=== PATIENT | female | born 1970 | race African-American/Black ===

== ENCOUNTER 2016-07-31 11:02 | Emergency (ER) | payer OTHER ==
[2016-07-31] MEDS ORDERED: Aspirin Low Dose CHEW TAB* 81 MG PO ONE (11:39)
[2016-07-31] MEDS ORDERED: NS 0.9% 1000 ML* 1,000 ML IV ONE (11:40)
[2016-07-31] MEDS ORDERED: LORazepam INJ* 2 MG/ML 1 ML VIAL IV PUSH ONE (11:40)
--- NOTE | 2016-07-31 12:16 | RAD ---
Indication: Chest pain. Single frontal view of the chest performed at 1150 hours was reviewed. Comparison is made with previous exam dated April 09, 2016. No mediastinal shift is noted. Heart is of normal size and configuration. Lung gottlieb appear clear. IMPRESSION: NO ACTIVE CARDIOPULMONARY DISEASE IS NOTED.
[2016-07-31 12:22] LABS: Hematocrit 39 % (35-47); Hemoglobin 13.2 g/dl (12.0-16.0); Mean Corpuscular HGB Conc 34 g/dl (31-36); Mean Corpuscular Hemoglobin 30 pg (27-31); Mean Corpuscular Volume 89 fL (80-97); Mean Platelet Volume 7 um3 (7.4-10.4); Red Blood Count 4.36 10^6/ul (4.0-5.4); Red Cell Distribution Width 14 % (10.5-15); White Blood Count 7.9 10^3/ul (3.5-10.8)
[2016-07-31 12:36] LABS: Albumin 3.9 g/dL (3.2-5.2); BUN/Creatinine Ratio 17.9 (8-20); Calcium 9.3 mg/dL (8.6-10.3); EGFR African American 121.3 (>60); EGFR Non-African American 94.3 (>60); Globulin 3.5 g/dL (2-4); Total Bilirubin 0.5 mg/dL (0.2-1.0); Total Protein 7.4 g/dL (6.4-8.9)
[2016-07-31 12:37] LABS: Troponin I 0.01 ng/mL (<0.04)
[2016-07-31 13:35] VITALS: BP 118/79
--- NOTE | 2016-08-04 12:06 | ED ---
Kadi Mayo Claudia, scribed for Carmita Thompson MD on 07/31/16 at 1148 . Respiratory - HPI Summary HPI Summary: 45 year old female presents tot he ED with SOB and trouble catching her breath. Pt notes sudden onset when she found out that she was meeting her son in an ambulance at [facility] [place]. PMHx of panic attacks, anxiety is noted. Pt did not take her lorazepam today. Pt denies any abd pain but admits to some CP and notes it is hard to catch her breath. - History of Current Complaint Chief Complaint: EDDizziness Stated Complaint: HIGH BLOOD PRESSURE/DIZZY Hx Obtained From: Patient Onset/Duration: Sudden Onset, Still Present Timing: Constant Pain Intensity: 7 Associated Signs and Symptoms: SOB, Chest Pain - Allergy/Home Medications Allergies/Adverse Reactions: Allergies Allergy/AdvReac Type Severity Reaction Status Date / Time Ibuprofen [From Motrin] AdvReac Intermediate Abdominal Verified 07/31/16 11:06 Pain PMH/Surg Hx/FS Hx/Imm Hx Previously Healthy: Yes Cardiovascular History: Reports: Hx Hypertension Denies: Hx Congestive Heart Failure, Hx Pacemaker/ICD Respiratory History: Reports: Hx Asthma Denies: Hx Chronic Obstructive Pulmonary Disease (COPD) History: Denies: Hx Dialysis, Hx Renal Disease Musculoskeletal History: Reports: Other Musculoskeletal History - fibromyalgia Sensory History: Denies: Hx Hearing Aid Neurological History: Reports: Other Neuro Impairments/Disorders - vertigo Psychiatric History: Reports: Hx Anxiety, Hx Panic Disorder - ANXIETY - Cancer History Hx Chemotherapy: No Hx Radiation Therapy: No - Surgical History Surgery Procedure, Year, and Place: PARTIAL HYSTERECTOMY 09/1999, TUBAL 1996, GALLBLADDER 1994 - Immunization History Date of Tetanus Vaccine: Unk Date of Influenza Vaccine: None Fall 2013 Infectious Disease History: No Infectious Disease History: Reports: Hx of Known/Suspected MRSA Denies: Traveled Outside the [place] in Last 30 Days - Family History Known Family History: Positive: None - reviewed & noncontributory Negative: Cardiac Disease, Hypertension, Diabetes, Other - negative FHx of breast CA - Social History Lives: With Family Alcohol Use: Occasionally Hx Substance Use: No Substance Use Type: Reports: None Hx Tobacco Use: No Smoking Status (MU): Never Smoked Tobacco Review of Systems Constitutional: Negative Eyes: Negative ENT: Negative Positive: Chest Pain Positive: Shortness Of Breath Negative: Abdominal Pain Genitourinary: Negative Musculoskeletal: Negative Skin: Negative Neurological: Negative Positive: Anxious All Other Systems Reviewed And Are Negative: Yes Physical Exam Triage Information Reviewed: Yes Vital Signs On Initial Exam: Initial Vitals Temp Pulse Resp BP Pulse Ox 98.2 F 113 22 153/72 98 07/31/16 11:03 07/31/16 11:03 07/31/16 11:03 07/31/16 11:03 07/31/16 11:03 Vital Signs Reviewed: Yes Appearance: Positive: Well-Appearing, No Pain Distress Skin: Positive: Warm, Skin Color Reflects Adequate Perfusion, Dry Head/Face: Positive: Normal Head/Face Inspection Eyes: Positive: EOMI, TIANNA ENT: Positive: Pharynx normal, TMs normal Neck: Positive: Supple, Nontender Respiratory/Lung Sounds: Positive: Clear to Auscultation, Breath Sounds Present , Other - tachypnea Cardiovascular: Positive: Tachycardia. Negative: Murmur, Rub Abdomen Description: Positive: Nontender, Soft. Negative: Distended, Guarding Musculoskeletal: Positive: Strength/ROM Intact. Negative: Edema Left, Edema Right Neurological: Positive: Sensory/Motor Intact, Alert, Oriented to Person Place, Time, CN Intact II-III Psychiatric: Positive: Affect/Mood Appropriate Diagnostics - Vital Signs Vital Signs Temp Pulse Resp BP Pulse Ox 07/31/16 11:03 98.2 F 113 22 153/72 98 - Laboratory Lab Results: Lab Results 07/31/16 07/31/16 07/31/16 Range/Units 12:10 12:10 12:10 WBC 7.9 (3.5-10.8) 10^3/ul RBC 4.36 (4.0-5.4) 10^6/ul Hgb 13.2 (12.0-16.0) g/dl Hct 39 (35-47) % MCV 89 (80-97) fL MCH 30 (27-31) pg MCHC 34 (31-36) g/dl RDW 14 (10.5-15) % Plt Count 320 (150-450) 10^3/ul MPV 7 L (7.4-10.4) um3 Neut % (Auto) 66.9 (38-83) % Lymph % (Auto) 22.2 L (25-47) % [place] % (Auto) 9.0 (1-9) % Eos % (Auto) 1.1 (0-6) % Baso % (Auto) 0.8 (0-2) % Absolute Neuts (auto) 5.3 (1.5-7.7) 10^3/ul Absolute Lymphs (auto) 1.7 (1.0-4.8) 10^3/ul Absolute Monos (auto) 0.7 (0-0.8) 10^3/ul Absolute Eos (auto) 0.1 (0-0.6) 10^3/ul Absolute Basos (auto) 0.1 (0-0.2) 10^3/ul Absolute Nucleated RBC 0 10^3/ul Nucleated RBC % 0 Sodium 135 (133-145) mmol/L Potassium 4.0 (3.5-5.0) mmol/L Chloride 103 (101-111) mmol/L Carbon Dioxide 26 (22-32) mmol/L Anion Gap 6 (2-11) mmol/L BUN 12 (6-24) mg/dL Creatinine 0.67 (0.51-0.95) mg/dL Est GFR ( Amer) 121.3 (>60) Est GFR (Non-Af Amer) 94.3 (>60) BUN/Creatinine Ratio 17.9 (8-20) Glucose 96 (70-100) mg/dL Lactic Acid 1.2 (0.5-2.0) mmol/L Calcium 9.3 (8.6-10.3) mg/dL Total Bilirubin 0.50 (0.2-1.0) mg/dL AST 23 (13-39) U/L ALT 20 (7-52) U/L Alkaline Phosphatase 56 (34-104) U/L Troponin I 0.01 (<0.04) ng/mL Total Protein 7.4 (6.4-8.9) g/dL Albumin 3.9 (3.2-5.2) g/dL Globulin 3.5 (2-4) g/dL Albumin/Globulin Ratio 1.1 (1-3) Result Diagrams: 07/31/16 12:10 07/31/16 12:10 Lab Statement: Any lab studies that have been ordered have been reviewed, and results considered in the medical decision making process. - Radiology CHEST XRAY Xray Interpretation: No Acute Changes - NO ACTIVE CARDIOPULOMARY DISEASE IS NOTED Radiology Interpretation Completed By: Radiologist - EKG 11:09 Cardiac Rate: Tachycardia EKG Rhythm: Sinus Tachycardia - 104 beats/min Re-Evaluation - Re-Evaluation 1 Re-Evaluation Time: 01:30 Change: Improved Comment: Pt is improved and is ready to be d/c home. Disposition - Diagnoses Provider Diagnoses: Panic attack Discharge - Discharge Plan Condition: Stable Disposition: HOME Patient Education Materials: Anxiety (ED) Referrals: Nenita Walter MD [Primary Care Provider] - 3 Days The documentation as recorded by the Kadi gage Claudia accurately reflects the service I personally performed and the decisions made by me, Carmita Thompson MD.
== END 2016-07-31 13:33 | disposition home or self-care (01) ==
LOC: ED 11:02
DX: F41.0 Panic disorder [episodic paroxysmal anxiety] (principal); R06.02 Shortness of breath; R07.9 Chest pain, unspecified
CPT/HCPCS: 36415; 71010; 80053; 83605; 84484; 85025; 93005; 96374; 99282; A9270-GY; J2060

== ENCOUNTER 2016-08-22 02:04 | Emergency (ER) | payer OTHER ==
--- NOTE | 2016-08-22 03:00 | ED ---
gary Mayo Timothy, scribed for Juan Norman MD on 08/22/16 at 0233 . HPI Chest Pain - HPI Summary HPI Summary: Kiara Barker is a 45 yo female presenting to [facility] with 10/10 GUNN, photosensitivity, dizziness, CP, and vomiting since 1600 08/21/16. Her MHx includes vertigo, DM II, fibromylagia, anxiety, asthma. - History of Current Complaint Chief Complaint: EDChestPainROMI Time Seen by Provider: 08/22/16 02:29 Hx Obtained From: Patient Onset/Duration: Started Hours Ago, Still Present Time of Onset: 16:00 Timing: Constant Initial Severity: Moderate Current Severity: Moderate Pain Intensity: 10 Pain Scale Used: 0-10 Numeric Chest Pain Location: Diffuse Associated Signs and Symptoms: Positive: Chest Pain, Dizziness, Vomiting - Allergy/Home Medications Allergies/Adverse Reactions: Allergies Allergy/AdvReac Type Severity Reaction Status Date / Time Ibuprofen [From Motrin] AdvReac Intermediate Abdominal Verified 07/31/16 11:06 Pain PMH/Surg Hx/FS Hx/Imm Hx Endocrine/Hematology History: Reports: Hx Diabetes Cardiovascular History: Reports: Hx Hypertension Denies: Hx Congestive Heart Failure, Hx Pacemaker/ICD Respiratory History: Reports: Hx Asthma Denies: Hx Chronic Obstructive Pulmonary Disease (COPD) History: Denies: Hx Dialysis, Hx Renal Disease Musculoskeletal History: Reports: Other Musculoskeletal History - fibromyalgia Sensory History: Denies: Hx Hearing Aid Neurological History: Reports: Other Neuro Impairments/Disorders - vertigo Psychiatric History: Reports: Hx Anxiety, Hx Panic Disorder - ANXIETY - Cancer History Hx Chemotherapy: No Hx Radiation Therapy: No - Surgical History Surgery Procedure, Year, and Place: PARTIAL HYSTERECTOMY 09/1999, TUBAL 1996, GALLBLADDER 1994 - Immunization History Date of Tetanus Vaccine: Unk Date of Influenza Vaccine: None Fall 2013 Infectious Disease History: Yes Infectious Disease History: Reports: Hx of Known/Suspected MRSA Denies: Traveled Outside the [place] in Last 30 Days - Family History Known Family History: Positive: None - reviewed & noncontributory Negative: Cardiac Disease, Hypertension, Diabetes, Other - negative FHx of breast CA - Social History Alcohol Use: Occasionally Hx Substance Use: No Substance Use Type: Reports: None Hx Tobacco Use: No Smoking Status (MU): Never Smoked Tobacco Review of Systems Constitutional: Negative Positive: Photophobia ENT: Negative Positive: Chest Pain Respiratory: Negative Positive: Vomiting Genitourinary: Negative Musculoskeletal: Negative Skin: Negative Neurological: Other - dizziness Positive: Headache Psychological: Normal All Other Systems Reviewed And Are Negative: Yes Physical Exam Triage Information Reviewed: Yes Vital Signs On Initial Exam: Initial Vitals Temp Pulse Resp BP Pulse Ox 99.3 F 123 20 135/83 100 08/22/16 02:06 08/22/16 02:06 08/22/16 02:06 08/22/16 02:06 08/22/16 02:06 Vital Signs Reviewed: Yes Appearance: Positive: No Pain Distress, Thin Skin: Positive: Warm Eyes: Positive: EOMI, TIANNA ENT: Positive: Hearing grossly normal Neck: Positive: Supple Respiratory/Lung Sounds: Positive: Clear to Auscultation, Breath Sounds Present Cardiovascular: Positive: RRR. Negative: Murmur Abdomen Description: Positive: Nontender, Soft Bowel Sounds: Positive: Present Musculoskeletal: Positive: Strength/ROM Intact Neurological: Positive: Sensory/Motor Intact, Alert, Oriented to Person Place, Time, Normal Gait Psychiatric: Positive: Affect/Mood Appropriate Diagnostics - Vital Signs Vital Signs Temp Pulse Resp BP Pulse Ox 08/22/16 02:06 99.3 F 123 20 135/83 100 - Laboratory Result Diagrams: 08/22/16 03:55 08/22/16 03:55 Lab Statement: Any lab studies that have been ordered have been reviewed, and results considered in the medical decision making process. - Radiology CXR Xray Interpretation: No Acute Changes - No acute disease Radiology Interpretation Completed By: ED Physician - EKG 0219 Cardiac Rate: Tachycardia EKG Rhythm: Sinus Rhythm EKG Interpretation: Sinus tachycardia @ 110 BPM. Re-Evaluation - Re-Evaluation First Eval Re-Evaluation Time: 05:00 Change: Improved Chest Pain Course/Dx - Course Assessment/Plan: Kiara Barker is a 45 yo female presenting to [facility] with GUNN, photosensitivity, CP, dizziness, and vomiting. After normal EKG and CXR, as well as review of other lab work, she will be discharged home with viral syndrome and appropriate instructions. - Diagnoses Provider Diagnoses: Viral syndrome Discharge - Discharge Plan Condition: Stable Disposition: HOME Patient Education Materials: Viral Syndrome (ED) Referrals: Nenita Walter MD [Primary Care Provider] - 2 Days Additional Instructions: Please follow up with your primary care physician regarding your visit to the emergency department today. Return to the emergency department with any new or recurring symptoms. The documentation as recorded by the gary gage Timothy accurately reflects the service I personally performed and the decisions made by me, Juan Norman MD.
[2016-08-22] MEDS ORDERED: Ondansetron ODT TAB* 4 MG ONE ×2 (03:17→05:41)
[2016-08-22] MEDS ORDERED: Ondansetron ODT TAB* 4 MG PO ONE ×2 (03:20→05:46)
[2016-08-22] MEDS ORDERED: Ondansetron INJ* 2 MG/ML VIAL IV ONE (03:22)
[2016-08-22] MEDS ORDERED: NS 0.9% 1000 ML* 1,000 ML IV ONE (03:22)
[2016-08-22] MEDS ORDERED: Acetaminophen TAB* 325 MG PO ONE (04:08)
[2016-08-22 04:33] LABS: BUN/Creatinine Ratio 13.8 (8-20); Calcium 9.4 mg/dL (8.6-10.3); EGFR African American 125.7 (>60); EGFR Non-African American 97.7 (>60); Globulin 3.6 g/dL (2-4); Magnesium 1.9 mg/dL (1.9-2.7); Total Bilirubin 0.5 mg/dL (0.2-1.0); Total Protein 7.6 g/dL (6.4-8.9)
[2016-08-22 04:38] LABS: Potassium 3.6 mmol/L (3.5-5.0)
[2016-08-22 04:48] LABS: Hematocrit 42 % (35-47); Mean Corpuscular HGB Conc 34 g/dl (31-36); Mean Corpuscular Hemoglobin 30 pg (27-31); Mean Corpuscular Volume 89 fL (80-97); Mean Platelet Volume 7 um3 (7.4-10.4); Red Blood Count 4.66 10^6/ul (4.0-5.4); Red Cell Distribution Width 14 % (10.5-15); White Blood Count 6.7 10^3/ul (3.5-10.8)
[2016-08-22 05:48] VITALS: BP 108/62
--- NOTE | 2016-08-22 08:01 | RAD ---
INDICATION: Cough COMPARISON: Most recent comparison chest x-rays dated July 31, 2016 TECHNIQUE: PA and lateral views of the chest were obtained. FINDINGS: The heart and mediastinum are normal in size and contour. The lungs are grossly clear. There is no evidence of large pleural effusion. Visualized bones are normal for the patient's age. There is no radiographic evidence of free air beneath the diaphragm IMPRESSION: No radiographic evidence of acute cardiopulmonary disease.
== END 2016-08-22 05:48 | disposition home or self-care (01) ==
LOC: ED 02:04
DX: B34.9 Viral infection, unspecified (principal); R07.9 Chest pain, unspecified; R11.10 Vomiting, unspecified; R42 Dizziness and giddiness
CPT/HCPCS: 36415; 71020; 80053; 83735; 84484; 85025; 93005; 96374; 99283; A9270-GY

== ENCOUNTER 2016-08-22 16:34 | Emergency (ER) | payer OTHER ==
[2016-08-22] MEDS ORDERED: NS 0.9% 1000 ML* 1,000 ML IV ONE (17:49)
[2016-08-22] MEDS ORDERED: Ondansetron INJ* 2 MG/ML VIAL IV ONE (17:50)
[2016-08-22] MEDS ORDERED: Morphine INJ* 4 MG/ML 1 ML CARPUJECT IV ONE (17:50)
--- NOTE | 2016-08-22 18:28 | RAD ---
Indication: Headache. CT of the brain was performed without IV contrast. Comparison is made with previous exam dated March 21, 2016. Ventricular structures are midline. No midline shift is noted. The extra-axial spaces are unremarkable. There is no evidence of intracranial mass or hemorrhage. No other high or low density lesions are identified. Mastoid air cells and paranasal sinuses are otherwise unremarkable. IMPRESSION: No intracranial mass or hemorrhage is noted.
[2016-08-22 18:58] LABS: ALT 25 U/L (7-52); Albumin 4.2 g/dL (3.2-5.2); Alkaline Phosphatase 69 U/L (34-104); BUN/Creatinine Ratio 11.1 (8-20); Blood Urea Nitrogen 8 mg/dL (6-24); CO2 Carbon Dioxide 18 mmol/L (22-32); Calcium 9.6 mg/dL (8.6-10.3); Chloride 104 mmol/L (101-111); EGFR African American 111.7 (>60); EGFR Non-African American 86.8 (>60); Globulin 4.1 g/dL (2-4); Glucose 99 mg/dL (70-100); Sodium 133 mmol/L (133-145); Total Protein 8.3 g/dL (6.4-8.9)
[2016-08-22 19:00] LABS: Hematocrit 44 % (35-47); Hemoglobin 14.8 g/dl (12.0-16.0); Mean Corpuscular HGB Conc 33 g/dl (31-36); Mean Corpuscular Hemoglobin 30 pg (27-31); Mean Corpuscular Volume 89 fL (80-97); Mean Platelet Volume 7 um3 (7.4-10.4); Red Blood Count 4.99 10^6/ul (4.0-5.4); Red Cell Distribution Width 14 % (10.5-15); White Blood Count 5.1 10^3/ul (3.5-10.8)
--- NOTE | 2016-08-22 19:39 | ED ---
Headache - HPI Summary HPI Summary: The patient is a 45 female presenting to ED for complaint of right frontal headache which began gradually 2 days ago and has been progressively worse. Current headache described as 10/10 squeezing pain non-radiating. Admits to associated photophobia, phonophobia, dizziness described as the room spinning, nausea, and vomiting. Denies history of migraines. Has been unable to take oral meds. History of HTN, DM, Vertigo, Fibromyalgia, Depression. On Januvia, Valium , Lyrica and Lisinopril. Denies significant FH. Allergy ibuprofen - nausea, dyspepsia. SH: Denies smoking or IVDU. Occasional alcohol use. - History Of Current Complaint Chief Complaint: EDHeadache Stated Complaint: HEADACHE/DIZZY/FEVER Time Seen by Provider: 08/22/16 19:09 - Allergies/Home Medications Allergies/Adverse Reactions: Allergies Allergy/AdvReac Type Severity Reaction Status Date / Time Ibuprofen [From Motrin] AdvReac Intermediate Abdominal Verified 07/31/16 11:06 Pain PMH/Surg Hx/FS Hx/Imm Hx Endocrine/Hematology History: Reports: Hx Diabetes Cardiovascular History: Reports: Hx Hypertension Denies: Hx Congestive Heart Failure, Hx Pacemaker/ICD Respiratory History: Reports: Hx Asthma Denies: Hx Chronic Obstructive Pulmonary Disease (COPD) History: Denies: Hx Dialysis, Hx Renal Disease Musculoskeletal History: Reports: Other Musculoskeletal History - fibromyalgia Sensory History: Denies: Hx Hearing Aid Neurological History: Reports: Other Neuro Impairments/Disorders - vertigo Psychiatric History: Reports: Hx Anxiety, Hx Panic Disorder - ANXIETY - Cancer History Hx Chemotherapy: No Hx Radiation Therapy: No - Surgical History Surgery Procedure, Year, and Place: PARTIAL HYSTERECTOMY 09/1999, TUBAL 1996, GALLBLADDER 1994 - Immunization History Date of Tetanus Vaccine: Unk Date of Influenza Vaccine: None Fall 2013 Infectious Disease History: Yes Infectious Disease History: Reports: Hx of Known/Suspected MRSA Denies: Traveled Outside the [place] in Last 30 Days - Family History Known Family History: Positive: None - reviewed & noncontributory Negative: Cardiac Disease, Hypertension, Diabetes, Other - negative FHx of breast CA - Social History Alcohol Use: Occasionally Hx Substance Use: No Substance Use Type: Reports: None Substance Use Comment - Amount & Last Used: Unknown Hx Tobacco Use: No Smoking Status (MU): Never Smoked Tobacco Review of Systems Constitutional: Negative Positive: Photophobia. Negative: Blurred Vision, Diplopia ENT: Negative Negative: Sore Throat, Nasal Discharge Cardiovascular: Negative Negative: Chest Pain Positive: Cough. Negative: Shortness Of Breath Positive: Vomiting, Nausea. Negative: Abdominal Pain, Diarrhea Genitourinary: Negative Negative: dysuria, frequency, hematuria Musculoskeletal: Negative Negative: Arthralgia, Decreased ROM Skin: Negative Negative: Rash, Bruising Positive: Headache. Negative: Weakness, Paresthesia, Numbness, Slurred Speech Positive: Anxious All Other Systems Reviewed And Are Negative: Yes Physical Exam - Summary Physical Exam Summary: Strong odor of marijuana in room. Triage Information Reviewed: Yes Vital Signs On Initial Exam: Initial Vitals Temp Pulse Resp BP Pulse Ox 99.0 F 110 20 132/85 100 08/22/16 16:40 08/22/16 16:40 08/22/16 16:40 08/22/16 16:40 08/22/16 16:40 Vital Signs Reviewed: Yes Appearance: Positive: Well-Appearing, Pain Distress - moderate pain; guarding eyes from bright lights Skin: Positive: Warm, Skin Color Reflects Adequate Perfusion, Dry Head/Face: Positive: Normal Head/Face Inspection, Other - no palpable cord. Negative: Temporal Artery Tenderness, TMJ Tenderness, Cephalohematoma Eyes: Positive: Normal, EOMI - no nystagmus, TIANNA - positive photophobia, Conjunctiva Clear. Negative: Conjunctiva Inflammed, Discharge ENT: Positive: Normal ENT inspection, Hearing grossly normal, Pharynx normal, TMs normal. Negative: Pharyngeal erythema, Nasal congestion, Nasal drainage, TM bulging, TM dull, TM red, Tonsillar swelling, Tonsillar exudate Neck: Positive: Supple, Nontender, No Lymphadenopathy Respiratory/Lung Sounds: Positive: Clear to Auscultation, Breath Sounds Present , Other - bronchospasmic cough. Negative: Decreased Breath Sounds, Rales, Rhonchi, Wheezes, Unable to speak in full sentences Cardiovascular: Positive: Normal - radial pulse 2+, RRR, S1, S2. Negative: Murmur, Rub, Tachycardia, Leg Edema Left, Leg Edema Right, S3 Abdomen Description: Positive: Nontender, No Organomegaly, Soft. Negative: CVA Tenderness (R), CVA Tenderness (L), Distended, Guarding, Peritoneal Signs Bowel Sounds: Positive: Present Musculoskeletal: Positive: Normal, Strength/ROM Intact - 5/5 muscle strength bilateral UE/LE Neurological: Positive: Normal, Sensory/Motor Intact, Alert, Oriented to Person Place, Time, CN Intact II-III, Reflexes Intact, Babinski Bilateral - downward, Finger to Nose - normal, Facial Symmetry, Speech Normal. Negative: Receptive Aphasia, Expressive Aphasia, Slurred Speech, Dysarthric Aphasia, Pronator Drift Present Psychiatric: Positive: Normal AVPU Assessment: Alert Diagnostics - Vital Signs Vital Signs Temp Pulse Resp BP Pulse Ox 08/22/16 19:31 16 08/22/16 18:52 99.1 F 117 20 117/75 100 08/22/16 17:42 97.8 F 106 18 134/78 99 08/22/16 16:40 99.0 F 110 20 132/85 100 - Laboratory Lab Results: Lab Results 08/22/16 08/22/16 Range/Units 18:21 18:43 WBC 5.1 (3.5-10.8) 10^3/ul RBC 4.99 (4.0-5.4) 10^6/ul Hgb 14.8 (12.0-16.0) g/dl Hct 44 (35-47) % MCV 89 (80-97) fL MCH 30 (27-31) pg MCHC 33 (31-36) g/dl RDW 14 (10.5-15) % Plt Count 362 (150-450) 10^3/ul MPV 7 L (7.4-10.4) um3 Neut % (Auto) 70.1 (38-83) % Lymph % (Auto) 14.1 L (25-47) % [place] % (Auto) 14.6 H (1-9) % Eos % (Auto) 0.7 (0-6) % Baso % (Auto) 0.5 (0-2) % Absolute Neuts (auto) 3.5 (1.5-7.7) 10^3/ul Absolute Lymphs (auto) 0.7 L (1.0-4.8) 10^3/ul Absolute Monos (auto) 0.7 (0-0.8) 10^3/ul Absolute Eos (auto) 0 (0-0.6) 10^3/ul Absolute Basos (auto) 0 (0-0.2) 10^3/ul Absolute Nucleated RBC 0.01 10^3/ul Nucleated RBC % 0.2 ESR Pending Sodium 133 (133-145) mmol/L Potassium Pending Chloride 104 (101-111) mmol/L Carbon Dioxide 18 L (22-32) mmol/L Anion Gap Pending BUN 8 (6-24) mg/dL Creatinine 0.72 (0.51-0.95) mg/dL Est GFR ( Amer) 111.7 (>60) Est GFR (Non-Af Amer) 86.8 (>60) BUN/Creatinine Ratio 11.1 (8-20) Glucose 99 (70-100) mg/dL Calcium 9.6 (8.6-10.3) mg/dL Total Bilirubin 0.40 (0.2-1.0) mg/dL AST Pending ALT 25 (7-52) U/L Alkaline Phosphatase 69 (34-104) U/L Total Protein 8.3 (6.4-8.9) g/dL Albumin 4.2 (3.2-5.2) g/dL Globulin 4.1 H (2-4) g/dL Albumin/Globulin Ratio 1.0 (1-3) Result Diagrams: 08/22/16 18:43 08/22/16 21:15 Lab Statement: Any lab studies that have been ordered have been reviewed, and results considered in the medical decision making process. Re-Evaluation - Re-Evaluation First Eval Re-Evaluation Time: 20:54 Change: Improved Comment: Current pain decreased to 6/10. Will order additional analgesic. Second Eval Re-Evaluation Time: 21:54 Change: Unchanged Comment: Patient states no improvement in pain. RN reports patient refused Toradol. Patient states to me "I looked up toradol and it interacts with my Lexapro." I have indicated to patient single dose of toradol will not cause significant interaction with SSRI. She is now agreeable with Toradol. Third Eval Re-Evaluation Time: 23:10 Change: Improved Comment: Patient tolerated Toradol well. Significant improvement in symptoms stating current headache 2/10. Stable for discharge. Headache Course/Dx - Course Assessment/Plan: Patient presented for evaluation of headache. Labs reviewed and grossly unremarkable not requiring any emergent intervention. CT brain without acute intracranial process. Demonstrated significant improvement in headache after Toradol, Reglan, Benadryl. Adivsed on rest, oral hydration and adequate nutritional intake. Advised to call Dr. Walter tomorrow to schedule follow-up within 3-5 days. - Diagnoses Provider Diagnoses: Headache Discharge - Discharge Plan Condition: Stable Disposition: HOME Patient Education Materials: General Headache (ED) Referrals: Nenita Walter MD [Primary Care Provider] - 3 Days
--- NOTE | 2016-08-22 20:10 | ED ---
Can Mayo Anna, scribed for Carmita Thompson MD on 08/22/16 at 1751 . Progress - Progress Note Progress Note: Patient is a 45 y/o female coming to [facility] presenting with gradual onset of a constant, worsening GUNN that began two days ago. She expresses dizziness. Patient denies history of migraines. She reports she has not taken her medication for her HTN because she has also experienced emesis as a result of the GUNN. Course/Dx - Diagnoses Provider Diagnoses: Headache The documentation as recorded by the Can gage Anna accurately reflects the service I personally performed and the decisions made by Jay sadler Justine, MD.
[2016-08-22 20:40] LABS: Erythrocyte Sed Rate 24 mm/Hr (0-14)
[2016-08-22] MEDS ORDERED: diPHENhydraMINE IV* 50 MG/ML 1 ml VIAL (BENADRYL) IV ONE (20:53)
[2016-08-22] MEDS ORDERED: Ketorolac INJ* 15 MG/ML 1 ML VIAL IV PUSH ONE ×2 (20:53→21:53)
[2016-08-22] MEDS ORDERED: Metoclopramide IV* 5 MG/ML 2 ML VIAL IV ONE (20:53)
[2016-08-23 00:19] VITALS: BP 125/86
== END 2016-08-23 00:10 | disposition home or self-care (01) ==
LOC: ED 16:34
DX: R51 Headache (principal); I10 Essential (primary) hypertension; Z91.14 Patient's other noncompliance with medication regimen; E11.9 Type 2 diabetes mellitus without complications; M79.7 Fibromyalgia; F32.9 Major depressive disorder, single episode, unspecified; J45.909 Unspecified asthma, uncomplicated; F41.9 Anxiety disorder, unspecified
CPT/HCPCS: 36415; 70450; 80053; 85025; 85652; 96374; 96375; 96376; 99284; J1200; J1885; J2270; J2405; J2765

== ENCOUNTER 2016-11-20 18:07 | Inpatient (IN) | payer MEDICAID, OTHER ==
[2016-11-20 19:11] LABS: Hematocrit 40 % (35-47); Hemoglobin 13.3 g/dl (12.0-16.0); Mean Corpuscular HGB Conc 34 g/dl (31-36); Mean Corpuscular Hemoglobin 30 pg (27-31); Mean Corpuscular Volume 90 fL (80-97); Mean Platelet Volume 7 um3 (7.4-10.4); Red Blood Count 4.46 10^6/ul (4.0-5.4); Red Cell Distribution Width 14 % (10.5-15); White Blood Count 8.7 10^3/ul (3.5-10.8)
[2016-11-20 19:22] LABS: ALT 16 U/L (7-52); AST 20 U/L (13-39); Albumin 4.1 g/dL (3.2-5.2); Alkaline Phosphatase 71 U/L (34-104); Anion Gap 10 mmol/L (2-11); BUN/Creatinine Ratio 17.6 (8-20); Blood Urea Nitrogen 13 mg/dL (6-24); CO2 Carbon Dioxide 26 mmol/L (22-32); Calcium 9.3 mg/dL (8.6-10.3); Chloride 99 mmol/L (101-111); EGFR African American 107.7 (>60); EGFR Non-African American 83.8 (>60); Globulin 3.8 g/dL (2-4); Glucose 126 mg/dL (70-100); Potassium 3.7 mmol/L (3.5-5.0); Sodium 135 mmol/L (133-145); Total Protein 7.9 g/dL (6.4-8.9)
[2016-11-20 19:25] LABS: Acetaminophen < 15 mcg/mL; Alcohol < 10 mg/dL (<10); Salicylate < 2.50 mg/dL (<30)
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
[2016-11-21] MEDS ORDERED: Acetaminophen TAB* 325 MG PO PRN (02:40)
[2016-11-21] MEDS ORDERED: Al Hydrox/Mg Hydrox/Simet LIQ* 30 ML UDC PO PRN (02:40)
[2016-11-21] MEDS ORDERED: Meclizine TAB* 12.5 MG PO PRN (02:44)
[2016-11-21] MEDS: Naproxen TAB* 250 MG PO PRN ×2 (08:47→17:32)
[2016-11-21] MEDS: CMCS SitaGLIPtin (NF) 25 MG TAB PO SCH (08:48)
[2016-11-21] MEDS: Vitamin THERAPEUTIC TAB PO SCH (08:49)
[2016-11-21] MEDS ORDERED: DULoxetine DR CAP* 30 MG CAP.DR PO SCH (09:00)
[2016-11-21] MEDS: Ondansetron ODT TAB* 4 MG PO PRN ×2 (11:00→22:40)
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
[2016-11-21 20:15] LABS: Urine Bilirubin Negative (Negative); Urine Glucose Negative (Negative); Urine Nitrite Negative (Negative)
[2016-11-21 20:31] LABS: Benzodiazepine Urine Screen None Detected (None Detect)
[2016-11-21] MEDS: Venlafaxine EXT RELEASE CAP* 75 MG PO SCH (22:38)
[2016-11-21] MEDS: Cholecalciferol TAB* 1000 UNITS PO SCH (22:39)
[2016-11-21] MEDS: Lisinopril TAB* 5 MG PO SCH (22:39)
[2016-11-22] MEDS: Ondansetron ODT TAB* 4 MG PO PRN (08:10)
[2016-11-22] MEDS: CMCS SitaGLIPtin (NF) 25 MG TAB PO SCH (08:10)
[2016-11-22] MEDS ORDERED: Venlafaxine ER (NF) 150 MG CAP.ER PO SCH (09:00)
[2016-11-22] MEDS: Vitamin THERAPEUTIC TAB PO SCH (09:39)
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
[2016-11-22] MEDS ORDERED: Nicotine Inhaler* 10 MG AMP INH PRN (16:00)
[2016-11-22] MEDS: Cholecalciferol TAB* 1000 UNITS PO SCH (20:25)
[2016-11-22] MEDS: Lisinopril TAB* 5 MG PO SCH (20:25)
[2016-11-22] MEDS: Venlafaxine EXT RELEASE CAP* 75 MG PO SCH (20:25)
[2016-11-23] MEDS: Vitamin THERAPEUTIC TAB PO SCH (09:01)
[2016-11-23] MEDS: CMCS SitaGLIPtin (NF) 25 MG TAB PO SCH (09:01)
--- NOTE | 2016-11-23 10:40 | PN ---
Subjective - Subjective Service Type: 88169 Hosp care 15 min low complexity Subjective: Kiara reports progressive mood improvement. Denies ongoing wishes. She notes reduced emotional pain, better coping. She agrees with further care, but says she really hopes to be released by weekend for family activities. She agrees with doing MMPI. She complained of poor sleep, noting "thinking a lot" at night. We discussed options, she chose to have Benadryl prn available. Objective - Appearance Appearance: Healthy Appearing Hygiene: Normal Grooming: Well Kept - Behavior Psychomotor Activities: Normal - Attitude and Relatedness Attitude and Relatedness: Cooperative Eye Contact: Good - Speech Quality: Unpressured Latencies: Normal Quantity: Appropriate - Mood Patient's Decription of Mood: "Okay" - Affect Observed Affect: Non-labile Affect Consistent with: Dysphoria - mild - Thought Process Patient's Thought Process: Coherent Thought Content: No Passive Wish, No Suicidal Planning, No Homicidal Ideation, No Paranoid Ideation - Sensorium Experiencing Hallucinations: No, Sensorium is Clear - Level of Consciousness Level of Consciousness: Alert - Impulse Control Impulse Control: Intact - Insight and Judgement Insight and Judgement: Fair Assessment - Assessment Merits Inpatient Hospitalization: For Stabilization, To Initiate Treatment, For Ongoing Evaluation, Consolidate Improvements, For Discharge Planning Inpatient DSM-IV Dx: Depressive disorder Clinical Impression: 46 y/o female with history of multiple prior psychiatric hospitalizations, suicide attempts, outpatient treatment. She was admitted due to concern over a suicide attempt by overdose, in the setting of increased mood symptoms and distress. The precipitant was multiple stressors. Kiara is stabilizing here. Behaviorally is safe on checks, free of ongoing active suicidal ideation. Her suicide attempt was of low/intermediate medical seriousness, and moderate psychological seriousness (while it was impulsive there was no apparent effort to self-rescue). Clinically she is improving, and has continued with depressive symptoms, but milder, and with reduced distress. Medication mgt. continues outpatient regimen of Effexor, and provides Benadryl prn insomnia. Plan to evaluate with MMPI testing. Given progress and status, expect d/c in ~2 days. Plan - Plan Treatment Plan: Name: KIARA CALDERON Birthdate: 1970 [id number] Continued Medication Management: Continue Outpt Medication Medications: Current Medications Acetaminophen (Tylenol Tab*) 650 mg PO Q4H PRN PRN Reason: PAIN or TEMP > 101 F Al Hydrox/Mg Hydrox/Simethicone (Maalox Plus*) 30 ml PO Q4H PRN PRN Reason: INDIGESTION Cholecalciferol (Vitamin D Tab*) 2,000 units PO BEDTIME [facility] Last Admin: 11/22/16 20:25 Dose: 2,000 units Lisinopril (Prinivil Tab*) 5 mg PO BEDTIME [facility] Last Admin: 11/22/16 20:25 Dose: 5 mg Meclizine HCl (Antivert Tab*) 25 mg PO TID PRN PRN Reason: DIZZINESS Multivitamins (Theragran Tab*) 1 tab PO DAILY [facility] Last Admin: 11/23/16 09:01 Dose: 1 tab Naproxen (Naprosyn Tab*) 500 mg PO BID PRN PRN Reason: PAIN Last Admin: 11/21/16 17:32 Dose: 500 mg Nicotine (Nicotine Inhaler*) 10 mg INH Q2H PRN PRN Reason: CRAVING Ondansetron HCl (Zofran Odt Tab*) 4 mg PO Q6H PRN PRN Reason: NAUSEA Last Admin: 11/22/16 08:10 Dose: 4 mg Sitagliptin Phosphate (Januvia (Nf)) 25 mg PO DAILY [facility] Last Admin: 11/23/16 09:01 Dose: 25 mg Venlafaxine HCl (Effexor Xr Cap*) 225 mg PO BEDTIME [facility] Last Admin: 11/22/16 20:25 Dose: 225 mg - Discharge Plan Discharge Plan: Outpatient Follow Up
--- NOTE | 2016-11-23 11:36 | PN ---
[facility]: Group Therapy Note - Service Type Service Type: [id number] Group Psychotherapy - Cognitive Behavioral Group Therapy ( CBT):Patient was attentive and participatory in CBT programming this morning, and remained in good behavioral control. Patient expressed positive insights regarding relevant treatment interventions and goals.
[2016-11-23] MEDS: Docusate CAP* 100 MG PO SCH ×2 (12:27→20:15)
[2016-11-23] MEDS: Lisinopril TAB* 5 MG PO SCH (20:14)
[2016-11-23] MEDS: Venlafaxine EXT RELEASE CAP* 75 MG PO SCH (20:14)
[2016-11-23] MEDS: Cholecalciferol TAB* 1000 UNITS PO SCH (20:15)
[2016-11-23] MEDS: Senna TAB PO SCH (20:15)
[2016-11-23] MEDS: diPHENhydraMINE PO* 50 MG PO PRN (21:03)
[2016-11-24] MEDS: Docusate CAP* 100 MG PO SCH ×2 (08:29→20:15)
[2016-11-24] MEDS: CMCS SitaGLIPtin (NF) 25 MG TAB PO SCH (08:29)
[2016-11-24] MEDS: Vitamin THERAPEUTIC TAB PO SCH (08:29)
--- NOTE | 2016-11-24 11:22 | PN ---
Subjective - Subjective Service Type: 74252 Hosp care 15 min low complexity Subjective: Kiara reports further progress, with no setbacks. Still feels down and anxious at times, but denies un-manageable pain or suicidal thoughts. Still wants to plan d/c for tomorrow. Sleep was middling overnight - latency was short, but she had awakening(s). Objective - Appearance Appearance: Well Developed/Nourished Hygiene: Normal Grooming: Well Kept - Behavior Psychomotor Activities: Normal - Attitude and Relatedness Attitude and Relatedness: Cooperative Eye Contact: Good - Speech Quality: Unpressured Latencies: Normal Quantity: Terse - Mood Patient's Decription of Mood: "Fine" - Affect Observed Affect: Non-labile Affect Consistent with: Dysphoria - mild - Thought Process Patient's Thought Process: Coherent, Goal Directed Thought Content: No Passive Wish, No Suicidal Planning, No Homicidal Ideation, No Paranoid Ideation - Sensorium Experiencing Hallucinations: No, Sensorium is Clear - Level of Consciousness Level of Consciousness: Alert - Impulse Control Impulse Control: Intact - Insight and Judgement Insight and Judgement: Fair Assessment - Assessment Merits Inpatient Hospitalization: To Initiate Treatment, For Ongoing Evaluation , Consolidate Improvements, For Discharge Planning Inpatient DSM-IV Dx: Depressive disorder Clinical Impression: 46 y/o female with history of multiple prior psychiatric hospitalizations, suicide attempts, outpatient treatment. She was admitted due to concern over a suicide attempt by overdose, in the setting of increased mood symptoms and distress. The precipitant was multiple stressors. Kiara has stabilized here. Behaviorally she is consistently safe on checks, and free of ongoing active suicidal ideation. Clinically she is improving, with milder depressive symptoms, reduced distress and anxiety, and improved subjective coping. Medication mgt. continues outpatient regimen of Effexor, and provides Benadryl prn insomnia. Psychological testing with MMPI was correlated clinically - see Dr. Nelson's consultation note. Given progress and status, expect d/c tomorrow. Risk concerns center on suicide risk. Kiara's suicide attempt was of low/ intermediate medical seriousness, and moderate psychological seriousness (while it was impulsive there was no apparent effort to self-rescue). Acute risk is reduced on the basis of her milder symptom burden, improved coping. Plan - Plan Treatment Plan: Name: KIARA CALDREON Birthdate: 1970 [id number] Continued Medication Management: Continue Outpt Medication Medications: Current Medications Acetaminophen (Tylenol Tab*) 650 mg PO Q4H PRN PRN Reason: PAIN or TEMP > 101 F Al Hydrox/Mg Hydrox/Simethicone (Maalox Plus*) 30 ml PO Q4H PRN PRN Reason: INDIGESTION Cholecalciferol (Vitamin D Tab*) 2,000 units PO BEDTIME [facility] Last Admin: 11/23/16 20:15 Dose: 2,000 units Diphenhydramine HCl (Benadryl Po*) 50 mg PO BEDTIME PRN PRN Reason: INSOMNIA Last Admin: 11/23/16 21:03 Dose: 50 mg Docusate Sodium (Colace Cap*) 100 mg PO BID [facility] Last Admin: 11/24/16 08:29 Dose: 100 mg Lisinopril (Prinivil Tab*) 5 mg PO BEDTIME [facility] Last Admin: 11/23/16 20:14 Dose: 5 mg Meclizine HCl (Antivert Tab*) 25 mg PO TID PRN PRN Reason: DIZZINESS Multivitamins (Theragran Tab*) 1 tab PO DAILY [facility] Last Admin: 11/24/16 08:29 Dose: 1 tab Naproxen (Naprosyn Tab*) 500 mg PO BID PRN PRN Reason: PAIN Last Admin: 11/21/16 17:32 Dose: 500 mg Nicotine (Nicotine Inhaler*) 10 mg INH Q2H PRN PRN Reason: CRAVING Ondansetron HCl (Zofran Odt Tab*) 4 mg PO Q6H PRN PRN Reason: NAUSEA Last Admin: 11/22/16 08:10 Dose: 4 mg Senna (Senokot Tab*) 2 tab PO BEDTIME [facility] Last Admin: 11/23/16 20:15 Dose: 2 tab Sitagliptin Phosphate (Januvia (Nf)) 25 mg PO DAILY [facility] Last Admin: 11/24/16 08:29 Dose: 25 mg Venlafaxine HCl (Effexor Xr Cap*) 225 mg PO BEDTIME [facility] Last Admin: 11/23/16 20:14 Dose: 225 mg - Discharge Plan Discharge Plan: Outpatient Follow Up Outpatient Program: [facility]
[2016-11-24] MEDS: Lisinopril TAB* 5 MG PO SCH (20:15)
[2016-11-24] MEDS: Senna TAB PO SCH (20:15)
[2016-11-24] MEDS: Cholecalciferol TAB* 1000 UNITS PO SCH (20:15)
[2016-11-24] MEDS: diPHENhydraMINE PO* 50 MG PO PRN (20:16)
[2016-11-24] MEDS: Venlafaxine EXT RELEASE CAP* 75 MG PO SCH (20:16)
--- NOTE | 2016-11-24 20:59 | CONS ---
PSYCHOLOGICAL REPORT: DATE OF CONSULT: 11/24/16 REASON FOR REFERRAL: Kiara was referred for personality testing in order to address concerns regarding lethality as well as diagnostic impression. Concerns are related to characterological vulnerabilities. TEST ADMINISTERED: Kiara completed the [place] Multiphasic Personality Inventory - 2 (MMPI-2). She was given feedback regarding test results in individual conversation. RELEVANT HISTORY: Kiara describes increasingly emotional duress that was initiated by a breakup with a boyfriend of 5 years' time. She cites family conflict as the primary stressor leading to him moving out. Kiara describes having 3 children, 2 adult sons and 1 adult daughter, who all continue to live at home. In particular, she cites deteriorating relationship with her 20-year- old daughter, who is currently employed at [employer] and has been a consistent source of emotional duress secondary to rather demanding lifestyle including recently purchasing [employer] on her month's credit. Kiara describes this by doing a great deal for not only her daughter but also high-needs son who has Prader- Willi, who still lives at home, she cites experiencing a very invalidating environment in terms of emotional support. She repeatedly stated that she always "gives and gives" but never receives much emotional or material supports from her children other than citing how her high-needs son is more emotionally supportive and connected to her in such a fashion. 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 However, she reports increasing physical difficulties secondary to joint difficulties consistent with fibromyalgia as well as being bothered by the chemicals she uses in cleaning because of her asthma. She expresses concerns about her physical viability in terms of continuing such work. BEHAVIORAL OBSERVATIONS: Kiara is a 46-year-old woman of mixed descent, who has been compliant with group unit and structure. Although she describes recurring depression, she presents with fair affect that is appropriately variable to conversation. She is interactive with staff and peers and expresses appreciation for services offered. She is an open case at [facility] where she describes good adjustment. She reports positive reaction to initiation of Effexor particularly, and also cites supportive therapies have been helpful. TEST RESULTS: Kiara has a moderate elevation on the FB scale (T=75) on the validity indicators, leading to a mildly elevated neurotic triad (T scores are between 75 and 68). She also has a mild elevation on the schizophrenia scale (T =70). The latter elevation impresses as been secondary to family dynamics and recent breakup rather than any concerns about psychosis. Persons who elevate the neurotic triad often are endorsing difficulties with physical function with depression being the primary clinical indicator. Persons who have significant physical difficulties are likely to elevate this regardless of emotional problems. 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 She impresses as been motivated to engage in therapies and be compliant with medication, as she is expressing duress and is hopeful of feeling better, describing positive reaction to prior treatment. Clinical discussion with Kiara focused on trying to alter family dynamics is a positive way citing how she has been placed in a very demanding financial situation apparently by her daughter. She is somewhat lost in affect in direction on how to change this, as she does not wish to have an estranged relationship with her daughter and is fearful of setting appropriate boundaries. Discussion addressed possible double binds in that she is apparently in a very difficult situation and is likely to end with financial difficulties. Discussion also addressed what an invalidating response is in a relationship and how apparently her daughter can engage in such a dynamic and a rather caustic way. Discussion also encouraged Kiara to engage in outpatient treatment in more active and regular fashion apparently she has been, encouraging her to make weekly appointments in the time after her discharge if able to. Concerns regarding characterological vulnerabilities were not apparent in the testing context nor in interview. [id number]/[facility] #: [id number] HEMALATHA
[2016-11-25 07:43] VITALS: BP 120/75
[2016-11-25] MEDS: CMCS SitaGLIPtin (NF) 25 MG TAB PO SCH (08:26)
[2016-11-25] MEDS: Docusate CAP* 100 MG PO SCH (08:26)
[2016-11-25] MEDS: Vitamin THERAPEUTIC TAB PO SCH (08:26)
--- NOTE | 2016-11-25 11:40 | DS ---
Subjective - Subjective Service Types: 17312 [facility] Day Mgmt simple under 30 min Discharge Date: 11/25/16 Subjective: Kiara remained eager for release today. She affirms she is safe, and feels good about being alive. She said programming was helpful and that her coping has really improved. She denied emotional pain, and mood and outlook are "good." Not noted ongoing poor subjective sleep, which contributes to anxiety. She declined further inpatient care. We discussed her regiment and reconciled her home medication - she confirmed not taking Cymbalta - she asked about resuming Valium use, and I advised against it, noting it's risks. She said she sees no barriers to routine clinical care, or emergency help here if needed again. Objective - Appearance Appearance: Healthy Appearing Hygiene: Normal Grooming: Well Kept - Behavior Psychomotor Activities: Normal - Attitude and Relatedness Attitude and Relatedness: Appropriate Eye Contact: Good - Speech Quality: Unpressured Latencies: Normal Quantity: Appropriate - Mood Patient's Decription of Mood: "Fine" - Affect Observed Affect: Non-labile Affect Consistent with: Euthymia Treatment Course & Assessment Clinical Course & Impression: 46 y/o female with history of multiple prior psychiatric hospitalizations, suicide attempts, outpatient treatment. She was admitted due to concern over a suicide attempt by overdose, in the setting of increased mood symptoms and distress. The precipitant was multiple stressors. 11/25/16: Clear for release. Kiara stabilized here. Behaviorally she was consistently safe on checks, and free of ongoing active suicidal ideation. Clinically she has made progressive improvements, with substantially milder depressive symptoms, markedly reduced distress and anxiety, and improved subjective coping. Medication mgt. continued her outpatient regimen of Effexor, and provided Benadryl prn insomnia. Psychological testing with MMPI was correlated clinically - see Dr. Nelson's consultation note. Given progress, preference, and status, she is appropriate for outpatient care. Risk concerns center on suicide risk. Kiara's suicide attempt was of low/ intermediate medical seriousness, and moderate psychological seriousness (while it was impulsive there was no apparent effort to self-rescue). Acute risk is reduced an assessed as low on the basis of her milder symptom burden, improved coping, and absence of impairment. She has multiple factors in her profile that elevate her baseline chronic risk for suicide. Clear for Discharge: Adequate Clinical Respons, Acceptable Safety Profile, Low Utility of Inpt Care Inpatient DSM-IV Dx: Depressive disorder Discharge Planning - Discharge Planning Discharge Plan: Outpatient Follow Up Outpatient Program: [facility] Recommendations for Continuing Care: Medication Management, Psychotherapy Medications: Current Medications Cholecalciferol (Vitamin D Tab*) 2,000 units PO BEDTIME [facility] Last Admin: 11/24/16 20:15 Dose: 2,000 units Docusate Sodium (Colace Cap*) 100 mg PO BID [facility] Last Admin: 11/25/16 08:26 Dose: 100 mg Lisinopril (Prinivil Tab*) 5 mg PO BEDTIME [facility] Last Admin: 11/24/16 20:15 Dose: 5 mg Meclizine HCl (Antivert Tab*) 25 mg PO TID PRN PRN Reason: DIZZINESS Naproxen (Naprosyn Tab*) 500 mg PO BID PRN PRN Reason: PAIN Last Admin: 11/21/16 17:32 Dose: 500 mg Senna (Senokot Tab*) 2 tab PO BEDTIME [facility] Last Admin: 11/24/16 20:15 Dose: 2 tab Sitagliptin Phosphate (Januvia (Nf)) 25 mg PO DAILY [facility] Last Admin: 11/25/16 08:26 Dose: 25 mg Venlafaxine HCl (Effexor Xr Cap*) 225 mg PO BEDTIME [facility] Last Admin: 11/24/16 20:16 Dose: 225 mg Discharge Planning: Prescriptions provided for discharge [X] Yes colace, senna , venlafaxine er Follow up care details as per social work arrangements. Patient response to discharge plan: [X] eager for discharge [] agreeable with discharge plan [] ambivalent about discharge [] disagrees with discharge today
== END 2016-11-25 12:15 | disposition home or self-care (01) | DRG 754 ==
LOC: ED 18:07 → BSU 11-21 00:47
PROVIDERS: ADMIT Internal Medicine; ATTEND Internal Medicine
PROC: GZHZZZZ Group Psychotherapy (ICD-10-PCS; principal; 2016-11-23)
DX: F32.9 Major depressive disorder, single episode, unspecified (principal); E11.9 Type 2 diabetes mellitus without complications; I10 Essential (primary) hypertension; T45.0X2A Poisoning by antiallergic and antiemetic drugs, intentional self-harm, initial encounter; T40.2X2A Poisoning by other opioids, intentional self-harm, initial encounter; J45.909 Unspecified asthma, uncomplicated; F41.0 Panic disorder [episodic paroxysmal anxiety]; N63 Unspecified lump in breast; M79.7 Fibromyalgia; E04.1 Nontoxic single thyroid nodule; Z81.8 Family history of other mental and behavioral disorders; Z91.5 Personal history of self-harm; Z72.89 Other problems related to lifestyle; Z56.0 Unemployment, unspecified; Z88.6 Allergy status to analgesic agent; Z90.711 Acquired absence of uterus with remaining cervical stump; Z98.51 Tubal ligation status; Z90.49 Acquired absence of other specified parts of digestive tract; Z79.84 Long term (current) use of oral hypoglycemic drugs
CPT/HCPCS: 36415; 80053; 80307; 80320; 80329; 81003; 83605; 85025; 90853; 93005; 99222; 99231; 99232; A9270-GY; G0480

== ENCOUNTER 2017-04-13 12:45 | Emergency (ER) | payer OTHER ==
[2017-04-13 13:36] VITALS: BP 146/83
--- NOTE | 2017-04-13 13:56 | ED ---
Back Pain - HPI Summary HPI Summary: right side groin and SI joint pain--for a couple of days no known injury--- taking usual pain meds with some relief did get an injection a pain clinic and had tried a Lidoderm patch - History of Current Complaint Chief Complaint: EDBackInjuryPain Stated Complaint: RT SIDE PAIN/DIFF WALKING Time Seen by Provider: 04/13/17 13:45 Hx Obtained From: Patient Onset/Duration: Sudden Onset, Lasting Days, Still Present Timing: Constant Back Pain Location: Is Discrete @ - right SI Joint and Groin Severity Initially: Severe Severity Currently: Severe Pain Intensity: 10 Character: Sharp, Aching, Spasmodic Aggravating Symptom(s): Movement Associated Signs And Symptoms: Positive: Negative Related History: Similar Episode Dx As - does have a history of chronic pain - Allergies/Home Medications Allergies/Adverse Reactions: Allergies Allergy/AdvReac Type Severity Reaction Status Date / Time Ibuprofen [From Motrin] AdvReac Intermediate Abdominal Verified 11/21/16 09:40 Pain PMH/Surg Hx/FS Hx/Imm Hx Previously Healthy: No Endocrine/Hematology History: Reports: Hx Diabetes Denies: Hx Anemia Cardiovascular History: Reports: Hx Hypertension Denies: Hx Congestive Heart Failure, Hx Pacemaker/ICD Respiratory History: Reports: Hx Asthma Denies: Hx Chronic Obstructive Pulmonary Disease (COPD) GI History: Reports: Other GI Disorders - patient states chronic nausea Denies: Hx Jaundice History: Denies: Hx Dialysis, Hx Renal Disease Musculoskeletal History: Reports: Hx Arthritis, Hx Back Problems, Hx Fibromyalgia Comment Only: Other Musculoskeletal History - fibromyalgia Sensory History: Reports: Hx Contacts or Glasses Denies: Hx Hearing Aid Opthamlomology History: Reports: Hx Contacts or Glasses Neurological History: Reports: Hx Migraine, Hx Nerve Disease - fibromyalgia, Other Neuro Impairments/Disorders - vertigo Psychiatric History: Reports: Hx Anxiety, Hx Depression, Hx Panic Disorder - ANXIETY, Hx Suicide Attempt Denies: Hx Eating Disorder - Cancer History Hx Chemotherapy: No Hx Radiation Therapy: No - Surgical History Surgery Procedure, Year, and Place: PARTIAL HYSTERECTOMY 09/1999, TUBAL 1996, GALLBLADDER 1994 - Immunization History Date of Tetanus Vaccine: Unk Date of Influenza Vaccine: None Fall 2013 Infectious Disease History: Yes Infectious Disease History: Reports: Hx of Known/Suspected MRSA Denies: Traveled Outside the [place] in Last 30 Days - Family History Known Family History: Positive: None - reviewed & noncontributory Negative: Cardiac Disease, Hypertension, Diabetes, Other - negative FHx of breast CA - Social History Occupation: Unemployed Lives: With Family Alcohol Use: None Hx Substance Use: No Substance Use Type: Reports: None Substance Use Comment - Amount & Last Used: Unknown Hx Tobacco Use: No Smoking Status (MU): Never Smoked Tobacco Have You Smoked in the Last Year: No Review of Systems Constitutional: Negative Eyes: Negative ENT: Negative Cardiovascular: Negative Respiratory: Negative Gastrointestinal: Negative Genitourinary: Negative Positive: Arthralgia - right si and groin Skin: Negative Neurological: Negative Psychological: Normal All Other Systems Reviewed And Are Negative: Yes Physical Exam Triage Information Reviewed: Yes Vital Signs On Initial Exam: Initial Vitals Temp Pulse Resp BP Pulse Ox 97.9 F 85 16 146/83 100 04/13/17 13:32 04/13/17 13:32 04/13/17 13:32 04/13/17 13:32 04/13/17 13:32 Vital Signs Reviewed: Yes Appearance: Positive: Well-Appearing, No Pain Distress - mild, Well-Nourished Skin: Positive: Warm, Skin Color Reflects Adequate Perfusion Head/Face: Positive: Normal Head/Face Inspection Eyes: Positive: Normal, Conjunctiva Clear ENT: Positive: Normal ENT inspection, Hearing grossly normal. Negative: Tonsillar swelling, Tonsillar exudate, Trismus, Muffled/hoarse voice Neck: Positive: Supple, Nontender, No Lymphadenopathy Respiratory/Lung Sounds: Positive: Clear to Auscultation, Breath Sounds Present Cardiovascular: Positive: Normal, RRR Musculoskeletal: Positive: Normal, Strength/ROM Intact - right hip Neurological: Positive: Normal, Sensory/Motor Intact, Alert, Oriented to Person Place, Time Psychiatric: Positive: Normal AVPU Assessment: Alert - Jenni Coma Scale Best Eye Response: 4 - Spontaneous Best Motor Response: 6 - Obeys Commands Best Verbal Response: 5 - Oriented Diagnostics - Vital Signs Vital Signs Temp Pulse Resp BP Pulse Ox 04/13/17 13:32 97.9 F 85 16 146/83 100 - Laboratory Lab Statement: Any lab studies that have been ordered have been reviewed, and results considered in the medical decision making process. - Radiology No standard instances Xray Interpretation: No Acute Changes Radiology Interpretation Completed By: Radiologist Back Pain Course/Dx - Course Assessment/Plan: continue care with pain clinic zanaflex may be helpful in managing the muscle pain---follow at pain clinic and with primary care coordinator - Diagnoses Provider Diagnoses: Sciatic pain Discharge - Discharge Plan Condition: Good Disposition: HOME Prescriptions: tiZANidine TAB* [Zanaflex TAB*] 2 mg PO TID PRN #20 tab PRN Reason: muscular pain Patient Education Materials: Hypertension (ED), Chronic Back Pain (ED) Referrals: Nenita Walter MD [Primary Care Provider] - 1 Week
--- NOTE | 2017-04-13 14:49 | RAD ---
HISTORY: SI joint pain, right COMPARISONS: August 21, 2009 VIEWS: 1, Single frontal view of the pelvis FINDINGS: BONE DENSITY: Normal. BONES: There is no displaced fracture. JOINTS: There is no arthropathy. ALIGNMENT: There is no dislocation. SOFT TISSUES: Unremarkable. OTHER FINDINGS: None. IMPRESSION: NO ACUTE OSSEOUS INJURY. IF SYMPTOMS PERSIST, RECOMMEND REPEAT IMAGING.
== END 2017-04-13 15:18 | disposition home or self-care (01) ==
LOC: ED 12:45
DX: M54.31 Sciatica, right side (principal); E11.9 Type 2 diabetes mellitus without complications; I10 Essential (primary) hypertension; J45.909 Unspecified asthma, uncomplicated; G43.909 Migraine, unspecified, not intractable, without status migrainosus; M79.7 Fibromyalgia; F41.0 Panic disorder [episodic paroxysmal anxiety]; F32.9 Major depressive disorder, single episode, unspecified; Z86.14 Personal history of Methicillin resistant Staphylococcus aureus infection; Z90.711 Acquired absence of uterus with remaining cervical stump; Z90.49 Acquired absence of other specified parts of digestive tract; Z88.6 Allergy status to analgesic agent
CPT/HCPCS: 72170; 99281

== ENCOUNTER 2017-04-20 15:59 | Observation (INO) | payer OTHER ==
[2017-04-20] MEDS ORDERED: Metoprolol Tartrate TAB* 25 MG PO ONE (16:30)
[2017-04-20] MEDS: Nitroglycerin TAB 0.4 MG* 0.4 MG TAB SL PRN ×3 (16:53→17:19)
--- NOTE | 2017-04-20 16:55 | RAD ---
Indication: Chest pain. 2 views of the chest including dual energy PA views are reviewed. No mediastinal shift is noted. Heart is of normal size and configuration. Lung gottlieb are clear. When compared to previous exam of August 22, 2016 no significant change is noted. IMPRESSION: No active cardiopulmonary disease is noted.
[2017-04-20 17:20] LABS: Hematocrit 38 % (35-47); Hemoglobin 12.9 g/dl (12.0-16.0); Mean Corpuscular HGB Conc 34 g/dl (31-36); Mean Corpuscular Hemoglobin 30 pg (27-31); Mean Corpuscular Volume 89 fL (80-97); Mean Platelet Volume 7 um3 (7.4-10.4); Red Blood Count 4.29 10^6/ul (4.0-5.4); Red Cell Distribution Width 14 % (10.5-15); White Blood Count 10.2 10^3/ul (3.5-10.8)
[2017-04-20 17:35] LABS: Albumin 3.8 g/dL (3.2-5.2); BUN/Creatinine Ratio 24.2 (8-20); Calcium 9.2 mg/dL (8.6-10.3); EGFR African American 132.1 (>60); EGFR Non-African American 102.7 (>60); Globulin 3.5 g/dL (2-4); Magnesium 2.1 mg/dL (1.9-2.7); Potassium 3.5 mmol/L (3.5-5.0); Total Bilirubin 0.3 mg/dL (0.2-1.0); Total Protein 7.3 g/dL (6.4-8.9)
[2017-04-20 18:08] LABS: TSH (Thyroid Stimulating Horm) 3.1 mcIU/mL (0.34-5.60)
[2017-04-20] MEDS ORDERED: Morphine INJ* 2 MG/ML 1 ML CARPUJECT IV ONE (18:58)
[2017-04-20] MEDS ORDERED: NS 0.9% 1000 ML* 1,000 ML IV ONE (18:58)
[2017-04-20] MEDS ORDERED: Morphine INJ* 2 MG/ML 1 ML SYRINGE (TWO MG - NEW SYRINGE VERSION) IV PRN (19:23)
[2017-04-20] MEDS ORDERED: Docusate CAP* 100 MG PO PRN (19:25)
[2017-04-20] MEDS ORDERED: Diazepam TAB(*) 5 MG PO PRN (19:25)
[2017-04-20] MEDS ORDERED: Senna TAB PO PRN (19:25)
[2017-04-20] MEDS ORDERED: Dextrose 50% Syringe 50 ML* 25 GM/50 ML SYRINGE IV PUSH PRN (19:50)
[2017-04-20] MEDS ORDERED: Aspirin TAB* 325 MG PO STA (19:54)
[2017-04-20] MEDS ORDERED: Gabapentin CAP(*) 300 MG PO SCH (20:00)
[2017-04-20] MEDS ORDERED: Venlafaxine EXT RELEASE CAP* 75 MG PO SCH (21:00)
[2017-04-20] MEDS ORDERED: Lisinopril TAB* 5 MG PO SCH (21:00)
[2017-04-20] MEDS: Insulin LISPRO* 1 UNITS UNIT SUBCUT SCH (21:23)
[2017-04-20] MEDS: Atorvastatin* 80 MG TAB PO SCH ×2 (21:31→22:06)
[2017-04-20] MEDS: Heparin VIAL(*) 5000 UNITS/ML VIAL (FIVE THOUSAND) SUBCUT SCH (21:36)
--- NOTE | 2017-04-21 00:53 | HP ---
HISTORY AND PHYSICAL: DATE OF ADMISSION: 04/20/17 PRIMARY CARE PROVIDER: Nenita Walter MD ADMITTING PROVIDER: Santi Francois MD CHIEF COMPLAINT: Chest pressure, nausea, diaphoresis, shortness of breath. HISTORY OF PRESENT ILLNESS: The patient is a 46-year-old female with a past medical history of non-insulin dependent diabetes mellitus, hypertension, anxiety, depression with 2 admissions for suicidal ideation in 1988 and 1994, thyroid nodule and fibromyalgia who was doing some housework at 1430 on the day of admission when she started to have left-sided chest pressure, worse with deep breaths. She had sensations of hot and cold. She felt nauseous secondary to sensation of mucous in her throat. She was diaphoretic and had some shortness of breath. She has followed with Dr. Altman at [facility] and reports that she had a stress test and echocardiogram around 2 years ago, reportedly normal, not available in our system. She follows with him for hypertension. She was brought to [facility] Emergency Room. She received nitroglycerin 0.4 mg sublingual q.5 minutes x3 with resolution of her chest pain per Dr. Schmitt. The patient also received aspirin, do not see documented in the EMR, unclear if that was given with EMS. She was hypertensive on arrival, 177/105. She got metoprolol tartrate 25 mg p.o. and blood pressures are now in the low 110s to 106/61 latest. The patient states symptoms have now returned with 6/10 pressure, but no other symptoms except for some still pleuritic pain with deep breathing. EKG demonstrated T-wave inversions in V1, otherwise normal sinus rhythm. Heart rate 95, normal axis, normal intervals. No ST depressions or elevations. QTC 443. Chest x-ray was obtained, which showed no acute intrathoracic process. The patient will be admitted to for ACS rule out given her diabetes and ongoing symptoms. MEDICATIONS: Include: 1. Effexor 225 mg q.h.s. 2. Gabapentin 600 mg q.p.m., 300 mg q.a.m., and 300 mg at 1400. 3. Lisinopril 5 mg q.p.m. 4. Vitamin D 2000 units p.o. daily. 5. Oxycodone 15 mg tablets p.o. t.i.d. for fibromyalgia pain. 6. Senokot 2 tabs p.o. at bedtime p.r.n. 7. Meclizine 25 mg p.o. t.i.d. p.r.n. (of note, she says she has not needed this medication since starting Effexor.) 8. Docusate 100 mg p.o. b.i.d. p.r.n. 9. Januvia 25 mg p.o. daily. ALLERGIES: IBUPROFEN, causes GI upset and vomiting. FAMILY HISTORY: Mother with asthma. Dad around age 60 of unknown causes in [place]. 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 She is a never smoker, occasional social drinker, though not since starting the Effexor. She does not use any recreational drug use. REVIEW OF SYSTEMS: A complete 14-point review of systems was negative except as per HPI. The patient attests to chest pressure, diaphoresis, sensation of hot and cold, but denies fevers, chills, dysuria, cough, headaches, vision changes. Does attest to nausea, now resolved. Some mucous or phlegm in the mouth and dry lips. PHYSICAL EXAMINATION GENERAL: In no acute distress, lying in [facility]. VITAL SIGNS: Blood pressure 106/91, satting 97% on room air, respiratory rate 16, heart rate 72. HEENT: Normocephalic, atraumatic. Pupils are equal, round, and reactive to light. Extraocular motions intact. NECK: Supple. No cervical lymphadenopathy. PULMONARY: Clear to auscultation bilaterally with no wheezing, rales or rhonchi. CARDIOVASCULAR: Regular rate and rhythm with no murmurs, rubs, or gallops. ABDOMEN: Soft, nontender, nondistended. No guarding. No peritoneal signs. EXTREMITIES: Warm, well perfused. No peripheral edema. NEUROLOGIC: Cranial nerves II through XII grossly intact, moving all extremities. Sensation intact. SKIN: No lesions, no ulcers noted. DIAGNOSTIC STUDIES/LAB DATA: White count 10.2, hemoglobin 12.9, hematocrit 38 , platelets 414. Sodium 136, potassium 3.5, chloride 103, carbon dioxide 26, BUN 15, creatinine 0.62, lactic acid 1.3, magnesium 2.1. LFTs within normal limits. Troponin 0.00. BNP 47. TSH 3.10. IMAGING: Chest x-ray, no active cardiopulmonary disease noted. ASSESSMENT AND PLAN: The patient is a 46-year-old female with past medical history of diabetes, severe anxiety, depression, now seemingly better controlled on Effexor with history of suicidal ideation, fibromyalgia and chronic pain syndrome who presents with acute left-sided chest pressure, nausea , diaphoresis. Initial EKG with only T-wave inversions in V1 and negative initial troponins. She will be admitted to observation unit for acute coronary syndrome rule out. Give her morphine 2 mg IV q.2 hours p.r.n. and nitroglycerin sublingual tabs q.5 minutes. If chest pain does not resolve with these, placement on nitro drip and starting of heparin drip to be considered. We will continue on telemetry monitoring. For her fibromyalgia, continue her gabapentin 600 q.p.m., 300 q.a.m. and 300 q. afternoon. For diabetes, we will hold her Januvia, get sliding scale insulin with lispro and [id number] testing q.a.c. q.h.s. For her major depressive disorder, continue her Effexor 225 mg p.m. For her hypertension, she is now on the low side with latest systolics in the 105 region. We will hold her lisinopril right now knowing that we may have to continue to give her some morphine and other nitro, but low threshold to restart tomorrow her lisinopril 5 mg. She will be n.p.o. initially until her troponins are negative x3. We will get them every 3 hours. She is a full code. Her medical surrogate is her daughter, Aliza Mercado. [id number]/[facility] #: [id number] [facility]ITAL[facility]eept[facility]
[2017-04-21 05:34] LABS: BUN/Creatinine Ratio 16.4 (8-20); Calcium 8.9 mg/dL (8.6-10.3); EGFR African American 134.6 (>60); EGFR Non-African American 104.7 (>60); Potassium 3.8 mmol/L (3.5-5.0)
[2017-04-21] MEDS: Heparin VIAL(*) 5000 UNITS/ML VIAL (FIVE THOUSAND) SUBCUT SCH (06:17)
[2017-04-21] MEDS: Insulin LISPRO* 1 UNITS UNIT SUBCUT SCH (08:14)
[2017-04-21] MEDS ORDERED: Cholecalciferol TAB* 1000 UNITS PO SCH (09:00)
[2017-04-21] MEDS ORDERED: Gabapentin CAP(*) 300 MG PO SCH ×2 (09:00→14:00)
[2017-04-21] MEDS ORDERED: Aspirin Low Dose CHEW TAB* 81 MG PO SCH (09:00)
[2017-04-21 09:38] VITALS: BP 129/75
[2017-04-21] MEDS ORDERED: Lisinopril TAB* 5 MG PO SCH (21:00)
--- NOTE | 2017-04-22 02:59 | DS ---
DISCHARGE SUMMARY: DATE OF ADMISSION: 04/20/17 DATE OF DISCHARGE: 04/21/17 ADMITTING PROVIDER: Santi Francois MD ATTENDING PROVIDER: Santi Francois MD PRIMARY CARE PROVIDER: Nenita Walter MD CHIEF COMPLAINT: Chest pressure, nausea, diaphoresis, shortness of breath. PRINCIPAL DIAGNOSIS: Acute coronary syndrome, rule out. HISTORY OF PRESENT ILLNESS AND HOSPITAL COURSE: The patient is a 46-year-old female with past medical history of noninsulin-dependent diabetes mellitus, last A1c 5.8% on 04/04/17, hypertension, anxiety, depression, with history of 2 psychiatric admissions in and , history of suicidal ideations, thyroid nodule, fibromyalgia, who had some left-sided chest pressure, worse with deep breath that occurred while doing some housework at 1430 on the day of admission. She was diaphoretic, short of breath. She has a history of seeing Dr. Altman of [facility], had reportedly a stress test and echocardiogram around 2 years ago, which the patient says reported normal, though not available in our system. She had relief of her symptoms initially with nitroglycerin 0.4 mg sublingual tab for 3 times in the emergency room. Pressure had been 8/10 at worse. On reevaluation, the patient's pressure had returned, 6/10. The patient was given aspirin 325 mg at that time, admitted for ACS rule out. EKG demonstrated only T- wave inversion in V1, no other changes and in fact, the T-wave inversions were present prior in October 2016, stable. No arrythmias on telemetry, chest pain resolved. The patient was noted to have elevated LDL at 148, HDL was 68, and total cholesterol was 228, these were from 04/04/17. She was also initially hypertensive to the 177/105 range. She had risk stratification putting her at 10-year risk for ASCVD risk score of 4.8%, was started on moderate dose statin of Lipitor 10 mg daily. She was given prescription for sublingual nitroglycerin 0.4 mg sublingual q.5 hours p.r.n. for chest pain. No other changes in her medications were made. She will follow up with Dr. Altman for consideration of outpatient stress test. DISCHARGE MEDICATIONS: Include: 1. Atorvastatin 10 mg q.h.s. (new). 2. Diazepam 5 mg p.o. daily p.r.n. 3. Cholecalciferol 2000 units p.o. daily. 4. Docusate 100 mg p.o. b.i.d. 5. Gabapentin 600 mg q.p.m., 300 mg q.a.m., 300 mg 1400 daily for her fibromyalgia. 6. Lisinopril 5 mg q.h.s. 7. Meclizine 25 mg p.o. t.i.d., though of note has not been using this recently after starting Effexor. 8. Senna tab 2 tabs p.o. at bedtime. 9. Januvia 25 mg p.o. daily. 10. Venlafaxine (Effexor) 225 mg p.o. at bedtime. 11. Oxycodone 50 mg p.o. t.i.d. DISCHARGE DIET: Heart healthy, carbohydrate consistent. ACTIVITY LEVEL: No restriction. FOLLOWUP: Follow up with Dr. Nenita Walter and Dr. Altman next week at [facility]. [id number]/[facility] #: [id number] [facility]
--- NOTE | 2017-04-22 08:25 | ED ---
Timothy Mayo Angela, scribed for Geovanny Schmitt MD on 04/20/17 at 1627 . 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 Pt reports that at onset of her chest pain she was cleaning. Pt notes her chest pain is on the left side radiating to her left shoulder. She describes the pain as pressure and squeezing. Pt reports nausea and chills. She states her cough began today with her chest pain. She denies vomiting, SOB, chills, weakness or numbness. Pt denies MS. Her last stress test was 2 years ago. PMHx: HTN, DM. - History of Current Complaint Chief Complaint: EDChestPainROMI Time Seen by Provider: 04/20/17 16:07 Hx Obtained From: Patient Onset/Duration: Started Hours Ago - 1.5 hours OTHER SPORTS OFFICIAL Timing: Constant, Lasting Hours Current Severity: Severe Pain Intensity: 8 Pain Scale Used: 0-10 Numeric Chest Pain Location: Left Anterior Chest Pain Radiates: Yes Chest Pain Radiates To:: Shoulder - left shoulder Character: Pressure/Squeezing Aggravating Factor(s): Nothing Alleviating Factor(s): Nothing Associated Signs and Symptoms: Positive: Chest Pain, Chills, Nausea, Cough, Other: - left shoulder pain. Negative: Shortness of Breath, Fever, Vomiting - Additional Pertinent History Primary Care Physician: [id number] - Allergy/Home Medications Allergies/Adverse Reactions: Allergies Allergy/AdvReac Type Severity Reaction Status Date / Time Ibuprofen [From Motrin] AdvReac Intermediate Abdominal Verified 11/21/16 09:40 Pain Home Medications: Home Medications Cholecalciferol TAB* [Vitamin D TAB*] 2,000 units PO DAILY 04/20/17 [History Confirmed 04/20/17] Diazepam TAB(*) [Valium TAB(*)] 5 mg PO DAILY PRN 04/20/17 [History Confirmed ] Gabapentin TAB(NF) [Neurontin 600 mg TAB(NF)] 1,200 mg PO TID 04/20/17 [History Confirmed 04/20/17] Meclizine TAB* [Antivert 12.5 TAB*] 25 mg PO TID PRN 04/20/17 [History Confirmed 04/20/17] SitaGLIPtin (NF) [Januvia (NF)] 25 mg PO DAILY 04/20/17 [History Confirmed 04/20] oxyCODONE TAB* [Roxycodone TAB 5 mg*] 15 mg PO TID MDD 15 mg 04/20/17 [History Confirmed 04/20/17] PMH/Surg Hx/FS Hx/Imm Hx Endocrine/Hematology History: Reports: Hx Diabetes Denies: Hx Anemia Cardiovascular History: Reports: Hx Hypertension Denies: Hx Congestive Heart Failure, Hx Pacemaker/ICD Respiratory History: Reports: Hx Asthma Denies: Hx Chronic Obstructive Pulmonary Disease (COPD) GI History: Reports: Other GI Disorders - patient states chronic nausea Denies: Hx Jaundice History: Denies: Hx Dialysis, Hx Renal Disease Musculoskeletal History: Reports: Hx Arthritis, Hx Back Problems, Hx Fibromyalgia Comment Only: Other Musculoskeletal History - fibromyalgia Sensory History: Reports: Hx Contacts or Glasses Denies: Hx Hearing Aid Opthamlomology History: Reports: Hx Contacts or Glasses Neurological History: Reports: Hx Migraine, Hx Nerve Disease - fibromyalgia, Other Neuro Impairments/Disorders - vertigo Psychiatric History: Reports: Hx Anxiety, Hx Depression, Hx Panic Disorder - ANXIETY, Hx Suicide Attempt Denies: Hx Eating Disorder - Cancer History Hx Chemotherapy: No Hx Radiation Therapy: No - Surgical History Surgery Procedure, Year, and Place: PARTIAL HYSTERECTOMY 09/1999, TUBAL 1996, GALLBLADDER 1994 - Immunization History Date of Tetanus Vaccine: Unk Date of Influenza Vaccine: None Fall 2013 Infectious Disease History: No Infectious Disease History: Reports: Hx of Known/Suspected MRSA Denies: Traveled Outside the [place] in Last 30 Days - Family History Known Family History: Positive: Other - negative FHx of breast CA Negative: Cardiac Disease, Hypertension, Diabetes - Social History Alcohol Use: None Hx Substance Use: No Substance Use Type: Reports: None Substance Use Comment - Amount & Last Used: Unknown Hx Tobacco Use: No Smoking Status (MU): Never Smoked Tobacco Have You Smoked in the Last Year: No Review of Systems Positive: Chills. Negative: Fever Positive: Chest Pain Positive: Cough. Negative: Shortness Of Breath Positive: Nausea. Negative: Vomiting Positive: Other - left shoulder pain Skin: Negative Neurological: Negative All Other Systems Reviewed And Are Negative: Yes Physical Exam - Summary Physical Exam Summary: VITAL SIGNS: Reviewed. GENERAL: Patient is a well-developed and nourished female who is lying comfortable in the stretcher. Patient is not in any acute respiratory distress. HEAD AND FACE: No signs of trauma. No ecchymosis, hematomas or skull depressions. No sinus tenderness. EYES: PERRLA, EOMI x 2, No injected conjunctiva, no nystagmus. EARS: Hearing grossly intact. Ear canals and tympanic membranes are within normal limits. MOUTH: Oropharynx within normal limits. NECK: Supple, trachea is midline, no adenopathy, no JVD, no carotid bruit, no c- spine tenderness, neck with full ROM. CHEST: Symmetric, no tenderness at palpation LUNGS: Clear to auscultation bilaterally. No wheezing or crackles. CVS: Regular rate and rhythm, S1 and S2 present, no murmurs or gallops appreciated. ABDOMEN: Soft, non-tender. No signs of distention. No rebound no guarding, and no masses palpated. Bowel sounds are normal. EXTREMITIES: FROM in all major joints, no edema, no cyanosis or clubbing. NEURO: Alert and oriented x 3. No acute neurological deficits. Speech is normal and follows commands. SKIN: Dry and warm Triage Information Reviewed: Yes Vital Signs On Initial Exam: Initial Vitals Temp Pulse Resp BP Pulse Ox 98.1 F 96 16 177/105 99 04/20/17 16:02 04/20/17 16:02 04/20/17 16:02 04/20/17 16:02 04/20/17 16:02 Vital Signs Reviewed: Yes Diagnostics - Vital Signs Vital Signs Temp Pulse Resp BP Pulse Ox 04/20/17 16:02 98.1 F 96 16 177/105 99 - Laboratory Lab Results: Lab Results 04/20/17 04/20/17 04/20/17 Range/Units 17:04 17:04 17:04 WBC 10.2 (3.5-10.8) 10^3/ul RBC 4.29 (4.0-5.4) 10^6/ul Hgb 12.9 (12.0-16.0) g/dl Hct 38 (35-47) % MCV 89 (80-97) fL MCH 30 (27-31) pg MCHC 34 (31-36) g/dl RDW 14 (10.5-15) % Plt Count 414 (150-450) 10^3/ul MPV 7 L (7.4-10.4) um3 Neut % (Auto) 73.2 (38-83) % Lymph % (Auto) 17.5 L (25-47) % Robertson % (Auto) 8.4 (1-9) % Eos % (Auto) 0.2 (0-6) % Baso % (Auto) 0.7 (0-2) % Absolute Neuts (auto) 7.5 (1.5-7.7) 10^3/ul Absolute Lymphs (auto) 1.8 (1.0-4.8) 10^3/ul Absolute Monos (auto) 0.9 H (0-0.8) 10^3/ul Absolute Eos (auto) 0 (0-0.6) 10^3/ul Absolute Basos (auto) 0.1 (0-0.2) 10^3/ul Absolute Nucleated RBC 0 10^3/ul Nucleated RBC % 0 Sodium 136 (133-145) mmol/L Potassium 3.5 (3.5-5.0) mmol/L Chloride 103 (101-111) mmol/L Carbon Dioxide 26 (22-32) mmol/L Anion Gap 7 (2-11) mmol/L BUN 15 (6-24) mg/dL Creatinine 0.62 (0.51-0.95) mg/dL Est GFR ( Amer) 132.1 (>60) Est GFR (Non-Af Amer) 102.7 (>60) BUN/Creatinine Ratio 24.2 H (8-20) Glucose 91 (70-100) mg/dL Lactic Acid (0.5-2.0) mmol/L Calcium 9.2 (8.6-10.3) mg/dL Magnesium 2.1 (1.9-2.7) mg/dL Total Bilirubin 0.30 (0.2-1.0) mg/dL AST 15 (13-39) U/L ALT 21 (7-52) U/L Alkaline Phosphatase 63 (34-104) U/L Total Creatine Kinase 25 (10-223) U/L CK-MB (CK-2) 0.7 (0.6-6.3) ng/mL Troponin I 0.00 (<0.04) ng/mL B-Natriuretic Peptide 47 ( - 100) pg/mL Total Protein 7.3 (6.4-8.9) g/dL Albumin 3.8 (3.2-5.2) g/dL Globulin 3.5 (2-4) g/dL Albumin/Globulin Ratio 1.1 (1-3) TSH 3.10 (0.34-5.60) mcIU/mL 04/20/17 Range/Units 17:04 WBC (3.5-10.8) 10^3/ul RBC (4.0-5.4) 10^6/ul Hgb (12.0-16.0) g/dl Hct (35-47) % MCV (80-97) fL MCH (27-31) pg MCHC (31-36) g/dl RDW (10.5-15) % Plt Count (150-450) 10^3/ul MPV (7.4-10.4) um3 Neut % (Auto) (38-83) % Lymph % (Auto) (25-47) % Robertson % (Auto) (1-9) % Eos % (Auto) (0-6) % Baso % (Auto) (0-2) % Absolute Neuts (auto) (1.5-7.7) 10^3/ul Absolute Lymphs (auto) (1.0-4.8) 10^3/ul Absolute Monos (auto) (0-0.8) 10^3/ul Absolute Eos (auto) (0-0.6) 10^3/ul Absolute Basos (auto) (0-0.2) 10^3/ul Absolute Nucleated RBC 10^3/ul Nucleated RBC % Sodium (133-145) mmol/L Potassium (3.5-5.0) mmol/L Chloride (101-111) mmol/L Carbon Dioxide (22-32) mmol/L Anion Gap (2-11) mmol/L BUN (6-24) mg/dL Creatinine (0.51-0.95) mg/dL Est GFR ( Amer) (>60) Est GFR (Non-Af Amer) (>60) BUN/Creatinine Ratio (8-20) Glucose (70-100) mg/dL Lactic Acid 1.3 (0.5-2.0) mmol/L Calcium (8.6-10.3) mg/dL Magnesium (1.9-2.7) mg/dL Total Bilirubin (0.2-1.0) mg/dL AST (13-39) U/L ALT (7-52) U/L Alkaline Phosphatase (34-104) U/L Total Creatine Kinase (10-223) U/L CK-MB (CK-2) (0.6-6.3) ng/mL Troponin I (<0.04) ng/mL B-Natriuretic Peptide ( - 100) pg/mL Total Protein (6.4-8.9) g/dL Albumin (3.2-5.2) g/dL Globulin (2-4) g/dL Albumin/Globulin Ratio (1-3) TSH (0.34-5.60) mcIU/mL Result Diagrams: 04/20/17 17:04 04/21/17 04:56 Lab Statement: Any lab studies that have been ordered have been reviewed, and results considered in the medical decision making process. - Radiology Chest XR Xray Interpretation: No Acute Changes - IMPRESSION: No active cardiopulmonary disease is noted. ED physician has reviewed this radiology report and agrees. 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 Pt reports that at onset of her chest pain she was cleaning. Pt notes her chest pain is on the left side radiating to her left shoulder. She describes the pain as pressure and squeezing. Pt reports nausea and chills. She states her cough began today with her chest pain. She denies vomiting, SOB, chills, weakness or numbness. Pt denies MS. Her last stress test was 2 years ago. PMHx: HTN, DM. Test results without any significant abnormalities. Chest XR shows no active cardiopulmonary disease is noted. EKG shows no ST elevation. The chest pain was relieved by Nitroglycerin and aspirin. Since the pt has hypertension and diabetes, I discussed the case with Dr. Francois, who accepted the pt for admission for further work up and management to rule out acute coronary syndrome. - Chest Pain Differential Diagnosis/HQI/PQRI: Acute MS, ACS, Angina, CHF, Chest Wall, GI Disease, Lower Respiratory Infection, Pulmonary Edema - Diagnoses Provider Diagnoses: Chest pain, rule out ACS - Provider Notifications Discussed Care Of Patient With: Santi Francois Time Discussed With Above Provider: 18:54 Instructed by Provider To: Other - I discussed the pt's case with Dr. Francois. He has accepted the pt for admission. Discharge - Discharge Plan Condition: Stable Disposition: ADMITTED TO [facility] documentation as recorded by the Timothy gage Angela accurately reflects the service I personally performed and the decisions made by , Geovanny Schmitt MD.
== END 2017-04-21 10:50 | disposition home or self-care (01) ==
LOC: ED 15:59 → MEDTELE 19:01
PROVIDERS: ADMIT Internal Medicine; ATTEND Internal Medicine
DX: R07.9 Chest pain, unspecified (principal); R11.0 Nausea; R61 Generalized hyperhidrosis; R06.02 Shortness of breath; Z79.899 Other long term (current) drug therapy; Z88.8 Allergy status to other drugs, medicaments and biological substances
CPT/HCPCS: 36415; 71020; 80048; 80053; 82550; 82553; 83605; 83735; 83880; 84443; 84484; 85025; 87040; 93005; 96361; 96372; 96374; 99283; A9270-GY; G0378; J1644; J2270

== ENCOUNTER 2017-08-31 11:59 | Emergency (ER) | payer OTHER ==
--- OUTSIDE RECORDS SUMMARY | 2017-08-31 13:32 | XMS REPORT ---
:1970 External Reference #:[id number] Author Organization [facility] Address [address] [place] [address] Phone [phone] Care Team Providers Name Role Phone Nenita Walter M.D. 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 Primary Care Physician Unavailable Payers Type Date Identification Numbers Payment Provider Subscriber Medicaid Effective: Policy Number: [id number] [facility] Kiara Barker 2016 PayID: [id number] [address] [address] [place] [address] Medicaid Effective: 2016 Policy Number: [id number] Medicaid [place] Kiara Barker Expires: 2016 PayID: [id number] [address] [place] [address] Problems Date Description Provider Status Onset: 03/22/2016 Type 2 diabetes mellitus ROYCE Contreras Active Onset: 03/22/2016 Low back pain ROYCE Contreras Active Onset: 03/25/2016 Moderate recurrent major depression Nenita Walter M.D. Active Onset: 03/25/2016 Chronic back pain Nenita Walter M.D. Active Onset: 03/25/2016 Essential hypertension Nenita Walter M.D. Active Onset: 06/29/2016 Fibromyalgia Nenita Walter M.D. Active Onset: 11/25/2016 H/O: attempted suicide Nenita Walter M.D. Active Note: narcotic overdose Onset: 06/21/2017 Hyperlipidemia Nenita Walter M.D. Active Family History Date Family Member(s) Problem(s) Comments Father due to cholecystitis () Mother Cancer thyroid First Son Prader Willi First Son Developmentally disabled Social History Type Date Description Comments Lives With Daughter Lives With Son Lives With Boyfriend Occupation Not Currently Working Occupation Disabled Cigarette Use Never Smoked Cigarettes ETOH Use Denies alcohol use Smoking Patient has never smoked Exercise Type/Frequency Exercises rarely Allergies, Adverse Reactions, Alerts Date Description Reaction Status Severity Comments 11/25/2015 Motrin Nausea and Vomiting active Medications Medication Date Status Form Strength Qnty SIG Indications Ordering Provider Methocarbamol 07/22 Active Tablets 750mg 60tab 1 tab by s mouth [place], twice a M.D. day as needed Nitroglycerin 04/24 Active Tablets 0.4mg 14tab 1 sl q5 Sub s min x 3 [place], doses as M.D. needed for chest pain; if no relief after 3 doses call 911 Lisinopril 04/24 Active Tablets 10mg 30tab 1 by mouth I10 s every day Jose Angel M.D. Ondansetron 08/26 Active Tablets 4mg 30tab 1 tab by R11.10 Dispers s mouth [place], every 6 M.D. hours as needed Metoclopramide HCL 08/26 Active Tablets 10mg 30tab take 1 R11.10 Dispers s tablet by [place], mouth M.D. every 8 hours as needed for nausea Diphenhydramine 08/26 Active Tablets 25mg 60tab 1-2 tabs R11.10 s by mouth [place], every 6 M.D. hours as needed Zofran Odt 08/23 Active Tablets 4mg 30tab dissolve 1 Dispers s tab under [place], tongue M.D. every 6 hours as needed nausea Onetouch Ultra 2 04/25 Active Kit w/Device 1unit test blood Oscar J. /2015 s sugar once Breiman, a day or M.D. as directed dx: e11.9 last office visit 04/20/16 Ventolin HFA 04/18 Active Aerosol 108(90Bas 18uni inhale two J06.9 e) ts puffs by Annamarie, mcg/Act mouth qid Afnp-C prn cough/whee ze Januvia 03/25 Active Tablets 50mg 30tab 1 tab by s mouth [place], every day M.D. Oxycodone HCL Active Tablets 15mg tid as Unknown needed Dr Camacho Valium Active Tablets 10mg as needed Dr Macedo Albuterol Sulfate Active Nebulizer 1.25mg/3M 3ml per Unknown L nebulizer every 6 hours as needed Singulair Active Tablets 10mg 1 by mouth Unknown every day Zyrtec Allergy Active Tablets 10mg prn Effexor XR Active Caps ER 150mg 1 by mouth Unknown 24HR every day along with 75 mg Effexor XR Active Caps ER 75mg 1 by mouth Unknown 24HR every day along with 150 mg Gabapentin Active Capsules 300mg 1 po qid Atorvastatin Active Tablets 10mg 30tab 1 by mouth Nenita s every day Jake Walter Cyanocobalamin Active Solution 1000mcg/M Dr Camacho L Abilify Active Tablets 2mg 1 by mouth Unknown every morning Azithromycin 08/16 Hx Tablets 250mg 6tabs 2 by mouth every day Hilkeyorf, - x1 then 1 Afnp-C 08/21 by mouth every day x 4 more days Cyclobenzaprine 06/21 Hx Tablets 10mg 90tab take one s tablet by [place], - mouth M.D. 07/22 every hours as needed Bactrim DS 12/12 Hx Tablets 800-160mg 10tab 1 by mouth Oscar Santoyo s twice a Adrianna, - day M.D. 12/30 Azithromycin 04/18 Hx Tablets 250mg 12tab take 2 J06.9 Lakshmi s tablets by Ida, - mouth x 3d [employer] 06/29 then take 1 tablet daily for next 6 days Januvia 03/25 Hx Tablets 100mg 30tab 1 by mouth s every day [place], - M.D. 03/25 Sphygmomanometer 03/25 Hx Misc take blood I10 pressure [place], - daily M.D. 08/19 Truetrack Test 03/25 Hx Strips 100un test once E11.9 its a day Dx: [place], - E11.9 M.D. 04/25 office 03/25/16 Lisinopril 03/25 Hx Tablets 5mg 30tab Take One I10 s Tablet By [place], - Mouth M.D. 04/24 Effexor XR 00/00 Hx Caps ER 37.5mg 1 by mouth Unknown /0000 24HR qd w/75mg - 03/25 Effexor XR 00/00 Hx Caps ER 75mg 1 by mouth Unknown /0000 24HR every day - w/37.5 03/25 Albuterol Sulfate 00 Hx Powder 2 puffs Unknown /0000 every 4 - hours as 08/19 Effexor XR 00/00 Hx Caps ER 150mg 1 by mouth Unknown /0000 24HR every day - 08/19 Lipitor 00/00 Hx Tablets 20mg 1 by mouth Unknown /0000 every day - 04/24 Vital Signs Date Vital Result Comment 08/31/2017 BP Systolic 136 mmHg BP Diastolic 78 mmHg Heart Rate 76 /min Body Temperature 99.1 F Respiratory Rate 16 /min Height 61 inches 5'1" Weight 161.00 lb BMI (Body Mass Index) 30.4 kg/m2 08/16/2017 BP Systolic 124 mmHg BP Diastolic 80 mmHg Heart Rate 84 /min Body Temperature 98.4 F Respiratory Rate 16 /min Height 61 inches 5'1" Weight 174.12 lb BMI (Body Mass Index) 32.9 kg/m2 07/22/2017 BP Systolic 144 mmHg BP Diastolic 84 mmHg Heart Rate 74 /min Body Temperature 98.1 F Respiratory Rate 16 /min Height 61 inches 5'1" Weight 173.00 lb BMI (Body Mass Index) 32.7 kg/m2 06/21/2017 BP Systolic 120 mmHg BP Diastolic 80 mmHg Heart Rate 74 /min Body Temperature 98.8 F Respiratory Rate 16 /min Height 61 inches 5'1" Weight 170.00 lb BMI (Body Mass Index) 32.1 kg/m2 05/22/2017 BP Systolic 120 mmHg BP Diastolic 80 mmHg Heart Rate 68 /min Body Temperature 98.6 F Respiratory Rate 18 /min Height 61 inches 5'1" Weight 166.00 lb BMI (Body Mass Index) 31.4 kg/m2 04/24/2017 BP Systolic 110 mmHg BP Diastolic 70 mmHg Heart Rate 76 /min Body Temperature 98.8 F Respiratory Rate 18 /min Height 61 inches 5'1" Weight 167.00 lb BMI (Body Mass Index) 31.6 kg/m2 04/03/2017 BP Systolic 120 mmHg BP Diastolic 60 mmHg Heart Rate 84 /min Body Temperature 97.9 F Respiratory Rate 16 /min Height 61 inches 5'1" Weight 166.38 lb BMI (Body Mass Index) 31.4 kg/m2 12/12/2016 BP Systolic 134 mmHg BP Diastolic 78 mmHg Heart Rate 80 /min Body Temperature 98.6 F Respiratory Rate 18 /min Height 61 inches 5'1" Weight 163.00 lb BMI (Body Mass Index) 30.8 kg/m2 12/01/2016 BP Systolic 132 mmHg BP Diastolic 78 mmHg Heart Rate 84 /min Body Temperature 98.0 F Respiratory Rate 16 /min Height 61 inches 5'1" Weight 163.00 lb BMI (Body Mass Index) 30.8 kg/m2 10/19/2016 BP Systolic 130 mmHg BP Diastolic 80 mmHg Heart Rate 76 /min Respiratory Rate 16 /min Height 61 inches 5'1" Weight 160.00 lb BMI (Body Mass Index) 30.2 kg/m2 08/26/2016 BP Systolic 100 mmHg BP Diastolic 70 mmHg Heart Rate 88 /min Body Temperature 98.6 F Respiratory Rate 16 /min Height 61 inches 5'1" Weight 151.00 lb BMI (Body Mass Index) 28.5 kg/m2 08/19/2016 BP Systolic 130 mmHg BP Diastolic 72 mmHg Heart Rate 84 /min Body Temperature 97.3 F Height 61 inches 5'1" Weight 160.00 lb BMI (Body Mass Index) 30.2 kg/m2 06/29/2016 BP Systolic 118 mmHg BP Diastolic 76 mmHg Heart Rate 78 /min Body Temperature 98.2 F Respiratory Rate 16 /min Height 61 inches 5'1" Weight 158.00 lb BMI (Body Mass Index) 29.9 kg/m2 04/18/2016 BP Systolic 110 mmHg BP Diastolic 60 mmHg Heart Rate 80 /min Body Temperature 98.8 F Respiratory Rate 18 /min O2 % BldC Oximetry 98 % Height 61 inches 5'1" Weight 145.00 lb BMI (Body Mass Index) 27.4 kg/m2 03/25/2016 BP Systolic 120 mmHg BP Diastolic 70 mmHg Heart Rate 84 /min Body Temperature 97.7 F Respiratory Rate 16 /min Height 61 inches 5'1" Weight 145.00 lb BMI (Body Mass Index) 27.4 kg/m2 12/03/2015 BP Systolic 120 mmHg BP Diastolic 76 mmHg Heart Rate 80 /min Body Temperature 98.2 F Respiratory Rate 16 /min Height 61 inches 5'1" Weight 143.00 lb BMI (Body Mass Index) 27.0 kg/m2 11/25/2015 BP Systolic 118 mmHg BP Diastolic 80 mmHg Heart Rate 80 /min Body Temperature 98.4 F Respiratory Rate 16 /min Height 61 inches 5'1" Weight 143.25 lb BMI (Body Mass Index) 27.1 kg/m2 Results Test Date Test Result H/L Range Note Laboratory test finding 06/21/2017 TSH 1.400 uIU/mL 0.450-4.500 1 Metabolic Panel (14), 06/21/2017 Glucose, Serum 106 mg/dL High 65-99 1 Comprehensive BUN 10 mg/dL 6-24 1 Creatinine, Serum 0.61 mg/dL 0.57-1.00 1 eGFR If NonAfricn Am 108 mL/min/1.73 >59 1 eGFR If Africn Am 124 mL/min/1.73 >59 1 BUN/Creatinine Ratio 16 9-23 1 Sodium, Serum 143 mmol/L 134-144 1 Potassium, Serum 4.2 mmol/L 3.5-5.2 1 Chloride, Serum 103 mmol/L 96-106 1 Carbon Dioxide, Total 25 mmol/L 18-29 1 Calcium, Serum 9.2 mg/dL 8.7-10.2 1 Protein, Total, Serum 7.4 g/dL 6.0-8.5 1 Albumin, Serum 4.1 g/dL 3.5-5.5 1 Globulin, Total 3.3 g/dL 1.5-4.5 1 A/G Ratio 1.2 1.2-2.2 1 Bilirubin, Total <0.2 mg/dL 0.0-1.2 1 Alkaline Phosphatase, S 80 IU/L 39-117 1 Ast (Sgot) 21 IU/L 0-40 1 Alt (SGPT) 18 IU/L 0-32 1 Lipid Panel 06/21/2017 Cholesterol, Total 263 mg/dL High 100-199 1 Triglycerides 124 mg/dL 0-149 1 HDL Cholesterol 65 mg/dL >39 1 VLDL Cholesterol Tristan 25 mg/dL 5-40 1 LDL Cholesterol Calc 173 mg/dL High 0-99 1 Comment: TNP 1 CBC With Differential/Platelet 06/21/2017 WBC 6.2 x10E3/uL 3.4-10.8 1 RBC 4.33 x10E6/uL 3.77-5.28 1 Hemoglobin 12.8 g/dL 11.1-15.9 1 Hematocrit 39.0 % 34.0-46.6 1 MCV 90 fL 79-97 1 MCH 29.6 pg 26.6-33.0 1 MCHC 32.8 g/dL 31.5-35.7 1 RDW 14.3 % 12.3-15.4 1 Platelets 402 x10E3/uL High 150-379 1 Neutrophils 58 % Not Estab. 1 Lymphs 32 % Not Estab. 1 Monocytes 8 % Not Estab. 1 Eos 2 % Not Estab. 1 Basos 0 % Not Estab. 1 Immature Cells TNP 1 Neutrophils (Absolute) 3.6 x10E3/uL 1.4-7.0 1 Lymphs (Absolute) 2.0 x10E3/uL 0.7-3.1 1 Monocytes(Absolute) 0.5 x10E3/uL 0.1-0.9 1 Eos (Absolute) 0.1 x10E3/uL 0.0-0.4 1 Baso (Absolute) 0.0 x10E3/uL 0.0-0.2 1 Immature Granulocytes 0 % Not Estab. 1 Immature Grans (Abs) 0.0 x10E3/uL 0.0-0.1 1 NRBC TNP 1 Hematology Comments: TNP 1 Hemoglobin A1c 06/21/2017 Hemoglobin A1c 5.6 % 4.8-5.6 1, 2 Laboratory test 06/21/2017 Thyroxine (T4) Free, 1.09 ng/dL 0.82-1.77 1 finding Direct, S Laboratory test 05/22/2017 Glucose Serum 106 High 70-105 finding Laboratory test 04/20/2017 TSH (Thyroid Stim 3.10 mcIU/mL 0.34-5.60 finding Horm) Blood Culture SEE RESULT BELOW 3 CBC Auto Diff 04/20/2017 White Blood Count 10.2 10^3/uL 3.5-10.8 Red Blood Count 4.29 10^6/uL 4.0-5.4 Hemoglobin 12.9 g/dL 12.0-16.0 Hematocrit 38 % 35-47 Mean Corpuscular Volume 89 fL 80-97 Mean Corpuscular Hemoglobin 30 pg 27-31 Mean Corpuscular HGB Conc 34 g/dL 31-36 Red Cell Distribution Width 14 % 10.5-15 Platelet Count 414 10^3/uL 150-450 Mean Platelet Volume 7 um3 Low 7.4-10.4 Abs Neutrophils 7.5 10^3/uL 1.5-7.7 Abs Lymphocytes 1.8 10^3/uL 1.0-4.8 Abs Monocytes 0.9 10^3/uL High 0-0.8 Abs Eosinophils 0 10^3/uL 0-0.6 Abs Basophils 0.1 10^3/uL 0-0.2 Abs Nucleated RBC 0 10^3/uL Granulocyte % 73.2 % 38-83 Lymphocyte % 17.5 % Low 25-47 Monocyte % 8.4 % 1-9 Eosinophil % 0.2 % 0-6 Basophil % 0.7 % 0-2 Nucleated Red Blood Cells % 0 Laboratory test finding 04/20/2017 B-Type Natriuretic Peptide BNP 47 pg/mL 4 Lactic Acid 1.3 mmol/L 0.5-2.0 5 Comp Metabolic Panel 04/20/2017 Sodium 136 mmol/L 133-145 Potassium 3.5 mmol/L 3.5-5.0 Chloride 103 mmol/L 101-111 Co2 Carbon Dioxide 26 mmol/L 22-32 Anion Gap 7 mmol/L 2-11 Glucose 91 mg/dL 70-100 Blood Urea Nitrogen 15 mg/dL 6-24 Creatinine 0.62 mg/dL 0.51-0.95 BUN/Creatinine Ratio 24.2 High 8-20 Calcium 9.2 mg/dL 8.6-10.3 Total Protein 7.3 g/dL 6.4-8.9 Albumin 3.8 g/dL 3.2-5.2 Globulin 3.5 g/dL 2-4 Albumin/Globulin Ratio 1.1 1-3 Total Bilirubin 0.30 mg/dL 0.2-1.0 Alkaline Phosphatase 63 U/L 34-104 Alt 21 U/L 7-52 Ast 15 U/L 13-39 Egfr Non- 102.7 >60 Egfr 132.1 >60 6 Laboratory test finding 04/20/2017 Magnesium 2.1 mg/dL 1.9-2.7 Creatine Kinase(CK) 25 U/L 10-223 Troponin I 0.00 ng/mL <0.04 CKMB 04/20/2017 CKMB ng/mL 0.7 ng/mL 0.6-6.3 CBC No Diff 04/04/2017 White Blood Count 17.4 10^3/uL High 3.5-10.8 Red Blood Count 4.29 10^6/uL 4.0-5.4 Hemoglobin 13.0 g/dL 12.0-16.0 Hematocrit 39 % 35-47 Mean Corpuscular Volume 90 fL 80-97 Mean Corpuscular Hemoglobin 30 pg 27-31 Mean Corpuscular HGB Conc 34 g/dL 31-36 Red Cell Distribution Width 14 % 10.5-15 Platelet Count 383 10^3/uL 150-450 Mean Platelet Volume 8 um3 7.4-10.4 Urinalysis Profile 04/04/2017 Urine Color Ashlee Urine Appearance Turbid Urine Specific [place] 1.028 1.010-1.030 Urine pH 5.0 5-9 Urine Urobilinogen Negative Negative Urine Ketones Trace Negative Urine Protein 2+(100 mg/dL) Negative Urine Leukocytes Negative Negative Urine Blood Negative Negative Urine Nitrite Negative Negative Urine Bilirubin Negative Negative Urine Glucose Negative Negative Urine White Blood Cell 2+(11-20/hpf) Absent Urine Red Blood Cell 3+(>10/hpf) Absent Urine Bacteria 3+ Absent Urine Squamous Epithelial Cell Present Absent Urine Yeast Present Absent Comp Metabolic Panel 04/04/2017 Sodium 138 mmol/L 133-145 Potassium 4.3 mmol/L 3.5-5.0 Chloride 104 mmol/L 101-111 Co2 Carbon Dioxide 27 mmol/L 22-32 Anion Gap 7 mmol/L 2-11 Glucose 81 mg/dL 70-100 Blood Urea Nitrogen 11 mg/dL 6-24 Creatinine 0.64 mg/dL 0.51-0.95 BUN/Creatinine Ratio 17.2 8-20 Calcium 9.7 mg/dL 8.6-10.3 Total Protein 7.2 g/dL 6.4-8.9 Albumin 3.9 g/dL 3.2-5.2 Globulin 3.3 g/dL 2-4 Albumin/Globulin Ratio 1.2 1-3 Total Bilirubin 0.20 mg/dL 0.2-1.0 Alkaline Phosphatase 63 U/L 34-104 Alt 15 U/L 7-52 Ast 15 U/L 13-39 Egfr Non- 99.0 >60 Egfr 127.4 >60 7 Lipid Profile (Trig/Chol/HDL) 04/04/2017 Triglycerides 60 mg/dL 8 Cholesterol 228 mg/dL 9 HDL Cholesterol 67.9 mg/dL 10 LDL Cholesterol 148 mg/dL 11 Laboratory test finding 04/04/2017 Thyroxine 10.33 g/mL 6.09-12.23 TSH (Thyroid Stim Horm) 0.75 mcIU/mL 0.34-5.60 Urine Microalbumin Random 04/04/2017 Ur Microalbumin (mg/L) 82.3 mg/L Urine Creatinine 361.76 mg/dL Urine Microalbumin/Creatinine 22.7 ug/mg <31 Laboratory test finding 04/04/2017 Hemoglobin A1c (Glyco 5.8 % Less than 6.0 12 HGB) Urine Culture And Sensitivities SEE RESULT BELOW 13 Ua - Non Micro (Fma) 12/12/2016 Appearance clear Color yellow Glucose, Urine (Fma/CMC/CTX) neg Bilirubin neg Ketones neg SP Grav >=1.030 Blood neg PH 5.5 Protein neg Urobil 0.2 Nitrite neg Leukocytes (Fma/CMC/Centrex) neg Urine Culture Routine 12/12/2016 Urine Culture, Routine Final report 14 , 15 Result 1 Escherichia coli 14, 16 Antimicrobial Susceptibility See Comment: 14, 17 Laboratory test finding 11/20/2016 Acetaminophen < 15 g/mL 18 CBC Auto Diff 11/20/2016 White Blood Count 8.7 10^3/uL 3.5-10.8 Red Blood Count 4.46 10^6/uL 4.0-5.4 Hemoglobin 13.3 g/dL 12.0-16.0 Hematocrit 40 % 35-47 Mean Corpuscular Volume 90 fL 80-97 Mean Corpuscular Hemoglobin 30 pg 27-31 Mean Corpuscular HGB Conc 34 g/dL 31-36 Red Cell Distribution Width 14 % 10.5-15 Platelet Count 342 10^3/uL 150-450 Mean Platelet Volume 7 um3 Low 7.4-10.4 Abs Neutrophils 5.8 10^3/uL 1.5-7.7 Abs Lymphocytes 2.1 10^3/uL 1.0-4.8 Abs Monocytes 0.7 10^3/uL 0-0.8 Abs Eosinophils 0.1 10^3/uL 0-0.6 Abs Basophils 0.1 10^3/uL 0-0.2 Abs Nucleated RBC 0 10^3/uL Granulocyte % 66.8 % 38-83 Lymphocyte % 24.0 % Low 25-47 Monocyte % 7.9 % 1-9 Eosinophil % 0.7 % 0-6 Basophil % 0.6 % 0-2 Nucleated Red Blood Cells % 0 Laboratory test finding 11/20/2016 Lactic Acid 1.1 mmol/L 0.5-2.0 19 Comp Metabolic Panel 11/20/2016 Sodium 135 mmol/L 133-145 Potassium 3.7 mmol/L 3.5-5.0 Chloride 99 mmol/L Low 101-111 Co2 Carbon Dioxide 26 mmol/L 22-32 Anion Gap 10 mmol/L 2-11 Glucose 126 mg/dL High 70-100 Blood Urea Nitrogen 13 mg/dL 6-24 Creatinine 0.74 mg/dL 0.51-0.95 BUN/Creatinine Ratio 17.6 8-20 Calcium 9.3 mg/dL 8.6-10.3 Total Protein 7.9 g/dL 6.4-8.9 Albumin 4.1 g/dL 3.2-5.2 Globulin 3.8 g/dL 2-4 Albumin/Globulin Ratio 1.1 1-3 Total Bilirubin 0.40 mg/dL 0.2-1.0 Alkaline Phosphatase 71 U/L 34-104 Alt 16 U/L 7-52 Ast 20 U/L 13-39 Egfr Non- 83.8 >60 Egfr 107.7 >60 20 Laboratory test finding 11/20/2016 Acetaminophen < 15 g/mL 21 Alcohol < 10 mg/dL <10 Salicylate < 2.50 mg/dL <30 CBC Auto Diff 09/09/2016 White Blood Count 5.3 10^3/uL 3.5-10.8 Red Blood Count 4.55 10^6/uL 4.0-5.4 Hemoglobin 13.5 g/dL 12.0-16.0 Hematocrit 41 % 35-47 Mean Corpuscular Volume 90 fL 80-97 Mean Corpuscular Hemoglobin 30 pg 27-31 Mean Corpuscular HGB Conc 33 g/dL 31-36 Red Cell Distribution Width 14 % 10.5-15 Platelet Count 349 10^3/uL 150-450 Mean Platelet Volume 8 um3 7.4-10.4 Abs Neutrophils 3.2 10^3/uL 1.5-7.7 Abs Lymphocytes 1.5 10^3/uL 1.0-4.8 Abs Monocytes 0.5 10^3/uL 0-0.8 Abs Eosinophils 0.1 10^3/uL 0-0.6 Abs Basophils 0 10^3/uL 0-0.2 Abs Nucleated RBC 0 10^3/uL Granulocyte % 59.6 % 38-83 Lymphocyte % 28.0 % 25-47 Monocyte % 10.2 % High 1-9 Eosinophil % 1.7 % 0-6 Basophil % 0.5 % 0-2 Nucleated Red Blood Cells % 0 Comp Metabolic Panel 09/09/2016 Sodium 138 mmol/L 133-145 Potassium 4.1 mmol/L 3.5-5.0 Chloride 102 mmol/L 101-111 Co2 Carbon Dioxide 29 mmol/L 22-32 Anion Gap 7 mmol/L 2-11 Glucose 83 mg/dL 70-100 Blood Urea Nitrogen 14 mg/dL 6-24 Creatinine 0.66 mg/dL 0.51-0.95 BUN/Creatinine Ratio 21.2 High 8-20 Calcium 9.2 mg/dL 8.6-10.3 Total Protein 6.8 g/dL 6.4-8.9 Albumin 3.9 g/dL 3.2-5.2 Globulin 2.9 g/dL 2-4 Albumin/Globulin Ratio 1.3 1-3 Total Bilirubin 0.50 mg/dL 0.2-1.0 Alkaline Phosphatase 61 U/L 34-104 Alt 22 U/L 7-52 Ast 15 U/L 13-39 Egfr Non- 96.0 >60 Egfr 123.5 >60 22 Laboratory test finding 09/09/2016 Magnesium 2.0 mg/dL 1.9-2.7 23 Creatine Kinase(CK) 31 U/L 10-223 24 TSH (Thyroid Stim Horm) 1.86 mcIU/mL 0.34-5.60 25 Thyroperoxidase AB 608.12 IU/mL High <9 26 Folic Acid (Folate) 13.65 ng/mL >3.99 27 Vitamin B12 386 pg/mL 180-914 28 Vitamin D Total 25(Oh) 20.0 ng/mL Low 30-50 29 Angiotensin Converting Enzyme 20 U/L 8 - 53 30 Thyroglobulin AB 40 IU/mL <4.0 31 Anca AB Ser If 09/09/2016 C-Anca Negative Negative P-Anca Negative Negative 32 Connective Tissue Panel 09/09/2016 Anti-Nuclear Antibody 0.6 U 33 Cyclic Citrullinated Peptide <15.6 U 34 Interpretation See Comment 35 Laboratory test finding 09/09/2016 Rheumatoid Factor <15 IU/mL <15 36 Hla B27 09/09/2016 Hla B27 Negative 37 Hla B27 Interp See Comment 38 Laboratory test finding 09/09/2016 Vitamin D, 1,25 Dihydroxy 78 pg/mL 18- 78 39 Laboratory test finding 08/22/2016 Potassium Redraw 3.7 mmol/L 3.5-5.0 Ast Redraw 22 U/L 13-39 Comp Metabolic Panel 08/22/2016 Sodium 134 mmol/L 133-145 Chloride 103 mmol/L 101-111 Co2 Carbon Dioxide 24 mmol/L 22-32 Glucose 131 mg/dL High 70-100 Blood Urea Nitrogen 9 mg/dL 6-24 Creatinine 0.65 mg/dL 0.51-0.95 BUN/Creatinine Ratio 13.8 8-20 Calcium 9.4 mg/dL 8.6-10.3 Total Protein 7.6 g/dL 6.4-8.9 Albumin 4.0 g/dL 3.2-5.2 Globulin 3.6 g/dL 2-4 Albumin/Globulin Ratio 1.1 1-3 Total Bilirubin 0.50 mg/dL 0.2-1.0 Alkaline Phosphatase 66 U/L 34-104 Alt 21 U/L 7-52 Egfr Non- 97.7 >60 Egfr 125.7 >60 40 Ast 22 U/L 13-39 Potassium 3.6 mmol/L 3.5-5.0 Anion Gap 7 mmol/L 2-11 Laboratory test finding 08/22/2016 Magnesium 1.9 mg/dL 1.9-2.7 Troponin I 0.00 ng/mL <0.04 41 CBC Auto Diff 08/22/2016 White Blood Count 6.7 10^3/uL 3.5-10.8 Red Blood Count 4.66 10^6/uL 4.0-5.4 Hemoglobin 14.0 g/dL 12.0-16.0 Hematocrit 42 % 35-47 Mean Corpuscular Volume 89 fL 80-97 Mean Corpuscular Hemoglobin 30 pg 27-31 Mean Corpuscular HGB Conc 34 g/dL 31-36 Red Cell Distribution Width 14 % 10.5-15 Platelet Count 389 10^3/uL 150-450 Mean Platelet Volume 7 um3 Low 7.4-10.4 Abs Neutrophils 5.0 10^3/uL 1.5-7.7 Abs Lymphocytes 0.7 10^3/uL Low 1.0-4.8 Abs Monocytes 0.9 10^3/uL High 0-0.8 Abs Eosinophils 0.1 10^3/uL 0-0.6 Abs Basophils 0 10^3/uL 0-0.2 Abs Nucleated RBC 0 10^3/uL Granulocyte % 75.5 % 38-83 Lymphocyte % 10.1 % Low 25-47 Monocyte % 12.8 % High 1-9 Eosinophil % 1.2 % 0-6 Basophil % 0.4 % 0-2 Nucleated Red Blood Cells % 0 CBC Auto Diff 07/31/2016 White Blood Count 7.9 10^3/uL 3.5-10.8 Red Blood Count 4.36 10^6/uL 4.0-5.4 Hemoglobin 13.2 g/dL 12.0-16.0 Hematocrit 39 % 35-47 Mean Corpuscular Volume 89 fL 80-97 Mean Corpuscular Hemoglobin 30 pg 27-31 Mean Corpuscular HGB Conc 34 g/dL 31-36 Red Cell Distribution Width 14 % 10.5-15 Platelet Count 320 10^3/uL 150-450 Mean Platelet Volume 7 um3 Low 7.4-10.4 Abs Neutrophils 5.3 10^3/uL 1.5-7.7 Abs Lymphocytes 1.7 10^3/uL 1.0-4.8 Abs Monocytes 0.7 10^3/uL 0-0.8 Abs Eosinophils 0.1 10^3/uL 0-0.6 Abs Basophils 0.1 10^3/uL 0-0.2 Abs Nucleated RBC 0 10^3/uL Granulocyte % 66.9 % 38-83 Lymphocyte % 22.2 % Low 25-47 Monocyte % 9.0 % 1-9 Eosinophil % 1.1 % 0-6 Basophil % 0.8 % 0-2 Nucleated Red Blood Cells % 0 Laboratory test finding 07/31/2016 Lactic Acid 1.2 mmol/L 0.5-2.0 42 Comp Metabolic Panel 07/31/2016 Sodium 135 mmol/L 133-145 Chloride 103 mmol/L 101-111 Co2 Carbon Dioxide 26 mmol/L 22-32 Glucose 96 mg/dL 70-100 Blood Urea Nitrogen 12 mg/dL 6-24 Creatinine 0.67 mg/dL 0.51-0.95 BUN/Creatinine Ratio 17.9 8-20 Calcium 9.3 mg/dL 8.6-10.3 Total Protein 7.4 g/dL 6.4-8.9 Albumin 3.9 g/dL 3.2-5.2 Globulin 3.5 g/dL 2-4 Albumin/Globulin Ratio 1.1 1-3 Total Bilirubin 0.50 mg/dL 0.2-1.0 Alkaline Phosphatase 56 U/L 34-104 Alt 20 U/L 7-52 Egfr Non- 94.3 >60 Egfr 121.3 >60 43 Potassium 4.0 mmol/L 3.5-5.0 Anion Gap 6 mmol/L 2-11 Ast 23 U/L 13-39 Laboratory test finding 07/31/2016 Troponin I 0.01 ng/mL <0.04 44 Laboratory test finding 04/21/2016 Hemoglobin A1c (Fma) 5.4 % 4.1-5.7 Microalb, Random (Fma/CMC/CTX) 21.1 mg/L 0.5-37 Ua - Non Micro (Fma) 04/21/2016 Appearance yellow Color clear Glucose, Urine (Fma/CMC/CTX) neg Bilirubin neg Ketones trace SP Grav 1.015 Blood neg PH 7.5 Protein neg Urobil 0.2 Nitrite neg Leukocytes (Fma/CMC/Centrex) neg Comprehensive Metabolic Prof 04/21/2016 Sodium 139 mEq/L 134-149 Potassium 4.1 mEq/L 3.6-5.5 Chloride 98 mEq/L 94-112 Carbon Dioxide 26 mEq/L 21-32 Glucose 90 mg/dL 70-105 BUN 13 mg/dL 6-26 Creatinine 0.7 mg/dL 0.6-1.4 BUN/Creat Ratio 18.6 CALC 8.0-36.0 Calcium 9.1 mg/dL 8.6-10.2 Total Protein 7.2 g/dL 6.4-8.3 Albumin 4.1 g/dL 3.8-5.5 Globulin 3.1 g/dL 2.0-4.8 A/G Ratio 1.3 CALC 0.6-2.3 Alk. Phosphatase 62 U/L 30-110 Alt (SGPT) 24 U/L 7-35 Ast (Sgot) 17 U/L 5-34 Total Bilirubin 0.3 mg/dL 0.2-1.3 GFR Non- >60 ml/min/1.73m^ >=60 GFR >60 ml/min/1.73m^ >=60 Lipid Profile 04/21/2016 Cholesterol 218 mg/dL High 120-200 Triglycerides 46 mg/dL 30-200 HDL Cholesterol 70 mg/dL 30-85 LDL (Calculated) 139 CALC High 0-129 VLDL Cholesterol 9 mg/dL 0-50 HDL Risk Factor 3.1 CALC 0.0-4.4 Complete Blood Count 04/21/2016 WBC 4.5 x10^3/UL 3.6-9.6 RBC 4.35 x10^6/UL 3.90-5.70 HGB 13.5 g/dL 12.1-17.2 HCT 40 % 36-50 MCV 92.0 fL 82.2-97.4 MCH 31.0 pg 27.6-33.3 MCHC 33.7 g/dL 33.0-35.5 RDW 13.9 % High 11.6-13.7 PLT 350 x10^3/UL 150-400 MPV 6.0 fL Low 7.4-10.4 Gran # 2.7 x10^3/UL 1.5-7.2 Lymph# 1.6 x10^3/UL 0.7-4.9 [place]# 0.2 x10^3/UL 0.1-0.9 Gran % 58.3 % 42.2-75.2 Lymph % 37.1 % 20.5-51.1 [place]% 4.6 % 1.7-9.3 Laboratory test finding 04/21/2016 TSH 2.15 mIU/L 0.50-6.00 45 Laboratory test finding 04/09/2016 Troponin I 0.00 ng/mL <0.03 46 HCG < 0.60 mIU/mL 47 Comp Metabolic Panel 04/09/2016 Sodium 138 mmol/L 133-145 Potassium 3.1 mmol/L Low 3.5-5.0 Chloride 105 mmol/L 101-111 Co2 Carbon Dioxide 24 mmol/L 22-32 Anion Gap 9 mmol/L 2-11 Glucose 123 mg/dL High 70-100 Blood Urea Nitrogen 15 mg/dL 6-24 Creatinine 0.83 mg/dL 0.51-0.95 BUN/Creatinine Ratio 18.1 8-20 Calcium 9.5 mg/dL 8.6-10.3 Total Protein 7.2 g/dL 6.4-8.9 Albumin 3.8 g/dL 3.2-5.2 Globulin 3.4 g/dL 2-4 Albumin/Globulin Ratio 1.1 1-3 Total Bilirubin 0.40 mg/dL 0.2-1.0 Alkaline Phosphatase 56 U/L 34-104 Alt 16 U/L 7-52 Ast 17 U/L 13-39 Egfr Non- 73.7 >60 Egfr 94.8 >60 48 Laboratory test finding 04/09/2016 Lactic Acid 1.6 mmol/L 0.5-2.0 49 CBC Auto Diff 04/09/2016 White Blood Count 7.5 10^3/uL 3.5-10.8 Red Blood Count 4.29 10^6/uL 4.0-5.4 Hemoglobin 12.8 g/dL 12.0-16.0 Hematocrit 38 % 35-47 Mean Corpuscular Volume 89 fL 80-97 Mean Corpuscular Hemoglobin 30 pg 27-31 Mean Corpuscular HGB Conc 34 g/dL 31-36 Red Cell Distribution Width 13 % 10.5-15 Platelet Count 354 10^3/uL 150-450 Mean Platelet Volume 7 um3 Low 7.4-10.4 Abs Neutrophils 5.3 10^3/uL 1.5-7.7 Abs Lymphocytes 1.4 10^3/uL 1.0-4.8 Abs Monocytes 0.7 10^3/uL 0-0.8 Abs Eosinophils 0.1 10^3/uL 0-0.6 Abs Basophils 0 10^3/uL 0-0.2 Abs Nucleated RBC 0 10^3/uL Granulocyte % 70.5 % 38-83 Lymphocyte % 18.4 % Low 25-47 Monocyte % 9.8 % High 1-9 Eosinophil % 0.8 % 0-6 Basophil % 0.5 % 0-2 Nucleated Red Blood Cells % 0 Laboratory test finding 03/21/2016 HIV 1&2 AB Self Nonreactive Nonreactive 50 Referred Laboratory test finding 03/21/2016 Troponin I 0.00 ng/mL <0.03 51 Comp Metabolic Panel 03/21/2016 Sodium 135 mmol/L 133-145 Chloride 102 mmol/L 101-111 Co2 Carbon Dioxide 25 mmol/L 22-32 Glucose 139 mg/dL High 70-100 Blood Urea Nitrogen 14 mg/dL 6-24 Creatinine 0.64 mg/dL 0.51-0.95 BUN/Creatinine Ratio 21.9 High 8-20 Calcium 9.1 mg/dL 8.6-10.3 Total Protein 7.0 g/dL 6.4-8.9 Albumin 3.6 g/dL 3.2-5.2 Globulin 3.4 g/dL 2-4 Albumin/Globulin Ratio 1.1 1-3 Total Bilirubin 0.30 mg/dL 0.2-1.0 Alkaline Phosphatase 54 U/L 34-104 Alt 17 U/L 7-52 Egfr Non- 99.5 >60 Egfr 127.9 >60 52 Potassium 3.9 mmol/L 3.5-5.0 Anion Gap 8 mmol/L 2-11 Ast 16 U/L 13-39 CBC Auto Diff 03/21/2016 White Blood Count 8.2 10^3/uL 3.5-10.8 Red Blood Count 4.37 10^6/uL 4.0-5.4 Hemoglobin 13.3 g/dL 12.0-16.0 Hematocrit 40 % 35-47 Mean Corpuscular Volume 91 fL 80-97 Mean Corpuscular Hemoglobin 30 pg 27-31 Mean Corpuscular HGB Conc 34 g/dL 31-36 Red Cell Distribution Width 13 % 10.5-15 Platelet Count 293 10^3/uL 150-450 Mean Platelet Volume 7 um3 Low 7.4-10.4 Abs Neutrophils 5.0 10^3/uL 1.5-7.7 Abs Lymphocytes 2.5 10^3/uL 1.0-4.8 Abs Monocytes 0.6 10^3/uL 0-0.8 Abs Eosinophils 0.1 10^3/uL 0-0.6 Abs Basophils 0.1 10^3/uL 0-0.2 Abs Nucleated RBC 0 10^3/uL Granulocyte % 60.5 % 38-83 Lymphocyte % 29.8 % 25-47 Monocyte % 7.8 % 1-9 Eosinophil % 1.2 % 0-6 Basophil % 0.7 % 0-2 Nucleated Red Blood Cells % 0 1 2 sst 1 lav 2 Pre-diabetes: 5.7 - 6.4 Diabetes: >6.4 Glycemic control for adults with diabetes: <7.0 3 SEE RESULT BELOW Name: KIARA BARKER : [address]: Santi Francois MD Acct: [id number] Unit: [id number] AGE: 46 Location: [place] [address] Re04/20/17 Dis: 04/21/17 SEX: F Status: DIS Susy SPEC: [id number] VANESSA: 04/20/[address] [facility] [address]: Geovanny Schmitt MD REQ: [id number] RECD: 04/20/17 STATUS: SAVAGE PERDUE DR: Nenita Walter MD _ SOURCE: BLOOD,VENO SPDESC: ORDERED: Blood Cult Procedure Result Reported Site Aerobic Culture Bottle Final 04/25/17- 4 ML No Growth Day 5 Anaerobic Culture Bottle Final 04/25/17- 1714 ML No Growth Day 5 * ML - MAIN LAB ([facility]) . END OF REPORT * ML=Testing performed at Main Lab DEPARTMENT OF PATHOLOGY, [address] [place] [address] Mehrdad Lau M.D. Director [facility] # [id number] 4 >100 to <200 pg/mL: likely compensated congestive heart failure (CHF) 200 to 400 pg/mL: likely moderate CHF >400 pg/mL: likely moderate to severe CHF 5 [facility] Severe Sepsis and Septic Shock Management Bundle Measure requires all lactic acids initially measuring >2.0 mmol/L be repeated. 6 Because ethnic data is not always readily available, this report includes an eGFR for both -Americans and non- Americans. The National Kidney Disease Education Program (NKDEP) does not endorse the use of the MDRD equation for patients that are not between the ages of 18 and 70, are , have extremes of body size, muscle mass, or nutritional status, or are non- or non-. According to the National Kidney Foundation, irrespective of diagnosis, the stage of the disease is based on the level of kidney function: Stage Description GFR(mL/min/1.73 m(2)) 1 Kidney damage with normal or decreased GFR 90 2 Kidney damage with mild decrease in GFR 60-89 3 Moderate decrease in GFR 30-59 4 Severe decrease in GFR 15-29 5 Kidney failure <15 (or dialysis) 7 Because ethnic data is not always readily available, this report includes an eGFR for both -Americans and non- Americans. The National Kidney Disease Education Program (NKDEP) does not endorse the use of the MDRD equation for patients that are not between the ages of 18 and 70, are , have extremes of body size, muscle mass, or nutritional status, or are non- or non-. According to the National Kidney Foundation, irrespective of diagnosis, the stage of the disease is based on the level of kidney function: Stage Description GFR(mL/min/1.73 m(2)) 1 Kidney damage with normal or decreased GFR 90 2 Kidney damage with mild decrease in GFR 60-89 3 Moderate decrease in GFR 30-59 4 Severe decrease in GFR 15-29 5 Kidney failure <15 (or dialysis) 8 Desirable <150 Borderline high 150-199 High 200-499 Very High >500 9 Desirable <200 Borderline high 200-239 High >239 10 Low <40 Desirable: 40-60 High: >60 11 Desirable: <100 mg/dL Near Optimal: 100-129 mg/dL Borderline High: 130-159 mg/dL High: 160-189 mg/dL Very High: >189 mg/dL 12 Therapeutic target for the treatment of diabetes Mellitus patients is <7% HBA1C, and in selective patients <6.0%.Please refer to [place] [employer] Diabetic care guidelines for further information. 13 SEE RESULT BELOW Name: KIARA BARKER Amrik : [address]: Nenita Walter MD Acct: [id number] Unit: [id number] AGE: 46 Location: [facility] Re04/04/17 SEX: F Status: REG REF SPEC: [id number] VANESSA: 04/04/[address]: Nenita Walter MD REQ: [id number] RECD: 04/04/17 STATUS: COMP _ SOURCE: URINE SPDESC: ORDERED: Urine Culture Procedure Result Reported Site Urine Culture Final 04/05/17- 1313 ML No Growth (<1,000 CFU/mL) * ML - MAIN LAB ([facility]) . END OF REPORT * ML=Testing performed at Main Lab DEPARTMENT OF PATHOLOGY, [address] [place] [address] Mehrdad Lau M.D. Director [facility] # [id number] 14 SRC:<Blank> 1urine vacutai ner 15 Source of Specimen: <Blank> 1urine vacutai 16 Escherichia coli Source of Specimen: <Blank> 1urine vacutai 25,000-50,000 colony forming units per mL 17 Source of Specimen: <Blank> 1urine vacutai S=Susceptible; I=Intermediate; R=Resistant P=Positive; N=Negative MICS are expressed in micrograms per mL Antibiotic RSLT#1 RSLT#2 RSLT#3 RSLT#4 Amoxicillin/Clavulanic Acid S Ampicillin S Cefepime S Ceftriaxone S Cefuroxime S Cephalothin I Ciprofloxacin S Ertapenem S Gentamicin S Imipenem S Levofloxacin S Nitrofurantoin S Piperacillin S Tetracycline S Tobramycin S Trimethoprim/Sulfa R 18 Therapeutic concentration: <50 ug/mL Toxic concentration: >120 ug/mL 19 [facility] Severe Sepsis and Septic Shock Management Bundle Measure requires all lactic acids initially measuring >2.0 mmol/L be repeated. 20 Because ethnic data is not always readily available, this report includes an eGFR for both -Americans and non- Americans. The National Kidney Disease Education Program (NKDEP) does not endorse the use of the MDRD equation for patients that are not between the ages of 18 and 70, are , have extremes of body size, muscle mass, or nutritional status, or are non- or non-. According to the National Kidney Foundation, irrespective of diagnosis, the stage of the disease is based on the level of kidney function: Stage Description GFR(mL/min/1.73 m(2)) 1 Kidney damage with normal or decreased GFR 90 2 Kidney damage with mild decrease in GFR 60-89 3 Moderate decrease in GFR 30-59 4 Severe decrease in GFR 15-29 5 Kidney failure <15 (or dialysis) 21 Therapeutic concentration: <50 ug/mL Toxic concentration: >120 ug/mL 22 Because ethnic data is not always readily available, this report includes an eGFR for both -Americans and non- Americans. The National Kidney Disease Education Program (NKDEP) does not endorse the use of the MDRD equation for patients that are not between the ages of 18 and 70, are , have extremes of body size, muscle mass, or nutritional status, or are non- or non-. According to the National Kidney Foundation, irrespective of diagnosis, the stage of the disease is based on the level of kidney function: Stage Description GFR(mL/min/1.73 m(2)) 1 Kidney damage with normal or decreased GFR 90 2 Kidney damage with mild decrease in GFR 60-89 3 Moderate decrease in GFR 30-59 4 Severe decrease in GFR 15-29 5 Kidney failure <15 (or dialysis) 23 Please check this week 24 Please check this week 25 Please check this week 26 Please check this week 27 Please check this week 28 Normal Range 180 to 914 Indeterminate Range 145 to 180 Deficient Range <145 29 Please check this week 30 Test Performed by: [address] [id number] 31 ADDITIONAL INFORMATION The thyroglobulin antibody testing method is an immunoenzymatic assay manufactured by [employer] and performed on the Zimride DXI 800. Values obtained from different assay methods or kits may be different and cannot be used interchangeably. The results cannot be interpreted as absolute evidence for the presence or absence of malignant disease. Test Performed by: [address] [address] 32 Negative for cANCA and pANCA patterns by immunofluorescence. ADDITIONAL INFORMATION This test was developed and its performance characteristics determined by [facility] in a manner consistent with CLIA requirements. This test has not been cleared or approved by the U.S. Food and Drug Administration. Test Performed by: [facility] - [address] [address] 33 REFERENCE VALUE <=1.0 (Negative) 34 REFERENCE VALUE <20.0 (Negative) 35 Tests for antibodies to dsDNA and LORENA antigens are not performed automatically unless the LUPE result is > or= 3.0 U. Studies performed at [facility] indicate that positive LUPE results <3.0 U are rarely accompanied by positive second order tests. Test Performed by: [facility] - [address] [id number] 36 Test Performed by: [facility] - [address] [address] 37 REFERENCE VALUE Not Applicable 38 RESULT: HLA-B27 antigen was not detected. ADDITIONAL INFORMATION Method: Flow Cytometry Performing Laboratory CLIA# [id number] Test Performed by: [facility] - [address] [address] 39 ADDITIONAL INFORMATION This test was developed and its performance characteristics determined by [facility] in a manner consistent with CLIA requirements. This test has not been cleared or approved by the U.S. Food and Drug Administration. Test Performed by: [address] [address] 40 Because ethnic data is not always readily available, this report includes an eGFR for both -Americans and non- Americans. The National Kidney Disease Education Program (NKDEP) does not endorse the use of the MDRD equation for patients that are not between the ages of 18 and 70, are , have extremes of body size, muscle mass, or nutritional status, or are non- or non-. According to the National Kidney Foundation, irrespective of diagnosis, the stage of the disease is based on the level of kidney function: Stage Description GFR(mL/min/1.73 m(2)) 1 Kidney damage with normal or decreased GFR 90 2 Kidney damage with mild decrease in GFR 60-89 3 Moderate decrease in GFR 30-59 4 Severe decrease in GFR 15-29 5 Kidney failure <15 (or dialysis) 41 99th percentile=0.04 ng/mL Troponin results at [facility] and [facility] are not interchangeable. 42 [facility] Severe Sepsis and Septic Shock Management Bundle Measure requires all lactic acids initially measuring >2.0 mmol/L be repeated. 43 Because ethnic data is not always readily available, this report includes an eGFR for both -Americans and non- Americans. The National Kidney Disease Education Program (NKDEP) does not endorse the use of the MDRD equation for patients that are not between the ages of 18 and 70, are , have extremes of body size, muscle mass, or nutritional status, or are non- or non-. According to the National Kidney Foundation, irrespective of diagnosis, the stage of the disease is based on the level of kidney function: Stage Description GFR(mL/min/1.73 m(2)) 1 Kidney damage with normal or decreased GFR 90 2 Kidney damage with mild decrease in GFR 60-89 3 Moderate decrease in GFR 30-59 4 Severe decrease in GFR 15-29 5 Kidney failure <15 (or dialysis) 44 99th percentile=0.04 ng/mL Troponin results at [facility] and [facility] are not interchangeable. 45 FASTING 46 Reference Range and Interpretation: TnI (ng/mL) Interpretation Less Than 0.03 ng/mL Not supportive of diagnosis of ND 0.03 - 0.50 ng/mL Indeterminate: suggest serial studies if clinically indicated. Greater than 0.5 ng/mL Consistent with diagnosis of ND 47 <5.0 Negative 5.0 - 25.0 Indeterminate (Repeat testing recommended after 72 hours) >25.0 Positive Perimenopausal women can display HCG levels of up to 20 mIU/mL 48 Because ethnic data is not always readily available, this report includes an eGFR for both -Americans and non- Americans. The National Kidney Disease Education Program (NKDEP) does not endorse the use of the MDRD equation for patients that are not between the ages of 18 and 70, are , have extremes of body size, muscle mass, or nutritional status, or are non- or non-. According to the National Kidney Foundation, irrespective of diagnosis, the stage of the disease is based on the level of kidney function: Stage Description GFR(mL/min/1.73 m(2)) 1 Kidney damage with normal or decreased GFR 90 2 Kidney damage with mild decrease in GFR 60-89 3 Moderate decrease in GFR 30-59 4 Severe decrease in GFR 15-29 5 Kidney failure <15 (or dialysis) 49 [facility] Severe Sepsis and Septic Shock Management Bundle Measure requires all lactic acids initially measuring >2.0 mmol/L be repeated. 50 It is recognized that currently available assays for the detection of antibodies to HIV-1 and/or HIV-2 may not detect all infected individuals. HIV antibodies may be undetectable in some stages of the infection and in some clinical conditions. The performance of this assay has not been established for populations of infants or children. Assayed by Chemiluminescence Microparticle Immunoassay on the Siemens Advia Centaur CP. Values obtained with different methods or kits cannot be used interchangeably.The diagnostic specificity of the [employer] Centaur 1/O/2 Enhanced assay in the low risk population was 99.90% (6052/6058) with a 95% confidence interval of 99.78 to 99.96%. 51 Reference Range and Interpretation: TnI (ng/mL) Interpretation Less Than 0.03 ng/mL Not supportive of diagnosis of ND 0.03 - 0.50 ng/mL Indeterminate: suggest serial studies if clinically indicated. Greater than 0.5 ng/mL Consistent with diagnosis of ND 52 Because ethnic data is not always readily available, this report includes an eGFR for both -Americans and non- Americans. The National Kidney Disease Education Program (NKDEP) does not endorse the use of the MDRD equation for patients that are not between the ages of 18 and 70, are , have extremes of body size, muscle mass, or nutritional status, or are non- or non-. According to the National Kidney Foundation, irrespective of diagnosis, the stage of the disease is based on the level of kidney function: Stage Description GFR(mL/min/1.73 m(2)) 1 Kidney damage with normal or decreased GFR 90 2 Kidney damage with mild decrease in GFR 60-89 3 Moderate decrease in GFR 30-59 4 Severe decrease in GFR 15-29 5 Kidney failure <15 (or dialysis) Procedures Date CPT Code Description Status 07/14/2017 Mammogram Completed 05/22/2017 01338 Finger Or Heel Stick Completed 10/29/2015 Mammogram Completed Encounters Type Date Location Provider CPT E/M Dx Office Visit 08/31/2017 10:30a Main Office Nenita Walter M.D. 57461 A09 E11.9 F33.1 Office Visit 08/16/2017 10:30a Main Office Niranjan Menendez 73404 J06.9 J45.901 Office Visit 07/22/2017 10:30a Main Office Nenita Walter M.D. 64650 M79.671 M54.5 M79.7 Office Visit 06/21/2017 3:00p [facility] Nenita Walter M.D. 98094 Z00.00 E11.9 F33.1 I10 E78.5 Z12.31 M54.5 Office Visit 05/22/2017 6:00p [place] [address] R11.2 R19.7 E11.9 Office Visit 04/24/2017 7:20p Main Office Nenita Walter M.D. 61382 F33.1 E11.9 I10 E78.5 R07.9 Office Visit 04/03/2017 2:00p Main Office Nenita Walter M.D. 99493 F33.1 M54.5 E11.9 E04.2 M25.549 Office Visit 12/12/2016 11:00a Main Office Oscar Rodas M.D. 88942 N39.0 Office Visit 12/01/2016 7:40p Main Office Nenita Walter M.D. 40989 F33.1 T14.91 Office Visit 10/19/2016 4:40p [facility] Nenita Walter M.D. 55281 M54.5 E11.9 F33.1 E04.2 Office Visit 08/26/2016 8:00a Main Office Nenita Walter M.D. 85179 R42 J06.9 R11.10 Office Visit 08/19/2016 10:50a [facility] Nenita Walter M.D. 09690 L94.9 I10 M25.549 Office Visit 06/29/2016 10:30a [facility] Nenita Walter M.D. 39504 I10 F33.1 E11.9 M54.5 Office Visit 04/18/2016 3:00p Main Office ROYCE Grace 15104 J06.9 Office Visit 03/25/2016 2:10p [facility] Nenita Walter M.D. 29385 E11.9 F33.1 M54.5 I10 Office Visit 12/03/2015 3:45p [facility] ROYCE Grace 72090 S62.606A W10.8xxA Office Visit 11/25/2015 10:00a [facility] ROYCE Contreras 57207 E11.9 F32.9 M54.5 Plan of Care 08/31/2017 - Nenita Walter M.D.A09 Infectious gastroenteritis and colitis, unspecifiedComments:given weight loss, failed oral antiemtics, concern for dehydration, possible cdiff with recent antibiotics advised ER evaluation, patient calling son to take herE11.9 Type 2 diabetes mellitus without complicationsNew Labs:Hemoglobin A1c (Fma)Comments:Recommend yearly diabetic eye and foot exams, and check on blood pressure periodically. Goal blood sugar is less than 140 in the morning or A1c less than 7.F33.1 Major depressive disorder, recurrent, moderateAllComments:~B_~U_Medication Management~b_~u_ Patient Understands medications she's taking? Yes No Are there Barriers to Adherence? Yes No Has the patient been asked about herbal supplements and therapies, and OTC meds? Yes No
--- OUTSIDE RECORDS SUMMARY | 2017-08-31 13:33 | XMS REPORT ---
:1970 External Reference #:[id number] Author Organization [facility] Address [address] [place] [address] Phone [phone] Care Team Providers Name Role Phone Nenita Walter M.D. Care Team Information Resolution Analyst Unavailable Nenita Walter M.D. Primary Care Physician Unavailable Payers Type Date Identification Numbers Payment Provider Subscriber Medicaid Effective: Policy Number: [id number] [facility] Kiara Calderon 2016 PayID: [id number] [address] [address] [place] [address] Medicaid Effective: 2016 Policy Number: [id number] Medicaid [place] Kiara Calderon Expires: 2016 PayID: [id number] [address] [place] [address] Problems Date Description Provider Status Onset: 03/22/2016 [...] Form Strength Qnty SIG Indications Ordering Provider Azithromycin 08/16 Hx Tablets 250mg 6tabs 2 by mouth every day Annamarie, - x1 then 1 Afnp-C 08/21 by mouth every day x 4 more days Methocarbamol 07/22 Active Tablets 750mg 60tab 1 tab by s mouth Ira, twice a M.D. day as needed Nitroglycerin 04/24 Active Tablets 0.4mg 14tab 1 sl q5 Sub s min x 3 Ira, doses as M.D. needed for chest pain; if no relief after 3 doses call 911 Lisinopril 04/24 Active Tablets 10mg 30tab 1 by mouth I10 s every day Ira, M.D. Ondansetron 08/26 Active Tablets 4mg 30tab 1 tab by R11.10 Dispers s mouth Ira, every 6 M.D. hours as needed Metoclopramide HCL 08/26 Active Tablets 10mg 30tab take 1 R11.10 Dispers s tablet by Ira, mouth M.D. every 8 hours as needed for nausea Diphenhydramine 08/26 Active Tablets 25mg 60tab 1-2 tabs R11.10 HCL s by mouth Ira, every 6 M.D. hours as needed Zofran Odt 08/23 Active Tablets 4mg 30tab dissolve 1 Dispers s tab under Ira, tongue M.D. every 6 hours as needed nausea Onetouch Ultra 2 04/25 Active Kit w/Device 1unit test blood Oscar JDionisio s sugar once Breiman, a day or M.D. as directed dx: e11.9 last office visit 04/20/16 Ventolin HFA 04/18 Active Aerosol 108(90Bas 18uni inhale two J06.9 e) ts puffs by [facility] [place], mcg/Act mouth qid Afnp-C prn cough/whee ze Juluvia 03/25 Active Tablets 50mg 30tab 1 tab by Nenita s mouth Jose Angel every day Jake Oxycodone HCL Active Tablets 15mg tid as Unknown /[address] Camacho Valium Active Tablets 10mg as needed Unknown Dr Macedo Albuterol Sulfate Active Nebulizer 1.25mg/3M [...] Walter Cyanocobalamin Active Solution 1000mcg/M Dr Camacho Unknown L Abilify Active Tablets 2mg 1 by mouth Unknown every morning Cyclobenzaprine 06/21 Hx Tablets 10mg 90tab take one Nenita s tablet by Jose Angel - mouth M.D. 07/22 every hours as needed Bactrim DS 12/12 Hx Tablets 800-160mg 10tab 1 by mouth Oscar Santoyo s twice a Adrianna, - day M.D. 12/30 Azithromycin 04/18 Hx Tablets 250mg 12tab take 2 J06.9 Lakshmi s tablets by Ida, - mouth x 3d FROG CATCHER 06/29 then take 1 tablet daily for next 6 days ia 03/25 Hx Tablets 100mg 30tab 1 by mouth s every day Ira - M.DDionisio 03/25 Sphygmomanometer 03/25 Hx Misc take blood I10 pressure Ira - daily M.D. 08/19 Truetrack Test 03/25 Hx Strips 100un test once E11.9 its a day Dx: Ira, - E11.9 M.D. 04/25 office 03/25/16 Lisinopril 03/25 Hx Tablets 5mg 30tab Take One I10 s Tablet By Ira, - Mouth M.D. 04/24 Effexor XR 00/00 [...] 04/24 Vital Signs Date Vital Result Comment 08/16/2017 BP Systolic 124 mmHg BP Diastolic [...] Color Ashlee Urine Appearance Turbid Urine Specific [place] 1.028 1.010-1.030 Urine pH 5.0 5-9 Urine [...] 2.7 x10^3/UL 1.5-7.2 Lymph# 1.6 x10^3/UL 0.7-4.9 [place]# 0.2 x10^3/UL 0.1-0.9 Gran % 58.3 % 42.2-75.2 Lymph % 37.1 % 20.5-51.1 [place]% 4.6 % 1.7-9.3 Laboratory test finding 04/21/2016 [...] diabetes: <7.0 3 SEE RESULT BELOW Name: CALDERONKIARA : [address]: Santi Francois MD Acct: [id number] Unit: [id number] AGE: 46 Location: [place] [address] Re04/20/17 Dis: 04/21/17 SEX: F Status: DIS Susy SPEC: [id number] VANESSA: 04/20/[address]: Geovanny Schmitt MD REQ: [id number] RECD: 04/20/17 STATUS: SAVAGE PERDUE DR: Nenita Walter MD _ SOURCE: BLOOD,VENO SPDESC: ORDERED: Blood Cult Procedure Result Reported Site Aerobic Culture Bottle Final 04/25/17- 1714 ML No Growth Day 5 Anaerobic Culture Bottle Final 04/25/17- 1714 ML No Growth Day 5 * ML - MAIN LAB ([facility]) . END OF REPORT * ML=Testing performed at Main Lab DEPARTMENT OF PATHOLOGY, [address] [place] [address] Mehrdad Lau M.D. Director [facility] # [id number] 4 >100 to <200 pg/mL: likely compensated congestive heart failure (CHF) 200 to 400 pg/mL: likely moderate CHF >400 pg/mL: likely moderate to severe CHF 5 [facility] Severe Sepsis and Septic Shock Management [...] and in selective patients <6.0%.Please refer to [employer] Diabetic care guidelines for further information. 13 SEE RESULT BELOW Name: KIARA CALDERON DOB: [address]: Nenita Walter MD Acct: [id number] Unit: [id number] AGE: 46 Location: [facility] Re04/04/17 SEX: F Status: REG REF SPEC: [id number] VANESSA: 04/04/[address]: Nenita Walter MD REQ: [id number] RECD: 04/04/17 STATUS: COMP _ SOURCE: URINE SPDESC: ORDERED: Urine Culture Procedure Result Reported Site Urine Culture Final 04/05/17- 1313 ML No Growth (<1,000 CFU/mL) * ML - MAIN LAB ([facility]) . END OF REPORT * ML=Testing performed at Main Lab DEPARTMENT OF PATHOLOGY, [address] [place] [address] Mehrdad Lau M.D. Director [facility] # [id number] SRC:<Blank> 1urine vacutai ner 15 Source [...] <50 ug/mL Toxic concentration: >120 ug/mL 19 [facility] Severe Sepsis and Septic Shock Management [...] check this week 30 Test Performed by: [facility] [address] [place] [address] 31 ADDITIONAL INFORMATION The thyroglobulin antibody testing method is an immunoenzymatic assay manufactured by [employer] and performed on the [employer] DXI 800. Values obtained from different assay methods or kits may be different and cannot be used interchangeably. The results cannot be interpreted as absolute evidence for the presence or absence of malignant disease. Test Performed by: [facility] [address] [place] [address] 32 Negative for cANCA and pANCA patterns by immunofluorescence. ADDITIONAL INFORMATION This test was developed and its performance characteristics determined by [facility] in a manner consistent with CLIA requirements. This test has not been cleared or approved by the U.S. Food and Drug Administration. Test Performed by: [facility] - [address] [address] 33 REFERENCE VALUE <=1.0 (Negative) 34 REFERENCE VALUE <20.0 (Negative) 35 Tests for antibodies to dsDNA and LORENA antigens are not performed automatically unless the LUPE result is > or= 3.0 U. Studies performed at [facility] indicate that positive LUPE results <3.0 U are rarely accompanied by positive second order tests. Test Performed by: [facility] - [address] [address] 36 Test Performed by: [facility] - [address] [address] 37 REFERENCE VALUE Not Applicable 38 RESULT: HLA-B27 antigen was not detected. ADDITIONAL INFORMATION Method: Flow Cytometry Performing Laboratory CLIA# [id number] Test Performed by: [facility] - [address] [address] 39 ADDITIONAL INFORMATION This test was developed and its performance characteristics determined by [facility] in a manner consistent with CLIA requirements. This test has not been cleared or approved by the U.S. Food and Drug Administration. Test Performed by: [facility] - [address] [address] 40 Because ethnic data is not always [...] 41 99th percentile=0.04 ng/mL Troponin results at [facility] are not interchangeable. 42 [facility] Severe Sepsis and Septic Shock Management [...] 44 99th percentile=0.04 ng/mL Troponin results at [facility] and [facility] are not interchangeable. 45 FASTING 46 Reference Range and Interpretation: TnI (ng/mL) Interpretation Less Than 0.03 ng/mL Not supportive of diagnosis of AR 0.03 - 0.50 ng/mL Indeterminate: suggest serial studies if clinically indicated. Greater than 0.5 ng/mL Consistent with diagnosis of AR 47 <5.0 Negative 5.0 - 25.0 Indeterminate [...] 5 Kidney failure <15 (or dialysis) 49 [facility] Severe Sepsis and Septic Shock Management [...] 0.03 ng/mL Not supportive of diagnosis of AR 0.03 - 0.50 ng/mL Indeterminate: suggest serial studies if clinically indicated. Greater than 0.5 ng/mL Consistent with diagnosis of AR 52 Because ethnic data is not always [...] Code Description Status 07/14/2017 Mammogram Completed 05/22/2017 02284 Finger Or Heel Stick Completed 10/29/2015 Mammogram Completed Encounters Type Date Location Provider CPT E/M Dx Office Visit 07/22/2017 10:30a Main Office Nenita Walter M.D. 50860 M79.671 M54.5 M79.7 Office Visit 06/21/2017 3:00p [facility] Nenita Walter M.D. 32883 Z00.00 E11.9 F33.1 I10 E78.5 Z12.31 M54.5 Office Visit 05/22/2017 6:00p [place] [address] R11.2 R19.7 E11.9 Office Visit 04/24/2017 7:20p Main Office Nenita Walter M.D. 33586 F33.1 E11.9 I10 E78.5 R07.9 Office Visit 04/03/2017 2:00p Main Office Nenita Walter M.D. 93032 F33.1 M54.5 E11.9 E04.2 M25.549 Office Visit 12/12/2016 11:00a Main Office Oscar Rodas M.D. 76627 N39.0 Office Visit 12/01/2016 7:40p Main Office Nenita Walter M.D. 05366 F33.1 T14.91 Office Visit 10/19/2016 4:40p [facility] Nenita Walter M.D. 33219 M54.5 E11.9 F33.1 E04.2 Office Visit 08/26/2016 8:00a Main Office Nenita Walter M.D. 49397 R42 J06.9 R11.10 Office Visit 08/19/2016 10:50a [facility] Nenita Walter M.D. 51412 L94.9 I10 M25.549 Office Visit 06/29/2016 10:30a [facility] Nenita Walter M.D. 95867 I10 F33.1 E11.9 M54.5 Office Visit 04/18/2016 3:00p Main Office ROYCE Grace 88412 J06.9 Office Visit 03/25/2016 2:10p [facility] Nenita Walter M.D. 20920 E11.9 F33.1 M54.5 I10 Office Visit 12/03/2015 3:45p [facility] Lakshmi Prieto [employer] 53893 S62.606A W10.8xxA Office Visit 11/25/2015 10:00a [facility] Kelly Lenz [facility] [address] E11.9 F32.9 M54.5 Plan of Care 08/16/2017 - Carmita De Luna, Annette-CJ06.9 Acute upper respiratory infection, tvoelerwynuA03.901 Unspecified asthma with (acute) exacerbationAllNew Medication :Azithromycin 250 mgComments:~B_~U_Medication Management~b_~u_ Patient Understands medications she's taking? Yes No Are there Barriers to Adherence? Yes No Has the patient been asked about herbal supplements and therapies, and OTC meds? Yes No ~B_~U_Care Plan~b_~u_1. Patient has been queried about patient's goals/preferences and functional/ lifestyle goals at relevant visits. If relevant, describe: na2. Treatment goals as explained to the patient: abovesx resolution 3. Are there barriers to meeting treatment goals? Yes No If Yes, please describe:4. Self- Management goals as described tothe patient: Yes No conts sx rx; rest, fluidsprn albuterol and z pack f/u if no better with above or if sx worsen
[2017-08-31] MEDS ORDERED: NS 0.9% 1000 ML* 1,000 ML IV ONE (14:35)
[2017-08-31] MEDS ORDERED: Metoclopramide IV* 5 MG/ML 2 ML VIAL IV ONE (14:45)
[2017-08-31 14:52] LABS: ABS Basophils 0.1 10^3/ul (0-0.2); ABS Eosinophils 0 10^3/ul (0-0.6); ABS Lymphocytes 2.7 10^3/ul (1.0-4.8); ABS Monocytes 0.8 10^3/ul (0-0.8); ABS Neutrophils 5.9 10^3/ul (1.5-7.7); ABS Nucleated RBC 0 10^3/ul; Eosinophil % 0.3 % (0-6); Hematocrit 40 % (35-47); Hemoglobin 13.6 g/dl (12.0-16.0); Lymphocyte % 28.2 % (25-47); Mean Corpuscular HGB Conc 34 g/dl (31-36); Mean Corpuscular Hemoglobin 30 pg (27-31); Mean Corpuscular Volume 88 fL (80-97); Mean Platelet Volume 7 um3 (7.4-10.4); Nucleated Red Blood Cells % 0; Platelet Count 376 10^3/ul (150-450); Red Blood Count 4.54 10^6/ul (4.0-5.4); Red Cell Distribution Width 14 % (10.5-15); White Blood Count 9.5 10^3/ul (3.5-10.8)
[2017-08-31 14:57] LABS: INR 0.99 (0.77-1.02)
[2017-08-31 15:17] LABS: Urine Appearance Cloudy; Urine Blood Negative (Negative); Urine Color Yellow; Urine Ketones 1+ (Negative); Urine Protein 1+(30 mg/dL) (Negative); Urine Specific Gravity 1.026 (1.010-1.030); Urine Urobilinogen Negative (Negative)
[2017-08-31] MEDS ORDERED: Potassium Chlor TAB* 20 MEQ TAB.ER PO ONE (15:56)
[2017-08-31] MEDS ORDERED: Diazepam TAB(*) 5 MG PO ONE (16:00)
[2017-08-31 16:13] VITALS: BP 135/86
--- NOTE | 2017-09-01 00:27 | ED ---
Suhas Mayo Stephanie, scribed for Brina Jimenez MD on 08/31/17 at 1440 . GI/ HPI - HPI Summary HPI Summary: The pt is a 46 y/o F presenting to the ED with c/o N/V/D that began on 08/26/17. The pt states that diarrhea began on 08/26/17 and vomiting began on 08/28/17. Symptoms include nausea and lack of appetite. The pt reports she was on a z- pack for lung congestion. Pt is sent in by Dr. Walter with concern for possible C diff. - History of Current Complaint Chief Complaint: EDFluSymptoms Time Seen by Provider: 08/31/17 13:49 Stated Complaint: FEVER,DIZZINESS,CAN'T EAT Hx Obtained From: Patient Onset/Duration: Started Days Ago - 5, Still Present Timing: Constant Severity: Severe Current Severity: Severe Pain Intensity: 8 Location of Pain: Diffuse Pain Characteristics: Cramping Associated Signs and Symptoms: Positive: Nausea, Vomiting, Diarrhea, Change in Appetite, Abdominal Pain Aggravating Factor(s): Nothing Alleviating Factor(s): Nothing - Additional Pertinent History Primary Care Physician: [id number] - Allergy/Home Medications Allergies/Adverse Reactions: Allergies Allergy/AdvReac Type Severity Reaction Status Date / Time ibuprofen Allergy Intermediate Abdominal Verified 09/01/17 12:57 Pain Home Medications: Home Medications ARIPiprazole TAB* [Abilify 2 MG TAB*] 2 mg PO DAILY 08/31/17 [History Confirmed 08/31/17] Tristan/D3/Mag11/Zinc/Snuff Grinder/Yobany/Bor [Caltrate 600+D Plus] 1 tab PO DAILY 08/31/17 [ History Confirmed 08/31/17] Gabapentin CAP(*) [Neurontin 300 CAP(*)] 300 mg PO TID 08/31/17 [History Confirmed 08/31/17] Methocarbamol TAB* [Robaxin 500 MG TAB*] 750 mg PO BID PRN 08/31/17 [History Confirmed 08/31/17] Acampo-3 Fatty Acids (Nf) [Fish Oil (NF)] 1,000 mg PO DAILY 08/31/17 [History Confirmed 08/31/17] Ubidecarenone [Coq10] 100 mg PO DAILY 08/31/17 [History Confirmed 08/31/17] diPHENhydraMINE PO* [Benadryl PO 25 MG TAB*] 25 mg PO Q6H PRN 08/31/17 [History Confirmed 08/31/17] PMH/Surg Hx/FS Hx/Imm Hx Previously Healthy: No Endocrine/Hematology History: Reports: Hx Diabetes, Hx Thyroid Disease - hyper Denies: Hx Anemia Cardiovascular History: Reports: Hx Hypertension Denies: Hx Congestive Heart Failure, Hx Pacemaker/ICD Respiratory History: Reports: Hx Asthma Denies: Hx Chronic Obstructive Pulmonary Disease (COPD) GI History: Reports: Other GI Disorders - patient states chronic nausea Denies: Hx Jaundice History: Denies: Hx Dialysis, Hx Renal Disease Musculoskeletal History: Reports: Hx Arthritis, Hx Back Problems, Hx Fibromyalgia Comment Only: Other Musculoskeletal History - fibromyalgia Sensory History: Reports: Hx Contacts or Glasses Denies: Hx Hearing Aid Opthamlomology History: Reports: Hx Contacts or Glasses Neurological History: Reports: Hx Migraine, Other Neuro Impairments/Disorders - vertigo Psychiatric History: Reports: Hx Anxiety, Hx Depression, Hx Panic Disorder, Hx Suicide Attempt Denies: Hx Eating Disorder - Cancer History Hx Chemotherapy: No Hx Radiation Therapy: No - Surgical History Surgery Procedure, Year, and Place: PARTIAL HYSTERECTOMY 09/1999, TUBAL 1996, GALLBLADDER 1994 - Immunization History Date of Tetanus Vaccine: Unk Date of Influenza Vaccine: None Fall 2013 Infectious Disease History: No Infectious Disease History: Reports: Hx of Known/Suspected MRSA, Hx Tuberculosis - pt reports ppd positive but chest xray negative. Denies: Traveled Outside the [place] in Last 30 Days - Family History Known Family History: Positive: Other - negative FHx of breast CA Negative: Cardiac Disease, Hypertension, Diabetes - Social History Occupation: Unemployed Lives: With Family Alcohol Use: None Hx Substance Use: No Substance Use Type: Reports: None Substance Use Comment - Amount & Last Used: Unknown Hx Tobacco Use: No Smoking Status (MU): Never Smoked Tobacco Have You Smoked in the Last Year: No Review of Systems Positive: Other - decreased appetite. Negative: Fever Cardiovascular: Negative Respiratory: Negative Positive: Abdominal Pain, Vomiting, Diarrhea, Nausea Skin: Negative Neurological: Other - dizzy Positive: Anxious All Other Systems Reviewed And Are Negative: Yes Physical Exam - Summary Physical Exam Summary: Appearance: Ill-appearing, moderate pain distress, Well-nourished Skin: Warm, color reflects adequate perfusion Head: Normal Head/Face inspection Eyes: Conjunctiva clear ENT: Normal inspection Neck: Supple, no nodes, no JVD. Respiratory: Lungs clear, Normal breath sounds, no respiratory distress Cardio: RRR, No murmur, pulses normal, brisk capillary refill Abdomen: diffuse abdominal tenderness, soft, no masses, no guarding, no rebound Bowel sounds: present Musculoskeletal: Strength Intact/ ROM intact. No calf tenderness. No edema. Neuro: Alert, muscle tone normal, facial symmetry, speech normal, sensory/motor intact Psychological: Normal Triage Information Reviewed: Yes Vital Signs On Initial Exam: Initial Vitals Temp Pulse Resp BP Pulse Ox 98.3 F 112 24 166/107 99 08/31/17 12:11 08/31/17 12:11 08/31/17 12:11 08/31/17 12:11 08/31/17 12:11 Vital Signs Reviewed: Yes Diagnostics - Vital Signs Vital Signs Temp Pulse Resp BP Pulse Ox 08/31/17 12:11 98.3 F 112 24 166/107 99 - Laboratory Lab Results: Lab Results 08/31/17 Range/Units 13:08 Influenza A (Rapid) Negative (Negative) Influenza B (Rapid) Negative (Negative) Result Diagrams: 08/31/17 14:35 08/31/17 14:35 Lab Statement: Any lab studies that have been ordered have been reviewed, and results considered in the medical decision making process. - EKG 12:15 Cardiac Rate: NL EKG Rhythm: Sinus Rhythm - [address] Segment: Non-Specific Ectopy: None EKG Interpretation: nml AVIVCT, nml QTc, and nml axis. EKG Comparison: No Significant Change - since 04/21/17 Re-Evaluation - Re-Evaluation First Eval Re-Evaluation Time: 15:59 Change: Unchanged - ED physician discussed plan of discharge with the pt. The pt agrees to discharge plan. The pt is rocking back and forth in [place]. She states she needs to return home to care for her disabled son. She states she will return a stool sample to the hospital as soon as possible. GIGU Course/Dx - Course Course Of Treatment: Pt was unable to provide stool sample. Given supplies to return sample at a later time. Pt was given IV fluids and KCl po 40 mEq x 1. She was given valium 5mg po, her usual anxiety medication, prior to discharge at her request. - Diagnoses Differential Diagnoses - Female: Colitis, Dehydration, Diverticulitis, Diarrhea , Gastroenteritis (Viral), Gastroenteritis (Bacterial) Provider Diagnoses: Diarrhea, Hypokalemia Discharge - Discharge Plan Condition: Stable Disposition: HOME Patient Education Materials: Hypokalemia (ED), Acute Diarrhea (ED) Referrals: Nenita Walter MD [Primary Care Provider] - 2 Days Additional Instructions: Please return outpatient stool samples to the ER to collect. RETURN TO THE ER FOR ANY NEW OR WORSENING SYMPTOMS The documentation as recorded by the Suhas gage Stephanie accurately reflects the service I personally performed and the decisions made by Tony sadler Barbara J, MD.
== END 2017-08-31 16:20 | disposition home or self-care (01) ==
LOC: ED 11:59
DX: R19.7 Diarrhea, unspecified (principal); E87.6 Hypokalemia; R10.9 Unspecified abdominal pain; R11.2 Nausea with vomiting, unspecified
CPT/HCPCS: 36415; 80053; 81003; 81015; 82150; 82550; 82803; 83605; 83690; 83735; 85025; 85610; 86140; 87086; 87502; 93005; 99282; A9270-GY; J2765

== ENCOUNTER 2017-09-01 12:50 | Emergency (ER) | payer OTHER ==
[2017-09-01 13:59] LABS: ABS Basophils 0.1 10^3/ul (0-0.2); ABS Eosinophils 0 10^3/ul (0-0.6); ABS Lymphocytes 2.1 10^3/ul (1.0-4.8); ABS Monocytes 0.8 10^3/ul (0-0.8); ABS Neutrophils 4.7 10^3/ul (1.5-7.7); ABS Nucleated RBC 0 10^3/ul; Eosinophil % 0.4 % (0-6); Hematocrit 42 % (35-47); Hemoglobin 14.2 g/dl (12.0-16.0); Lymphocyte % 27.2 % (25-47); Mean Corpuscular HGB Conc 34 g/dl (31-36); Mean Corpuscular Hemoglobin 30 pg (27-31); Mean Corpuscular Volume 88 fL (80-97); Mean Platelet Volume 7 um3 (7.4-10.4); Nucleated Red Blood Cells % 0; Platelet Count 368 10^3/ul (150-450); Red Blood Count 4.75 10^6/ul (4.0-5.4); Red Cell Distribution Width 14 % (10.5-15); White Blood Count 7.7 10^3/ul (3.5-10.8)
[2017-09-01 14:09] LABS: INR 1.01 (0.77-1.02)
[2017-09-01 14:17] LABS: EGFR Non-African American 90.8 (>60)
[2017-09-01 14:57] LABS: Urine Appearance Clear; Urine Blood Negative (Negative); Urine Color Yellow; Urine Ketones 1+ (Negative); Urine Protein Negative (Negative); Urine Specific Gravity 1.015 (1.010-1.030); Urine Urobilinogen Negative (Negative)
[2017-09-01] MEDS ORDERED: NS 0.9% 1000 ML* 1,000 ML BOLUS SCH (15:00)
[2017-09-01] MEDS ORDERED: Potassium Chlor TAB* 20 MEQ TAB.ER PO ONE (16:07)
[2017-09-01] MEDS ORDERED: oxyCODONE TAB* 5 MG TAB PO ONE (18:51)
[2017-09-01] MEDS ORDERED: diPHENhydraMINE PO* 25 MG PO ONE (18:52)
[2017-09-01] MEDS ORDERED: Diazepam TAB(*) 5 MG PO ONE (18:52)
[2017-09-01] MEDS ORDERED: Ondansetron ODT TAB* 4 MG PO ONE (18:54)
[2017-09-01 19:24] VITALS: BP 112/86
--- NOTE | 2017-09-01 21:00 | ED ---
Rod Mayo Nilda, scribed for Brina Jimenez MD on 09/01/17 at 1401 . GI/ HPI - HPI Summary HPI Summary: This patient is a 46 year old F BIBA accompanied by cousin with a chief complaint of constant diffuse abd cramping with nausea, vomiting, and diarrhea ( mucous) that began on 08/26/17. The patient rates the pain 8/10 in severity. Symptoms aggravated and alleviated by nothing. Patient reports dizziness (today) . The pt was seen yesterday at [facility] for same symptoms and was unable to provide stool sample since she had to return home to care for her disabled son. Pt was D/C yesterday with supplies to collect stool sample herself. She is unable to provide home stool sample since she called EMS this morning. Pt reports she had been on z-pack for bronchitis, and Dr. Walter (PCP) initially sent pt in with concern for possible C. diff. - History of Current Complaint Chief Complaint: EDAbdPain Stated Complaint: DIZZINESS Hx Obtained From: Patient Onset/Duration: Started Days Ago - 6, Atraumatic, Still Present Timing: Constant Severity: Severe Current Severity: Severe Pain Intensity: 8 Location of Pain: Diffuse Pain Characteristics: Cramping Associated Signs and Symptoms: Positive: Dizziness, Nausea, Vomiting, Diarrhea, Other: - dizziness, N/V/D. Negative: Blood-Streaked Stool, Black Tarry Stool, Bright Red Blood w/Stool, Blood w/Stool, Fever, Dysuria, Chills, UTI Symptoms Aggravating Factor(s): Nothing Alleviating Factor(s): Nothing - Additional Pertinent History Primary Care Physician: ADELINE - Allergy/Home Medications Allergies/Adverse Reactions: Allergies Allergy/AdvReac Type Severity Reaction Status Date / Time ibuprofen Allergy Intermediate Abdominal Verified 09/01/17 12:57 Pain PMH/Surg Hx/FS Hx/Imm Hx Previously Healthy: No Endocrine/Hematology History: Reports: Hx Diabetes, Hx Thyroid Disease - hyper Denies: Hx Anemia Cardiovascular History: Reports: Hx Hypertension Denies: Hx Congestive Heart Failure, Hx Pacemaker/ICD Respiratory History: Reports: Hx Asthma Denies: Hx Chronic Obstructive Pulmonary Disease (COPD) GI History: Reports: Other GI Disorders - patient states chronic nausea Denies: Hx Jaundice History: Denies: Hx Dialysis, Hx Renal Disease Musculoskeletal History: Reports: Hx Arthritis, Hx Back Problems, Hx Fibromyalgia Comment Only: Other Musculoskeletal History - fibromyalgia Sensory History: Reports: Hx Contacts or Glasses Denies: Hx Hearing Aid Opthamlomology History: Reports: Hx Contacts or Glasses Neurological History: Reports: Hx Migraine, Other Neuro Impairments/Disorders - vertigo Psychiatric History: Reports: Hx Anxiety, Hx Depression, Hx Panic Disorder, Hx Suicide Attempt Denies: Hx Eating Disorder - Cancer History Hx Chemotherapy: No Hx Radiation Therapy: No - Surgical History Surgery Procedure, Year, and Place: PARTIAL HYSTERECTOMY 09/1999, TUBAL 1996, GALLBLADDER 1994 - Immunization History Date of Tetanus Vaccine: Unk Date of Influenza Vaccine: None Fall 2013 Infectious Disease History: Yes Infectious Disease History: Reports: Hx of Known/Suspected MRSA, Hx Tuberculosis - pt reports ppd positive but chest xray negative. Denies: Traveled Outside the [place] in Last 30 Days - Family History Known Family History: Positive: Other - negative FHx of breast CA Negative: Cardiac Disease, Hypertension, Diabetes - Social History Lives: With Family Alcohol Use: None Hx Substance Use: No Substance Use Type: Reports: None Substance Use Comment - Amount & Last Used: Unknown Hx Tobacco Use: No Smoking Status (MU): Never Smoked Tobacco Have You Smoked in the Last Year: No Review of Systems Constitutional: Negative Cardiovascular: Negative Respiratory: Negative Positive: Abdominal Pain, Vomiting, Diarrhea, Nausea Neurological: Other - dizziness Psychological: Normal All Other Systems Reviewed And Are Negative: Yes Physical Exam - Summary Physical Exam Summary: Appearance: Ill-appearing, moderate pain distress, Well-nourished, Tearful Skin: Warm, color reflects adequate perfusion Head: Normal Head/Face inspection Eyes: Conjunctiva clear ENT: Normal inspection Neck: Supple, no nodes, no JVD. Respiratory: Lungs clear, Normal breath sounds, no respiratory distress Cardio: RRR, No murmur, pulses normal, brisk capillary refill Abdomen: soft, mild diffuse abdominal tenderness, no guarding, no rebound, no masses Bowel sounds: present Musculoskeletal: Strength Intact/ ROM intact. No calf tenderness. No edema. Neuro: Alert, muscle tone normal, facial symmetry, speech normal, sensory/motor intact Psychological: Tearful Triage Information Reviewed: Yes Vital Signs On Initial Exam: Initial Vitals BP 145/83 09/01/17 13:04 Vital Signs Reviewed: Yes Diagnostics - Vital Signs Vital Signs Temp Pulse Resp BP Pulse Ox 09/01/17 13:06 99.2 F 90 18 145/83 100 09/01/17 13:04 145/83 - Laboratory Lab Results: Lab Results 09/01/17 09/01/17 09/01/17 Range/Units 13:50 13:50 13:50 WBC 7.7 (3.5-10.8) 10^3/ul RBC 4.75 (4.0-5.4) 10^6/ul Hgb 14.2 (12.0-16.0) g/dl Hct 42 (35-47) % MCV 88 (80-97) fL MCH 30 (27-31) pg MCHC 34 (31-36) g/dl RDW 14 (10.5-15) % Plt Count 368 (150-450) 10^3/ul MPV 7 L (7.4-10.4) um3 Neut % (Auto) 60.7 (38-83) % Lymph % (Auto) 27.2 (25-47) % [place] % (Auto) 11.0 H (0-7) % Eos % (Auto) 0.4 (0-6) % Baso % (Auto) 0.7 (0-2) % Absolute Neuts (auto) 4.7 (1.5-7.7) 10^3/ul Absolute Lymphs (auto) 2.1 (1.0-4.8) 10^3/ul Absolute Monos (auto) 0.8 (0-0.8) 10^3/ul Absolute Eos (auto) 0 (0-0.6) 10^3/ul Absolute Basos (auto) 0.1 (0-0.2) 10^3/ul Absolute Nucleated RBC 0 10^3/ul Nucleated RBC % 0 INR (Anticoag Therapy) (0.77-1.02) APTT (26.0-36.3) seconds Sodium 139 (133-145) mmol/L Potassium 3.4 L (3.5-5.0) mmol/L Chloride 107 (101-111) mmol/L Carbon Dioxide 21 L (22-32) mmol/L Anion Gap 11 (2-11) mmol/L BUN 12 (6-24) mg/dL Creatinine 0.69 (0.51-0.95) mg/dL Est GFR ( Amer) 116.8 (>60) Est GFR (Non-Af Amer) 90.8 (>60) BUN/Creatinine Ratio 17.4 (8-20) Glucose 104 H (70-100) mg/dL Lactic Acid 1.7 (0.5-2.0) mmol/L Calcium 9.8 (8.6-10.3) mg/dL Magnesium 2.2 (1.9-2.7) mg/dL Total Bilirubin 0.70 (0.2-1.0) mg/dL AST 24 (13-39) U/L ALT 38 (7-52) U/L Alkaline Phosphatase 74 (34-104) U/L Total Creatine Kinase 30 (10-223) U/L Troponin I 0.00 (<0.04) ng/mL C-Reactive Protein 13.95 H (< 5.00) mg/L Total Protein 7.9 (6.4-8.9) g/dL Albumin 4.2 (3.2-5.2) g/dL Globulin 3.7 (2-4) g/dL Albumin/Globulin Ratio 1.1 (1-3) Amylase 60 (29-103) U/L Lipase 21 (11.0-82.0) U/L Beta HCG, Quant < 0.60 mIU/mL Urine Color Urine Appearance Urine pH (5-9) Ur Specific [place] (1.010-1.030) Urine Protein (Negative) Urine Ketones (Negative) Urine Blood (Negative) Urine Nitrate (Negative) Urine Bilirubin (Negative) Urine Urobilinogen (Negative) Ur Leukocyte Esterase (Negative) Urine Glucose (Negative) 09/01/17 09/01/17 Range/Units 13:50 14:45 WBC (3.5-10.8) 10^3/ul RBC (4.0-5.4) 10^6/ul Hgb (12.0-16.0) g/dl Hct (35-47) % MCV (80-97) fL MCH (27-31) pg MCHC (31-36) g/dl RDW (10.5-15) % Plt Count (150-450) 10^3/ul MPV (7.4-10.4) um3 Neut % (Auto) (38-83) % Lymph % (Auto) (25-47) % [place] % (Auto) (0-7) % Eos % (Auto) (0-6) % Baso % (Auto) (0-2) % Absolute Neuts (auto) (1.5-7.7) 10^3/ul Absolute Lymphs (auto) (1.0-4.8) 10^3/ul Absolute Monos (auto) (0-0.8) 10^3/ul Absolute Eos (auto) (0-0.6) 10^3/ul Absolute Basos (auto) (0-0.2) 10^3/ul Absolute Nucleated RBC 10^3/ul Nucleated RBC % INR (Anticoag Therapy) 1.01 (0.77-1.02) APTT 32.6 (26.0-36.3) seconds Sodium (133-145) mmol/L Potassium (3.5-5.0) mmol/L Chloride (101-111) mmol/L Carbon Dioxide (22-32) mmol/L Anion Gap (2-11) mmol/L BUN (6-24) mg/dL Creatinine (0.51-0.95) mg/dL Est GFR ( Amer) (>60) Est GFR (Non-Af Amer) (>60) BUN/Creatinine Ratio (8-20) Glucose (70-100) mg/dL Lactic Acid (0.5-2.0) mmol/L Calcium (8.6-10.3) mg/dL Magnesium (1.9-2.7) mg/dL Total Bilirubin (0.2-1.0) mg/dL AST (13-39) U/L ALT (7-52) U/L Alkaline Phosphatase (34-104) U/L Total Creatine Kinase (10-223) U/L Troponin I (<0.04) ng/mL C-Reactive Protein (< 5.00) mg/L Total Protein (6.4-8.9) g/dL Albumin (3.2-5.2) g/dL Globulin (2-4) g/dL Albumin/Globulin Ratio (1-3) Amylase (29-103) U/L Lipase (11.0-82.0) U/L Beta HCG, Quant mIU/mL Urine Color Yellow Urine Appearance Clear Urine pH 8.0 (5-9) Ur Specific [place] 1.015 (1.010-1.030) Urine Protein Negative (Negative) Urine Ketones 1+ A (Negative) Urine Blood Negative (Negative) Urine Nitrate Negative (Negative) Urine Bilirubin Negative (Negative) Urine Urobilinogen Negative (Negative) Ur Leukocyte Esterase Negative (Negative) Urine Glucose Negative (Negative) Result Diagrams: 09/01/17 13:50 09/01/17 13:50 Lab Statement: Any lab studies that have been ordered have been reviewed, and results considered in the medical decision making process. - EKG 1329 Cardiac Rate: NL EKG Rhythm: Sinus Rhythm - [address] Segment: Non-Specific Ectopy: None EKG Interpretation: nml AVIVCT, nml QTc, and nml axis. Left axis -17. EKG Comparison: No Significant Change - from 08/31/17. Re-Evaluation - Re-Evaluation First Eval Re-Evaluation Time: 15:10 Change: Unchanged Comment: Reviewed labs with pt. Pt is still dizzy. Second Eval Re-Evaluation Time: 18:38 Change: Unchanged Comment: Pt is still dizzy and has a headache. Starting her with crackers and narda bonnie. Pt has not had V/D in ED except to provide initial stool sample. Third Eval Re-Evaluation Time: 18:45 Change: Improved Comment: Will give daily medications in ED to ensure pt does not vomit them. GIGU Course/Dx - Course Assessment/Plan: This pt is a 46 y/o F BIBA with a CC of diffuse abd cramping with N/V/D, dizziness and recent Hx of bronchitis that was treated with Z-dereck, with concern for C. diff. Pt returns to ED after visit in ED yesterday when she was unable to provide stool and had to leave in order to care for her disabled son. Pending labs and EKG. Labs reveal potassium 3.4, negative C. Diff, negative stool occult blood, and negative fecal Lactoferrin. An EKG reveals NSR (88 bpm), nonspecific ST hanges, no ectopy, nml AVIVCT, nml QTc, and nml axis. Left axis -17. No significant change from 08/31/17 EKG. Pt medications reviewed this visit. High blood pressure noted. Allergies Noted. Pt will be D/C with Dx of HTN under poor control, dizziness, hypokalemia, and diarrhea, and a prescription for Potassium Chlor Tab. Pt was advised to f/u with PCP. Pt understands and is agreeable with this plan. - Diagnoses Differential Diagnoses - Female: Colitis, Diarrhea, Gastroenteritis (Viral), Gastroenteritis (Bacterial), Vomiting Provider Diagnoses: Hypertension, poor control, Dizziness, Diarrhea, Hypokalemia Discharge - Discharge Plan Condition: Stable Disposition: HOME Prescriptions: Potassium Chlor TAB* [Potassium Chlor TAB 20 MEQ*] 20 meq PO DAILY #5 tab.er Patient Education Materials: Hypokalemia (ED), Acute Diarrhea (ED), Dizziness ( ED) Referrals: Nenita Walter MD [Primary Care Provider] - 2 Days Additional Instructions: You were given IV fluids, zofran for nausea, potassium, and then your usual medications of roxycodone, benadryl and valium while you were in the ER. You did not have the antibiotic associated colitis, so there is no medicine needed to treat that at this time. There are still other stool studies that are not resulted on you yet, that will take a few days. We will notify you if you need further treatment based on those pending stool studies. Return to the ER if you have any new or worsening symptoms. The documentation as recorded by the Rod gage Nilda accurately reflects the service I personally performed and the decisions made by , Brina Jimenez MD.
== END 2017-09-01 19:23 | disposition home or self-care (01) ==
LOC: ED 12:50
DX: I10 Essential (primary) hypertension (principal); R42 Dizziness and giddiness; R19.7 Diarrhea, unspecified; E87.6 Hypokalemia; E11.9 Type 2 diabetes mellitus without complications; E05.90 Thyrotoxicosis, unspecified without thyrotoxic crisis or storm; M79.7 Fibromyalgia
CPT/HCPCS: 36415; 80053; 81003; 82150; 82272; 82550; 83605; 83630; 83690; 83735; 84484; 84702; 85025; 85610; 85730; 86140; 87040; 87045; 87046; 87077; 87150; 87205; 87328; 87329; 87449; 87493; 87899; 93005; 96360; 99283; A9270-GY

== ENCOUNTER 2018-01-12 15:27 | Emergency (ER) | payer MEDICARE, MEDICAID ==
--- NOTE | 2018-01-12 16:14 | ED ---
Head Injury - HPI Summary HPI Summary: Pt. is a 47 y.o female who presents to the ER for a head and hand injury after a fall that occurred just prior to arrival. Pt. states she opened her house door and her dog tried to run out. She tried to grab him but fell, striking her head on cement. She denies LOC. No other injuries were sustained. Pt. unaware of last tetanus immunization. Pt. complaining of a 9/10 headache. Symptoms are moderate in severity. Movement makes symptoms worse. Nothing makes symptoms better. - History Of Current Complaint Stated Complaint: FALL/HEAD LAC Time Seen by Provider: 01/12/18 16:07 Hx Obtained From: Patient - Allergies/Home Medications Allergies/Adverse Reactions: Allergies Allergy/AdvReac Type Severity Reaction Status Date / Time ibuprofen Allergy Intermediate Abdominal Verified 01/12/18 16:59 Pain PMH/Surg Hx/FS Hx/Imm Hx Previously Healthy: Yes Endocrine/Hematology History: Reports: Hx Diabetes, Hx Thyroid Disease - hyper, Other Endocrine/Hematological Disorders - hyper thyroid Denies: Hx Anemia Cardiovascular History: Reports: Hx Hypertension Denies: Hx Congestive Heart Failure, Hx Pacemaker/ICD Respiratory History: Reports: Hx Asthma Denies: Hx Chronic Obstructive Pulmonary Disease (COPD) GI History: Reports: Other GI Disorders - patient states chronic nausea Denies: Hx Jaundice History: Denies: Hx Dialysis, Hx Renal Disease Musculoskeletal History: Reports: Hx Arthritis, Hx Back Problems, Hx Fibromyalgia Comment Only: Other Musculoskeletal History - fibromyalgia Sensory History: Reports: Hx Contacts or Glasses Denies: Hx Hearing Aid Opthamlomology History: Reports: Hx Contacts or Glasses Neurological History: Reports: Hx Migraine, Hx Nerve Disease - fibromyalgia, Other Neuro Impairments/Disorders - vertigo Psychiatric History: Reports: Hx Anxiety, Hx Depression, Hx Panic Disorder - ANXIETY, Hx Suicide Attempt Denies: Hx Eating Disorder - Cancer History Hx Chemotherapy: No Hx Radiation Therapy: No - Surgical History Surgery Procedure, Year, and Place: PARTIAL HYSTERECTOMY 09/1999, TUBAL 1996, GALLBLADDER 1994 - Immunization History Date of Tetanus Vaccine: Unk Date of Influenza Vaccine: None Fall 2013 Infectious Disease History: Reports: Hx of Known/Suspected MRSA, Hx Tuberculosis - pt reports ppd positive but chest xray negative. - Family History Known Family History: Positive: None - reviewed & noncontributory, Other - negative FHx of breast CA Negative: Cardiac Disease, Hypertension, Diabetes - Social History Occupation: Unemployed Lives: With Family Alcohol Use: None Hx Substance Use: No Substance Use Type: Reports: None Substance Use Comment - Amount & Last Used: Unknown Hx Tobacco Use: No Smoking Status (MU): Never Smoked Tobacco Have You Smoked in the Last Year: No Review of Systems Negative: Vomiting, Nausea Positive: Other - Right hand pain Positive: Other - Forehead laceration. Positive: Headache. Negative: Weakness, Paresthesia, Numbness, Syncope Positive: Anxious All Other Systems Reviewed And Are Negative: Yes Physical Exam Triage Information Reviewed: Yes Vital Signs Reviewed: Yes Appearance: Positive: Pain Distress - Pt. lying in bed, tearful. Appears in pain but nontoxic. Daughter present. Skin: Positive: Warm, Dry Head/Face: Positive: Other - 2cm irregular fullthickness laceration noted to the right aspect of the forehead. Small superficial laceration over the right aspect of the upper eyelid. Eyes: Positive: Normal, EOMI, TIANNA, Conjunctiva Clear, Other: - Pain with movement of right eye. Anterior chamber clear. Neck: Positive: Supple, Nontender Musculoskeletal: Positive: Other - Diffuse pain on palpation to right hand. Superficial abrasion to the lateral aspect. No proximal pain. Good pulse. Neurological: Positive: Normal, Alert, Oriented to Person Place, Time Psychiatric: Positive: Anxious Procedures - Laceration/Wound Repair 1 Location: face Description: Irregular Anesthesia: Local, 1.0% - 5cc Length, Depth and Shape: 2cm full thickness, irregular Betadine Prep?: No - hibiclens Laceration/Wound Explored: clean Closure: Single Layer Suture Type: Nylon - 6-0 Number of Sutures: 4 Layer Closure?: No Sterile Dressing Applied?: No Head Injury Course/Dx Course Of Treatment: Pt. presenting with the above injuries after a fall. Stable VS. Given pt.'s significant headache and pain moving right eye. CT scan of brain ordered. Hand xray also ordered. Tylenol ordered which pt. apparently declined. Tetanus updated. Head CT negative for acute findings, reading per radiology. Hand xray is negative for acute findings, reading per radiology. Results discussed. Suture removal in 5 days. To keep wounds clean and dry. Ice intermittently. Tylneol for pain as directed. Close f.u with PCP and return to ER if sxs change or worsen. Pt. understands and agrees with plan. Pt. left the ER prior to getting acewrap for hand and dc papers. - Diagnoses Differential Diagnosis/HQI/PQRI: Cerebral Contusion, Cervical Sprain, Concussion Without LOC, Contusion, Hematoma, Intracranial Bleed, Laceration, Orbital Fracture, Skull Fracture Provider Diagnoses: Head injury, Facial laceration, Hand contusion Discharge - Sign-Out/Discharge Documenting (check all that apply): Patient Departure - Discharge Plan Condition: Good Disposition: HOME Patient Education Materials: Head Injury (ED), Hand Sprain (ED), Facial Laceration (ED) Referrals: Nenita Walter MD [Primary Care Provider] - Additional Instructions: Suture removal in 5 days Keep wounds clean Ice face and hand intermittently Tylenol for pain as directed Return to ER if symptoms change or worsen - Billing Disposition and Condition Condition: GOOD Disposition: Home
[2018-01-12] MEDS ORDERED: Lidocaine 1%* 5 ML VIAL INJ ONE (16:16)
[2018-01-12] MEDS ORDERED: Acetaminophen TAB* 325 MG PO ONE (16:16)
[2018-01-12 16:48] VITALS: BP 154/101
--- NOTE | 2018-01-12 16:56 | RAD ---
INDICATION: RIGHT hand fourth and fifth digit pain post fall. COMPARISON: September 09, 2016 radiographs. TECHNIQUE: AP and lateral hand views RIGHT hand. REPORT AND IMPRESSION: #. Negative for fracture or dislocation. Mild soft tissue swelling most prominent over the dorsum of the hand at the level of the metacarpal phalangeal joints.
--- OUTSIDE RECORDS SUMMARY | 2018-01-12 16:57 | XMS REPORT ---
:1970 External Reference #:[id number] Author Organization [facility] Address [address] [place] [address] Phone [phone] Care Team Providers Name Role Phone Nenita Walter M.D. 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 Primary Care Physician Unavailable Payers Type Date Identification Numbers Payment Provider Subscriber Medicare Primary Effective: Policy Number: [place] Kiara Calderon 2017 [id number] Expires: 2017 PayID: [id number] [address] [place] [address] Medigap Part B Effective: Policy Number: [place] Kiara Calderon 2017 [id number] PayID: [id number] [address] [place] [address] Medicaid Effective: 2016 Policy Number: [id number] Medicaid [place] Kiara Calderon PayID: [id number] [address] [facility] [place] [address] Problems Date Description Provider Status Onset: 03/22/2016 [...] Onset: 06/21/2017 Hyperlipidemia Nenita Walter M.D. Active Onset: 10/19/2017 Plantar fasciitis Nenita Walter M.D. Active Onset: 11/29/2017 Irritable bowel syndrome Nenita Walter M.D. Active Family History Date [...] Form Strength Qnty SIG Indications Ordering Provider Naproxen 12/28 Active Tablets 500mg 60tab take 1 s tablet [place], every 12 M.D. hours as needed with food Mometasone Furoate 12/28 Active Cream 0.1% 45gm apply to arms twice , a day x 1 M.D. week then as needed Ranitidine HCL 09/13 Active Tablets 150mg 60tab 1 tab by R19.7 s mouth [place], twice a M.D. day Methocarbamol 07/22 Active Tablets 750mg 60tab 1 tab by s mouth [place], twice a M.D. day as needed Nitroglycerin 04/24 Active Tablets 0.4mg 14tab 1 sl q5 Sub s min x 3 [place], doses as M.D. needed for chest pain; if no relief after 3 doses call 911 Lisinopril 04/24 Active Tablets 10mg 30tab 1 by mouth I10 s every day Jose Angel, M.D. Diphenhydramine 08/26 Active Tablets 25mg 60tab 1-2 tabs R11.10 s by mouth [place], every 6 M.D. hours as needed Metoclopramide HCL 08/26 Active Tablets 10mg 30tab take one R11.10 Socar TDionisio s tablet by Juan Antonio gayle MD every 8 hours as needed for nausea Zofran Odt 08/23 Active Tablets 4mg 30tab dissolve 1 Dispers s tab under Jose Angel, tongue M.DDionisio every 6 hours as needed nausea Onetouch Ultra 2 04/25 Active Kit w/Device 1unit test blood Oscar Santoyo s sugar once Breiman, a day or M.D. as directed dx: e11.9 last office visit 04/20/16 Ventolin HFA 04/18 Active Aerosol 108(90Bas 18uni inhale two J06.9 e) ts puffs by Annamarie, mcg/Act mouth qid Afnp-C prn cough/whee ze Januvia 03/25 Active Tablets 50mg 30tab 1 tab by Nenita s mouth Jose Angel, every day M.D. Oxycodone HCL Active Tablets 15mg tid as Unknown / needed Dr Camacho Valium Active Tablets 10mg as needed Dr Macedo Singulabrendon Active Tablets 10mg 1 by mouth Unknown [...] x1 then 1 Afnp-C 08/21 by mouth /2017 every day x 4 more days Cyclobenzaprine 06/21 Hx Tablets 10mg 90tab take one Nenita s tablet by Jose Angel, - mouth M.D. 07/22 every hours as needed Bactrim DS 12/12 Hx Tablets 800-160mg 10tab 1 by mouth Oscar Santoyo /2016 s twice a Breimatenzin, - day M.D. 12/30 Ondansetron 08/26 Hx Tablets 4mg 30tab 1 tab by R11.10 Dispers s mouth [place], - every 6 M.D. 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 03/25 Sphygmomanometer 03/25 Hx Misc take blood I10 pressure [place], - daily M.D. 08/19 Truetrack Test 03/25 Hx Strips 100un test once E11.9 its a day Dx: [place], - E11.9 M.D. 04/25 office 03/25/16 Lisinopril 03/25 Hx Tablets 5mg 30tab Take One I10 s Tablet By [place], - Mouth M.D. 04/24 Every Effexor XR 0000 Hx Caps ER 37.5mg 1 by mouth Unknown /0000 24HR qd w/75mg - 03/25 Effexor XR 0000 Hx Caps ER 75mg 1 by mouth Unknown /0000 24HR every day - w/37.5 03/25 Albuterol Sulfate 00 Hx Powder 2 puffs Unknown /0000 every 4 - hours as 08/19 Albuterol Sulfate Hx Nebulizer 1.25mg/3M 3ml per Unknown /0000 L nebulizer - every 6 11/29 hours needed Effexor XR 0000 Hx Caps ER 150mg 1 by mouth Unknown /0000 24HR every day - 08/19 Lipitor 00 Hx Tablets 20mg 1 by mouth Unknown /0000 every day - 04/24 Vital Signs Date Vital Result Comment 12/28/2017 BP Systolic 122 mmHg BP Diastolic 80 mmHg Heart Rate 80 /min Body Temperature 97.5 F Height 61 inches 5'1" Weight 163.00 lb BMI (Body Mass Index) 30.8 kg/m2 11/29/2017 BP Systolic 120 mmHg BP Diastolic 70 mmHg Heart Rate 76 /min Body Temperature 98.2 F Respiratory Rate 16 /min Height 61 inches 5'1" Weight 160.00 lb BMI (Body Mass Index) 30.2 kg/m2 09/27/2017 BP Systolic 138 mmHg BP Diastolic 80 mmHg Heart Rate 96 /min Body Temperature 98.8 F Respiratory Rate 16 /min Height 61 inches 5'1" Weight 163.00 lb BMI (Body Mass Index) 30.8 kg/m2 09/13/2017 BP Systolic 130 mmHg BP Diastolic 60 mmHg Heart Rate 76 /min Body Temperature 98.6 F Respiratory Rate 16 /min Height 61 inches 5'1" Weight 164.00 lb BMI (Body Mass Index) 31.0 kg/m2 08/31/2017 BP Systolic 136 mmHg BP Diastolic [...] Test Date Test Result H/L Range Note Basic Metabolic Profile 09/27/2017 Sodium 141 mEq/L 134-149 Potassium 3.6 mEq/L 3.6-5.5 Chloride 100 mEq/L 94-112 Carbon Dioxide 27 mEq/L 21-32 Glucose 115 mg/dL High 70-105 1 BUN 12 mg/dL 6-26 Creatinine 0.7 mg/dL 0.6-1.4 BUN/Creat Ratio 17.1 CALC 8.0-36.0 Calcium 10.2 mg/dL 8.6-10.2 GFR Non- >60 ml/min/1.73m^ >=60 GFR >60 ml/min/1.73m^ >=60 Laboratory test finding 09/01/2017 Blood Culture SEE RESULT BELOW 2 Laboratory test finding 09/01/2017 Stool Occult Blood SEE RESULT BELOW 3 Stool Culture SEE RESULT BELOW 4 C Difficile PCR SEE RESULT BELOW 5 Urinalysis Profile 09/01/2017 Urine Color Yellow Urine Appearance Clear Urine Specific [place] 1.015 1.010-1.030 Urine pH 8.0 5-9 Urine Urobilinogen Negative Negative Urine Ketones 1+ Negative Urine Protein Negative Negative Urine Leukocytes Negative Negative Urine Blood Negative Negative Urine Nitrite Negative Negative Urine Bilirubin Negative Negative Urine Glucose Negative Negative Venous Blood Gas 08/31/2017 Venous Blood pH 7.48 High 7.33-7.43 Venous Pco2 31 mmHg Low 41-51 Venous Po2 42 mmHg 35-45 Venous O2 Saturation 85.5 % High 70-80 Venous Blood Base Excess 0.3 0-4 6 Venous Bicarbonate Hco3 24.8 mmol/L 24-28 Laboratory test finding 08/31/2017 Point of Care Glucose 103 mg/dL High 70 -100 7 Laboratory test finding 08/31/2017 Inr/Protime 0.99 0.77-1.02 CBC Auto Diff 08/31/2017 White Blood Count 9.5 10^3/uL 3.5-10.8 Red Blood Count 4.54 10^6/uL 4.0-5.4 Hemoglobin 13.6 g/dL 12.0-16.0 Hematocrit 40 % 35-47 Mean Corpuscular Volume 88 fL 80-97 Mean Corpuscular Hemoglobin 30 pg 27-31 Mean Corpuscular HGB Conc 34 g/dL 31-36 Red Cell Distribution Width 14 % 10.5-15 Platelet Count 376 10^3/uL 150-450 Mean Platelet Volume 7 um3 Low 7.4-10.4 Abs Neutrophils 5.9 10^3/uL 1.5-7.7 Abs Lymphocytes 2.7 10^3/uL 1.0-4.8 Abs Monocytes 0.8 10^3/uL 0-0.8 Abs Eosinophils 0 10^3/uL 0-0.6 Abs Basophils 0.1 10^3/uL 0-0.2 Abs Nucleated RBC 0 10^3/uL Granulocyte % 61.9 % 38-83 Lymphocyte % 28.2 % 25-47 Monocyte % 8.8 % High 0-7 Eosinophil % 0.3 % 0-6 Basophil % 0.8 % 0-2 Nucleated Red Blood Cells % 0 Laboratory test finding 08/31/2017 Lactic Acid 1.3 mmol/L 0.5-2.0 8 Comp Metabolic Panel 08/31/2017 Sodium 137 mmol/L 133-145 Potassium 3.2 mmol/L Low 3.5-5.0 Chloride 106 mmol/L 101-111 Co2 Carbon Dioxide 21 mmol/L Low 22-32 Anion Gap 10 mmol/L 2-11 Glucose 102 mg/dL High 70-100 Blood Urea Nitrogen 16 mg/dL 6-24 Creatinine 0.64 mg/dL 0.51-0.95 BUN/Creatinine Ratio 25.0 High 8-20 Calcium 9.8 mg/dL 8.6-10.3 Total Protein 7.9 g/dL 6.4-8.9 Albumin 4.1 g/dL 3.2-5.2 Globulin 3.8 g/dL 2-4 Albumin/Globulin Ratio 1.1 1-3 Total Bilirubin 0.60 mg/dL 0.2-1.0 Alkaline Phosphatase 67 U/L 34-104 Alt 31 U/L 7-52 Ast 20 U/L 13-39 Egfr Non- 99.0 >60 Egfr 127.4 >60 9 Laboratory test finding 08/31/2017 Amylase 54 U/L 29-103 Lipase 17 U/L 11.0-82.0 Creatine Kinase(CK) 30 U/L 10-223 C Reactive Protein 12.86 mg/L High < 5.00 10 Magnesium 2.1 mg/dL 1.9-2.7 Urinalysis Profile 08/31/2017 Urine Color Yellow Urine Appearance Cloudy Urine Specific [place] 1.026 1.010-1.030 Urine pH 7.0 5-9 Urine Urobilinogen Negative Negative Urine Ketones 1+ Negative Urine Protein 1+(30 mg/dL) Negative Urine Leukocytes Negative Negative Urine Blood Negative Negative Urine Nitrite Negative Negative Urine Bilirubin Negative Negative Urine Glucose Negative Negative Urine White Blood Cell Trace(0-5/hpf) Absent Urine Red Blood Cell Trace(0-2/hpf) Absent Urine Bacteria Absent Absent Urine Squamous Epithelial Cell Present Absent Laboratory test 08/31/2017 Urine Culture And SEE RESULT BELOW 11 finding Sensitivities Rapid Influenza A & 08/31/2017 Influenza A Molecular NEGATIVE Negative 12 B Molecular Influenza B Molecular NEGATIVE Negative Metabolic Panel (14), Comprehensive 06/21/2017 Glucose, Serum 106 mg/dL High 65-99 13 BUN 10 mg/dL 6-24 13 Creatinine, Serum 0.61 mg/dL 0.57-1.00 13 eGFR If NonAfricn Am 108 mL/min/1.73 >59 13 eGFR If Africn Am 124 mL/min/1.73 >59 13 BUN/Creatinine Ratio 16 9-23 13 Sodium, Serum 143 mmol/L 134-144 13 Potassium, Serum 4.2 mmol/L 3.5-5.2 13 Chloride, Serum 103 mmol/L 96-106 13 Carbon Dioxide, Total 25 mmol/L 18-29 13 Calcium, Serum 9.2 mg/dL 8.7-10.2 13 Protein, Total, Serum 7.4 g/dL 6.0-8.5 13 Albumin, Serum 4.1 g/dL 3.5-5.5 13 Globulin, Total 3.3 g/dL 1.5-4.5 13 A/G Ratio 1.2 1.2-2.2 13 Bilirubin, Total <0.2 mg/dL 0.0-1.2 13 Alkaline Phosphatase, S 80 IU/L 39-117 13 Ast (Sgot) 21 IU/L 0-40 13 Alt (SGPT) 18 IU/L 0-32 13 Lipid Panel 06/21/2017 Cholesterol, Total 263 mg/dL High 100-199 13 Triglycerides 124 mg/dL 0-149 13 HDL Cholesterol 65 mg/dL >39 13 VLDL Cholesterol Tristan 25 mg/dL 5-40 13 LDL Cholesterol Calc 173 mg/dL High 0-99 13 Comment: TNP 13 CBC With Differential/Platelet 06/21/2017 WBC 6.2 x10E3/uL 3.4-10.8 13 RBC 4.33 x10E6/uL 3.77-5.28 13 Hemoglobin 12.8 g/dL 11.1-15.9 13 Hematocrit 39.0 % 34.0-46.6 13 MCV 90 fL 79-97 13 MCH 29.6 pg 26.6-33.0 13 MCHC 32.8 g/dL 31.5-35.7 13 RDW 14.3 % 12.3-15.4 13 Platelets 402 x10E3/uL High 150-379 13 Neutrophils 58 % Not Estab. 13 Lymphs 32 % Not Estab. 13 Monocytes 8 % Not Estab. 13 Eos 2 % Not Estab. 13 Basos 0 % Not Estab. 13 Immature Cells TNP 13 Neutrophils (Absolute) 3.6 x10E3/uL 1.4-7.0 13 Lymphs (Absolute) 2.0 x10E3/uL 0.7-3.1 13 Monocytes(Absolute) 0.5 x10E3/uL 0.1-0.9 13 Eos (Absolute) 0.1 x10E3/uL 0.0-0.4 13 Baso (Absolute) 0.0 x10E3/uL 0.0-0.2 13 Immature Granulocytes 0 % Not Estab. 13 Immature Grans (Abs) 0.0 x10E3/uL 0.0-0.1 13 NRBC TNP 13 Hematology Comments: TNP 13 Laboratory test 06/21/2017 Thyroxine (T4) 1.09 ng/dL 0.82-1.77 13 finding Free, Direct, S Hemoglobin A1c 06/21/2017 Hemoglobin A1c 5.6 % 4.8-5.6 13, 14 Laboratory test 06/21/2017 TSH 1.400 uIU/mL 0.450-4.500 13 finding Laboratory test 05/22/2017 Glucose Serum 106 High 70-105 finding CBC Auto Diff 04/20/2017 White Blood Count [...] 04/20/2017 B-Type Natriuretic Peptide BNP 47 pg/mL 15 Lactic Acid 1.3 mmol/L 0.5-2.0 16 Comp Metabolic Panel 04/20/2017 Sodium 136 mmol/L [...] Egfr Non- 102.7 >60 Egfr 132.1 >60 17 Laboratory test finding 04/20/2017 Magnesium 2.1 mg/dL 1.9-2.7 Creatine Kinase(CK) 25 U/L 10-223 Troponin I 0.00 ng/mL <0.04 CKMB 04/20/2017 CKMB ng/mL 0.7 ng/mL 0.6-6.3 Laboratory test finding 04/20/2017 TSH (Thyroid Stim Horm) 3.10 mcIU/mL 0.34-5.60 Blood Culture SEE RESULT BELOW 18 CBC No Diff 04/04/2017 White Blood Count [...] Color Ashlee Urine Appearance Turbid Urine Specific [place] 1.028 1.010-1.030 Urine pH 5.0 5-9 Urine [...] Egfr Non- 99.0 >60 Egfr 127.4 >60 19 Lipid Profile (Trig/Chol/HDL) 04/04/2017 Triglycerides 60 mg/dL 20 Cholesterol 228 mg/dL 21 HDL Cholesterol 67.9 mg/dL 22 LDL Cholesterol 148 mg/dL 23 Laboratory test finding 04/04/2017 Thyroxine 10.33 g/mL 6.09-12.23 TSH (Thyroid Stim Horm) 0.75 mcIU/mL 0.34-5.60 Urine Microalbumin Random 04/04/2017 Ur Microalbumin (mg/L) 82.3 mg/L Urine Creatinine 361.76 mg/dL Urine Microalbumin/Creatinine 22.7 ug/mg <31 Laboratory test finding 04/04/2017 Hemoglobin A1c (Glyco 5.8 % Less than 6.0 24 HGB) Urine Culture And Sensitivities SEE RESULT BELOW 25 Ua - Non Micro (Fma) 12/12/2016 Appearance clear Color yellow Glucose, Urine (Fma/CMC/CTX) neg Bilirubin neg Ketones neg SP Grav >=1.030 Blood neg PH 5.5 Protein neg Urobil 0.2 Nitrite neg Leukocytes (Fma/CMC/Centrex) neg Urine Culture Routine 12/12/2016 Urine Culture, Routine Final report 26 , 27 Result 1 Escherichia coli 26, 28 Antimicrobial Susceptibility See Comment: 26, 29 Laboratory test finding 11/20/2016 Acetaminophen < 15 g/mL 30 CBC Auto Diff 11/20/2016 White Blood Count [...] finding 11/20/2016 Lactic Acid 1.1 mmol/L 0.5-2.0 31 Comp Metabolic Panel 11/20/2016 Sodium 135 mmol/L [...] Egfr Non- 83.8 >60 Egfr 107.7 >60 32 Laboratory test finding 11/20/2016 Acetaminophen < 15 g/mL 33 Alcohol < 10 mg/dL <10 Salicylate < [...] Egfr Non- 96.0 >60 Egfr 123.5 >60 34 Laboratory test finding 09/09/2016 Magnesium 2.0 mg/dL 1.9-2.7 35 Creatine Kinase(CK) 31 U/L 10-223 36 TSH (Thyroid Stim Horm) 1.86 mcIU/mL 0.34-5.60 37 Thyroperoxidase AB 608.12 IU/mL High <9 38 Folic Acid (Folate) 13.65 ng/mL >3.99 39 Vitamin B12 386 pg/mL 180-914 40 Vitamin D Total 25(Oh) 20.0 ng/mL Low 30-50 41 Angiotensin Converting Enzyme 20 U/L 8 - 53 42 Thyroglobulin AB 40 IU/mL <4.0 43 Anca AB Ser If 09/09/2016 C-Anca Negative Negative P-Anca Negative Negative 44 Connective Tissue Panel 09/09/2016 Anti-Nuclear Antibody 0.6 U 45 Cyclic Citrullinated Peptide <15.6 U 46 Interpretation See Comment 47 Laboratory test finding 09/09/2016 Rheumatoid Factor <15 IU/mL <15 48 Hla B27 09/09/2016 Hla B27 Negative 49 Hla B27 Interp See Comment 50 Laboratory test finding 09/09/2016 Vitamin D, 1,25 Dihydroxy 78 pg/mL 18- 78 51 Laboratory test finding 08/22/2016 Potassium Redraw 3.7 [...] Egfr Non- 97.7 >60 Egfr 125.7 >60 52 Ast 22 U/L 13-39 Potassium 3.6 mmol/L 3.5-5.0 Anion Gap 7 mmol/L 2-11 Laboratory test finding 08/22/2016 Magnesium 1.9 mg/dL 1.9-2.7 Troponin I 0.00 ng/mL <0.04 53 CBC Auto Diff 08/22/2016 White Blood Count [...] finding 07/31/2016 Lactic Acid 1.2 mmol/L 0.5-2.0 54 Comp Metabolic Panel 07/31/2016 Sodium 135 mmol/L [...] Egfr Non- 94.3 >60 Egfr 121.3 >60 55 Potassium 4.0 mmol/L 3.5-5.0 Anion Gap 6 mmol/L 2-11 Ast 23 U/L 13-39 Laboratory test finding 07/31/2016 Troponin I 0.01 ng/mL <0.04 56 Laboratory test finding 04/21/2016 Hemoglobin A1c (Fma) [...] 2.7 x10^3/UL 1.5-7.2 Lymph# 1.6 x10^3/UL 0.7-4.9 Pender# 0.2 x10^3/UL 0.1-0.9 Gran % 58.3 % 42.2-75.2 Lymph % 37.1 % 20.5-51.1 Pender% 4.6 % 1.7-9.3 Laboratory test finding 04/21/2016 TSH 2.15 mIU/L 0.50-6.00 57 Laboratory test finding 04/09/2016 Troponin I 0.00 ng/mL <0.03 58 HCG < 0.60 mIU/mL 59 Comp Metabolic Panel 04/09/2016 Sodium 138 mmol/L [...] Egfr Non- 73.7 >60 Egfr 94.8 >60 60 Laboratory test finding 04/09/2016 Lactic Acid 1.6 mmol/L 0.5-2.0 61 CBC Auto Diff 04/09/2016 White Blood Count [...] 03/21/2016 HIV 1&2 AB Self Nonreactive Nonreactive 62 Referred Laboratory test finding 03/21/2016 Troponin I 0.00 ng/mL <0.03 63 Comp Metabolic Panel 03/21/2016 Sodium 135 mmol/L [...] Egfr Non- 99.5 >60 Egfr 127.9 >60 64 Potassium 3.9 mmol/L 3.5-5.0 Anion Gap 8 [...] Nucleated Red Blood Cells % 0 1 NON-FASTING 2 SEE RESULT BELOW Name: KIARA CALDERON : [address]: Brina Jimenez MD Acct: [id number] Unit: [id number] AGE: 46 Location: ED Re09/01/17 SEX: F Status: DEP ER SPEC: [id number] VANESSA: 09/01/17-[address] [facility] [address]: Brina Jimenez MD REQ: [id number] RECD: 09/01/17-1601 STATUS: SAVAGE PERDUE DR: Nenita Walter MD _ SOURCE: BLOOD,VENO SPDESC: ORDERED: Blood Cult, MRSA/SA BC PCR Procedure Result Reported Site Aerobic Culture Bottle Final 09/06/17- 1601 ML No Growth Day 5 Anaerobic Culture Bottle Final 09/03/17- 0950 ML Anaerobic Btl Gram Stain Gram Positive Cocci resembling Staph Organism 1 STAPHYLOCOCCUS EPIDERMIDIS - Sensitivity not performed; probable contaminant. If further testing is required, please call microbiology laboratory. MRSA/S. aureus Blood Cult PCR Final 09/02/17- 2131 ML Organism 1 MRSA NEGATIVE Organism 2 S.AUREUS NEGATIVE * ML - Main Lab . END OF REPORT DEPARTMENT OF PATHOLOGY, [address] [place] [address] Mehrdad Lau M.D. Director [facility] # [id number] 3 SEE RESULT BELOW Name: KIARA CALDERON : [address]: Brina Jimenez MD Acct: [id number] Unit: [id number] AGE: 46 Location: ED Re09/01/17 SEX: F Status: REG ER SPEC: [id number] VANESSA: 09/01/[address] [facility] [address]: Brina Jimenez MD REQ: [id number] RECD: 09/01/17 STATUS: SAVAGE PERDUE DR: Nenita Walter MD _ SOURCE: STOOL SPDESC: ORDERED: Occult Bl, Diag, C. diff PCR, Fecal Lactoferr Procedure Result Reported Site Stool Specimen Description Final 09/01/17- 1457 ML Stool Color Brown Stool Form Nonformed Stool Consistency Mucoid C. difficile PCR Final 09/01/17- 1704 ML Organism 1 027 Presumptive NEGATIVE Organism 2 Toxigenic C.diff NEGATIVE Fecal Lactoferrin (Stool WBC) Final 09/01/17- 1524 ML Fecal Lactoferrin Negative by Immunoassay TEST LIMITATIONS: Assay detects elevated levels of lactoferrin released from fecal leukocytes as a marker of intestinal inflammation. The test may not be appropriate in immunocompromised persons. Fecal samples from breast fed infants should not be used with this assay. Stool Occult Blood (1) Final 09/01/17- 1513 ML Stool Occult Blood Negative * ML - Main Lab . END OF REPORT DEPARTMENT OF PATHOLOGY, [address] [place] [address] Mehrdad Lau M.D. Director [facility] # [id number] 4 SEE RESULT BELOW Name: KIARA CALDERON : [address]: Brina Jimenez MD Acct: [id number] Unit: [id number] AGE: 46 Location: ED Re09/01/17 SEX: F Status: DEP ER SPEC: [id number] VANESSA: 09/01/17-[address] [facility] [address]: Brina Jimenez MD REQ: [id number] RECD: 09/01/172584 STATUS: SAVAGE PERDUE DR: Nenita Walter MD _ SOURCE: STOOL SPDESC: ORDERED: Stool Culture, O P: Giar/Crypt COMMENTS: Unable to Perform Shiga Toxin Testing. Insufficient Growth of Enteric Bacteria. Procedure Result Reported Site Stool Culture Final 09/03/17- 1017 ML Result No growth of normal enteric rupesh No enteric pathogens isolated Testing for Salmonella, Shigella, Aeromonas, Plesiomonas, Yersinia and Campylobacter are included in a Stool Culture. Vibrio spp not routinely tested for in a stool culture. If testing is desired, please request specifically when placing test order. Sensitivities not routinely performed on stool isolates, as antibiotics may prolong the carriage rate of bacteria. Please contact the microbiology lab if sensitivities are required. Stool Specimen Description Final 09/01/17- 1456 ML Stool Color Brown Stool Form Nonformed Stool Consistency Mucoid Shiga Toxin 1 2 Final 09/03/17- 1017 ML Test not performed O P: Giardia/Cryptospor Screen Final 09/04/17- 1131 ML Organism 1 Neg Cryptosporidium/Giardia CONTINUED ON NEXT PAGE DEPARTMENT OF PATHOLOGY, [address] [place] [address] Mehrdad Lau M.D. Director [facility] # [id number] Patient: KIARA CALDERON [id number] (Continued) Specimen: [id number] Collected: 09/01/17-144 Received: 09/01/17 (Continued) Procedure Result Reported Site O P: Giardia/Cryptospor Screen Final (continued) 09/04/17- 1130 Giardia and cryptosporidium antigen testing performed by enzyme immunoassay. If patient is immunocompromised or has traveled to or is from a developing country, a full ova and parasite exam with microscopic (OPMIC) is recommended. All samples will be held one month in case full ova and parasite testing is requested. Contact the Microbiology Department at [phone]. TEST LIMITATIONS: As with all diagnostic procedures, the results obtained should be used in conjunction with other clinical information available the physician, including confirmation by another method. Negative results can occur in samples containing antigen below lower limits of detection of the assay. One negative specimen does not rule out the possibility of a parasitic infection. To improve detection it is recommended that three specimens be collected on separate days over a period of not more than seven days. The use of colonic washes, aspirates or other diluted sample types has not been established and could affect the performance of the assay. Stool samples contaminated with an oily or particulate base (eg. Barium, mineral oil etc.) could interfere with the test and are not recommended. * ML - Main Lab . END OF REPORT DEPARTMENT OF PATHOLOGY, [address] [place] [address] Mehrdad Lau M.D. Director [facility] # [id number] 5 SEE RESULT BELOW Name: KIARA CALDERON : [address]: Brina Jimenez MD Acct: [id number] Unit: [id number] AGE: 46 Location: ED Re09/01/17 SEX: F Status: REG ER SPEC: [id number] VANESSA: 09/01/17-[address] [facility] [address]: Brina Jimenez MD REQ: [id number] RECD: 09/01/17 STATUS: RES [facility] DR: Nenita Walter MD _ SOURCE: STOOL SPDESC: ORDERED: Occult Bl, Ana Perez diff PCR, Fecal Lactoferr Procedure Result Reported Site Stool Specimen Description Final 09/01/17- 1457 ML Stool Color Brown Stool Form Nonformed Stool Consistency Mucoid C. difficile PCR PENDING Fecal Lactoferrin (Stool WBC) PENDING Stool Occult Blood (1) PENDING * ML - Main Lab . END OF REPORT DEPARTMENT OF PATHOLOGY, [address] [place] [address] Mehrdad Lau M.D. Director [facility] # [id number] 6 Reference ranges based on room air. 7 Chemistry Technical Officer: [id number] 8 [facility] Severe Sepsis and Septic Shock Management Bundle Measure requires all lactic acids initially measuring >2.0 mmol/L be repeated. 9 Because ethnic data is not always readily [...] 15-29 5 Kidney failure <15 (or dialysis) 10 Acute inflammation: >10.00 11 SEE RESULT BELOW Name: KIARA CALDERON : [address]: Brina Jimenez MD Acct: [id number] Unit: [id number] AGE: 46 Location: ED Re08/31/17 SEX: F Status: DEP ER SPEC: [id number] VANESSA: 08/31/17-[address] [facility] [address]: Brina Jimenez MD REQ: [id number] RECD: 08/31/17 STATUS: SAVAGE PERDUE DR: Nenita Walter MD _ SOURCE: URINE SPDESC: ORDERED: Urine Culture Procedure Result Reported Site Urine Culture Final 09/01/17- 1608 ML No growth of clinically significant organisms * ML - Main Lab . END OF REPORT DEPARTMENT OF PATHOLOGY, [address] [place] [address] Mehrdad Lau M.D. Director [facility] # [id number] 12 Chemistry Technical Officer: [id number] 13 2 sst 1 lav 14 Pre-diabetes: 5.7 - 6.4 Diabetes: >6.4 Glycemic control for adults with diabetes: <7.0 15 >100 to <200 pg/mL: likely compensated congestive heart failure (CHF) 200 to 400 pg/mL: likely moderate CHF >400 pg/mL: likely moderate to severe CHF 16 [facility] Severe Sepsis and Septic Shock Management Bundle Measure requires all lactic acids initially measuring >2.0 mmol/L be repeated. 17 Because ethnic data is not always readily [...] 15-29 5 Kidney failure <15 (or dialysis) 18 SEE RESULT BELOW Name: KIARA CALDERON : [address]: Santi Francois MD Acct: [id number] Unit: [id number] AGE: 46 Location: [place] [address] Re04/20/17 Dis: 04/21/17 SEX: F Status: DIS Susy SPEC: [id number] VANESSA: 04/20/[address]: Geovanny Schmitt MD REQ: [id number] RECD: 04/20/17 STATUS: SAVAGE PERDUE DR: Nenita Walter MD _ SOURCE: BLOOD,VENO SPDESC: ORDERED: Blood Cult Procedure Result Reported Site Aerobic Culture Bottle Final 04/25/17- 4 ML No Growth Day 5 Anaerobic Culture Bottle Final 04/25/17- 1714 ML No Growth Day 5 * ML - MAIN LAB (PSC1) . END OF REPORT * ML=Testing performed at Main Lab DEPARTMENT OF PATHOLOGY, [address] [place] [address] Mehrdad Lau M.D. Director [facility] # [id number] 19 Because ethnic data is not always readily [...] 15-29 5 Kidney failure <15 (or dialysis) 20 Desirable <150 Borderline high 150-199 High 200-499 Very High >500 21 Desirable <200 Borderline high 200-239 High >239 22 Low <40 Desirable: 40-60 High: >60 23 Desirable: <100 mg/dL Near Optimal: 100-129 mg/dL Borderline High: 130-159 mg/dL High: 160-189 mg/dL Very High: >189 mg/dL 24 Therapeutic target for the treatment of diabetes Mellitus patients is <7% HBA1C, and in selective patients <6.0%.Please refer to [employer] Diabetic care guidelines for further information. 25 SEE RESULT BELOW Name: KIARA CALDERON : [address]: Nenita Walter MD Acct: [id number] Unit: [id number] AGE: 46 Location: [facility] Re04/04/17 SEX: F Status: REG REF SPEC: [id number] VANESSA: 04/04/[address]: Nenita Walter MD REQ: [id number] RECD: 04/04/17 STATUS: COMP _ SOURCE: URINE SPDESC: ORDERED: Urine Culture Procedure Result Reported Site Urine Culture Final 04/05/17- 1313 ML No Growth (<1,000 CFU/mL) * ML - MAIN LAB ([facility]) . END OF REPORT * ML=Testing performed at Main Lab DEPARTMENT OF PATHOLOGY, [address] [place] [address] Mehrdad Lau M.D. Director [facility] # [id number] 26 SRC:<Blank> 1urine vacutai ner 27 Source of Specimen: <Blank> 1urine vacutai 28 Escherichia coli Source of Specimen: <Blank> 1urine vacutai 25,000-50,000 colony forming units per mL 29 Source of Specimen: <Blank> 1urine vacutai S=Susceptible; I=Intermediate; R=Resistant P=Positive; N=Negative MICS are expressed in micrograms per mL Antibiotic RSLT#1 RSLT#2 RSLT#3 RSLT#4 Amoxicillin/Clavulanic Acid S Ampicillin S Cefepime S Ceftriaxone S Cefuroxime S Cephalothin I Ciprofloxacin S Ertapenem S Gentamicin S Imipenem S Levofloxacin S Nitrofurantoin S Piperacillin S Tetracycline S Tobramycin S Trimethoprim/Sulfa R 30 Therapeutic concentration: <50 ug/mL Toxic concentration: >120 ug/mL 31 [place] Severe Sepsis and Septic Shock Management Bundle Measure requires all lactic acids initially measuring >2.0 mmol/L be repeated. 32 Because ethnic data is not always readily [...] 15-29 5 Kidney failure <15 (or dialysis) 33 Therapeutic concentration: <50 ug/mL Toxic concentration: >120 ug/mL 34 Because ethnic data is not always readily [...] 15-29 5 Kidney failure <15 (or dialysis) 35 Please check this week 36 Please check this week 37 Please check this week 38 Please check this week 39 Please check this week 40 Normal Range 180 to 914 Indeterminate Range 145 to 180 Deficient Range <145 41 Please check this week 42 Test Performed by: [facility] [address] [place] [address] 43 ADDITIONAL INFORMATION The thyroglobulin antibody testing method is an immunoenzymatic assay manufactured by [employer]. and performed on the [employer] DXI 800. Values obtained from different assay methods or kits may be different and cannot be used interchangeably. The results cannot be interpreted as absolute evidence for the presence or absence of malignant disease. Test Performed by: [facility] - [address] [address] 44 Negative for cANCA and pANCA patterns by immunofluorescence. ADDITIONAL INFORMATION This test was developed and its performance characteristics determined by [facility] in a manner consistent with CLIA requirements. This test has not been cleared or approved by the U.S. Food and Drug Administration. Test Performed by: [facility] - [address] [address] 45 REFERENCE VALUE <=1.0 (Negative) 46 REFERENCE VALUE <20.0 (Negative) 47 Tests for antibodies to dsDNA and LORENA antigens are not performed automatically unless the LUPE result is > or= 3.0 U. Studies performed at [facility] indicate that positive LUPE results <3.0 U are rarely accompanied by positive second order tests. Test Performed by: [facility] - [address] [address] 48 Test Performed by: [facility] - [address] [address] 49 REFERENCE VALUE Not Applicable 50 RESULT: HLA-B27 antigen was not detected. ADDITIONAL INFORMATION Method: Flow Cytometry Performing Laboratory CLIA# [id number] Test Performed by: [facility] - [facility] [address] [place] [address] 51 ADDITIONAL INFORMATION This test was developed and its performance characteristics determined by [facility] in a manner consistent with CLIA requirements. This test has not been cleared or approved by the U.S. Food and Drug Administration. Test Performed by: [facility] - [facility] [address] [place] [address] 52 Because ethnic data is not always [...] 15-29 5 Kidney failure <15 (or dialysis) 53 99th percentile=0.04 ng/mL Troponin results at [facility] and [facility] are not interchangeable. 54 [facility] Severe Sepsis and Septic Shock Management Bundle Measure requires all lactic acids initially measuring >2.0 mmol/L be repeated. 55 Because ethnic data is not always readily [...] 15-29 5 Kidney failure <15 (or dialysis) 56 99th percentile=0.04 ng/mL Troponin results at [facility] and [facility] are not interchangeable. 57 FASTING 58 Reference Range and Interpretation: TnI (ng/mL) Interpretation Less Than 0.03 ng/mL Not supportive of diagnosis of WI 0.03 - 0.50 ng/mL Indeterminate: suggest serial studies if clinically indicated. Greater than 0.5 ng/mL Consistent with diagnosis of [place] 59 <5.0 Negative 5.0 - 25.0 Indeterminate (Repeat testing recommended after 72 hours) >25.0 Positive Perimenopausal women can display HCG levels of up to 20 mIU/mL 60 Because ethnic data is not always readily [...] 15-29 5 Kidney failure <15 (or dialysis) 61 [facility] Severe Sepsis and Septic Shock Management Bundle Measure requires all lactic acids initially measuring >2.0 mmol/L be repeated. 62 It is recognized that currently available assays [...] 95% confidence interval of 99.78 to 99.96%. 63 Reference Range and Interpretation: TnI (ng/mL) Interpretation Less Than 0.03 ng/mL Not supportive of diagnosis of WI 0.03 - 0.50 ng/mL Indeterminate: suggest serial studies if clinically indicated. Greater than 0.5 ng/mL Consistent with diagnosis of [place] 64 Because ethnic data is not always readily [...] Code Description Status 07/14/2017 Mammogram Completed 05/22/2017 45729 Finger Or Heel Stick Completed 10/29/2015 Mammogram Completed Encounters Type Date Location Provider CPT E/M Dx Office Visit 11/29/2017 4:40p [facility] Nenita Walter M.D. 13226 E11.9 F33.1 R19.7 Office Visit 09/27/2017 4:30p [place] [address] R11.0 R19.7 Office Visit 09/13/2017 3:20p [facility] Nenita Walter M.D. 79456 E11.9 F33.1 R19.7 Office Visit 08/31/2017 10:30a Main Office Nenita Walter M.D. 83615 A09 E11.9 F33.1 Office Visit 08/16/2017 10:30a Main Office Niranjan Menendez 52073 J06.9 J45.901 Office Visit 07/22/2017 10:30a Main Office Nenita Walter M.D. 26004 M79.671 M54.5 M79.7 Office Visit 06/21/2017 3:00p [facility] Nenita Walter M.D. 20397 Z00.00 E11.9 F33.1 I10 E78.5 Z12.31 M54.5 Office Visit 05/22/2017 6:00p [place] [address] R11.2 R19.7 E11.9 Office Visit 04/24/2017 7:20p Main Office Nenita Walter M.D. 75511 F33.1 E11.9 I10 E78.5 R07.9 Office Visit 04/03/2017 2:00p Main Office Nenita Walter M.D. 99099 F33.1 M54.5 E11.9 E04.2 M25.549 Office Visit 12/12/2016 11:00a Main Office Oscar Rodas M.D. 64967 N39.0 Office Visit 12/01/2016 7:40p [facility] Office Nenita Walter M.D. 50077 F33.1 T14.91 Office Visit 10/19/2016 4:40p [facility] Nenita Walter M.D. 06309 M54.5 E11.9 F33.1 E04.2 Office Visit 08/26/2016 8:00a Main Office Nenita Walter M.D. 63896 R42 J06.9 R11.10 Office Visit 08/19/2016 10:50a [facility] Nenita Walter M.D. 41676 L94.9 I10 M25.549 Office Visit 06/29/2016 10:30a [facility] Nenita Walter M.D. 25037 I10 F33.1 E11.9 M54.5 Office Visit 04/18/2016 3:00p Main Office ROYCE Grace 41786 J06.9 Office Visit 03/25/2016 2:10p [facility] Office Nenita Walter M.D. 87532 E11.9 F33.1 M54.5 I10 Office Visit 12/03/2015 3:45p [facility] Office Lakshmi Prieto, [facility] 97298 S62.606A W10.8xxA Office Visit 11/25/2015 10:00a [facility] Kelly Lenz, [facility] 12187 E11.9 F32.9 M54.5 Plan of Care 12/28/2017 - Nenita Walter M.D.E11.9 Type 2 diabetes mellitus without complicationsNew Labs:Hemoglobin A1c (Fma)CBC Electronic (a)CCS-Comp And Lipid (a)T4 & TSHComments:Recommend yearly diabetic eye and foot exams, and check on blood pressure periodically. Goal blood sugar is less than 140 in the morning or A1c less than 7. Recommend monitoring portion size, decreased carbohydrate intake (breads, pasta, rice, candy, desserts, and sweetened beverages/alcohol) and routine daily exercise.Follow up:velojbuvL84.1 Major depressive disorder, recurrent, moderateComments:following psych ; diarrhea may be coming from anxietyAllNew Medication:Naproxen 500 mgMometasone Furoate 0.1 %Comments:~B_~U_Medication Management~b_~u_ Patient Understands medications she's taking? Yes No Are there Barriers to Adherence? Yes No Has the patient been asked about herbal supplements and therapies, and OTC meds? Yes No
--- NOTE | 2018-01-12 17:27 | RAD ---
INDICATION: Head injury. COMPARISON: Comparison is made with a prior CT of the brain from every ,017. TECHNIQUE: Contiguous axial sections of the brain were obtained from the skull base to the vertex without contrast. FINDINGS: The ventricles, cisterns and sulci are within normal limits. No significant focal abnormality or mass effect is seen. There is no evidence for hemorrhage. There is focal soft tissue swelling and a laceration in the scalp anterior to the right frontal bone. No fracture is seen. The visualized portion of the paranasal sinuses and mastoid air cells appear clear. IMPRESSION: NO EVIDENCE FOR ACUTE INTRACRANIAL ABNORMALITY.
[2018-01-12] MEDS ORDERED: Tetan/Diph/Pertus SYR(Tdap)* 0.5 ML SYR(BOOSTRIX) use SYR IM ONE (17:34)
== END 2018-01-12 19:38 | disposition home or self-care (01) ==
LOC: ED 15:27
DX: S01.81XA Laceration without foreign body of other part of head, initial encounter (principal); S01.111A Laceration without foreign body of right eyelid and periocular area, initial encounter; S60.221A Contusion of right hand, initial encounter; W19.XXXA Unspecified fall, initial encounter; Y92.9 Unspecified place or not applicable; Z23 Encounter for immunization; Z88.6 Allergy status to analgesic agent
CPT/HCPCS: 12011; 70450; 90471; 90715; 99282; A9270-GY

== ENCOUNTER 2018-05-21 11:16 | Emergency (ER) | payer MEDICARE, MEDICAID ==
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
[2018-05-21] MEDS ORDERED: oxyCODONE/Acetamin 5/325 MG* TAB PO ONE (11:27)
[2018-05-21 12:15] LABS: ABS Basophils 0 10^3/ul (0-0.2); ABS Eosinophils 0 10^3/ul (0-0.6); ABS Lymphocytes 1.4 10^3/ul (1.0-4.8); ABS Monocytes 0.7 10^3/ul (0-0.8); ABS Neutrophils 5.1 10^3/ul (1.5-7.7); ABS Nucleated RBC 0 10^3/ul; Eosinophil % 0.6 % (0-6); Hematocrit 39 % (35-47); Hemoglobin 12.9 g/dl (12.0-16.0); Mean Corpuscular HGB Conc 33 g/dl (31-36); Mean Corpuscular Hemoglobin 30 pg (27-31); Mean Corpuscular Volume 90 fL (80-97); Mean Platelet Volume 6.6 fL (7.4-10.4); Nucleated Red Blood Cells % 0; Platelet Count 338 10^3/ul (150-450); Red Blood Count 4.33 10^6/ul (4.00-5.40); Red Cell Distribution Width 14 % (10.5-15); White Blood Count 7.2 10^3/ul (3.5-10.8)
[2018-05-21 12:36] LABS: EGFR Non-African American 88.9 (>60)
[2018-05-21] MEDS ORDERED: Aspirin 81 mg CHEW TAB* 81 MG TAB.CHEW PO ONE (15:17)
[2018-05-21] MEDS: Nitroglycerin TAB 0.4 MG* 0.4 MG TAB SL ONE ×2 (15:22→15:34)
[2018-05-21 18:01] VITALS: BP 133/95
== END 2018-05-21 18:00 | disposition home or self-care (01) ==
LOC: ED 11:16
DX: S90.02XA Contusion of left ankle, initial encounter (principal); R07.9 Chest pain, unspecified; Y08.09XA Assault by strike by other specified type of sport equipment, initial encounter; Y92.9 Unspecified place or not applicable; M79.7 Fibromyalgia
CPT/HCPCS: 36415; 71046; 72110; 80053; 83605; 84484; 85025; 93005; 99283; A9270-GY

== ENCOUNTER 2018-12-03 19:44 | Emergency (ER) | payer MEDICARE, OTHER ==
--- OUTSIDE RECORDS SUMMARY | 2018-12-03 20:28 | XMS REPORT | Continuity of Care Document ---
:1970 External Reference #:[id number] Author Name Xiang Camacho DO, MPH Address [address] [place] [address], [address] [place] [address] Care Team Providers Name Role Phone Anum Bee M.D. Care Team Information Court Commissioner Unavailable Nenita Walter M.D. Primary Care Physician Unavailable Payers Date Identification Numbers Payment Provider Subscriber Expires: 2017 Policy Number: [id number] [facility] PayID: [id number] [address] [address] [place] [address] Effective: 2016 Policy Number: [id number] Medicare [facility] PayID: [id number] [address] [place] [address] Effective: 2017 Policy Number: [id number] Medicaid [facility] PayID: [id number] [address] [place] [id number] Expires: 2016 Policy Number: [id number] [facility] PayID: [id number] [address] [address] [place] [address] Effective: 2016 Policy Number: [id number] Medicaid [facility] Expires: 2016 PayID: [id number] [address] [place] [id number] Problems Active Problems Provider Date Type 2 diabetes mellitus Xiang Camacho DO, MPH Onset: 07/30/2013 Family History Date Family Member(s) Observation Comments Father due to Unknown Causes () Mother 56 Children 3 Siblings 2 Social History Type Date Description Comments Sex Unknown Marital Status Single Work Status Not Currently Working Tobacco Use Start: Unknown Never Smoked Cigarettes ETOH Use Denies alcohol use Tobacco Use Start: Unknown Patient has never smoked Smoking Status Reviewed: 11/27/18 Patient has never smoked Allergies, Adverse Reactions, Alerts Active Allergies Reaction Severity Comments Date Ibuprofen vomitting, stomach pain 07/30/2013 Medications Active Medications SIG Qnty Indications Ordering Date Provider Oxycodone HCL si by mouth 120tabs CamachoXiang coates, 01/21/2015 15mg every 6 to 8 DO, MPH Tablets hours as directed chronic pain patient Naproxen DR tate Unknown 500mg Tablets DR Barbosa Unknown 50mg Tablets Singulair 1 po daily Unknown 10mg Tablets Venlafaxine HCL 30tabs Unknown 225mg Tablets Lisinopril 1 by mouth daily Unknown 5mg Tablets Abilify si by mouth Unknown 2mg Tablets every day as directed Reglan 1 by mouth every Unknown 10mg Tablets day Hydroxyzine HCL 1 by mouth three 30tabs Unknown 25mg times a day Tablets every night Methocarbamol take one by Unknown 500mg mouth every 12 Tablets hours as directed chronic pain. Benadryl Allergy 1/2-1 by mouth Unknown 25mg three times a Tablets day as directed Diazepam si by mouth Unknown 5mg Tablets every 12 hours History Medications Medrol medication to be 21units Xiang Camacho, 10/10/2016 - 4mg TBPK taken as directed DO, MPH 11/01/2016 Medrol medication to be 21units Xiang Camacho, 06/29/2016 - 4mg TBPK taken as directed DO, MPH 07/28/2016 Oxycodone HCL si by mouth every 120tabs Xiang Camacho, 05/20/2014 - 15mg 6 hours as directed DO, MPH 01/21/2015 Tablets chronic pain patient Oxycodone HCL si -2 po q4-6h ud 135tabs CamachoXiang coates, 05/07/2014 - 10mg DO, MPH 05/20/2014 Tablets chronic pain patient Oxycodone HCL si-2 po q4-6h ud 180tabs Camacho, Xiang, 04/23/2014 - 10mg DO, MPH 05/07/2014 Tablets chronic pain patient Oxymorphone si po q6h ud 120tabs Camacho, Xiang, 02/11/2014 - Hydrochloride chronic DO, MPH 04/23/2014 10mg pain patient Tablets Oxymorphone si po q6h ud 120tabs Camacho, Xiang, 10/28/2013 - Hydrochloride DO, MPH 02/11/2014 5mg Tablets chronic pain patient Oxycodone HCL si-2 po q4-6h ud 90tabs Camacho, Xiang, 10/02/2013 - 5mg Tablets DO, MPH 10/28/2013 chronic pain patient Oxycodone HCL si-2 po q12h ud 90tabs Camacho, Xiang, 08/27/2013 - 5mg Tablets DO, MPH 10/02/2013 chronic pain patient Hans apply 4grams to 2tubes Camacho, [place], 08/13/2013 - 1% Gel affected area four DO, [facility] 07/23/2015 times a day ud Proair HFA 2 puffs every 4-6 Unknown - 108(90Base) hrs prn 10/22/2018 mcg/Act Aerosol Valium si po q8h ud 30tabs Unknown - 5mg Tablets 08/17/2018 chronic pain patient Omeprazole 1 po qd 30caps Unknown - 40mg Capsules 11/26/2014 Clonazepam si by mouth three 30tabs Unknown - 0.5mg Tablets times a day as 08/17/2018 directed Topamax take 2 by mouth Unknown - 25mg Tablets every morning as 06/29/2018 directed chronic pain. Docusate Sodium si by mouth every Unknown - 100mg day as directed 06/29/2018 Tablets Gabapentin si by mouth two 60tabs Unknown - 600mg Tablets times a day as 09/28/2018 directed Penicillin V Potassium 10 milliliters twice Unknown - a day for 10 days 08/17/2018 250mg/5ML Solution Rec Vital Signs Date Vital Result Comment 11/27/2018 2:23pm BP Systolic 128 mmHg BP Diastolic 78 mmHg Heart Rate 76 /min Respiratory Rate 20 /min Height 60 inches 5'0" Weight 184.00 lb Pain Level 6 Pain at this time. Pain Level With Medicine 5 on average with meds Pain Level Without Medicine 9 without meds BMI (Body Mass Index) 35.9 kg/m2 10/22/2018 2:23pm BP Systolic 144 mmHg BP Diastolic 86 mmHg Heart Rate 82 /min Respiratory Rate 20 /min Height 60 inches 5'0" Weight 178.00 lb Pain Level 9 Pain at this time. Pain Level With Medicine 8 on average with meds Pain Level Without Medicine 10 04/11 without meds BMI (Body Mass Index) 34.8 kg/m2 09/28/2018 1:29pm BP Systolic 136 mmHg BP Diastolic 86 mmHg Heart Rate 84 /min Respiratory Rate 20 /min Height 60 inches 5'0" Weight 172.00 lb Pain Level 9 Pain at this time. Pain Level With Medicine 8 on average with meds Pain Level Without Medicine 10 04/11 without meds Pain Level After Procedure 7 BP Systolic Recheck 130 mmHg Pulse: 80 BP Diastolic Recheck 82 mmHg Pulse: 80 BMI (Body Mass Index) 33.6 kg/m2 08/30/2018 2:43pm BP Systolic 130 mmHg BP Diastolic 80 mmHg Heart Rate 82 /min Respiratory Rate 20 /min Height 60 inches 5'0" Weight 169.00 lb Pain Level 9 Pain at this time. Pain Level With Medicine 8 on average with meds Pain Level Without Medicine 10 04/11 without meds BMI (Body Mass Index) 33.0 kg/m2 08/17/2018 2:52pm BP Systolic 138 mmHg BP Diastolic 90 mmHg Heart Rate 88 /min Respiratory Rate 20 /min Height 60 inches 5'0" Weight 169.00 lb Pain Level 9 Pain at this time. Pain Level With Medicine 8 on average with meds Pain Level Without Medicine 10 04/11 without meds BMI (Body Mass Index) 33.0 kg/m2 07/30/2018 3:32pm BP Systolic 144 mmHg BP Diastolic 82 mmHg Heart Rate 86 /min Respiratory Rate 20 /min Height 60 inches 5'0" Weight 169.00 lb Pain Level 7 Pain at this time. Pain Level With Medicine 7 on average with meds Pain Level Without Medicine 10 04/11 without meds BMI (Body Mass Index) 33.0 kg/m2 06/29/2018 10:05am BP Systolic 140 mmHg BP Diastolic 86 mmHg Heart Rate 82 /min Respiratory Rate 20 /min Height 60 inches 5'0" Weight 168.00 lb Pain Level 8 Pain at this time. Pain Level With Medicine 6 on average with meds Pain Level Without Medicine 10 04/11 without meds BMI (Body Mass Index) 32.8 kg/m2 05/29/2018 11:10am BP Systolic 136 mmHg BP Diastolic 88 mmHg Heart Rate 88 /min Respiratory Rate 20 /min Height 60 inches 5'0" Weight 172.00 lb Pain Level 7 Pain at this time. Pain Level With Medicine 6 on average with meds Pain Level Without Medicine 10 04/11 without meds Pain Level After Procedure 5 BP Systolic Recheck 132 mmHg Pulse: 84 BP Diastolic Recheck 84 mmHg Pulse: 84 BMI (Body Mass Index) 33.6 kg/m2 05/01/2018 2:32pm BP Systolic 122 mmHg BP Diastolic 74 mmHg Heart Rate 78 /min Respiratory Rate 18 /min Height 60 inches 5'0" Weight 157.00 lb Pain Level 7 Pain at this time. Pain Level With Medicine 6 on average with meds Pain Level Without Medicine 10 04/11 without meds BMI (Body Mass Index) 30.7 kg/m2 04/02/2018 1:51pm BP Systolic 132 mmHg BP Diastolic 84 mmHg Heart Rate 80 /min Respiratory Rate 20 /min Height 60 inches 5'0" Weight 157.00 lb Pain Level 8 Pain at this time. Pain Level With Medicine 7 on average with meds Pain Level Without Medicine 10 04/11 without meds BMI (Body Mass Index) 30.7 kg/m2 03/02/2018 11:25am BP Systolic 138 mmHg BP Diastolic 86 mmHg Heart Rate 84 /min Respiratory Rate 20 /min Height 60 inches 5'0" Weight 162.00 lb Pain Level 7 Pain at this time. Pain Level With Medicine 6 on average with meds Pain Level Without Medicine 10 04/11 without meds Pain Level After Procedure 7 BP Systolic Recheck 136 mmHg Pulse: 84 BP Diastolic Recheck 82 mmHg Pulse: 84 BMI (Body Mass Index) 31.6 kg/m2 02/01/2018 10:33am BP Systolic 148 mmHg BP Diastolic 78 mmHg Heart Rate 72 /min Respiratory Rate 20 /min Height 60 inches 5'0" Weight 160.00 lb Pain Level 9 Pain at this time. Pain Level With Medicine 8 on average with meds Pain Level Without Medicine 10 04/11 without meds BMI (Body Mass Index) 31.2 kg/m2 01/02/2018 10:57am BP Systolic 140 mmHg BP Diastolic 82 mmHg Heart Rate 78 /min Respiratory Rate 20 /min Height 60 inches 5'0" Weight 158.00 lb Pain Level 7 Pain at this time. Pain Level With Medicine 6 on average with meds Pain Level Without Medicine 04/11 without meds Pain Level After Procedure 5 BP Systolic Recheck 136 mmHg Pulse: 82 BP Diastolic Recheck 84 mmHg Pulse: 82 BMI (Body Mass Index) 30.9 kg/m2 12/04/2017 9:39am BP Systolic 142 mmHg BP Diastolic 86 mmHg Heart Rate 80 /min Respiratory Rate 20 /min Height 60 inches 5'0" Weight 162.00 lb Pain Level 8 Pain at this time. Pain Level With Medicine 7 on average with meds Pain Level Without Medicine 04/11 without meds BMI (Body Mass Index) 31.6 kg/m2 11/03/2017 9:26am BP Systolic 140 mmHg BP Diastolic 86 mmHg Heart Rate 84 /min Respiratory Rate 20 /min Height 60 inches 5'0" Weight 162.00 lb Pain Level 7 Pain at this time. Pain Level With Medicine 6 on average with meds Pain Level Without Medicine 04/11 without meds BMI (Body Mass Index) 31.6 kg/m2 10/03/2017 10:46am BP Systolic 144 mmHg BP Diastolic 86 mmHg Heart Rate 82 /min Respiratory Rate 20 /min Height 60 inches 5'0" Weight 161.00 lb Pain Level 6 Pain at this time. Pain Level With Medicine 5 on average with meds Pain Level Without Medicine 04/11 without meds BMI (Body Mass Index) 31.4 kg/m2 09/04/2017 11:24am BP Systolic 128 mmHg BP Diastolic 78 mmHg Heart Rate 76 /min Respiratory Rate 20 /min Height 60 inches 5'0" Weight 161.00 lb Pain Level 7 Pain at this time. Pain Level With Medicine 6 on average with meds Pain Level Without Medicine 10 04/11 without meds BMI (Body Mass Index) 31.4 kg/m2 08/23/2017 9:55am BP Systolic 140 mmHg BP Diastolic 86 mmHg Heart Rate 76 /min Respiratory Rate 20 /min Height 60 inches 5'0" Weight 170.00 lb Pain Level 9 Pain at this time. Pain Level With Medicine 8 on average with meds Pain Level Without Medicine 10 04/11 without meds Pain Level After Procedure 6 BP Systolic Recheck 136 mmHg Pulse: 80 BP Diastolic Recheck 82 mmHg Pulse: 80 BMI (Body Mass Index) 33.2 kg/m2 08/01/2017 9:35am BP Systolic 136 mmHg BP Diastolic 80 mmHg Heart Rate 82 /min Respiratory Rate 20 /min Height 60 inches 5'0" Weight 162.00 lb Pain Level 8 Pain at this time. Pain Level With Medicine 7 on average with meds Pain Level Without Medicine 10 04/11 without meds BMI (Body Mass Index) 31.6 kg/m2 07/17/2017 3:20pm BP Systolic 152 mmHg BP Diastolic 86 mmHg Heart Rate 92 /min Respiratory Rate 20 /min Height 60 inches 5'0" Weight 162.00 lb Pain Level 7 Pain at this time. Pain Level With Medicine 6 on average with meds Pain Level Without Medicine 04/11 without meds BMI (Body Mass Index) 31.6 kg/m2 07/05/2017 3:23pm BP Systolic 138 mmHg BP Diastolic 82 mmHg Heart Rate 84 /min Respiratory Rate 20 /min Height 60 inches 5'0" Weight 166.00 lb Pain Level 8 Pain at this time. Pain Level With Medicine 7 on average with meds Pain Level Without Medicine 04/11 without meds BMI (Body Mass Index) 32.4 kg/m2 06/05/2017 11:19am BP Systolic 126 mmHg BP Diastolic 74 mmHg Heart Rate 80 /min Respiratory Rate 20 /min Height 60 inches 5'0" Weight 166.00 lb Pain Level 9 Pain at this time. Pain Level With Medicine 8 on average with meds Pain Level Without Medicine 10 04/11 without meds BMI (Body Mass Index) 32.4 kg/m2 05/04/2017 2:57pm BP Systolic 140 mmHg BP Diastolic 86 mmHg Heart Rate 84 /min Respiratory Rate 20 /min Height 60 inches 5'0" Weight 166.00 lb Pain Level 3 Pain at this time. Pain Level With Medicine 3 on average with meds Pain Level Without Medicine 10 04/11 without meds BMI (Body Mass Index) 32.4 kg/m2 04/17/2017 9:44am BP Systolic 166 mmHg BP Diastolic 92 mmHg Heart Rate 84 /min Respiratory Rate 20 /min Height 60 inches 5'0" Weight 169.00 lb Pain Level 9 Pain at this time. Pain Level With Medicine 9 on average with meds Pain Level Without Medicine 10 04/11 without meds Pain Level After Procedure 4 BP Systolic Recheck 128 mmHg Pulse: 80 BP Diastolic Recheck 84 mmHg Pulse: 80 BMI (Body Mass Index) 33.0 kg/m2 04/03/2017 10:49am BP Systolic 148 mmHg BP Diastolic 80 mmHg Heart Rate 84 /min Respiratory Rate 20 /min Height 60 inches 5'0" Weight 170.00 lb Pain Level 9 Pain at this time. Pain Level With Medicine 8 on average with meds Pain Level Without Medicine 10 04/11 without meds BMI (Body Mass Index) 33.2 kg/m2 03/02/2017 3:54pm BP Systolic 130 mmHg BP Diastolic 80 mmHg Heart Rate 84 /min Respiratory Rate 18 /min Height 60 inches 5'0" Weight 170.00 lb Pain Level 9 Pain at this time. Pain Level With Medicine 7 on average with meds Pain Level Without Medicine 10 04/11 without meds BMI (Body Mass Index) 33.2 kg/m2 02/09/2017 3:57pm BP Systolic 148 mmHg BP Diastolic 86 mmHg Heart Rate 94 /min Respiratory Rate 20 /min Height 60 inches 5'0" Weight 163.00 lb Pain Level 8 Pain at this time. Pain Level With Medicine 7 on average with meds Pain Level Without Medicine 10 04/11 without meds Pain Level After Procedure 5 BP Systolic Recheck 158 mmHg Pulse:112 BP Diastolic Recheck 90 mmHg Pulse:112 BMI (Body Mass Index) 31.8 kg/m2 02/02/2017 10:20am BP Systolic 136 mmHg BP Diastolic 84 mmHg Heart Rate 82 /min Respiratory Rate 20 /min Height 60 inches 5'0" Weight 163.00 lb Pain Level 8 Pain at this time. Pain Level With Medicine 7 on average with meds Pain Level Without Medicine 10 04/11 without meds BMI (Body Mass Index) 31.8 kg/m2 01/06/2017 1:40pm BP Systolic 152 mmHg BP Diastolic 86 mmHg Heart Rate 84 /min Respiratory Rate 20 /min Height 60 inches 5'0" Weight 160.00 lb Pain Level 9 Pain at this time. Pain Level With Medicine 7 on average with meds Pain Level Without Medicine 10 04/11 without meds Pain Level After Procedure 6 BP Systolic Recheck 126 mmHg Pulse: 88 BP Diastolic Recheck 82 mmHg Pulse: 88 BMI (Body Mass Index) 31.2 kg/m2 12/29/2016 2:45pm BP Systolic 140 mmHg BP Diastolic 86 mmHg Heart Rate 84 /min Respiratory Rate 20 /min Height 60 inches 5'0" Weight 160.00 lb Pain Level 9 Pain at this time. Pain Level With Medicine 7 on average with meds Pain Level Without Medicine 10 04/11 without meds BMI (Body Mass Index) 31.2 kg/m2 12/08/2016 3:28pm BP Systolic 116 mmHg BP Diastolic 72 mmHg Heart Rate 74 /min Respiratory Rate 20 /min Height 60 inches 5'0" Weight 160.00 lb Pain Level 7 Pain at this time. Pain Level With Medicine 6 on average with meds Pain Level Without Medicine 10 04/11 without meds BMI (Body Mass Index) 31.2 kg/m2 11/29/2016 3:15pm BP Systolic 128 mmHg BP Diastolic 76 mmHg Heart Rate 80 /min Respiratory Rate 18 /min Height 60 inches 5'0" Weight 161.00 lb Pain Level 8 Pain at this time. Pain Level With Medicine 7 on average with meds Pain Level Without Medicine 10 04/11 without meds BMI (Body Mass Index) 31.4 kg/m2 11/01/2016 3:51pm BP Systolic 130 mmHg BP Diastolic 82 mmHg Heart Rate 74 /min Respiratory Rate 16 /min Height 60 inches 5'0" Weight 164.00 lb Pain Level 9 /10, Pain at this time. Pain Level With Medicine 9 03/12, on average with meds Pain Level Without Medicine 10 04/11 without meds BMI (Body Mass Index) 32.0 kg/m2 10/11/2016 3:17pm BP Systolic 148 mmHg BP Diastolic 86 mmHg Heart Rate 84 /min Respiratory Rate 20 /min Height 60 inches 5'0" Weight 160.00 lb Pain Level 8 Pain at this time. Pain Level With Medicine 8 on average with meds Pain Level Without Medicine 10 04/11 without meds BMI (Body Mass Index) 31.2 kg/m2 09/27/2016 2:12pm BP Systolic 126 mmHg BP Diastolic 80 mmHg Heart Rate 84 /min Respiratory Rate 18 /min Height 60 inches 5'0" Weight 163.00 lb Pain Level 8 Pain at this time. Pain Level With Medicine 7 on average with meds Pain Level Without Medicine 10 04/11 without meds BMI (Body Mass Index) 31.8 kg/m2 09/02/2016 10:33am BP Systolic 138 mmHg BP Diastolic 76 mmHg Heart Rate 80 /min Respiratory Rate 16 /min Height 60 inches 5'0" Weight 156.00 lb Pain Level 9 9/10, Pain at this time. Pain Level With Medicine 4 4/10, on average with meds Pain Level Without Medicine 10 04/11 without meds BMI (Body Mass Index) 30.5 kg/m2 07/28/2016 3:17pm BP Systolic 124 mmHg BP Diastolic 80 mmHg Heart Rate 76 /min Respiratory Rate 16 /min Height 60 inches 5'0" Weight 156.00 lb Pain Level 8 8/10, Pain at this time. Pain Level With Medicine 7 7/10, on average with meds Pain Level Without Medicine 10 04/11 without meds BMI (Body Mass Index) 30.5 kg/m2 07/13/2016 3:42pm BP Systolic 144 mmHg BP Diastolic 82 mmHg Heart Rate 74 /min Respiratory Rate 20 /min Height 60 inches 5'0" Weight 156.00 lb Pain Level 9 Pain at this time. Pain Level With Medicine 8 on average with meds Pain Level Without Medicine 10 04/11 without meds BMI (Body Mass Index) 30.5 kg/m2 06/29/2016 3:55pm BP Systolic 122 mmHg BP Diastolic 76 mmHg Heart Rate 76 /min Respiratory Rate 18 /min Height 60 inches 5'0" Weight 155.00 lb Pain Level 8 8/10, Pain at this time. Pain Level With Medicine 5 5/10, on average with meds Pain Level Without Medicine 10 04/11 without meds BMI (Body Mass Index) 30.3 kg/m2 05/30/2016 3:50pm BP Systolic 132 mmHg BP Diastolic 84 mmHg Heart Rate 80 /min Respiratory Rate 18 /min Height 60 inches 5'0" Weight 151.00 lb Pain Level 7 Pain at this time. Pain Level With Medicine 6 on average with meds Pain Level Without Medicine 10 04/11 without meds BMI (Body Mass Index) 29.5 kg/m2 04/29/2016 1:19pm BP Systolic 126 mmHg BP Diastolic 74 mmHg Heart Rate 76 /min Respiratory Rate 18 /min Height 60 inches 5'0" Weight 151.00 lb Pain Level 8 Pain at this time. Pain Level With Medicine 7 on average with meds Pain Level Without Medicine 10 04/11 without meds Pain Level After Procedure 6 BP Systolic Recheck 122 mmHg Pulse: 72 BP Diastolic Recheck 74 mmHg Pulse: 72 BMI (Body Mass Index) 29.5 kg/m2 03/30/2016 11:09am BP Systolic 128 mmHg BP Diastolic 76 mmHg Heart Rate 74 /min Respiratory Rate 18 /min Height 60 inches 5'0" Weight 146.00 lb Pain Level 1 Pain at this time. Pain Level With Medicine 1 on average with meds Pain Level Without Medicine 10 04/11 without meds BMI (Body Mass Index) 28.5 kg/m2 03/14/2016 3:44pm BP Systolic 130 mmHg BP Diastolic 80 mmHg Heart Rate 76 /min Respiratory Rate 18 /min Height 60 inches 5'0" Weight 142.00 lb Pain Level 7 01/09, Pain at this time. Pain Level With Medicine 7 7, on average with meds Pain Level Without Medicine 10 04/11 without meds BMI (Body Mass Index) 27.7 kg/m2 03/01/2016 2:42pm BP Systolic 132 mmHg BP Diastolic 78 mmHg Heart Rate 86 /min Respiratory Rate 20 /min Height 60 inches 5'0" Weight 142.00 lb Pain Level 7 Pain at this time. Pain Level With Medicine 6 on average with meds Pain Level Without Medicine 10 04/11 without meds BMI (Body Mass Index) 27.7 kg/m2 02/24/2016 10:20am BP Systolic 130 mmHg BP Diastolic 80 mmHg Heart Rate 78 /min Respiratory Rate 18 /min Height 60 inches 5'0" Weight 142.00 lb Pain Level 8 Pain at this time. Pain Level With Medicine 7 on average with meds Pain Level Without Medicine 10 04/11 without meds BMI (Body Mass Index) 27.7 kg/m2 02/16/2016 11:10am BP Systolic 128 mmHg BP Diastolic 76 mmHg Heart Rate 76 /min Respiratory Rate 18 /min Height 60 inches 5'0" Weight 142.00 lb Pain Level 8 /, Pain at this time. Pain Level With Medicine 8 02/09, on average with meds Pain Level Without Medicine 10 04/11 without meds BMI (Body Mass Index) 27.7 kg/m2 02/01/2016 11:14am BP Systolic 134 mmHg BP Diastolic 80 mmHg Heart Rate 80 /min Respiratory Rate 18 /min Height 60 inches 5'0" Weight 142.00 lb Pain Level 5 510, Pain at this time. Pain Level With Medicine 5 10, on average with meds Pain Level Without Medicine 10 04/11 without meds BMI (Body Mass Index) 27.7 kg/m2 01/06/2016 3:28pm BP Systolic 126 mmHg BP Diastolic 76 mmHg Heart Rate 78 /min Respiratory Rate 18 /min Height 60 inches 5'0" Weight 142.00 lb Pain Level 1 Pain at this time. Pain Level With Medicine 1 on average with meds Pain Level Without Medicine 10 04/11 without meds BMI (Body Mass Index) 27.7 kg/m2 12/29/2015 3:51pm BP Systolic 118 mmHg BP Diastolic 76 mmHg Heart Rate 78 /min Respiratory Rate 18 /min Height 60 inches 5'0" Weight 143.00 lb Pain Level 1 10, Pain at this time. Pain Level With Medicine 1 10, on average with meds Pain Level Without Medicine 10 04/11 without meds BMI (Body Mass Index) 27.9 kg/m2 12/22/2015 4:02pm BP Systolic 132 mmHg BP Diastolic 76 mmHg Heart Rate 80 /min Respiratory Rate 18 /min Height 60 inches 5'0" Weight 147.00 lb Pain Level 1 10, Pain at this time. Pain Level With Medicine 1 /10, on average with meds Pain Level Without Medicine 10 04/11 without meds BMI (Body Mass Index) 28.7 kg/m2 12/02/2015 4:21pm BP Systolic 126 mmHg BP Diastolic 78 mmHg Heart Rate 76 /min Respiratory Rate 18 /min Height 60 inches 5'0" Weight 147.00 lb Pain Level 6 Pain at this time. Pain Level With Medicine 5 on average with meds Pain Level Without Medicine 10 04/11 without meds Pain Level After Procedure 4 BP Systolic Recheck 132 mmHg Pulse: 80 BP Diastolic Recheck 84 mmHg Pulse: 80 BMI (Body Mass Index) 28.7 kg/m2 10/26/2015 3:43pm BP Systolic 134 mmHg BP Diastolic 76 mmHg Heart Rate 80 /min Respiratory Rate 18 /min Height 60 inches 5'0" Weight 145.00 lb Pain Level 7 /, Pain at this time. Pain Level With Medicine 5 5/10, on average with meds Pain Level Without Medicine 10 04/11 without meds BMI (Body Mass Index) 28.3 kg/m2 09/25/2015 1:23pm BP Systolic 118 mmHg BP Diastolic 78 mmHg Heart Rate 74 /min Respiratory Rate 18 /min Height 60 inches 5'0" Weight 144.00 lb Pain Level 4 Pain at this time. Pain Level With Medicine 3 on average with meds Pain Level Without Medicine 10 04/11 without meds BMI (Body Mass Index) 28.1 kg/m2 08/27/2015 4:02pm BP Systolic 128 mmHg BP Diastolic 80 mmHg Heart Rate 82 /min Respiratory Rate 18 /min Height 60 inches 5'0" Weight 147.00 lb Pain Level 8 8/10, Pain at this time. Pain Level With Medicine 3 3/10, on average with meds Pain Level Without Medicine 10 04/11 without meds BMI (Body Mass Index) 28.7 kg/m2 07/23/2015 3:40pm BP Systolic 126 mmHg BP Diastolic 74 mmHg Heart Rate 78 /min Respiratory Rate 20 /min Height 60 inches 5'0" Weight 147.00 lb Pain Level 5 Pain at this time. Pain Level With Medicine 4 on average with meds Pain Level Without Medicine 10 04/11 without meds BMI (Body Mass Index) 28.7 kg/m2 07/08/2015 3:55pm BP Systolic 126 mmHg BP Diastolic 74 mmHg Heart Rate 76 /min Respiratory Rate 20 /min Height 60 inches 5'0" Weight 147.00 lb Pain Level 8 Pain at this time. Pain Level With Medicine 7 on average with meds Pain Level Without Medicine 10 04/11 without meds Pain Level After Procedure 6 BP Systolic Recheck 156 mmHg Pulse: 102 BP Diastolic Recheck 98 mmHg Pulse: 102 BMI (Body Mass Index) 28.7 kg/m2 06/24/2015 2:18pm BP Systolic 130 mmHg BP Diastolic 80 mmHg Heart Rate 76 /min Respiratory Rate 18 /min Height 60 inches 5'0" Weight 147.00 lb Pain Level 8 8/10, Pain at this time. Pain Level With Medicine 7 7/10, on average with meds Pain Level Without Medicine 10 04/11 without meds BMI (Body Mass Index) 28.7 kg/m2 05/22/2015 2:47pm BP Systolic 106 mmHg BP Diastolic 72 mmHg Heart Rate 78 /min Respiratory Rate 18 /min Height 60 inches 5'0" Weight 147.00 lb Pain Level 7 710, Pain at this time. Pain Level With Medicine 4 410, on average with meds Pain Level Without Medicine 10 04/11 without meds BMI (Body Mass Index) 28.7 kg/m2 04/24/2015 1:45pm BP Systolic 122 mmHg BP Diastolic 78 mmHg Heart Rate 80 /min Respiratory Rate 18 /min Height 60 inches 5'0" Weight 147.00 lb Pain Level 7 7/10, Pain at this time. Pain Level With Medicine 4 410, on average with meds Pain Level Without Medicine 10 04/11 without meds BMI (Body Mass Index) 28.7 kg/m2 03/27/2015 1:42pm BP Systolic 132 mmHg BP Diastolic 74 mmHg Heart Rate 70 /min Respiratory Rate 18 /min Height 60 inches 5'0" Weight 143.00 lb Pain Level 6 610, Pain at this time. Pain Level With Medicine 6 12/10, on average with meds Pain Level Without Medicine 10 04/11 without meds BMI (Body Mass Index) 27.9 kg/m2 01/21/2015 2:01pm BP Systolic 114 mmHg BP Diastolic 78 mmHg Heart Rate 80 /min Respiratory Rate 18 /min Height 60 inches 5'0" Weight 144.00 lb Pain Level 7 10, Pain at this time. Pain Level With Medicine 7 10, on average with meds Pain Level Without Medicine 10 10+ 15 BMI (Body Mass Index) 28.1 kg/m2 12/31/2014 3:59pm BP Systolic 126 mmHg BP Diastolic 78 mmHg Heart Rate 74 /min Respiratory Rate 18 /min Height 60 inches 5'0" Weight 146.00 lb Pain Level 9 Pain at this time. Pain Level With Medicine 9 on average with meds Pain Level Without Medicine 10 04/11 without meds Pain Level After Procedure 7 BP Systolic Recheck 134 mmHg Pulse: 76 BP Diastolic Recheck 80 mmHg Pulse: 76 BMI (Body Mass Index) 28.5 kg/m2 12/16/2014 3:52pm BP Systolic 148 mmHg BP Diastolic 90 mmHg Heart Rate 88 /min Respiratory Rate 18 /min Height 60 inches 5'0" Weight 145.00 lb Pain Level 8 Pain at this time. Pain Level With Medicine 7 on average with meds Pain Level Without Medicine 10 04/11 without meds BMI (Body Mass Index) 28.3 kg/m2 11/26/2014 10:25am BP Systolic 132 mmHg BP Diastolic 84 mmHg Heart Rate 80 /min Respiratory Rate 20 /min Height 60 inches 5'0" Weight 149.00 lb Pain Level 6 Pain at this time. Pain Level With Medicine 5 on average with meds Pain Level Without Medicine 10 04/11 without meds BMI (Body Mass Index) 29.1 kg/m2 10/22/2014 3:04pm BP Systolic 118 mmHg BP Diastolic 76 mmHg Heart Rate 80 /min Respiratory Rate 18 /min Height 60 inches 5'0" Weight 150.00 lb Pain Level 5 5/10, Pain at this time. Pain Level With Medicine 3 310, on average with meds Pain Level Without Medicine 10 04/11 without meds BMI (Body Mass Index) 29.3 kg/m2 09/23/2014 3:41pm BP Systolic 128 mmHg BP Diastolic 78 mmHg Heart Rate 80 /min Respiratory Rate 20 /min Height 60 inches 5'0" Weight 156.00 lb Pain Level 6 Pain at this time. Pain Level With Medicine 5 on average with meds Pain Level Without Medicine 10 04/11 without meds BMI (Body Mass Index) 30.5 kg/m2 08/26/2014 10:33am BP Systolic 118 mmHg BP Diastolic 74 mmHg Heart Rate 72 /min Respiratory Rate 18 /min Height 60 inches 5'0" Weight 154.00 lb Pain Level 4 4/10, Pain at this time. Pain Level With Medicine 4 4/10, on average with meds Pain Level Without Medicine 10 04/11 without meds BMI (Body Mass Index) 30.1 kg/m2 07/28/2014 2:42pm BP Systolic 120 mmHg BP Diastolic 76 mmHg Heart Rate 74 /min Respiratory Rate 18 /min Height 60 inches 5'0" Weight 154.00 lb Pain Level 5 5/10, Pain at this time. Pain Level With Medicine 5 5/10, on average with meds Pain Level Without Medicine 10 04/11 without meds BMI (Body Mass Index) 30.1 kg/m2 06/16/2014 10:07am BP Systolic 132 mmHg BP Diastolic 80 mmHg Heart Rate 84 /min Respiratory Rate 18 /min Height 60 inches 5'0" Weight 155.00 lb Pain Level 8 8/10, Pain at this time. Pain Level With Medicine 8 8/10, on average with meds Pain Level Without Medicine 10 04/11 without meds BMI (Body Mass Index) 30.3 kg/m2 05/07/2014 11:49am BP Systolic 134 mmHg BP Diastolic 82 mmHg Heart Rate 84 /min Respiratory Rate 18 /min Height 60 inches 5'0" Weight 152.00 lb Pain Level 7 Pain at this time. Pain Level With Medicine 6 on average with meds Pain Level Without Medicine 10 04/11 without meds BMI (Body Mass Index) 29.7 kg/m2 04/23/2014 11:04am BP Systolic 120 mmHg BP Diastolic 72 mmHg Heart Rate 74 /min Respiratory Rate 18 /min Height 60 inches 5'0" Weight 155.00 lb Pain Level 9 9/10, Pain at this time. Pain Level With Medicine 8 8, on average with meds Pain Level Without Medicine 10 04/11 without meds BMI (Body Mass Index) 30.3 kg/m2 02/11/2014 3:06pm Respiratory Rate 18 /min Height 60 inches 5'0" Weight 152.00 lb Pain Level 9 03/12, Pain at this time. Pain Level With Medicine 7 710, on average with meds Pain Level Without Medicine 10 04/11 without meds BMI (Body Mass Index) 29.7 kg/m2 11/26/2013 2:54pm BP Systolic 118 mmHg BP Diastolic 74 mmHg Heart Rate 78 /min Respiratory Rate 18 /min Height 60 inches 5'0" Weight 160.00 lb Pain Level 6 6/10, Pain at this time. Pain Level With Medicine 5 510, on average with meds Pain Level Without Medicine 10 04/11 without meds BMI (Body Mass Index) 31.2 kg/m2 10/28/2013 2:53pm BP Systolic 124 mmHg BP Diastolic 78 mmHg Heart Rate 80 /min Respiratory Rate 18 /min Height 60 inches 5'0" Weight 156.00 lb Pain Level 8 8, Pain at this time. Pain Level With Medicine 5 5/10, on average with meds Pain Level Without Medicine 10 04/11 without meds BMI (Body Mass Index) 30.5 kg/m2 10/02/2013 4:39pm BP Systolic 122 mmHg BP Diastolic 70 mmHg Heart Rate 74 /min Respiratory Rate 18 /min Height 60 inches 5'0" Weight 154.00 lb Pain Level 9 Pain at this time. Pain Level With Medicine 8 on average with meds Pain Level Without Medicine 10 10/10 without meds BMI (Body Mass Index) 30.1 kg/m2 08/27/2013 3:44pm BP Systolic 114 mmHg BP Diastolic 76 mmHg Heart Rate 72 /min Respiratory Rate 18 /min Height 60 inches 5'0" Weight 153.00 lb Pain Level 8 8/10, Pain at this time. Pain Level With Medicine 7 7/10, on average with meds Pain Level Without Medicine 10 10/10 without meds BMI (Body Mass Index) 29.9 kg/m2 08/13/2013 11:09am BP Systolic 118 mmHg BP Diastolic 72 mmHg Heart Rate 74 /min Respiratory Rate 18 /min Height 60 inches 5'0" Weight 155.00 lb Pain Level 6-7 6-7/10, Pain at this time. Pain Level With Medicine 6 6/10, on average with meds Pain Level Without Medicine 10 10/10 without meds Pain Level After Procedure 5 BP Systolic Recheck 120 mmHg Pulse: 80 BP Diastolic Recheck 76 mmHg Pulse: 80 BMI (Body Mass Index) 30.3 kg/m2 07/30/2013 9:57am BP Systolic 126 mmHg BP Diastolic 74 mmHg Heart Rate 76 /min Respiratory Rate 18 /min Height 60 inches 5'0" Weight 155.00 lb Pain Level 7-8 7-8/10, Pain at this time. BMI (Body Mass Index) 30.3 kg/m2 Procedures Date Code Description Status 10/22/2018 49105 Therapeutic, Prophylactic Or Diagnostic Injection Subq/Im Completed 09/28/2018 57548 Brief Emotional/Behav Assessment W/ Scoring Doc Per Completed Standard Inst 09/28/2018 78584 Inject/Drain Arthrocentesis Small Joint/Bursa Completed 07/30/2018 51725 Omt 5-6 Body Regions Completed 07/30/2018 61565 Therapeutic, Prophylactic Or Diagnostic Injection Subq/Im Completed 05/29/2018 68062 Omt 1-2 Body Regions Completed 05/29/201872163 Inject Tendon/Ligament Completed 04/02/2018 69151 Omt 3-4 Body Regions Completed 04/02/2018 92564 Therapeutic, Prophylactic Or Diagnostic Injection Subq/Im Completed 03/02/2018 64528 Therapeutic, Prophylactic Or Diagnostic Injection Subq/Im Completed 03/02/201849969 Inject/Drain Arthrocentesis Major Joint/Bursa/Ganglion Completed Cyst 02/01/2018 06729 Therapeutic, Prophylactic Or Diagnostic Injection Subq/Im Completed 01/02/201813423 Inject Tendon/Ligament Completed 01/02/201843492 Inject Tendon/Ligament Completed 01/02/201889945 Inject Tendon/Ligament Completed 01/02/2018 35448 Therapeutic, Prophylactic Or Diagnostic Injection Subq/Im Completed 01/02/2018 91325 Omt 3-4 Body Regions Completed 12/04/2017 20847 Omt 5-6 Body Regions Completed 12/04/2017 19271 Therapeutic, Prophylactic Or Diagnostic Injection Subq/Im Completed 11/03/2017 99035 Therapeutic, Prophylactic Or Diagnostic Injection Subq/Im Completed 10/03/2017 95916 Therapeutic, Prophylactic Or Diagnostic Injection Subq/Im Completed 09/04/2017 88993 Therapeutic, Prophylactic Or Diagnostic Injection Subq/Im Completed 08/23/2017 83789 Inject/Drain Arthrocentesis Intermediate Joint/Bursa Completed 08/01/2017 22659 Omt 3-4 Body Regions Completed 08/01/2017 45108 Therapeutic, Prophylactic Or Diagnostic Injection Subq/Im Completed 07/05/2017 24269 Injection For Nerve Block, Other Peripheral Nerve Or Completed Branch 06/05/2017 72141 Omt 1-2 Body Regions Completed 06/05/2017 98882 Therapeutic, Prophylactic Or Diagnostic Injection Subq/Im Completed 05/04/2017 45896 Omt 1-2 Body Regions Completed 05/04/2017 96541 Therapeutic, Prophylactic Or Diagnostic Injection Subq/Im Completed 04/17/2017 86151 Arthrocentesis/Aspiration/Inj Of Major Joint Or Bursa W/ Completed Ultra 04/17/2017 79810 Therapeutic, Prophylactic Or Diagnostic Injection Subq/Im Completed 04/17/2017 78514 Omt 3-4 Body Regions Completed 04/03/2017 16816 Omt 1-2 Body Regions Completed 03/02/2017 38875 Therapeutic, Prophylactic Or Diagnostic Injection Subq/Im Completed 02/09/2017 79745 U/S Guidance For Needle Placement Completed 02/09/201745835 Inject Tendon/Ligament Completed 02/02/2017 81545 Therapeutic, Prophylactic Or Diagnostic Injection Subq/Im Completed 01/06/2017 70813 Arthrocentesis Aspiration Inj, Small Joint/Bursa W US Completed Guidance 12/08/2016 Arthrocentesis/Aspiration/Inj Of Major Joint Or Bursa W/ Completed Ultra 10/11/2016 Arthrocentesis/Aspiration/Inj Of Major Joint Or Bursa W/ Completed Ultra 07/28/2016 08569 Therapeutic, Prophylactic Or Diagnostic Injection Subq/Im Completed 07/13/2016 80357 Test Autonomic Nervous System, Sudomotor Completed 07/13/2016 Arthrocentesis Aspiration Inj, Small Joint/Bursa W US Completed Guidance 07/13/2016 Arthrocentesis Aspiration Inj, Small Joint/Bursa W US Completed Guidance 05/30/2016 25253 Omt 3-4 Body Regions Completed 05/30/2016 39410 Therapeutic, Prophylactic Or Diagnostic Injection Subq/Im Completed 04/29/2016 Arthrocentesis/Aspiration/Inj Of Major Joint Or Bursa W/ Completed Ultra 03/14/2016 Arthrocentesis Aspiration Inj, Small Joint/Bursa W US Completed Guidance 03/01/2016 37080 U/S Guidance For Needle Placement Completed 03/01/2016 90838 Inject Tendon/Ligament Completed 02/24/2016 Arthrocentesis Aspiration Inj, Small Joint/Bursa W US Completed Guidance 02/24/2016 Arthrocentesis Aspiration Inj, Small Joint/Bursa W US Completed Guidance 12/02/2015 79989 Therapeutic, Prophylactic Or Diagnostic Injection Subq/Im Completed 12/02/2015 Arthrocentesis Aspirtation Inj,Intermediate W/ US Guide & Completed Report 08/27/2015 37268 Omt 3-4 Body Regions Completed 06/24/2015 77196 Therapeutic, Prophylactic Or Diagnostic Injection Subq/Im Completed 06/24/2015 79302 Test Autonomic Nervous System, Sudomotor Completed 10/22/2014 98710 Omt 3-4 Body Regions Completed 06/16/2014 45514 Omt 1-2 Body Regions Completed 08/27/2013 31430 Omt 3-4 Body Regions Completed 08/13/2013 93002 U/S Guidance For Needle Placement Completed 08/13/2013 70975 Inject Tendon/Ligament Completed Encounters Type Date Location Provider Dx Diagnosis Office Visit 10/22/2018 Main Office as Of Xiang Camacho DO, G89.29 Other chronic pain 2:45p 08/03/13 MPH M54.2 Cervicalgia M54.6 Pain in thoracic spine M54.5 Low back pain R53.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 Z71.89 Other specified counseling Office Visit 09/28/2018 1:30p Main Office as Xiang Camacho, G89.29 Other chronic Of 08/03/13 DO, MPH pain M54.2 Cervicalgia M54.6 Pain in thoracic spine M54.5 Low back pain M53.3 Sacrococcygeal disorders, not elsewhere classified Z13.31 Encounter for screening for depression 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 Office Visit 08/30/2018 2:45p Main Office as Xiang Camacho G89.29 Other chronic Of 08/03/13 DO, MPH pain M54.2 Cervicalgia M54.6 Pain in thoracic spine M54.5 Low back pain 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 Office Visit 08/17/2018 2:15p Main Office as Xiang Camacho G89.29 Other chronic Of 08/03/13 DO, MPH pain M54.2 Cervicalgia M54.6 Pain in thoracic spine M54.5 Low back pain M25.552 Pain in left hip 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 Office Visit 07/30/2018 3:15p Main Office as Xiang Camacho, G89.29 Other chronic Of 08/03/13 DO, MPH pain M54.2 Cervicalgia M99.01 Segmental and somatic dysfunction of cervical region M54.6 Pain in thoracic spine M99.02 Segmental and somatic dysfunction of thoracic region M54.5 Low back pain M99.03 Segmental and somatic dysfunction of lumbar region M53.3 Sacrococcygeal disorders, not elsewhere classified M99.04 Segmental and somatic dysfunction of sacral region M25.552 Pain in left hip R53.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 M25.551 Pain in right hip M99.05 Segmental and somatic dysfunction of pelvic region Office Visit 06/29/2018 10:45a Main Office as Xiang Camacho G89.29 Other chronic Of 08/03/13 DO, MPH pain M54.2 Cervicalgia M54.6 Pain in thoracic spine M25.522 Pain in left elbow M25.521 Pain in right elbow 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 Office Visit 05/29/2018 11:30a Main Office as Xiang Camacho G89.29 Other chronic Of 08/03/13 DO, MPH pain M54.2 Cervicalgia M54.6 Pain in thoracic spine M25.522 Pain in left elbow M25.521 Pain in right elbow M25.572 Pain in left ankle and joints of left foot M65.88 Other synovitis and tenosynovitis, other site M99.07 Segmental and somatic dysfunction of upper extremity 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 Z63.79 Other stressful life events affecting family and household Office Visit 05/01/2018 2:30p Main Office as Xiang Camacho G89.29 Other chronic Of 08/03/13 DO, MPH pain M54.2 Cervicalgia M54.6 Pain in thoracic spine M54.5 Low back pain Office Visit 04/02/2018 1:45p Main Office as Xiang Camacho G89.29 Other chronic Of 08/03/13 DO, MPH pain M54.2 Cervicalgia M99.01 Segmental and somatic dysfunction of cervical region M54.6 Pain in thoracic spine M99.02 Segmental and somatic dysfunction of thoracic region M54.5 Low back pain M99.03 Segmental and somatic dysfunction of lumbar region R53.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 Office Visit 03/02/2018 11:30a Main Office as Xiang Camacho G89.29 Other chronic Of 08/03/13 DO, MPH pain M54.2 Cervicalgia M54.6 Pain in thoracic spine M54.5 Low back pain R53.83 Other fatigue M53.3 Sacrococcygeal disorders, not elsewhere classified 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 Office Visit 02/01/2018 10:45a Main Office as Xiang Camacho G89.29 Other chronic Of 08/03/13 DO, MPH pain M54.2 Cervicalgia M54.6 Pain in thoracic spine M54.5 Low back pain 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 R53.83 Other fatigue Office Visit 01/02/2018 11:00a Main Office as Xiang Camacho G89.29 Other chronic Of 08/03/13 DO, MPH pain M54.2 Cervicalgia M99.01 Segmental and somatic dysfunction of cervical region M54.6 Pain in thoracic spine M99.02 Segmental and somatic dysfunction of thoracic region M54.5 Low back pain M99.03 Segmental and somatic dysfunction of lumbar region M53.3 Sacrococcygeal disorders, not elsewhere classified M99.04 Segmental and somatic dysfunction of sacral region M65.88 Other synovitis and tenosynovitis, other site 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 R53.83 Other fatigue M79.604 Pain in right leg Office Visit 12/04/2017 9:45a Main Office as Xiang Camacho G89.29 Other chronic Of 08/03/13 DO, MPH pain M54.2 Cervicalgia M99.01 Segmental and somatic dysfunction of cervical region M54.6 Pain in thoracic spine M99.02 Segmental and somatic dysfunction of thoracic region M54.5 Low back pain M99.03 Segmental and somatic dysfunction of lumbar region M53.3 Sacrococcygeal disorders, not elsewhere classified M99.04 Segmental and somatic dysfunction of sacral region M99.05 Segmental and somatic dysfunction of pelvic region R53.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 Office Visit 11/03/2017 9:00a Main Office as Xiang Camacho G89.29 Other chronic Of 08/03/13 DO, MPH pain M54.2 Cervicalgia M54.5 Low back pain R53.83 Other fatigue 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 Office Visit 10/03/2017 11:30a Main Office as Xiang Camacho G89.29 Other chronic Of 08/03/13 DO, MPH pain M54.5 Low back pain M54.2 Cervicalgia R53.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 Office Visit 09/04/2017 11:00a Main Office as Xiang Camacho G89.29 Other chronic Of 08/03/13 DO, MPH pain M54.5 Low back pain M25.551 Pain in right hip M54.6 Pain in thoracic spine M54.2 Cervicalgia R53.83 Other fatigue 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 Office Visit 08/23/2017 9:45a Main Office as Xiang Camacho G89.29 Other chronic Of 08/03/13 DO, MPH pain M54.5 Low back pain M53.3 Sacrococcygeal disorders, not elsewhere classified 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 Office Visit 08/01/2017 9:45a Main Office as Xiang Camacho G89.29 Other chronic Of 08/03/13 DO, MPH pain M54.5 Low back pain M99.03 Segmental and somatic dysfunction of lumbar region M54.6 Pain in thoracic spine M99.02 Segmental and somatic dysfunction of thoracic region M54.2 Cervicalgia M99.01 Segmental and somatic dysfunction of cervical region M79.1 Myalgia M54.16 Radiculopathy, lumbar region R53.83 Other fatigue M53.3 Sacrococcygeal disorders, not elsewhere classified 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 M99.04 Segmental and somatic dysfunction of sacral region Office Visit 07/17/2017 4:15p Main Office as Xiang Camacho G89.29 Other chronic Of 08/03/13 DO, MPH pain 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 Office Visit 07/05/2017 3:00p Main Office as Xiang Camacho G89.29 Other chronic Of 08/03/13 DO, MPH pain M54.5 Low back pain M79.1 Myalgia M54.16 Radiculopathy, lumbar region 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 Office Visit 06/05/2017 11:15a Main Office as Xiang Camacho G89.29 Other chronic Of 08/03/13 DO, MPH pain M54.5 Low back pain M79.1 Myalgia M25.571 Pain in right ankle and joints of right foot R53.83 Other fatigue 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 M99.03 Segmental and somatic dysfunction of lumbar region Office Visit 05/04/2017 3:00p Main Office as Xiang Camacho G89.29 Other chronic Of 08/03/13 DO, MPH pain M54.5 Low back pain M99.03 Segmental and somatic dysfunction of lumbar region M79.1 Myalgia 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 R53.83 Other fatigue Office Visit 04/17/2017 9:30a Main Office as Xiang Camacho G89.29 Other chronic Of 08/03/13 DO, MPH pain M54.5 Low back pain M99.03 Segmental and somatic dysfunction of lumbar region M79.1 Myalgia M65.88 Other synovitis and tenosynovitis, other site M54.16 Radiculopathy, lumbar region 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 M53.3 Sacrococcygeal disorders, not elsewhere classified R53.83 Other fatigue Office Visit 04/03/2017 10:30a Main Office as Xiang Camacho G89.29 Other chronic Of 08/03/13 DO, MPH pain M54.5 Low back pain M79.1 Myalgia M99.03 Segmental and somatic dysfunction of lumbar region M65.88 Other synovitis and tenosynovitis, other site 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 Office Visit 03/02/2017 3:30p Main Office as Xiang Camacho G89.29 Other chronic Of 08/03/13 DO, MPH pain M25.571 Pain in right ankle and joints of right foot M65.88 Other synovitis and tenosynovitis, other site M53.3 Sacrococcygeal disorders, not elsewhere classified 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 R53.83 Other fatigue Office Visit 02/09/2017 3:30p Main Office as Xiang Camacho G89.29 Other chronic Of 08/03/13 DO, MPH pain M54.5 Low back pain M54.2 Cervicalgia M25.571 Pain in right ankle and joints of right foot M79.671 Pain in right foot M65.88 Other synovitis and tenosynovitis, other site Office Visit 02/02/2017 10:00a Main Office as Xiang Camacho G89.29 Other chronic Of 08/03/13 DO, MPH pain M54.5 Low back pain M53.3 Sacrococcygeal disorders, not elsewhere classified R53.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 Office Visit 01/06/2017 1:30p Main Office as Xiang Camacho, G89.29 Other chronic Of 08/03/13 DO, MPH pain M54.5 Low back pain M53.3 Sacrococcygeal disorders, not elsewhere classified Office Visit 12/29/2016 2:45p Main Office as Xiang Camacho G89.29 Other chronic Of 08/03/13 DO, MPH pain M54.5 Low back pain M53.3 Sacrococcygeal disorders, not elsewhere classified 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 Office Visit 12/08/2016 4:00p Main Office as Xiang Camacho G89.29 Other chronic Of 08/03/13 DO, MPH pain M54.5 Low back pain M25.571 Pain in right ankle and joints of right foot Office Visit 11/29/2016 2:45p Main Office as Xiang Camacho, G89.29 Other chronic Of 08/03/13 DO, MPH pain M54.5 Low back pain M53.3 Sacrococcygeal disorders, not elsewhere classified 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 Office Visit 11/01/2016 3:30p Main Office as Julieta Noriega G89.29 Other chronic Of 08/03/13 [employer] pain M53.3 Sacrococcygeal disorders, not elsewhere classified M54.5 Low back pain Z71.89 Other specified counseling 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 Office Visit 10/11/2016 3:15p Main Office as Xiang Camacho G89.29 Other chronic Of 08/03/13 DO, MPH pain M54.5 Low back pain M53.3 Sacrococcygeal disorders, not elsewhere classified 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 Office Visit 09/27/2016 2:00p Main Office as Xiang Camacho G89.29 Other chronic Of 08/03/13 DO, MPH pain M54.2 Cervicalgia M54.5 Low back pain M53.3 Sacrococcygeal disorders, not elsewhere classified M25.512 Pain in left shoulder 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 Office Visit 09/02/2016 10:30a Main Office as Julieta Noriega G89.29 Other chronic Of 08/03/13 [employer]OU[employer] pain M25.512 Pain in left shoulder M54.2 Cervicalgia M54.5 Low back pain M53.3 Sacrococcygeal disorders, not elsewhere classified M79.644 Pain in right finger(s) M79.645 Pain in left finger(s) 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 Office Visit 07/28/2016 3:30p Main Office as Julieta Noriega G89.29 Other chronic Of 08/03/13 SAL[employer]OU[employer] pain M54.2 Cervicalgia M54.5 Low back pain M53.3 Sacrococcygeal disorders, not elsewhere classified M25.512 Pain in left shoulder M79.645 Pain in left finger(s) M79.644 Pain in right finger(s) R53.83 Other fatigue Office Visit 07/13/2016 3:30p Main Office as Xiang Camacho G89.29 Other chronic Of 08/03/13 DO, MPH pain M53.3 Sacrococcygeal disorders, not elsewhere classified M79.644 Pain in right finger(s) M79.645 Pain in left finger(s) G90.3 Multi-system degeneration of the autonomic nervous system Office Visit 06/29/2016 3:30p Main Office as Julieta Noriega G89.29 Other chronic Of 08/03/13 SAL[employer]OU[employer] pain M54.5 Low back pain M54.2 Cervicalgia M79.644 Pain in right finger(s) M79.645 Pain in left finger(s) M25.512 Pain in left shoulder 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 Office Visit 05/30/2016 3:30p Main Office as Xiang Camacho G89.29 Other chronic Of 08/03/13 DO, MPH pain M53.3 Sacrococcygeal disorders, not elsewhere classified M54.2 Cervicalgia M99.01 Segmental and somatic dysfunction of cervical region M54.6 Pain in thoracic spine M99.02 Segmental and somatic dysfunction of thoracic region M99.03 Segmental and somatic dysfunction of lumbar region M54.5 Low back pain R53.83 Other fatigue Office Visit 04/29/2016 1:30p Main Office as Xiang Camacho G89.29 Other chronic Of 08/03/13 DO, MPH pain M53.3 Sacrococcygeal disorders, not elsewhere classified M54.5 Low back pain Office Visit 03/30/2016 11:30a Main Office as Xiang Camacho G89.29 Other chronic Of 08/03/13 DO, MPH pain M54.2 Cervicalgia M54.5 Low back pain M79.644 Pain in right finger(s) 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 Office Visit 03/14/2016 3:30p Main Office as Xiang Camacho G89.29 Other chronic Of 08/03/13 DO, MPH pain M79.644 Pain in right finger(s) Office Visit 03/01/2016 2:45p Main Office as Xiang Camacho G89.29 Other chronic Of 08/03/13 DO, MPH pain M25.561 Pain in right knee M76.51 Patellar tendinitis, right knee Office Visit 02/24/2016 10:30a Main Office as Xiang Camacho G89.29 Other chronic Of 08/03/13 DO, MPH pain M54.2 Cervicalgia M54.5 Low back pain M79.645 Pain in left finger(s) 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 Office Visit 02/16/2016 11:45a Main Office as Julieta Noriega [id number] Other chronic Of 08/03/13 [employer]OUTE [employer] pain M54.2 Cervicalgia M54.5 Low back pain M25.561 Pain in right knee M25.571 Pain in right ankle and joints of right foot Z71.89 Other specified counseling 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 Office Visit 02/01/2016 11:00a Main Office as Julieta Noriega G89.29 Other chronic Of 08/03/13 SALES ROUTE [employer]IVER pain M54.5 Low back pain M54.2 Cervicalgia M25.571 Pain in right ankle and joints of right foot M25.561 Pain in right knee R53.83 Other fatigue Z71.89 Other specified counseling 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 Office Visit 12/29/2015 3:45p Main Office as Julieta Noriega G89.29 Other chronic Of 08/03/13 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 ROUTE [employer]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 pain M54.2 Cervicalgia M54.5 Low back pain M25.561 Pain in right knee M25.571 Pain in right ankle and joints of right foot 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 Office Visit 12/22/2015 4:00p Main Office as Julieta Noriega G89.29 Other chronic Of 08/03/13 SALES ROUTE [employer]IVER pain M54.5 Low back pain M54.2 Cervicalgia M25.571 Pain in right ankle and joints of right foot M25.561 Pain in right knee Z71.89 Other specified counseling 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 Office Visit 12/02/2015 4:00p Main Office as Xiang Camacho G89.29 Other chronic Of 08/03/13 DO, MPH pain M54.2 Cervicalgia M54.5 Low back pain M25.561 Pain in right knee M25.571 Pain in right ankle and joints of right foot Z71.89 Other specified counseling 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 R53.83 Other fatigue M53.3 Sacrococcygeal disorders, not elsewhere classified Office Visit 10/26/2015 3:00p Main Office as Julieta Noriega G89.29 Other chronic Of 08/03/13 [employer]OU[employer]IVER pain M54.2 Cervicalgia M54.5 Low back pain M25.561 Pain in right knee M25.571 Pain in right ankle and joints of right foot Z71.89 Other specified counseling 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 M76.51 Patellar tendinitis, right knee Office Visit 09/25/2015 1:00p Main Office as Xiang Camacho 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, 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 G89.29 Other chronic pain M25.571 Pain in right ankle and joints of right foot M54.2 Cervicalgia M54.6 Pain in thoracic spine M54.5 Low back pain 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 Office Visit 08/27/2015 4:00p Main Office as Julieta Noriega G89.29 Other chronic Of 08/03/13 SALES ROUTE [employer]IVER pain M25.571 Pain in right ankle and joints of right foot M54.2 Cervicalgia M99.01 Segmental and somatic dysfunction of cervical region M54.6 Pain in thoracic spine M99.02 Segmental and somatic dysfunction of thoracic region M54.5 Low back pain M99.03 Segmental and somatic dysfunction of lumbar region 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571 Pain in right ankle and joints of right foot G90.3 Multi-system degeneration of the autonomic nervous system R53.83 Other fatigue Office Visit 05/22/2015 2:00p Main Office as Julieta Noriega G89.29 Other chronic Of 08/03/13 SALES ROU[employer]IVER pain M54.5 Low back pain M79.604 Pain in right leg M25.561 Pain in right knee M25.571 Pain in right ankle and joints of right foot Z71.89 Other specified counseling M25.512 Pain in left shoulder Office Visit 04/24/2015 1:30p Main Office as Julieta Noriega G89.29 Other chronic Of 08/03/13 SALES ROUTE [employer]IVER pain M25.571 Pain in right ankle and joints of right foot M79.604 Pain in right leg M25.561 Pain in right knee M54.5 Low back pain 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 Office Visit 03/27/2015 1:15p Main Office as Julieta Noriega, 338.29 Other Chronic Of 08/03/13 [employer]IVER Pain 724.2 Lumbago 728.71 Fibromatosis Plantar Fascia 719.47 Pain Joint Ankle & Foot 729.5 Pain In Limb Office Visit 01/21/2015 2:00p Main Office as Julieta Noriega, 338.29 Other Chronic Of 08/03/13 [employer]ES ROU[employer]IVER Pain 719.47 Pain Joint Ankle & Foot 728.71 Fibromatosis Plantar Fascia 729.5 Pain In Limb 724.2 Lumbago V65.42 Counseling On Substance Use & Abuse Office Visit 12/31/2014 3:30p Main Office as Xiang Camacho, 338.29 Other Chronic Of 08/03/13 DO, MPH Pain 719.47 Pain Joint Ankle & Foot 728.71 Fibromatosis Plantar Fascia Office Visit 12/16/2014 3:15p Main Office as Xiang Camacho, 338.29 Other Chronic Of 08/03/13 DO, MPH Pain 719.47 Pain Joint Ankle & Foot 729.5 Pain In Limb 724.2 Lumbago V58.69 Medications Senior Care (Current) Use Encounter Office Visit 11/26/2014 10:15a Main Office as Xiang Camacho, 338.29 Other Chronic Of 08/03/13 DO, MPH Pain 719.47 Pain Joint Ankle & Foot 729.5 Pain In Limb Office Visit 10/22/2014 2:50p Main Office as Julieta Noriega 338.29 Other Chronic Of 08/03/13 [employer]ES ROUTE [employer]IVER Pain 719.47 Pain Joint Ankle & Foot 729.5 Pain In Limb 724.2 Lumbago 739.3 Lesion Nonallopathic Lumbar Region Not Elsewhere Class 724.1 Pain Thoracic Spine 739.2 Lesion Nonallopathic Thoracic Region Not Elsewhere Class 723.1 Cervicalgia 739.1 Lesion Nonallopathic Cervical Region Not Elsewhere Class V58.69 Medications Occupational Therapy Assist (Current) Use Encounter Office Visit 09/23/2014 4:00p Main Office as Xiang Camacho, 338.29 Other Chronic Of 08/03/13 DO, MPH Pain 729.5 Pain In Limb 719.47 Pain Joint Ankle & Foot Office Visit 08/26/2014 10:00a Main Office as Xiang Camacho, 338.29 Other Chronic Of 08/03/13 DO, MPH Pain 729.5 Pain In Limb 719.47 Pain Joint Ankle & Foot Office Visit 07/28/2014 2:45p Main Office as Xiang Camacho, 338.29 Other Chronic Of 08/03/13 DO, MPH Pain 729.5 Pain In Limb 719.47 Pain Joint Ankle & Foot Office Visit 06/16/2014 9:45a Main Office as Xiang Camacho, 338.29 Other Chronic Of 08/03/13 DO, MPH Pain 719.47 Pain Joint Ankle & Foot 729.5 Pain In Limb 739.6 Lesion Nonallopathic Lower Extremity Not Elsewhere Class Office Visit 05/20/2014 10:45a Main Office as Xiang Camacho, 338.29 Other Chronic Of 08/03/13 DO, MPH Pain 719.47 Pain Joint Ankle & Foot V65.42 Counseling On Substance Use & Abuse Office Visit 05/07/2014 11:15a Main Office as Xiang Camacho, V58.69 Medications Long Of 08/03/13 DO, MPH Term (Current) Use Encounter 338.29 Other Chronic Pain 719.47 Pain Joint Ankle & Foot V58.69 Medications Senior Care (Current) Use Encounter Office Visit 04/23/2014 11:00a Main Office as Xiang Camacho, 338.29 Other Chronic Of 08/03/13 DO, MPH Pain 719.47 Pain Joint Ankle & Foot 308.3 Stress Reaction Other Acute Office Visit 02/11/2014 3:00p Main Office as Xiang Camacho, 338.29 Other Chronic Of 08/03/13 DO, MPH Pain 719.47 Pain Joint Ankle & Foot 337.9 Autonomic Nervous System Disorder Unspec V58.69 Medications Senior Care (Current) Use Encounter 719.44 Pain Joint Hand Office Visit 11/26/2013 3:30p Main Office as Xiang Camacho, 338.29 Other Chronic Of 08/03/13 DO, MPH Pain 719.47 Pain Joint Ankle & Foot Office Visit 10/28/2013 2:45p Main Office as Xiang Camacho 719.47 Pain Joint Of 08/03/13 DO, MPH Ankle & Foot Office Visit 10/02/2013 4:15p Main Office as Xiang Camacho 719.47 Pain Joint Of 08/03/13 DO, MPH Ankle & Foot 727.09 Synovitis & Tenosynovitis Other 723.1 Cervicalgia Office Visit 08/27/2013 3:30p Main Office as Xiang Camacho, 719.47 Pain Joint Of 08/03/13 DO, MPH Ankle & Foot 727.09 Synovitis & Tenosynovitis Other 723.1 Cervicalgia 739.1 Lesion Nonallopathic Cervical Region Not Elsewhere Class 724.1 Pain Thoracic Spine 739.2 Lesion Nonallopathic Thoracic Region Not Elsewhere Class 724.2 Lumbago 739.3 Lesion Nonallopathic Lumbar Region Not Elsewhere Class Office Visit 08/13/2013 11:00a Main Office as Xiang Camacho 719.47 Pain Joint Of 08/03/13 DO, MPH Ankle & Foot 727.09 Synovitis & Tenosynovitis Other Office Visit 07/30/2013 9:00a Main Office as Xiang Camacho 719.47 Pain Joint Of 08/03/13 DO, MPH Ankle & Foot Plan of Treatment Future Appointment(s):12/27/2018 2:30 pm - Xiang Camacho DO, MPH at Main Office as Of 08/03/1404 - Xiang Camacho DO, MPHG89.29 Other chronic painComments:Chronic. Symptoms and complaints discussed and reviewed today. No significant changes in physical findings. Continue current medical pain management.M54.2 CervicalgiaComments:Chronic. Symptoms and complaints discussed and reviewed today. No significant changes in physical findings. Continue current medical pain management.M99.01 Segmental and somatic dysfunction of cervical regionComments:Chronic. Symptoms and complaints discussed and reviewed today. Somatic dysfunctions noted warrantingOMT. Continue current medical pain management and OMT. [id number]. OMT performed.M54.6 Pain in thoracic spineComments: Chronic.Symptoms and complaints discussed and reviewed today. No significant changes in physical findings. Continue current medical pain management.M99.02 Segmental and somatic dysfunction of thoracic regionComments:Chronic. Symptoms and complaints discussed and reviewed today. Notable somatic dysfunctions noted warranting OMT. Continue current medical pain management and OMT. [id number]. OMT performed after evaluation. HVLA.M54.5 Low back painComments:Chronic. Symptoms and complaints discussed and reviewed today.No changes in physical findings. Patient is stable and comfortable when current medical therapy is rendered.M99.03 Segmental and somatic dysfunction of lumbar regionComments: Chronic. Symptoms and complaints discussed and reviewed today. Lumbar somatic dysfunctions noted warranting OMT. Continue current medical pain management and OMT. [id number]. OMT performed after evaluation. HVLA.Z79.891 prison ( current) use of opiate analgesicNew Labs:Urine Drug Screen, Ordered: Comments:Urine drug screen sample taken today to monitor opiate use and to monitor use of illicit substances.Will discuss results at next appointment.The following tests were ordered:6 AM, AMPH, SATHISH, LASHAY, BUP, CARIS, COCM, COT, ETG , FENT, MCSHSG, OPI, OXY, PCP, TAPEN, XTSY, ZOLP. A urine drug test (UDT ) was ordered for this patient and collected on site today. Creatinine has been ordered as well for specimen validity, not for kidney function. Preliminary UDT results are not final and should not be used to determine patient care or plan of treatment. Initially a qualitative immunoassay screen will be done. Any inconsistent or positive findings will be further tested with a more comprehensive quantitative confirmation LCMS study. It is part of the treatment process of prescribing controlled substances and is considered standard of care.R53.83 Other fatigueComments:Symptoms and complaints discussed and reviewed today. No significant changes in physical findings. Continue current medical pain management. B12 injection administered after patient evaluated. 1ml IM for fatigue. (See Consent for injection-B12 document for lot number and expiration date.)AllComments:All above symptoms and complaints discussed as well as diagnoses reviewed.Continue trial of opioid pain management - note changes below; injection therapy, osteopathic manipulation ( OMT), PT / modalities, and consults as needed to manage chronic pain.Side effects discussed; anticipatory guidance given. Patient clearly understands and agrees with all medical treatments and suggestions. All medicines prescribed are adequate and appropriate for this patient's complaint of pain, medical history, physical, and personal goals.Goals of Treatment are to provide adequate and appropriate multidisciplinary medical pain management to increase/ maintain patient's quality of life and functionality while maintaining satisfactory side effect profile and minimizing intermediate teacher end-organ damage. Activity as toleratedContinue with PCP
--- OUTSIDE RECORDS SUMMARY | 2018-12-03 20:29 | XMS REPORT | Continuity of Care Document ---
:1970 External Reference #:[id number] Author Name ROYCE Contreras Address [address] [facility] [address] Care Team Providers Name Role Phone Nenita Walter M.D. 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 Primary Care Physician Unavailable Payers Date Identification Numbers Payment Provider Subscriber Effective: 2017 Policy Number: [id number] [place] PayID: [id number] [address] [place] [address] Effective: 2017 Policy Number: [id number] Medicaid [facility] PayID: [id number] [address] [place] [address] Effective: 2017 Policy Number: [id number] [place] Expires: 2017 PayID: [id number] [address] [place] [address] Effective: 2016 Policy Number: [id number] [facility] Expires: 2017 PayID: [id number] [address] [address] [place] [address] Advance Directives Description No Information Available Problems Active Problems Provider Date Type 2 diabetes mellitus ROYCE Contreras Onset: 03/22/2016 Low back pain ROYCE Contreras Onset: 03/22/2016 Moderate recurrent major depression Nenita Walter M.D. Onset: 03/25/2016 Chronic back pain Nenita Walter M.D. Onset: 03/25/2016 Essential hypertension Nenita Walter M.D. Onset: 03/25/2016 Fibromyalgia Nenita Walter M.D. Onset: 06/29/2016 H/O: attempted suicide Nenita Walter M.D. Onset: 11/25/2016 Note: narcotic overdose Hyperlipidemia Nenita Walter M.D. Onset: 06/21/2017 Plantar fasciitis Nenita Walter M.D. Onset: 10/19/2017 Irritable bowel syndrome Nenita Walter M.D. Onset: 11/29/2017 Urinary tract infectious disease Williams Cintron M.D. Onset: 01/18/2018 Removal of suture Williams Cintron M.D. Onset: 01/18/2018 Family History Date Family Member(s) Observation Comments Father due to cholecystitis () Father No Current Problems Mother Cancer thyroid Mother hypoglycemic First Son Prader Willi First Son 23 First Son Developmentally disabled First Brother Diabetes Mellitus, II First Sister Asthma First Sister Esophageal Dysmotility Second Sister No Current Problems Social History Type Date Description Comments Sex Unknown Lives With Son Lives With Boyfriend Occupation Not Currently Working Occupation Disabled dt diabetes, fibromyalgia. 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 Tobacco Use Start: Unknown Never Smoked Cigarettes ETOH Use Denies alcohol use Tobacco Use Start: Unknown Patient has never smoked Smoking Status Reviewed: 07/02/18 Patient has never smoked Exercise Type/Frequency Exercises rarely Allergies, Adverse Reactions, Alerts Active Allergies Reaction Severity Comments Date Motrin Nausea and Vomiting 11/25/2015 Medications Active Medications SIG Qnty Indications Ordering Provider Date Valacyclovir HCL 1 by mouth three 21tabs B02.8 Kelly 10/19/2018 1gm times a day x 7 Delfin, IRRIGATION TEACHER Tablets days Walker With Wheels/ use as directed M79.7 Nenita Walter, 09/12/2018 Brakes And Seat seen 09/10/18 Jake G89.4 M15.0 Shower Chair With use as directed seen 1units G89.4 Nenita Walter M.D. Handles 09/10/18 M15.0 M79.7 Magnesium 1 tab by mouth 30caps Nenita Walter, 09/10/2018 500mg Capsules every evening M.DDionisio Lancets Micro Thin 33G test three times a 100units E11.9 Nenita Walter, Thin day dx. e11.9 last M.D. 33G [facility] office visit 07/02/18. used with true metrix meter/lancing device Mupirocin apply to infections 22gm J01.00 Oscar Hanson 06/27/2018 2% Ointment twice daily. MD Clay Atorvastatin Calcium 1 by mouth every 30tabs [facility], 01/01/2018 20mg day M.D. Tablets Naproxen take 1 tablet every 60tabs [facility], 12/28/2017 500mg Tablets 12 hours as needed M.D. with food Mometasone Furoate apply to arms twice 45gm [facility], 12/28/2017 0.1% Cream a day x 1 week then M.D. as needed Ranitidine HCL 1 tab by mouth 60tabs R19.7 [facility], 09/13/2017 150mg Tablets twice a day M.D. Methocarbamol 1 tab by mouth 60tabs [facility], 07/22/2017 750mg Tablets twice a day as M.D. needed Lisinopril 1 by mouth every 90tabs I10 [facility], 04/24/2017 10mg Tablets day M.D. Nitroglycerin 1 sl q5 min x 3 14tabs [facility], 04/24/2017 0.4mg Tablets doses as needed for M.D. Sub chest pain; if no relief after 3 doses call 911 Diphenhydramine HCL 1-2 tabs by mouth 60tabs R11.10 [facility], 2016 25mg every 6 hours as M.D. Tablets needed Metoclopramide HCL take one tablet by 30tabs R11.10 Carmita 08/26/2016 10mg mouth every 8 hours [place], Tablets as needed for Afnp-C nausea Onetouch Ultra 2 test blood sugar 1units Oscar Santoyo 04/25/2016 w/Device Kit once a day or as Jake Rodas directed dx: e11.9 last office visit 04/20/16 Ventolin HFA inhale two puffs by 18units J06.9 Carmita 04/18/2016 108(90Base) mouth qid prn [place], mcg/Act Aerosol cough/wheeze Afnp-C Januvia Take One Tablet By 30tabs Clare Ann 03/25/2016 50mg Tablets Mouth Every Day KALIE Garcia Hydroxyzine HCL take one tablet by Unknown 50mg Tablets mouth twice a day Gabapentin 1 by mouth three B02.8 Unknown 300mg Capsules times a day Abilify 1 by mouth every Unknown 2mg Tablets morning Cyanocobalamin Dr Camacho Unknown 1000mcg/ML Solution Effexor XR 1 by mouth every Unknown 75mg Caps ER 24HR day along with 150 mg Effexor XR 1 by mouth every Unknown 150mg Caps ER 24HR day along with 75 mg Zyrtec Allergy prn Unknown 10mg Tablets Singulair 1 by mouth every Unknown 10mg Tablets day Oxycodone HCL tid as needed Unknown 15mg Tablets [place] History Medications Medrol dose-pack as 1pack B02.8 Kelly 10/19/2018 - 4mg Tablets instructed ROYCE Lenz 10/30/2018 Amoxicillin/Clavulanat 1 by mouth twice a 14tabs J01.00 Oscar Hanson 2017 - e Potassium day MD Clay 09/09/2018 875-125mg Tablets Clindamycin HCL 1 by mouth three 30caps R21 Lakshmi Prieto, 04/25/2018 - 300mg times a day x 10d IRRIGATION TEACHER 07/02/2018 Capsules Hand Held Shower Head dx: m79.7 1uneliel Brizuela 02/28/2018 - katheryn Avina M.D. 06/27/2018 Shower Chair m79.7 1uneliel Brizuela 02/28/2018 - Katheryn Avina M.D. 06/27/2018 Incontinence Liners r39.81 1Box Candida Brizuela 02/28/2018 - david Avina M.D. 06/27/2018 Bactrim DS 1 by mouth twice a 10tabs Williams FDionisio 01/18/2018 - 800-160mg day Jake Cintron 01/30/2018 Tablets Azithromycin 2 by mouth every 6tabs Carmita 08/16/2017 - 250mg day x1 then 1 by Annamarie 08/21/2017 Tablets mouth every day x Afnp-C 4 more days Cyclobenzaprine HCL take one tablet by 90tabs Nenita [place], 06/21/2017 - 10mg mouth every 8 M.D. 07/22/2017 Tablets hours as needed Bactrim DS 1 by mouth twice a 10tabs Oscar Natanael 12/12/2016 - 800-160mg day Breiman, M.D. 12/30/2016 Tablets Ondansetron 1 tab by mouth 30tabs R11.10 [facility], 08/26/2016 - 4mg Tablets every 6 hours as M.D. 11/29/2017 Dispers needed Zofran Odt dissolve 1 tab 30tabs [facility], 08/23/2016 - 4mg Tablets under tongue every M.D. 10/19/2018 Dispers 6 hours as needed nausea Azithromycin take 2 tablets by 12tabs J06.9 Lakshmi Prieto, 04/18/2016 - 250mg mouth x 3d then IRRIGATION TEACHER 06/29/2016 Tablets take 1 tablet daily for next 6 days Januvia 1 by mouth every 30tabs [facility], 03/25/2016 - 100mg Tablets day M.D. 03/25/2016 Sphygmomanometer take blood I10 [facility], 03/25/2016 - Misc pressure daily M.D. 08/19/2016 Truetrack Test test once a day 100units E11.9 [facility], 03/25/2016 - Strips Dx: E11.9 Last M.D. 04/25/2016 office 03/25/16 Lisinopril Take One Tablet By 30tabs I10 [facility], 03/25/2016 - 5mg Tablets Mouth Every Day M.D. 04/24/2017 Effexor XR 1 by mouth qd Unknown - 37.5mg Caps ER w/75mg 03/25/2016 24HR Effexor XR 1 by mouth every Unknown - 75mg Caps ER day w/37.5 03/25/2016 24HR Valium as needed Unknown - 10mg Tablets [place] 09/10/2018 Albuterol Sulfate 2 puffs every 4 Unknown - Powder hours as needed 08/19/2016 Albuterol Sulfate 3ml per nebulizer Unknown - every 6 hours as 11/29/2017 1.25mg/3ML Nebulizer needed Effexor XR 1 by mouth every Unknown - 150mg Caps ER day 08/19/2016 24HR Gabapentin 1 po qid Unknown - 300mg Capsules 09/10/2018 Lipitor 1 by mouth every Unknown - 20mg Tablets day 04/24/2017 Atorvastatin Calcium 1 by mouth every 30tabs Nenita Walter, - 10mg day M.D. 01/01/2018 Tablets Immunizations Description No Information Available Vital Signs Date Vital Result Comment 11/09/2018 1:03pm BP Systolic 128 mmHg BP Diastolic 72 mmHg Heart Rate 94 /min Body Temperature 98.4 F Respiratory Rate 20 /min Weight 182.00 lb 10/30/2018 12:38pm BP Systolic 128 mmHg BP Diastolic 80 mmHg Heart Rate 82 /min Body Temperature 97.7 F Respiratory Rate 16 /min Height 61 inches 5'1" Weight 181.00 lb BMI (Body Mass Index) 34.2 kg/m2 10/19/2018 11:09am BP Systolic 118 mmHg BP Diastolic 74 mmHg Heart Rate 88 /min Body Temperature 97.7 F Respiratory Rate 20 /min Weight 177.00 lb 09/10/2018 12:34pm BP Systolic 118 mmHg BP Diastolic 60 mmHg Heart Rate 72 /min Body Temperature 98.1 F Respiratory Rate 16 /min Height 61 inches 5'1" Weight 180.25 lb BMI (Body Mass Index) 34.1 kg/m2 07/02/2018 11:06am BP Systolic 118 mmHg BP Diastolic 76 mmHg Heart Rate 78 /min Body Temperature 97.7 F Respiratory Rate 16 /min Height 61 inches 5'1" Weight 169.00 lb BMI (Body Mass Index) 31.9 kg/m2 06/27/2018 2:51pm BP Systolic 120 mmHg BP Diastolic 80 mmHg Heart Rate 68 /min Body Temperature 98.3 F Respiratory Rate 18 /min Height 61 inches 5'1" Weight 166.00 lb BMI (Body Mass Index) 31.4 kg/m2 04/25/2018 3:19pm BP Systolic 140 mmHg BP Diastolic 82 mmHg Heart Rate 106 /min Body Temperature 98.2 F Respiratory Rate 17 /min Height 61 inches 5'1" Weight 172.00 lb BMI (Body Mass Index) 32.5 kg/m2 02/01/2018 6:10pm BP Systolic 126 mmHg BP Diastolic 80 mmHg Heart Rate 78 /min Body Temperature 98.2 F Respiratory Rate 16 /min Height 61 inches 5'1" Weight 161.50 lb BMI (Body Mass Index) 30.5 kg/m2 01/18/2018 3:00pm BP Systolic 132 mmHg BP Diastolic 80 mmHg Heart Rate 84 /min Body Temperature 98.1 F Respiratory Rate 16 /min Height 61 inches 5'1" Weight 160.12 lb BMI (Body Mass Index) 30.3 kg/m2 12/28/2017 11:17am BP Systolic 122 mmHg BP Diastolic 80 mmHg Heart Rate 80 /min Body Temperature 97.5 F Height 61 inches 5'1" Weight 163.00 lb BMI (Body Mass Index) 30.8 kg/m2 11/29/2017 4:46pm BP Systolic 120 mmHg BP Diastolic 70 mmHg Heart Rate 76 /min Body Temperature 98.2 F Respiratory Rate 16 /min Height 61 inches 5'1" Weight 160.00 lb BMI (Body Mass Index) 30.2 kg/m2 09/27/2017 4:21pm BP Systolic 138 mmHg BP Diastolic 80 mmHg Heart Rate 96 /min Body Temperature 98.8 F Respiratory Rate 16 /min Height 61 inches 5'1" Weight 163.00 lb BMI (Body Mass Index) 30.8 kg/m2 09/13/2017 3:30pm BP Systolic 130 mmHg BP Diastolic 60 mmHg Heart Rate 76 /min Body Temperature 98.6 F Respiratory Rate 16 /min Height 61 inches 5'1" Weight 164.00 lb BMI (Body Mass Index) 31.0 kg/m2 08/31/2017 10:34am BP Systolic 136 mmHg BP Diastolic 78 mmHg Heart Rate 76 /min Body Temperature 99.1 F Respiratory Rate 16 /min Height 61 inches 5'1" Weight 161.00 lb BMI (Body Mass Index) 30.4 kg/m2 08/16/2017 10:27am BP Systolic 124 mmHg BP Diastolic 80 mmHg Heart Rate 84 /min Body Temperature 98.4 F Respiratory Rate 16 /min Height 61 inches 5'1" Weight 174.12 lb BMI (Body Mass Index) 32.9 kg/m2 07/22/2017 10:25am BP Systolic 144 mmHg BP Diastolic 84 mmHg Heart Rate 74 /min Body Temperature 98.1 F Respiratory Rate 16 /min Height 61 inches 5'1" Weight 173.00 lb BMI (Body Mass Index) 32.7 kg/m2 06/21/2017 2:41pm BP Systolic 120 mmHg BP Diastolic 80 mmHg Heart Rate 74 /min Body Temperature 98.8 F Respiratory Rate 16 /min Height 61 inches 5'1" Weight 170.00 lb BMI (Body Mass Index) 32.1 kg/m2 05/22/2017 5:56pm BP Systolic 120 mmHg BP Diastolic 80 mmHg Heart Rate 68 /min Body Temperature 98.6 F Respiratory Rate 18 /min Height 61 inches 5'1" Weight 166.00 lb BMI (Body Mass Index) 31.4 kg/m2 04/24/2017 7:20pm BP Systolic 110 mmHg BP Diastolic 70 mmHg Heart Rate 76 /min Body Temperature 98.8 F Respiratory Rate 18 /min Height 61 inches 5'1" Weight 167.00 lb BMI (Body Mass Index) 31.6 kg/m2 04/03/2017 2:15pm BP Systolic 120 mmHg BP Diastolic 60 mmHg Heart Rate 84 /min Body Temperature 97.9 F Respiratory Rate 16 /min Height 61 inches 5'1" Weight 166.38 lb BMI (Body Mass Index) 31.4 kg/m2 12/12/2016 11:50am BP Systolic 134 mmHg BP Diastolic 78 mmHg Heart Rate 80 /min Body Temperature 98.6 F Respiratory Rate 18 /min Height 61 inches 5'1" Weight 163.00 lb BMI (Body Mass Index) 30.8 kg/m2 12/01/2016 5:59pm BP Systolic 132 mmHg BP Diastolic 78 mmHg Heart Rate 84 /min Body Temperature 98.0 F Respiratory Rate 16 /min Height 61 inches 5'1" Weight 163.00 lb BMI (Body Mass Index) 30.8 kg/m2 10/19/2016 4:29pm BP Systolic 130 mmHg BP Diastolic 80 mmHg Heart Rate 76 /min Respiratory Rate 16 /min Height 61 inches 5'1" Weight 160.00 lb BMI (Body Mass Index) 30.2 kg/m2 08/26/2016 8:09am BP Systolic 100 mmHg BP Diastolic 70 mmHg Heart Rate 88 /min Body Temperature 98.6 F Respiratory Rate 16 /min Height 61 inches 5'1" Weight 151.00 lb BMI (Body Mass Index) 28.5 kg/m2 08/19/2016 10:57am BP Systolic 130 mmHg BP Diastolic 72 mmHg Heart Rate 84 /min Body Temperature 97.3 F Height 61 inches 5'1" Weight 160.00 lb BMI (Body Mass Index) 30.2 kg/m2 06/29/2016 10:38am BP Systolic 118 mmHg BP Diastolic 76 mmHg Heart Rate 78 /min Body Temperature 98.2 F Respiratory Rate 16 /min Height 61 inches 5'1" Weight 158.00 lb BMI (Body Mass Index) 29.9 kg/m2 04/18/2016 3:08pm BP Systolic 110 mmHg BP Diastolic 60 mmHg Heart Rate 80 /min Body Temperature 98.8 F Respiratory Rate 18 /min O2 % BldC Oximetry 98 % Height 61 inches 5'1" Weight 145.00 lb BMI (Body Mass Index) 27.4 kg/m2 03/25/2016 2:17pm BP Systolic 120 mmHg BP Diastolic 70 mmHg Heart Rate 84 /min Body Temperature 97.7 F Respiratory Rate 16 /min Height 61 inches 5'1" Weight 145.00 lb BMI (Body Mass Index) 27.4 kg/m2 12/03/2015 4:14pm BP Systolic 120 mmHg BP Diastolic 76 mmHg Heart Rate 80 /min Body Temperature 98.2 F Respiratory Rate 16 /min Height 61 inches 5'1" Weight 143.00 lb BMI (Body Mass Index) 27.0 kg/m2 11/25/2015 10:06am BP Systolic 118 mmHg BP Diastolic 80 mmHg Heart Rate 80 /min Body Temperature 98.4 F Respiratory Rate 16 /min Height 61 inches 5'1" Weight 143.25 lb BMI (Body Mass Index) 27.1 kg/m2 Results Test Date Facility Test Result H/L Range Note Laboratory test 10/30/2018 [facility] Hemoglobin A1c 5.7 % 4.1-5.7 finding (607)- - (Fma) Ua - Micro (Fma) 10/19/2018 [facility] Medicine Appearance clear (607)- - Color yellow Glucose, Urine (Fma/[facility]/CTX) - Bilirubin - Ketones 15 mg/dL # SP Grav >=1.030 Blood - PH 5.5 Protein - Urobil 0.2 Nitrite - Leukocytes (Fma/[facility]) - Hyaline - /Lpf Granular - /Lpf WBC (Fma,[facility]rex) 3-5 RBC 0-1 Mucus (Fma/[facility]rex) sm amt /Lpf Epith few /Lpf Bacteria trace /Hpf Amorphous (Fma/[facility]rex) - /Lpf Crystals, Fluid ([facility]ma/[facility]/CTX) Ca+ oxalate # Laboratory test 10/19/2018 [facility] Urine Culture <10,000 finding (607)- - ([facility]) CBC Auto Diff 09/12/2018 [facility] White Blood Count 4.8 10^3/uL N 3.5-10. 8 Red Blood Count 4.14 10^6/uL N 4.00-5.40 Hemoglobin 12.2 g/dL N 12.0-16.0 Hematocrit 37 % N 35-47 Mean Corpuscular Volume 88 fL N 80-97 Mean Corpuscular Hemoglobin 29 pg N 27-31 Mean Corpuscular HGB Conc 33 g/dL N 31-36 Red Cell Distribution Width 13 % N 10.5-15 Platelet Count 360 10^3/uL N 150-450 Mean Platelet Volume 6.4 fL Low 7.4-10.4 Abs Neutrophils 2.6 10^3/uL N 1.5-7.7 Abs Lymphocytes 1.4 10^3/uL N 1.0-4.8 Abs Monocytes 0.6 10^3/uL N 0-0.8 Abs Eosinophils 0.1 10^3/uL N 0-0.6 Abs Basophils 0.1 10^3/uL N 0-0.2 Abs Nucleated RBC 0 10^3/uL Granulocyte % 54.8 % Lymphocyte % 28.4 % Monocyte % 13.0 % Eosinophil % 2.8 % Basophil % 1.0 % Nucleated Red Blood Cells % 0.1 Laboratory test 09/12/2018 [facility] HIV 1&2 AB Self Nonreactive Nonreactive 1 finding Referred Comp Metabolic Panel 09/12/2018 [facility] Sodium 138 mmol/L N 135-145 Potassium 3.8 mmol/L N 3.5-5.0 Chloride 106 mmol/L N 101-111 Co2 Carbon Dioxide 29 mmol/L N 22-32 Anion Gap 3 mmol/L N 2-11 Glucose 95 mg/dL N 70-100 Blood Urea Nitrogen 10 mg/dL N 6-24 Creatinine 0.71 mg/dL N 0.51-0.95 BUN/Creatinine Ratio 14.1 N 8-20 Calcium 8.7 mg/dL N 8.6-10.3 Total Protein 6.8 g/dL N 6.4-8.9 Albumin 3.8 g/dL N 3.2-5.2 Globulin 3.0 g/dL N 2-4 Albumin/Globulin Ratio 1.3 N 1-3 Total Bilirubin 0.30 mg/dL N 0.2-1.0 Alkaline Phosphatase 70 U/L N 34-104 Alt 23 U/L N 7-52 Ast 24 U/L N 13-39 Egfr Non- 87.5 >60 Egfr 105.9 >60 2 Laboratory test finding 09/12/2018 [facility] C Reactive Protein 9.61 mg/L High <8.01 Troponin I 0.00 ng/mL <0.04 3 Vitamin B12 420 pg/mL N 180-914 4 Comprehensive Metabolic 07/02/2018 [facility](fma) Sodium 145 mEq/L 134-149 Prof Potassium 4.3 mEq/L 3.6-5.5 Chloride 109 mEq/L 94-112 Carbon Dioxide 29 mEq/L 21-32 Glucose 115 mg/dL High 70-105 BUN 14 mg/dL 6-26 Creatinine 0.8 mg/dL 0.6-1.4 BUN/Creat Ratio 17.5 CALC 8.0-36.0 Calcium 9.4 mg/dL 8.6-10.2 Total Protein 7.8 g/dL 6.4-8.3 Albumin 4.8 g/dL 3.8-5.5 Globulin 3.0 g/dL 2.0-4.8 A/G Ratio 1.6 CALC 0.6-2.3 Alk. Phosphatase 85 U/L 30-110 Alt (SGPT) 28 U/L 7-35 Ast (Sgot) 16 U/L 5-34 Total Bilirubin 0.2 mg/dL 0.2-1.3 GFR Non- >60 ml/min/1.73m^ >=60 GFR >60 ml/min/1.73m^ >=60 Lipid Profile 07/02/2018 [facility]) Cholesterol 227 mg/dL High 120-200 Triglycerides 90 mg/dL 30-200 HDL Cholesterol 74 mg/dL 30-85 LDL (Calculated) 135 CALC High 0-129 VLDL Cholesterol 18 mg/dL 0-50 HDL Risk Factor 3.1 CALC 0.0-4.4 Laboratory test finding 07/02/2018 Ismael Karly(fma) TSH 1.33 mIU/L 0.50-6.00 Free T4 1.26 ng/dL 0.75-1.54 CBC Electronic a 07/02/2018 Gue[facility]a Karly(a) WBC 5.7 x10^3/UL 4.0- 10.0 RBC 4.31 x10^6/UL 3.93-6.00 HGB 12.9 g/dL 12.0-17.0 HCT 39 % 35-50 MCV 91.2 fL 80.0-95.0 MCH 29.9 pg 25.6-32.2 MCHC 32.8 g/dL 32.2-36.0 RDW-CV 13.8 % 11.6-14.4 PLT 391 x10^3/UL 163-400 MPV 9.1 fL Low 9.4-12.4 Eddie# 3.37 x10^3/UL 1.56-6.13 Lymph# 1.69 x10^3/UL 1.18-3.74 [place]# 0.50 x10^3/UL 0.24-0.82 Eos # 0.1 x10^3/UL 0.0-0.5 Baso # 0.03 x10^3/UL 0.01-0.08 Eddie% 59.2 % 34.0-70.0 Lymph % 29.7 % 20.0-52.0 [place]% 8.8 % 5.0-12.0 Eos% 1.4 % 0.7-7.0 Baso% 0.5 % 0.1-1.2 Laboratory test 07/02/2018 [facility] Hemoglobin A1c 5.7 % 4.1-5.7 finding (607)- - (Fma) Laboratory test 05/21/2018 [facility] Troponin I 0.00 ng/mL <0.04 finding Laboratory test 05/21/2018 [facility] Troponin I 0.00 ng/mL <0.04 5 finding CBC Auto Diff 05/21/2018 [facility] White Blood Count 7.2 N 3.5-10.8 10^3/uL Red Blood Count 4.33 10^6/uL N 4.00-5.40 Hemoglobin 12.9 g/dL N 12.0-16.0 Hematocrit 39 % N 35-47 Mean Corpuscular Volume 90 fL N 80-97 Mean Corpuscular Hemoglobin 30 pg N 27-31 Mean Corpuscular HGB Conc 33 g/dL N 31-36 Red Cell Distribution Width 14 % N 10.5-15 Platelet Count 338 10^3/uL N 150-450 Mean Platelet Volume 6.6 fL Low 7.4-10.4 Abs Neutrophils 5.1 10^3/uL N 1.5-7.7 Abs Lymphocytes 1.4 10^3/uL N 1.0-4.8 Abs Monocytes 0.7 10^3/uL N 0-0.8 Abs Eosinophils 0 10^3/uL N 0-0.6 Abs Basophils 0 10^3/uL N 0-0.2 Abs Nucleated RBC 0 10^3/uL Granulocyte % 69.9 % N 38-83 Lymphocyte % 19.0 % Low 25-47 Monocyte % 10.1 % High 0-7 Eosinophil % 0.6 % N 0-6 Basophil % 0.4 % N 0-2 Nucleated Red Blood Cells % 0 Comp Metabolic Panel 05/21/2018 [facility] Sodium 138 mmol/L N 135-145 Potassium 3.5 mmol/L N 3.5-5.0 Chloride 102 mmol/L N 101-111 Co2 Carbon Dioxide 30 mmol/L N 22-32 Anion Gap 6 mmol/L N 2-11 Glucose 115 mg/dL High 70-100 Blood Urea Nitrogen 11 mg/dL N 6-24 Creatinine 0.70 mg/dL N 0.51-0.95 BUN/Creatinine Ratio 15.7 N 8-20 Calcium 9.3 mg/dL N 8.6-10.3 Total Protein 7.2 g/dL N 6.4-8.9 Albumin 3.9 g/dL N 3.2-5.2 Globulin 3.3 g/dL N 2-4 Albumin/Globulin Ratio 1.2 N 1-3 Total Bilirubin 0.30 mg/dL N 0.2-1.0 Alkaline Phosphatase 71 U/L N 34-104 Alt 13 U/L N 7-52 Ast 16 U/L N 13-39 Egfr Non- 88.9 >60 Egfr 107.6 >60 6 Laboratory test finding 05/21/2018 [facility] Troponin I 0.00 ng/mL <0.04 Lactic Acid 1.6 mmol/L N 0.5-2.0 7 Laboratory test 04/25/2018 [facility] Anaerobic TNP Abnormal 8, 9 finding [address] [place] [address] (607)- - Test Code Change See Comment: 10 Request Problem TNP 11 Aerobic Bacterial 04/25/2018 [facility] Aerobic Bacterial Final report 12 Culture [address] [facility] [place] [address] (607)- - Result 1 See Comment: 13 Result 2 See Comment: 14 Ua - Micro (Fma) 01/18/2018 [facility] Appearance CLOUDY (607)- - Color YELLOW Glucose, Urine (Fma/[facility]/CTX) NEG Bilirubin ICTO:NEG Ketones TRACE # SP Grav >=1.030 Blood NEG PH 5.5 Protein SSA:NEG Urobil 0.2 Nitrite POSITIVE # Leukocytes (Fma/[facility]) NEGATIVE Hyaline 10-15 /Lpf # Granular - /Lpf WBC (Fma,[facility]) 10-12 # RBC 3-5 # Mucus SMALL AMOUNT /Lpf # Epith MODERATE /Lpf # Bacteria 4+ /Hpf # Amorphous - /Lpf Crystals, Fluid (Fma/[facility]/CTX) - Z#Comments - Laboratory test finding 12/28/2017 [facility]ma) TSH 2.46 mIU/L 0.50-6.00 Free T4 1.03 ng/dL 0.75-1.54 Comprehensive Metabolic 12/28/2017 [facility]ma) Sodium 136 mEq/L 134-149 Prof Potassium 4.1 mEq/L 3.6-5.5 Chloride 102 mEq/L 94-112 Carbon Dioxide 26 mEq/L 21-32 Glucose 108 mg/dL High 70-105 BUN 10 mg/dL 6-26 Creatinine 0.8 mg/dL 0.6-1.4 BUN/Creat Ratio 12.5 CALC 8.0-36.0 Calcium 9.2 mg/dL 8.6-10.2 Total Protein 7.1 g/dL 6.4-8.3 Albumin 4.3 g/dL 3.8-5.5 Globulin 2.8 g/dL 2.0-4.8 A/G Ratio 1.5 CALC 0.6-2.3 Alk. Phosphatase 82 U/L 30-110 Alt (SGPT) 20 U/L 7-35 Ast (Sgot) 21 U/L 5-34 Total Bilirubin 0.4 mg/dL 0.2-1.3 GFR Non- >60 ml/min/1.73m^ >=60 GFR >60 ml/min/1.73m^ >=60 Lipid Profile 12/28/2017 [facility]el K[facility]) Cholesterol 244 mg/dL High 120-200 Triglycerides 85 mg/dL 30-200 HDL Cholesterol 64 mg/dL 30-85 LDL (Calculated) 163 CALC High 0-129 VLDL Cholesterol 17 mg/dL 0-50 HDL Risk Factor 3.8 CALC 0.0-4.4 CBC Electronic Fma 12/28/2017 Ismael Karly([facility]) WBC 4.1 x10^3/UL 4.0- 10.0 RBC 4.47 x10^6/UL 3.93-6.00 HGB 13.3 g/dL 12.0-17.0 HCT 40 % 35-50 MCV 88.6 fL 80.0-95.0 MCH 29.8 pg 25.6-32.2 MCHC 33.6 g/dL 32.2-36.0 RDW-CV 13.9 % 11.6-14.4 PLT 407 x10^3/UL High 163-400 MPV 9.4 fL 9.4-12.4 Eddie# 2.27 x10^3/UL 1.56-6.13 Lymph# 1.32 x10^3/UL 1.18-3.74 Clinton# 0.42 x10^3/UL 0.24-0.82 Eos # 0.1 x10^3/UL 0.0-0.5 Baso # 0.01 x10^3/UL 0.01-0.08 Eddie% 55.9 % 34.0-70.0 Lymph % 32.4 % 20.0-52.0 Clinton% 10.3 % 5.0-12.0 Eos% 1.2 % 0.7-7.0 Baso% 0.2 % 0.1-1.2 Laboratory test 12/28/2017 [facility] Hemoglobin A1c 5.5 % 4.1-5.7 finding (607)- - ([facility]) Basic Metabolic 09/27/2017 Ismael Karly([facility]) Sodium 141 mEq/L 134-149 Profile Potassium 3.6 mEq/L 3.6-5.5 Chloride 100 mEq/L 94-112 Carbon Dioxide 27 mEq/L 21-32 Glucose 115 mg/dL High 70-105 15 BUN 12 mg/dL 6-26 Creatinine 0.7 mg/dL 0.6-1.4 BUN/Creat Ratio 17.1 CALC 8.0-36.0 Calcium 10.2 mg/dL 8.6-10.2 GFR Non- >60 ml/min/1.73m^ >=60 GFR >60 ml/min/1.73m^ >=60 Urinalysis Profile 09/01/2017 [facility] [place] Urine Color Yellow Urine Appearance Clear Urine Specific [place] 1.015 N 1.010-1.030 Urine pH 8.0 N 5-9 Urine Urobilinogen Negative Negative Urine Ketones 1+ Abnormal Negative Urine Protein Negative Negative Urine Leukocytes Negative Negative Urine Blood Negative Negative Urine Nitrite Negative Negative Urine Bilirubin Negative Negative Urine Glucose Negative Negative Laboratory test finding 09/01/2017 [facility] [place] Stool Occult Blood SEE RESULT BELOW 16 Stool Culture SEE RESULT BELOW 17 C Difficile PCR SEE RESULT BELOW 18 Laboratory test 09/01/2017 [facility] [place] Blood Culture SEE RESULT BELOW 19 finding Venous Blood Gas 08/31/2017 [facility] [facility] Venous Blood pH 7.48 High 7.33-7.43 Venous Pco2 31 mmHg Low 41-51 Venous Po2 42 mmHg N 35-45 Venous O2 Saturation 85.5 % High 70-80 Venous Blood Base Excess 0.3 N 0-4 20 Venous Bicarbonate Hco3 24.8 mmol/L N 24-28 Laboratory test 08/31/2017 [facility] [place] Point of Care Glucose 103 mg/dL High 70- 100 21 finding Rapid Influenza A & B 08/31/2017 [facility] [place] Influenza A Molecular NEGATIVE Negative 22 Molecular Influenza B Molecular NEGATIVE Negative Laboratory test finding 08/31/2017 [facility] [place] Inr/Protime 0.99 N 0.77-1.02 CBC Auto Diff 08/31/2017 [facility] [place] White Blood Count 9.5 10^3/uL N 3.5-10.8 Red Blood Count 4.54 10^6/uL N 4.0-5.4 Hemoglobin 13.6 g/dL N 12.0-16.0 Hematocrit 40 % N 35-47 Mean Corpuscular Volume 88 fL N 80-97 Mean Corpuscular Hemoglobin 30 pg N 27-31 Mean Corpuscular HGB Conc 34 g/dL N 31-36 Red Cell Distribution Width 14 % N 10.5-15 Platelet Count 376 10^3/uL N 150-450 Mean Platelet Volume 7 um3 Low 7.4-10.4 Abs Neutrophils 5.9 10^3/uL N 1.5-7.7 Abs Lymphocytes 2.7 10^3/uL N 1.0-4.8 Abs Monocytes 0.8 10^3/uL N 0-0.8 Abs Eosinophils 0 10^3/uL N 0-0.6 Abs Basophils 0.1 10^3/uL N 0-0.2 Abs Nucleated RBC 0 10^3/uL Granulocyte % 61.9 % N 38-83 Lymphocyte % 28.2 % N 25-47 Monocyte % 8.8 % High 0-7 Eosinophil % 0.3 % N 0-6 Basophil % 0.8 % N 0-2 Nucleated Red Blood Cells % 0 Laboratory test finding 08/31/2017 [facility] [place] Lactic Acid 1.3 mmol/L N 0.5-2.0 23 Comp Metabolic Panel 08/31/2017 [facility] [place] Sodium 137 mmol/L N 133-145 Potassium 3.2 mmol/L Low 3.5-5.0 Chloride 106 mmol/L N 101-111 Co2 Carbon Dioxide 21 mmol/L Low 22-32 Anion Gap 10 mmol/L N 2-11 Glucose 102 mg/dL High 70-100 Blood Urea Nitrogen 16 mg/dL N 6-24 Creatinine 0.64 mg/dL N 0.51-0.95 BUN/Creatinine Ratio 25.0 High 8-20 Calcium 9.8 mg/dL N 8.6-10.3 Total Protein 7.9 g/dL N 6.4-8.9 Albumin 4.1 g/dL N 3.2-5.2 Globulin 3.8 g/dL N 2-4 Albumin/Globulin Ratio 1.1 N 1-3 Total Bilirubin 0.60 mg/dL N 0.2-1.0 Alkaline Phosphatase 67 U/L N 34-104 Alt 31 U/L N 7-52 Ast 20 U/L N 13-39 Egfr Non- 99.0 >60 Egfr 127.4 >60 24 Laboratory test finding 08/31/2017 [facility] [place] Amylase 54 U/L N 29-103 Lipase 17 U/L N 11.0-82.0 Creatine Kinase(CK) 30 U/L N 10-223 C Reactive Protein 12.86 mg/L High < 5.00 25 Magnesium 2.1 mg/dL N 1.9-2.7 Urinalysis Profile 08/31/2017 [facility] [place] Urine Color Yellow Urine Appearance Cloudy Urine Specific [place] 1.026 N 1.010-1.030 Urine pH 7.0 N 5-9 Urine Urobilinogen Negative Negative Urine Ketones 1+ Abnormal Negative Urine Protein 1+(30 mg/dL) Abnormal Negative Urine Leukocytes Negative Negative Urine Blood Negative Negative Urine Nitrite Negative Negative Urine Bilirubin Negative Negative Urine Glucose Negative Negative Urine White Blood Cell Trace(0-5/hpf) Absent Urine Red Blood Cell Trace(0-2/hpf) Absent Urine Bacteria Absent Absent Urine Squamous Epithelial Cell Present Abnormal Absent Laboratory test 08/31/2017 [facility] [place] Urine Culture And SEE RESULT 26 finding Sensitivities BELOW Metabolic Panel 06/21/2017 [facility] Glucose, Serum 106 mg/dL High 65-99 27 (14), Comprehensive [address] [place] [address] (607)- - BUN 10 mg/dL 6-24 Creatinine, Serum 0.61 mg/dL 0.57-1.00 eGFR If NonAfricn Am 108 mL/min/1.73 >59 eGFR If Africn Am 124 mL/min/1.73 >59 BUN/Creatinine Ratio 16 9-23 Sodium, Serum 143 mmol/L 134-144 Potassium, Serum 4.2 mmol/L 3.5-5.2 Chloride, Serum 103 mmol/L 96-106 Carbon Dioxide, Total 25 mmol/L 18-29 Calcium, Serum 9.2 mg/dL 8.7-10.2 Protein, Total, Serum 7.4 g/dL 6.0-8.5 Albumin, Serum 4.1 g/dL 3.5-5.5 Globulin, Total 3.3 g/dL 1.5-4.5 A/G Ratio 1.2 1.2-2.2 Bilirubin, Total <0.2 mg/dL 0.0-1.2 Alkaline Phosphatase, S 80 IU/L 39-117 Ast (Sgot) 21 IU/L 0-40 Alt (SGPT) 18 IU/L 0-32 Lipid Panel 06/21/2017 [facility] Cholesterol, Total 263 mg/dL High 734-276 [address] [place] [address] (607)- - Triglycerides 124 mg/dL 0-149 HDL Cholesterol 65 mg/dL >39 VLDL Cholesterol Tristan 25 mg/dL 5-40 LDL Cholesterol Calc 173 mg/dL High 0-99 Comment: TNP CBC With 06/21/2017 [facility] WBC 6.2 x10E3/uL 3.4-10.8 Differential/Platelet [address] [place] [address] (607)- - RBC 4.33 x10E6/uL 3.77-5.28 Hemoglobin 12.8 g/dL 11.1-15.9 Hematocrit 39.0 % 34.0-46.6 MCV 90 fL 79-97 MCH 29.6 pg 26.6-33.0 MCHC 32.8 g/dL 31.5-35.7 RDW 14.3 % 12.3-15.4 Platelets 402 x10E3/uL High 150-379 Neutrophils 58 % Not Estab. Lymphs 32 % Not Estab. Monocytes 8 % Not Estab. Eos 2 % Not Estab. Basos 0 % Not Estab. Immature Cells [facility] Neutrophils (Absolute) 3.6 x10E3/uL 1.4-7.0 Lymphs (Absolute) 2.0 x10E3/uL 0.7-3.1 Monocytes(Absolute) 0.5 x10E3/uL 0.1-0.9 Eos (Absolute) 0.1 x10E3/uL 0.0-0.4 Baso (Absolute) 0.0 x10E3/uL 0.0-0.2 Immature Granulocytes 0 % Not Estab. Immature Grans (Abs) 0.0 x10E3/uL 0.0-0.1 NRBC [facility] Hematology Comments: [facility] Laboratory test 06/21/2017 [facility] Thyroxine (T4) 1.09 0.82-1.[address] [place] [address] Free, Direct, ng/[place] [address] S (607)- - Hemoglobin A1c 06/21/2017 [facility] Hemoglobin A1c 5.6 % 4.8-5.6 28 [address] [place] [address] (607)- - Laboratory test 06/21/2017 [facility] TSH 1.400 0.450-4.[address] [place] [address] uIU/[place] [address] (607)- - Laboratory test 05/22/2017 [facility] Glucose Serum 106 High 70-105 finding (607)- - CBC Auto Diff 04/20/2017 [facility] White Blood 10.2 N 3.5-10.8 Count 10^3/uL Red Blood Count 4.29 10^6/uL N 4.0-5.4 Hemoglobin 12.9 g/dL N 12.0-16.0 Hematocrit 38 % N 35-47 Mean Corpuscular Volume 89 fL N 80-97 Mean Corpuscular Hemoglobin 30 pg N 27-31 Mean Corpuscular HGB Conc 34 g/dL N 31-36 Red Cell Distribution Width 14 % N 10.5-15 Platelet Count 414 10^3/uL N 150-450 Mean Platelet Volume 7 um3 Low 7.4-10.4 Abs Neutrophils 7.5 10^3/uL N 1.5-7.7 Abs Lymphocytes 1.8 10^3/uL N 1.0-4.8 Abs Monocytes 0.9 10^3/uL High 0-0.8 Abs Eosinophils 0 10^3/uL N 0-0.6 Abs Basophils 0.1 10^3/uL N 0-0.2 Abs Nucleated RBC 0 10^3/uL N Granulocyte % 73.2 % N 38-83 Lymphocyte % 17.5 % Low 25-47 Monocyte % 8.4 % N 1-9 Eosinophil % 0.2 % N 0-6 Basophil % 0.7 % N 0-2 Nucleated Red Blood Cells % 0 N Laboratory test finding 04/20/2017 [facility] B-Type Natriuretic Peptide BNP 47 pg /mL N 29 Lactic Acid 1.3 mmol/L N 0.5-2.0 30 Comp Metabolic Panel 04/20/2017 [facility] Sodium 136 mmol/L N 133-145 Potassium 3.5 mmol/L N 3.5-5.0 Chloride 103 mmol/L N 101-111 Co2 Carbon Dioxide 26 mmol/L N 22-32 Anion Gap 7 mmol/L N 2-11 Glucose 91 mg/dL N 70-100 Blood Urea Nitrogen 15 mg/dL N 6-24 Creatinine 0.62 mg/dL N 0.51-0.95 BUN/Creatinine Ratio 24.2 High 8-20 Calcium 9.2 mg/dL N 8.6-10.3 Total Protein 7.3 g/dL N 6.4-8.9 Albumin 3.8 g/dL N 3.2-5.2 Globulin 3.5 g/dL N 2-4 Albumin/Globulin Ratio 1.1 N 1-3 Total Bilirubin 0.30 mg/dL N 0.2-1.0 Alkaline Phosphatase 63 U/L N 34-104 Alt 21 U/L N 7-52 Ast 15 U/L N 13-39 Egfr Non- 102.7 N >60 Egfr 132.1 N >60 31 Laboratory test finding 04/20/2017 [facility] [place] Magnesium 2.1 mg/dL N 1.9-2.7 Creatine Kinase(CK) 25 U/L N 10-223 Troponin I 0.00 ng/mL N <0.04 CKMB 04/20/2017 [facility] [place] CKMB ng/mL 0.7 ng/mL N 0.6-6.3 Laboratory test finding 04/20/2017 [facility] [place] TSH (Thyroid Stim 3.10 mcIU/mL N 0.34-5.60 Horm) Blood Culture SEE RESULT BELOW 32 CBC No Diff 04/04/2017 [facility] [place] White Blood Count 17.4 10^3/uL High 3.5-10.8 Red Blood Count 4.29 10^6/uL N 4.0-5.4 Hemoglobin 13.0 g/dL N 12.0-16.0 Hematocrit 39 % N 35-47 Mean Corpuscular Volume 90 fL N 80-97 Mean Corpuscular Hemoglobin 30 pg N 27-31 Mean Corpuscular HGB Conc 34 g/dL N 31-36 Red Cell Distribution Width 14 % N 10.5-15 Platelet Count 383 10^3/uL N 150-450 Mean Platelet Volume 8 um3 N 7.4-10.4 Urinalysis Profile 04/04/2017 [facility] [place] Urine Color Ashlee N Urine Appearance Turbid N Urine Specific [place] 1.028 N 1.010-1.030 Urine pH 5.0 N 5-9 Urine Urobilinogen Negative N Negative Urine Ketones Trace Abnormal Negative Urine Protein 2+(100 mg/dL) Abnormal Negative Urine Leukocytes Negative N Negative Urine Blood Negative N Negative Urine Nitrite Negative N Negative Urine Bilirubin Negative N Negative Urine Glucose Negative N Negative Urine White Blood Cell 2+(11-20/hpf) Abnormal Absent Urine Red Blood Cell 3+(>10/hpf) Abnormal Absent Urine Bacteria 3+ Abnormal Absent Urine Squamous Epithelial Cell Present Abnormal Absent Urine Yeast Present Abnormal Absent Comp Metabolic Panel 04/04/2017 [facility] [place] Sodium 138 mmol/L N 133-145 Potassium 4.3 mmol/L N 3.5-5.0 Chloride 104 mmol/L N 101-111 Co2 Carbon Dioxide 27 mmol/L N 22-32 Anion Gap 7 mmol/L N 2-11 Glucose 81 mg/dL N 70-100 Blood Urea Nitrogen 11 mg/dL N 6-24 Creatinine 0.64 mg/dL N 0.51-0.95 BUN/Creatinine Ratio 17.2 N 8-20 Calcium 9.7 mg/dL N 8.6-10.3 Total Protein 7.2 g/dL N 6.4-8.9 Albumin 3.9 g/dL N 3.2-5.2 Globulin 3.3 g/dL N 2-4 Albumin/Globulin Ratio 1.2 N 1-3 Total Bilirubin 0.20 mg/dL N 0.2-1.0 Alkaline Phosphatase 63 U/L N 34-104 Alt 15 U/L N 7-52 Ast 15 U/L N 13-39 Egfr Non- 99.0 N >60 Egfr 127.4 N >60 33 Lipid Profile (Trig/Chol/HDL) 04/04/2017 [facility] [place] Triglycerides 60 mg/dL N 34 Cholesterol 228 mg/dL N 35 HDL Cholesterol 67.9 mg/dL N 36 LDL Cholesterol 148 mg/dL N 37 Laboratory test finding 04/04/2017 [facility] [place] Thyroxine 10.33 g/mL N 6.09- 12.23 TSH (Thyroid Stim Horm) 0.75 mcIU/mL N 0.34-5.60 Urine Microalbumin Random 04/04/2017 [facility] [place] Ur Microalbumin (mg/L) 82.3 mg/L N Urine Creatinine 361.76 mg/dL N Urine Microalbumin/Creatinine 22.7 ug/mg N <31 Laboratory test finding 04/04/2017 [facility] [place] Hemoglobin A1c (Glyco 5.8 % N Less than 6.0 38 HGB) Urine Culture And Sensitivities SEE RESULT BELOW 39 Ua - Non Micro (Fma) 12/12/2016 [facility] Appearance clear (607)- - Color yellow Glucose, Urine (Fma/CMC/CTX) neg Bilirubin neg Ketones neg SP Grav >=1.030 Blood neg PH 5.5 Protein neg Urobil 0.2 Nitrite neg Leukocytes (Fma/[facility]/Centrex) neg Urine Culture 12/12/2016 [facility] Urine Culture, Final report Abnormal 40, 41 Routine [address] [facility] [place] [address] (607)- - Result 1 Escherichia coli Abnormal 42 Antimicrobial Susceptibility See Comment: 43 Laboratory test finding 11/20/2016 [facility] [place] Acetaminophen < 15 g/mL N 44 CBC Auto Diff 11/20/2016 [facility] [place] White Blood Count 8.7 10^3/uL N 3.5-10.8 Red Blood Count 4.46 10^6/uL N 4.0-5.4 Hemoglobin 13.3 g/dL N 12.0-16.0 Hematocrit 40 % N 35-47 Mean Corpuscular Volume 90 fL N 80-97 Mean Corpuscular Hemoglobin 30 pg N 27-31 Mean Corpuscular HGB Conc 34 g/dL N 31-36 Red Cell Distribution Width 14 % N 10.5-15 Platelet Count 342 10^3/uL N 150-450 Mean Platelet Volume 7 um3 Low 7.4-10.4 Abs Neutrophils 5.8 10^3/uL N 1.5-7.7 Abs Lymphocytes 2.1 10^3/uL N 1.0-4.8 Abs Monocytes 0.7 10^3/uL N 0-0.8 Abs Eosinophils 0.1 10^3/uL N 0-0.6 Abs Basophils 0.1 10^3/uL N 0-0.2 Abs Nucleated RBC 0 10^3/uL N Granulocyte % 66.8 % N 38-83 Lymphocyte % 24.0 % Low 25-47 Monocyte % 7.9 % N 1-9 Eosinophil % 0.7 % N 0-6 Basophil % 0.6 % N 0-2 Nucleated Red Blood Cells % 0 N Laboratory test finding 11/20/2016 [facility] [place] Lactic Acid 1.1 mmol/L N 0.5-2.0 45 Comp Metabolic Panel 11/20/2016 [facility] [place] Sodium 135 mmol/L N 133-145 Potassium 3.7 mmol/L N 3.5-5.0 Chloride 99 mmol/L Low 101-111 Co2 Carbon Dioxide 26 mmol/L N 22-32 Anion Gap 10 mmol/L N 2-11 Glucose 126 mg/dL High 70-100 Blood Urea Nitrogen 13 mg/dL N 6-24 Creatinine 0.74 mg/dL N 0.51-0.95 BUN/Creatinine Ratio 17.6 N 8-20 Calcium 9.3 mg/dL N 8.6-10.3 Total Protein 7.9 g/dL N 6.4-8.9 Albumin 4.1 g/dL N 3.2-5.2 Globulin 3.8 g/dL N 2-4 Albumin/Globulin Ratio 1.1 N 1-3 Total Bilirubin 0.40 mg/dL N 0.2-1.0 Alkaline Phosphatase 71 U/L N 34-104 Alt 16 U/L N 7-52 Ast 20 U/L N 13-39 Egfr Non- 83.8 N >60 Egfr 107.7 N >60 46 Laboratory test finding 11/20/2016 [facility] Acetaminophen < 15 g/mL N 47 Alcohol < 10 mg/dL N <10 Salicylate < 2.50 mg/dL N <30 Comp Metabolic Panel 09/09/2016 [facility] Sodium 138 mmol/L N 133-145 Potassium 4.1 mmol/L N 3.5-5.0 Chloride 102 mmol/L N 101-111 Co2 Carbon Dioxide 29 mmol/L N 22-32 Anion Gap 7 mmol/L N 2-11 Glucose 83 mg/dL N 70-100 Blood Urea Nitrogen 14 mg/dL N 6-24 Creatinine 0.66 mg/dL N 0.51-0.95 BUN/Creatinine Ratio 21.2 High 8-20 Calcium 9.2 mg/dL N 8.6-10.3 Total Protein 6.8 g/dL N 6.4-8.9 Albumin 3.9 g/dL N 3.2-5.2 Globulin 2.9 g/dL N 2-4 Albumin/Globulin Ratio 1.3 N 1-3 Total Bilirubin 0.50 mg/dL N 0.2-1.0 Alkaline Phosphatase 61 U/L N 34-104 Alt 22 U/L N 7-52 Ast 15 U/L N 13-39 Egfr Non- 96.0 N >60 Egfr 123.5 N >60 48 Connective Tissue Panel 09/09/2016 [facility] Anti-Nuclear Antibody 0.6 U N 49 Cyclic Citrullinated Peptide <15.6 U N 50 Interpretation See Comment N 51 Laboratory test finding 09/09/2016 [facility] Vitamin D, 1,25 Dihydroxy 78 pg/mL N 18-78 52 Hla B27 09/09/2016 [facility] Hla B27 Negative N 53 Hla B27 Interp See Comment N 54 Laboratory test finding 09/09/2016 [facility] Rheumatoid Factor <15 IU/mL N <15 55 Anca AB Ser If 09/09/2016 [facility] C-Anca Negative N Negative P-Anca Negative N Negative 56 CBC Auto Diff 09/09/2016 [facility] White Blood Count 5.3 10^3/uL N 3.5-10.8 Red Blood Count 4.55 10^6/uL N 4.0-5.4 Hemoglobin 13.5 g/dL N 12.0-16.0 Hematocrit 41 % N 35-47 Mean Corpuscular Volume 90 fL N 80-97 Mean Corpuscular Hemoglobin 30 pg N 27-31 Mean Corpuscular HGB Conc 33 g/dL N 31-36 Red Cell Distribution Width 14 % N 10.5-15 Platelet Count 349 10^3/uL N 150-450 Mean Platelet Volume 8 um3 N 7.4-10.4 Abs Neutrophils 3.2 10^3/uL N 1.5-7.7 Abs Lymphocytes 1.5 10^3/uL N 1.0-4.8 Abs Monocytes 0.5 10^3/uL N 0-0.8 Abs Eosinophils 0.1 10^3/uL N 0-0.6 Abs Basophils 0 10^3/uL N 0-0.2 Abs Nucleated RBC 0 10^3/uL N Granulocyte % 59.6 % N 38-83 Lymphocyte % 28.0 % N 25-47 Monocyte % 10.2 % High 1-9 Eosinophil % 1.7 % N 0-6 Basophil % 0.5 % N 0-2 Nucleated Red Blood Cells % 0 N Laboratory test finding 09/09/2016 [facility] [place] Magnesium 2.0 mg/dL N 1.9-2.7 57 Creatine Kinase(CK) 31 U/L N 10-223 58 TSH (Thyroid Stim Horm) 1.86 mcIU/mL N 0.34-5.60 59 Thyroperoxidase AB 608.12 IU/mL High <9 60 Folic Acid (Folate) 13.65 ng/mL N >3.99 61 Vitamin B12 386 pg/mL N 180-914 62 Vitamin D Total 25(Oh) 20.0 ng/mL Low 30-50 63 Angiotensin Converting Enzyme 20 U/L N 8 - 53 64 Thyroglobulin AB 40 IU/mL Abnormal <4.0 65 Laboratory test finding 08/22/2016 [facility] [place] Magnesium 1.9 mg/dL N 1.9-2.7 Troponin I 0.00 ng/mL N <0.04 66 CBC Auto Diff 08/22/2016 [facility] [place] White Blood Count 6.7 10^3/uL N 3.5-10.8 Red Blood Count 4.66 10^6/uL N 4.0-5.4 Hemoglobin 14.0 g/dL N 12.0-16.0 Hematocrit 42 % N 35-47 Mean Corpuscular Volume 89 fL N 80-97 Mean Corpuscular Hemoglobin 30 pg N 27-31 Mean Corpuscular HGB Conc 34 g/dL N 31-36 Red Cell Distribution Width 14 % N 10.5-15 Platelet Count 389 10^3/uL N 150-450 Mean Platelet Volume 7 um3 Low 7.4-10.4 Abs Neutrophils 5.0 10^3/uL N 1.5-7.7 Abs Lymphocytes 0.7 10^3/uL Low 1.0-4.8 Abs Monocytes 0.9 10^3/uL High 0-0.8 Abs Eosinophils 0.1 10^3/uL N 0-0.6 Abs Basophils 0 10^3/uL N 0-0.2 Abs Nucleated RBC 0 10^3/uL N Granulocyte % 75.5 % N 38-83 Lymphocyte % 10.1 % Low 25-47 Monocyte % 12.8 % High 1-9 Eosinophil % 1.2 % N 0-6 Basophil % 0.4 % N 0-2 Nucleated Red Blood Cells % 0 N Comp Metabolic Panel 08/22/2016 [facility] Sodium 134 mmol/L N 133-145 Chloride 103 mmol/L N 101-111 Co2 Carbon Dioxide 24 mmol/L N 22-32 Glucose 131 mg/dL High 70-100 Blood Urea Nitrogen 9 mg/dL N 6-24 Creatinine 0.65 mg/dL N 0.51-0.95 BUN/Creatinine Ratio 13.8 N 8-20 Calcium 9.4 mg/dL N 8.6-10.3 Total Protein 7.6 g/dL N 6.4-8.9 Albumin 4.0 g/dL N 3.2-5.2 Globulin 3.6 g/dL N 2-4 Albumin/Globulin Ratio 1.1 N 1-3 Total Bilirubin 0.50 mg/dL N 0.2-1.0 Alkaline Phosphatase 66 U/L N 34-104 Alt 21 U/L N 7-52 Egfr Non- 97.7 N >60 Egfr 125.7 N >60 67 Ast 22 U/L N 13-39 Potassium 3.6 mmol/L N 3.5-5.0 Anion Gap 7 mmol/L N 2-11 Laboratory test finding 08/22/2016 [facility] [place] Potassium Redraw 3.7 mmol/L N 3.5- 5.0 Ast Redraw 22 U/L N 13-39 Comp Metabolic Panel 07/31/2016 [facility] [place] Sodium 135 mmol/L N 133-145 Chloride 103 mmol/L N 101-111 Co2 Carbon Dioxide 26 mmol/L N 22-32 Glucose 96 mg/dL N 70-100 Blood Urea Nitrogen 12 mg/dL N 6-24 Creatinine 0.67 mg/dL N 0.51-0.95 BUN/Creatinine Ratio 17.9 N 8-20 Calcium 9.3 mg/dL N 8.6-10.3 Total Protein 7.4 g/dL N 6.4-8.9 Albumin 3.9 g/dL N 3.2-5.2 Globulin 3.5 g/dL N 2-4 Albumin/Globulin Ratio 1.1 N 1-3 Total Bilirubin 0.50 mg/dL N 0.2-1.0 Alkaline Phosphatase 56 U/L N 34-104 Alt 20 U/L N 7-52 Egfr Non- 94.3 N >60 Egfr 121.3 N >60 68 Potassium 4.0 mmol/L N 3.5-5.0 Anion Gap 6 mmol/L N 2-11 Ast 23 U/L N 13-39 CBC Auto Diff 07/31/2016 [facility] [place] White Blood Count 7.9 10^3/uL N 3.5-10.8 Red Blood Count 4.36 10^6/uL N 4.0-5.4 Hemoglobin 13.2 g/dL N 12.0-16.0 Hematocrit 39 % N 35-47 Mean Corpuscular Volume 89 fL N 80-97 Mean Corpuscular Hemoglobin 30 pg N 27-31 Mean Corpuscular HGB Conc 34 g/dL N 31-36 Red Cell Distribution Width 14 % N 10.5-15 Platelet Count 320 10^3/uL N 150-450 Mean Platelet Volume 7 um3 Low 7.4-10.4 Abs Neutrophils 5.3 10^3/uL N 1.5-7.7 Abs Lymphocytes 1.7 10^3/uL N 1.0-4.8 Abs Monocytes 0.7 10^3/uL N 0-0.8 Abs Eosinophils 0.1 10^3/uL N 0-0.6 Abs Basophils 0.1 10^3/uL N 0-0.2 Abs Nucleated RBC 0 10^3/uL N Granulocyte % 66.9 % N 38-83 Lymphocyte % 22.2 % Low 25-47 Monocyte % 9.0 % N 1-9 Eosinophil % 1.1 % N 0-6 Basophil % 0.8 % N 0-2 Nucleated Red Blood Cells % 0 N Laboratory test 07/31/2016 [facility] [place] Troponin I 0.01 ng/mL N <0.04 69 finding Laboratory test 07/31/2016 [facility] [place] Lactic Acid 1.2 mmol/L N 0.5-2.0 70 finding Laboratory test 04/21/2016 [facility] Hemoglobin A1c 5.4 % 4.1-5.7 finding (607)- - (a) Microalb, Random (Fma/CMC/CTX) 21.1 mg/L 0.5-37 Complete Blood Count 04/21/2016 Guevaar Karly([facility]) WBC 4.5 x10^3/UL 3.6 -9.6 RBC 4.35 x10^6/UL 3.90-5.70 HGB 13.5 g/dL 12.1-17.2 HCT 40 % 36-50 MCV 92.0 fL 82.2-97.4 MCH 31.0 pg 27.6-33.3 MCHC 33.7 g/dL 33.0-35.5 RDW 13.9 % High 11.6-13.7 PLT 350 x10^3/UL 150-400 MPV 6.0 fL Low 7.4-10.4 Gran # 2.7 x10^3/UL 1.5-7.2 Lymph# 1.6 x10^3/UL 0.7-4.9 [place]# 0.2 x10^3/UL 0.1-0.9 Gran % 58.3 % 42.2-75.2 Lymph % 37.1 % 20.5-51.1 [place]% 4.6 % 1.7-9.3 Laboratory test 04/21/2016 Guevara Karly(a) TSH 2.15 mIU/L 0.50-6.00 71 finding Ua - Non Micro 04/21/2016 [facility] Appearance yellow ([facility]) (607)- - Color clear Glucose, Urine (Fma/CMC/CTX) neg Bilirubin neg Ketones trace SP Grav 1.015 Blood neg PH 7.5 Protein neg Urobil 0.2 Nitrite neg Leukocytes ([facility]ma/[facility] [place]/[facility]rex) neg Comprehensive Metabolic 04/21/2016 Ismael Brandt([facility]) Sodium 139 mEq/L 134-149 Prof Potassium 4.1 mEq/L 3.6-5.5 Chloride 98 mEq/L [...] GFR >60 ml/min/1.73m^ >=60 Lipid Profile 04/21/2016 Guevara Flora([facility]) Cholesterol 218 mg/dL High 120-200 Triglycerides 46 mg/dL 30-200 HDL Cholesterol 70 mg/dL 30-85 LDL (Calculated) 139 CALC High 0-129 VLDL Cholesterol 9 mg/dL 0-50 HDL Risk Factor 3.1 CALC 0.0-4.4 CBC Auto Diff 04/09/2016 [facility] [place] White Blood Count 7.5 10^3/uL N 3.5-10.8 Red Blood Count 4.29 10^6/uL N 4.0-5.4 Hemoglobin 12.8 g/dL N 12.0-16.0 Hematocrit 38 % N 35-47 Mean Corpuscular Volume 89 fL N 80-97 Mean Corpuscular Hemoglobin 30 pg N 27-31 Mean Corpuscular HGB Conc 34 g/dL N 31-36 Red Cell Distribution Width 13 % N 10.5-15 Platelet Count 354 10^3/uL N 150-450 Mean Platelet Volume 7 um3 Low 7.4-10.4 Abs Neutrophils 5.3 10^3/uL N 1.5-7.7 Abs Lymphocytes 1.4 10^3/uL N 1.0-4.8 Abs Monocytes 0.7 10^3/uL N 0-0.8 Abs Eosinophils 0.1 10^3/uL N 0-0.6 Abs Basophils 0 10^3/uL N 0-0.2 Abs Nucleated RBC 0 10^3/uL N Granulocyte % 70.5 % N 38-83 Lymphocyte % 18.4 % Low 25-47 Monocyte % 9.8 % High 1-9 Eosinophil % 0.8 % N 0-6 Basophil % 0.5 % N 0-2 Nucleated Red Blood Cells % 0 N Laboratory test finding 04/09/2016 [facility] [place] Lactic Acid 1.6 mmol/L N 0.5-2.0 72 Comp Metabolic Panel 04/09/2016 [facility] [place] Sodium 138 mmol/L N 133-145 Potassium 3.1 mmol/L Low 3.5-5.0 Chloride 105 mmol/L N 101-111 Co2 Carbon Dioxide 24 mmol/L N 22-32 Anion Gap 9 mmol/L N 2-11 Glucose 123 mg/dL High 70-100 Blood Urea Nitrogen 15 mg/dL N 6-24 Creatinine 0.83 mg/dL N 0.51-0.95 BUN/Creatinine Ratio 18.1 N 8-20 Calcium 9.5 mg/dL N 8.6-10.3 Total Protein 7.2 g/dL N 6.4-8.9 Albumin 3.8 g/dL N 3.2-5.2 Globulin 3.4 g/dL N 2-4 Albumin/Globulin Ratio 1.1 N 1-3 Total Bilirubin 0.40 mg/dL N 0.2-1.0 Alkaline Phosphatase 56 U/L N 34-104 Alt 16 U/L N 7-52 Ast 17 U/L N 13-39 Egfr Non- 73.7 N >60 Egfr 94.8 N >60 73 Laboratory test finding 04/09/2016 [facility] [place] Troponin I 0.00 ng/mL N <0.03 74 HCG < 0.60 mIU/mL N 75 Laboratory test 03/21/2016 [facility] [place] Troponin I 0.00 ng/mL N <0.03 76 finding Laboratory test 03/21/2016 [facility] [place] HIV 1&2 AB Self Nonreactive N Nonreactive 77 finding Referred CBC Auto Diff 03/21/2016 [facility] [place] White Blood Count 8.2 10^3/uL N 3.5-10.8 Red Blood Count 4.37 10^6/uL N 4.0-5.4 Hemoglobin 13.3 g/dL N 12.0-16.0 Hematocrit 40 % N 35-47 Mean Corpuscular Volume 91 fL N 80-97 Mean Corpuscular Hemoglobin 30 pg N 27-31 Mean Corpuscular HGB Conc 34 g/dL N 31-36 Red Cell Distribution Width 13 % N 10.5-15 Platelet Count 293 10^3/uL N 150-450 Mean Platelet Volume 7 um3 Low 7.4-10.4 Abs Neutrophils 5.0 10^3/uL N 1.5-7.7 Abs Lymphocytes 2.5 10^3/uL N 1.0-4.8 Abs Monocytes 0.6 10^3/uL N 0-0.8 Abs Eosinophils 0.1 10^3/uL N 0-0.6 Abs Basophils 0.1 10^3/uL N 0-0.2 Abs Nucleated RBC 0 10^3/uL N Granulocyte % 60.5 % N 38-83 Lymphocyte % 29.8 % N 25-47 Monocyte % 7.8 % N 1-9 Eosinophil % 1.2 % N 0-6 Basophil % 0.7 % N 0-2 Nucleated Red Blood Cells % 0 N Comp Metabolic Panel 03/21/2016 [facility] [place] Sodium 135 mmol/L N 133-145 Chloride 102 mmol/L N 101-111 Co2 Carbon Dioxide 25 mmol/L N 22-32 Glucose 139 mg/dL High 70-100 Blood Urea Nitrogen 14 mg/dL N 6-24 Creatinine 0.64 mg/dL N 0.51-0.95 BUN/Creatinine Ratio 21.9 High 8-20 Calcium 9.1 mg/dL N 8.6-10.3 Total Protein 7.0 g/dL N 6.4-8.9 Albumin 3.6 g/dL N 3.2-5.2 Globulin 3.4 g/dL N 2-4 Albumin/Globulin Ratio 1.1 N 1-3 Total Bilirubin 0.30 mg/dL N 0.2-1.0 Alkaline Phosphatase 54 U/L N 34-104 Alt 17 U/L N 7-52 Egfr Non- 99.5 N >60 Egfr 127.9 N >60 78 Potassium 3.9 mmol/L N 3.5-5.0 Anion Gap 8 mmol/L N 2-11 Ast 16 U/L N 13-39 1 It is recognized that currently available assays [...] 95% confidence interval of 99.78 to 99.96%. 2 Because ethnic data is not always readily [...] 15-29 5 Kidney failure <15 (or dialysis) 3 Troponin-I testing on Plasma Separator Tubes (PST) has a known false positive rate of 0.20-0.40%. All positive troponins reflex immediate secondary confirmatory testing. 4 Normal Range 180 to 914 Indeterminate Range 145 to 180 Deficient Range <145 5 Result TnIDx:1.63 Called to [id number] at: 15:08:36 by:[id number] Read back by: [id number] CORRECTED REPORT --- Corrected on 05/21/18 1611 --- Troponin I previously reported as: 1.63 *C ng/mL Result TnIDx:1.63 Called to [id number] at: 15:08:36 by:[id number] Read back by: [id number] 6 Because ethnic data is not always [...] 5 Kidney failure <15 (or dialysis) 7 [facility] Severe Sepsis and Septic Shock Management Bundle Measure requires all lactic acids initially measuring >2.0 mmol/L be repeated. 8 SRC:LOWER BACK RASH - RULE RULE OUT MRSA 9 Source of Specimen: LOWER BACK RASH - RULE No anaerobic transport device received. 10 Source of Specimen: LOWER BACK RASH - RULE Please note that the Microbiology test code was changed to reflect the specimen source or transport received. 11 No anaerobic transport device received. TEST: [id number] Anaerobic Culture 12 Source of Specimen: LOWER BACK RASH - RULE 13 Source of Specimen: LOWER BACK RASH - RULE No growth in 36 - 48 hours. 14 Source of Specimen: LOWER BACK RASH - RULE No Methicillin - resistant Staphylococcus aureus. 15 NON-FASTING 16 SEE RESULT BELOW Name: KIARA CALDERON : [address]: Brina Jimenez MD Acct: [id number] Unit: [id number] AGE: 46 Location: ED Re09/01/17 SEX: F Status: REG ER SPEC: [id number] VANESSA: 09/01/17-1443 [facility] DR: Brina Jimenez MD REQ: [id number] RECD: 09/01/17 STATUS: SAVAGE PERDUE DR: Nenita [...] . END OF REPORT DEPARTMENT OF PATHOLOGY, [address] [place] [address] Mehrdad Lau M.D. Director [facility] # [id number] 17 SEE RESULT BELOW Name: KIARA CALDERON : [address]: Brina Jimenez MD Acct: [id number] Unit: [id number] AGE: 46 Location: ED Re09/01/17 SEX: F Status: DEP ER SPEC: [id number] VANESSA: 09/01/17-1442 [facility] DR: Brina Jimenez MD REQ: [id number] RECD: 09/01/17 STATUS: SAVAGE PERDUE DR: Nenita Walter MD _ SOURCE: STOOL SPDESC: ORDERED: Stool Culture, O P: Giar/Crypt COMMENTS: Unable to Perform Shiga Toxin Testing. Insufficient Growth of Enteric Bacteria. Procedure Result Reported Site Stool Culture Final 09/03/17- 1017 ML Result No growth of normal enteric karly No enteric pathogens isolated Testing for Salmonella, [...] CONTINUED ON NEXT PAGE DEPARTMENT OF PATHOLOGY, [address] [place] [address] Mehrdad Lau M.D. Director [facility] # [id number] Patient: KIARA CALDERON [id number] (Continued) Specimen: [id number] Collected: 09/01/17 Received: 09/01/17 (Continued) Procedure Result Reported Site O P: Giardia/Cryptospor Screen Final (continued) 09/04/171130 Giardia and cryptosporidium antigen testing performed by enzyme immunoassay. If patient is immunocompromised or has traveled to or is from a developing country, a full ova and parasite exam with microscopic (OPMIC) is recommended. All samples will be held one month in case full ova and parasite testing is requested. Contact the Microbiology Department at [phone]. TEST LIMITATIONS: As with all diagnostic procedures, [...] . END OF REPORT DEPARTMENT OF PATHOLOGY, [address] [place] [address] Mehrdad Lau M.D. Director [facility] # [id number] 18 SEE RESULT BELOW Name: KIARA CALDERON : [address]: Brina Jimenez MD Acct: [id number] Unit: [id number] AGE: 46 Location: ED Re09/01/17 SEX: F Status: REG ER SPEC: [id number] VANESSA: 09/01/17-1443 [facility] DR: Brina Jimenez MD REQ: [id number] RECD: 09/01/17 STATUS: RES OTHR DR: Nenita Walter MD _ SOURCE: STOOL SPDESC: ORDERED: Occult Bl, Ana Perez PCR, Fecal Lactoferr Procedure Result Reported Site Stool Specimen Description Final 09/01/17- 1456 ML Stool Color Brown Stool Form Nonformed Stool Consistency Mucoid C. difficile PCR PENDING Fecal Lactoferrin (Stool WBC) PENDING Stool Occult Blood (1) PENDING * ML - Main Lab . END OF REPORT DEPARTMENT OF PATHOLOGY, [address] [place] [address] Mehrdad Lau M.D. Director [facility] # [id number] 19 SEE RESULT BELOW Name: KVNGKIARA : [address]: Brina Jimenez MD Acct: [id number] Unit: [id number] AGE: 46 Location: ED Re09/01/17 SEX: F Status: DEP ER SPEC: [id number] VANESSA: 09/01/17-[address]: Brina Jimenez MD REQ: [id number] RECD: 09/01/17-1601 STATUS: SAVAGE PERDUE DR: Nenita [...] . END OF REPORT DEPARTMENT OF PATHOLOGY, [address] [place] [address] Mehrdad Lau M.D. Director [facility] # [id number] 20 Reference ranges based on room air. 21 Manager Of Financial Reporting: [id number] 22 Manager Of Financial Reporting: [id number] 23 [facility] Severe Sepsis and Septic Shock Management Bundle Measure requires all lactic acids initially measuring >2.0 mmol/L be repeated. 24 Because ethnic data is not always readily [...] 15-29 5 Kidney failure <15 (or dialysis) 25 Acute inflammation: >10.00 26 SEE RESULT BELOW Name: KVNGKIARA : [address]: Brina Jimenez MD Acct: [id number] Unit: [id number] AGE: 46 Location: ED Re08/31/17 SEX: F Status: DEP ER SPEC: [id number] VANESSA: 08/31/[address]: Brina Jimenez MD REQ: [id number] RECD: 08/31/17 STATUS: SAVAGE PERDUE DR: Nenita Walter MD _ SOURCE: URINE SPDESC: ORDERED: Urine Culture Procedure Result Reported Site Urine Culture Final 03/02/18- 1608 ML No growth of clinically significant organisms * ML - Main Lab . END OF REPORT DEPARTMENT OF PATHOLOGY, [address] [place] [address] Mehrdad Lau M.D. Director [facility] # [id number] 27 2 sst 1 28 Pre-diabetes: 5.7 - 6.4 Diabetes: >6.4 Glycemic control for adults with diabetes: <7.0 29 >100 to <200 pg/mL: likely compensated congestive heart failure (CHF) 200 to 400 pg/mL: likely moderate CHF >400 pg/mL: likely moderate to severe CHF 30 [facility] Severe Sepsis and Septic Shock Management Bundle Measure requires all lactic acids initially measuring >2.0 mmol/L be repeated. 31 Because ethnic data is not always readily [...] 15-29 5 Kidney failure <15 (or dialysis) 32 SEE RESULT BELOW Name: KIARA CALDERON : [address]: Santi Francois MD Acct: [id number] Unit: [id number] AGE: 46 Location: [place] [address] Re04/20/17 Dis: 04/21/17 SEX: F Status: DIS Susy SPEC: [id number] VANESSA: 04/20/[address]: Geovanny Schmitt MD REQ: [id number] RECD: 04/20/17 STATUS: SAVAGE PERDUE DR: Nenita Walter MD _ SOURCE: BLOOD,VENO SPDESC: ORDERED: Blood Cult Procedure Result Reported Site Aerobic Culture Bottle Final 04/25/17- 1713 ML No Growth Day 5 Anaerobic Culture Bottle Final 04/25/17- 1714 ML No Growth Day 5 * ML - MAIN LAB ([facility]) . END OF REPORT * ML=Testing performed at Main Lab DEPARTMENT OF PATHOLOGY, [address] [place] [address] Mehrdad Lau M.D. Director [facility] # [id number] 33 Because ethnic data is not always readily [...] 15-29 5 Kidney failure <15 (or dialysis) 34 Desirable <150 Borderline high 150-199 High 200-499 Very High >500 35 Desirable <200 Borderline high 200-239 High >239 36 Low <40 Desirable: 40-60 High: >60 37 Desirable: <100 mg/dL Near Optimal: 100-129 mg/dL Borderline High: 130-159 mg/dL High: 160-189 mg/dL Very High: >189 mg/dL 38 Therapeutic target for the treatment of diabetes Mellitus patients is <7% HBA1C, and in selective patients <6.0%.Please refer to [place] [employer] Diabetic care guidelines for further information. 39 SEE RESULT BELOW Name: KIARA CALDERON : [address]: Nenita Walter MD Acct: [id number] Unit: [id number] AGE: 46 Location: [facility] Re04/04/17 SEX: F Status: REG REF SPEC: [id number] VANESSA: 04/04/[address]: Nenita Walter MD REQ: [id number] RECD: 04/04/17 STATUS: COMP _ SOURCE: URINE SPDESC: ORDERED: Urine Culture Procedure Result Reported Site Urine Culture Final 04/05/17- 1313 ML No Growth (<1,000 CFU/mL) * ML - MAIN LAB ([facility]) . END OF REPORT * ML=Testing performed at Main Lab DEPARTMENT OF PATHOLOGY, [address] [place] [address] Mehrdad Lau M.D. Director [facility] # [id number] 40 SRC:<Blank> 1urine vacutai ner 41 Source of Specimen: <Blank> 1urine vacutai 42 Escherichia coli Source of Specimen: <Blank> 1urine vacutai 25,000-50,000 colony forming units per mL 43 Source of Specimen: <Blank> 1urine vacutai S=Susceptible; I=Intermediate; R=Resistant P=Positive; N=Negative MICS are expressed in micrograms per mL Antibiotic RSLT#1 RSLT#2 RSLT#3 RSLT#4 Amoxicillin/Clavulanic Acid S Ampicillin S Cefepime S Ceftriaxone S Cefuroxime S Cephalothin I Ciprofloxacin S Ertapenem S Gentamicin S Imipenem S Levofloxacin S Nitrofurantoin S Piperacillin S Tetracycline S Tobramycin S Trimethoprim/Sulfa R 44 Therapeutic concentration: <50 ug/mL Toxic concentration: >120 ug/mL 45 [place] Severe Sepsis and Septic Shock Management Bundle Measure requires all lactic acids initially measuring >2.0 mmol/L be repeated. 46 Because ethnic data is not always readily [...] 15-29 5 Kidney failure <15 (or dialysis) 47 Therapeutic concentration: <50 ug/mL Toxic concentration: >120 ug/mL 48 Because ethnic data is not always [...] 5 Kidney failure <15 (or dialysis) 49 REFERENCE VALUE <=1.0 (Negative) 50 REFERENCE VALUE <20.0 (Negative) 51 Tests for antibodies to dsDNA and LORENA antigens are not performed automatically unless the LUPE result is > or= 3.0 U. Studies performed at [facility] indicate that positive LUPE results <3.0 U are rarely accompanied by positive second order tests. Test Performed by: [facility] - [address] [id number] 52 ADDITIONAL INFORMATION This test was developed and its performance characteristics determined by [facility] in a manner consistent with CLIA requirements. This test has not been cleared or approved by the [place].S. Food and Drug Administration. Test Performed by: [facility] - [address] [address] 53 REFERENCE VALUE Not Applicable 54 RESULT: HLA-B27 antigen was not detected. ADDITIONAL INFORMATION Method: Flow Cytometry Performing Laboratory CLIA# [id number] Test Performed by: [address] [id number] 55 Test Performed by: [address] [address] 56 Negative for cANCA and pANCA patterns by immunofluorescence. ADDITIONAL INFORMATION This test was developed and its performance characteristics determined by [facility] in a manner consistent with CLIA requirements. This test has not been cleared or approved by the U.S. Food and Drug Administration. Test Performed by: [address] [address] 57 Please check this week 58 Please check this week 59 Please check this week 60 Please check this week 61 Please check this week 62 Normal Range 180 to 914 Indeterminate Range 145 to 180 Deficient Range <145 63 Please check this week 64 Test Performed by: [address] [address] 65 ADDITIONAL INFORMATION The thyroglobulin antibody testing method is an immunoenzymatic assay manufactured by [employer] and performed on the [employer] DXI 800. Values obtained from different assay methods or kits may be different and cannot be used interchangeably. The results cannot be interpreted as absolute evidence for the presence or absence of malignant disease. Test Performed by: [address] [address] 66 99th percentile=0.04 ng/mL Troponin results at [facility] and [facility] are not interchangeable. 67 Because ethnic data is not always readily [...] 15-29 5 Kidney failure <15 (or dialysis) 68 Because ethnic data is not always readily [...] 15-29 5 Kidney failure <15 (or dialysis) 69 99th percentile=0.04 ng/mL Troponin results at [facility] and [facility] are not interchangeable. 70 [facility] Severe Sepsis and Septic Shock Management Bundle Measure requires all lactic acids initially measuring >2.0 mmol/L be repeated. 71 FASTING 72 [facility] Severe Sepsis and Septic Shock Management Bundle Measure requires all lactic acids initially measuring >2.0 mmol/L be repeated. 73 Because ethnic data is not always readily [...] 15-29 5 Kidney failure <15 (or dialysis) 74 Reference Range and Interpretation: TnI (ng/mL) Interpretation Less Than 0.03 ng/mL Not supportive of diagnosis of IA 0.03 - 0.50 ng/mL Indeterminate: suggest serial studies if clinically indicated. Greater than 0.5 ng/mL Consistent with diagnosis of IA 75 <5.0 Negative 5.0 - 25.0 Indeterminate (Repeat testing recommended after 72 hours) >25.0 Positive Perimenopausal women can display HCG levels of up to 20 mIU/mL 76 Reference Range and Interpretation: TnI (ng/mL) Interpretation Less Than 0.03 ng/mL Not supportive of diagnosis of IA 0.03 - 0.50 ng/mL Indeterminate: suggest serial studies if clinically indicated. Greater than 0.5 ng/mL Consistent with diagnosis of IA 77 It is recognized that currently available assays [...] 95% confidence interval of 99.78 to 99.96%. 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 G47.62 Sleep related leg cramps M79.7 Fibromyalgia E78.5 Hyperlipidemia, unspecified F33.1 Major depressive disorder, recurrent, moderate E11.9 Type 2 diabetes mellitus without complications I10 Essential (primary) hypertension G89.4 Chronic pain syndrome Office Visit 06/27/2018 2:40p Main Office Oscar Alegria01.00 Acute maxillary MD Clay sinusitis, unspecified Office Visit 04/25/2018 3:15p Main Office Lakshmi Ida, [employer] TEACHER R21 Rash and other nonspecific skin eruption Office Visit 02/01/2018 6:00p Main Office Candida Avina, R25.2 Cramp and spasm M.D. S00.11xD Contusion of right eyelid and periocular area, subs encntr W01.198D Fall same lev from slip/trip w strike agnst oth object, subs Office Visit 01/18/2018 2:20p Main Office Williams Cintron, N39.0 Urinary tract M.D. infection, site not specified Z48.02 Encounter for removal of sutures S01.00xA Unspecified open wound of scalp, initial encounter Office Visit 12/28/2017 11:20a Main Office Nenita Walter, E11.9 Type 2 diabetes M.D. mellitus without complications F33.1 Major depressive disorder, recurrent, moderate Office Visit 11/29/2017 4:40p [facility] Nenita Walter, E11.9 Type 2 diabetes M.D. mellitus without complications F33.1 Major depressive disorder, recurrent, moderate R19.7 Diarrhea, unspecified Office Visit 09/27/2017 4:30p Main Office Oscar Williamson MD R11.0 Nausea R19.7 Diarrhea, unspecified Office Visit 09/13/2017 3:20p [facility] Nenita Walter, E11.9 Type 2 diabetes M.D. mellitus without complications F33.1 Major depressive disorder, recurrent, moderate R19.7 Diarrhea, unspecified Office Visit 08/31/2017 10:30a Main Office Nenita Walter, A09 Infectious M.D. gastroenteritis and colitis, unspecified E11.9 Type 2 diabetes mellitus without complications F33.1 Major depressive disorder, recurrent, moderate Office Visit 08/16/2017 10:30a Main Office Carmita De Luna, J06.9 Acute upper Afnp-C respiratory infection, unspecified J45.901 Unspecified asthma with (acute) exacerbation Office Visit 07/22/2017 10:30a Main Office Nenita Walter M.D. M79.671 Pain in right foot M54.5 Low back pain M79.7 Fibromyalgia Office Visit 06/21/2017 3:00p [facility] Nenita Walter, Z00.00 Encntr for M.D. 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 disorder, recurrent, moderate E11.9 Type 2 diabetes mellitus without complications I10 Essential (primary) hypertension E78.5 Hyperlipidemia, unspecified R07.9 Chest pain, unspecified Office Visit 04/03/2017 2:00p Main Office Nenita Walter, F33.1 Major depressive M.D. disorder, recurrent, moderate M54.5 Low back pain E11.9 Type 2 diabetes mellitus without complications E04.2 Nontoxic multinodular goiter M25.549 Pain in joints of unspecified hand Office Visit 12/12/2016 11:00a Main Office Oscar Santoyo N39.0 Urinary tract Jake Rodas infection, site not specified Office Visit 12/01/2016 7:40p Main Office Nenita Walter, F33.1 Major depressive M.D. disorder, recurrent, moderate T14.91 Suicide attempt Office Visit 10/19/2016 4:40p [facility] Nenita Walter, M54.5 Low back pain M.D. E11.9 Type 2 diabetes mellitus without complications F33.1 Major depressive disorder, recurrent, moderate E04.2 Nontoxic multinodular goiter Office Visit 08/26/2016 8:00a Main Office Nenita Walter M.D. R42 Dizziness and giddiness J06.9 Acute upper respiratory infection, unspecified R11.10 Vomiting, unspecified Office Visit 08/19/2016 10:50a [facility] Nenita Walter, L94.9 Localized M.D. connective tissue disorder, unspecified I10 Essential (primary) hypertension M25.549 Pain in joints of unspecified hand Office Visit 06/29/2016 10:30a [facility] Nenita Walter, I10 Essential (primary) M.D. 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 at Main Mgffqe1704/2019 - Kelly Lenz, FNPR60.0 Localized edema
--- NOTE | 2018-12-03 21:15 | ED ---
Complex/Multi-Sys Presentation - HPI Summary HPI Summary: This pt is a 48 y/o female presenting to [facility] c/o swelling in hands and legs. Pt reports bilateral hand swelling began "months ago." She also notes that 3 weeks ago the right side of her face had swelling. About 5 days ago she noticed bilateral leg swelling, left more than right. Pt saw her PCP and was referred to ENT but didn't go because she didn't think it was related to this. PMHx includes fibromyalgia, DM, nodules on her thyroid. Pt is followed up by Dr. Hodges. - History Of Current Complaint Chief Complaint: EDSoftTissueLowExtr Time Seen by Provider: 12/03/18 20:43 Hx Obtained From: Patient Onset/Duration: Lasting Weeks, Still Present Timing: Weeks Severity Currently: Mild Aggravating Factor(s): nothing Alleviating Factor(s): nothing Associated Signs And Symptoms: Positive: Other - swelling in hands, legs, and face.. Negative: SOB, Chest Pain, Fever - Allergies/Home Medications Allergies/Adverse Reactions: Allergies Allergy/AdvReac Type Severity Reaction Status Date / Time ibuprofen Allergy Intermediate Abdominal Verified 09/12/18 11:02 Pain PMH/Surg Hx/FS Hx/Imm Hx Endocrine/Hematology History: Reports: Hx Diabetes, Hx Thyroid Disease - hyper, Other Endocrine/Hematological Disorders - hyper thyroid Denies: Hx Anemia Cardiovascular History: Reports: Hx Hypertension Denies: Hx Congestive Heart Failure, Hx Pacemaker/ICD Respiratory History: Reports: Hx Asthma Denies: Hx Chronic Obstructive Pulmonary Disease (COPD) GI History: Reports: Other GI Disorders - patient states chronic nausea Denies: Hx Jaundice History: Denies: Hx Dialysis, Hx Renal Disease Musculoskeletal History: Reports: Hx Arthritis, Hx Back Problems, Hx Fibromyalgia Comment Only: Other Musculoskeletal History - fibromyalgia Sensory History: Reports: Hx Contacts or Glasses Denies: Hx Hearing Aid Opthamlomology History: Reports: Hx Contacts or Glasses Neurological History: Reports: Hx Migraine, Hx Nerve Disease - fibromyalgia, Other Neuro Impairments/Disorders - vertigo Psychiatric History: Reports: Hx Anxiety, Hx Depression, Hx Panic Disorder - ANXIETY, Hx Suicide Attempt Denies: Hx Eating Disorder - Cancer History Hx Chemotherapy: No Hx Radiation Therapy: No - Surgical History Surgery Procedure, Year, and Place: PARTIAL HYSTERECTOMY 09/1999, TUBAL 1996, GALLBLADDER 1994 - Immunization History Date of Tetanus Vaccine: Unk Date of Influenza Vaccine: None Fall 2013 Infectious Disease History: Yes Infectious Disease History: Reports: Hx of Known/Suspected MRSA, Hx Tuberculosis - pt reports ppd positive but chest xray negative. Denies: Traveled Outside the [place] in Last 30 Days - Family History Known Family History: Positive: Other - negative FHx of breast CA Negative: Cardiac Disease, Hypertension, Diabetes - Social History Alcohol Use: None Hx Substance Use: No Substance Use Type: Reports: None Substance Use Comment - Amount & Last Used: Unknown Hx Tobacco Use: No Smoking Status (MU): Never Smoked Tobacco Have You Smoked in the Last Year: No Review of Systems Negative: Fever, Chills ENT: Other - POS: facial swelling Respiratory: Negative Gastrointestinal: Negative Skin: Other - POS: swelling in legs and hands All Other Systems Reviewed And Are Negative: Yes Physical Exam - Summary Physical Exam Summary: VITAL SIGNS: Reviewed. GENERAL: Patient is a well-developed and nourished female who is lying comfortable in the stretcher. Patient is not in any acute respiratory distress. HEAD AND FACE: No signs of trauma. No ecchymosis, hematomas or skull depressions. No sinus tenderness. EYES: PERRLA, EOMI x 2, No injected conjunctiva, no nystagmus. EARS: Hearing grossly intact. Ear canals and tympanic membranes are within normal limits. MOUTH: Oropharynx within normal limits. NECK: Supple, trachea is midline, no adenopathy, no JVD, no carotid bruit, no c- spine tenderness, neck with full ROM. CHEST: Symmetric, no tenderness at palpation LUNGS: Clear to auscultation bilaterally. No wheezing or crackles. CVS: Regular rate and rhythm, S1 and S2 present, no murmurs or gallops appreciated. ABDOMEN: Soft, non-tender. No signs of distention. No rebound no guarding, and no masses palpated. Bowel sounds are normal. EXTREMITIES: FROM in all major joints, no edema, no cyanosis or clubbing. NEURO: Alert and oriented x 3. No acute neurological deficits. Speech is normal and follows commands. SKIN: Dry and warm Triage Information Reviewed: Yes Vital Signs On Initial Exam: Initial Vitals Temp Pulse Resp BP Pulse Ox 97.9 F 96 18 138/92 99 12/03/18 19:59 12/03/18 19:59 12/03/18 19:59 12/03/18 19:59 12/03/18 19:59 Vital Signs Reviewed: Yes Diagnostics - Vital Signs Vital Signs Temp Pulse Resp BP Pulse Ox 12/03/18 19:59 97.9 F 96 18 138/92 99 - Laboratory Result Diagrams: 12/03/18 22:13 12/03/18 22:13 Lab Statement: Any lab studies that have been ordered have been reviewed, and results considered in the medical decision making process. Complex Multi-Symp Course/Dx Assessment/Plan: This pt is a 48 y/o female presenting to [facility] c/o swelling in hands and legs. Pt reports bilateral hand swelling began "months ago." She also notes that 3 weeks ago the right side of her face had swelling. About 5 days ago she noticed bilateral leg swelling, left more than right. Pt saw her PCP and was referred to ENT but didn't go because she didn't think it was related to this. PMHx includes fibromyalgia, DM, nodules on her thyroid. Pt is followed up by Dr. Hodges. Past medical history for thyroid nodule, asthma, migraine headaches, diabetes and depressive disorder. In the ED course the patient has bilateral lower extremity edema, left more than the right. Therefore I ordered an ultrasound the lower extremities to rule out DVT. Blood work was ordered and is pending. This patient will be signed out to Dr. Nuno at shift change. - Diagnoses Provider Diagnoses: Lower extremity edema Discharge - Sign-Out/Discharge Documenting (check all that apply): Sign-Out Patient Signing out patient TO: Wes Nuno - pending US of LE Patient Received Moderate/Deep Sedation with Procedure: No - Discharge Plan Condition: Stable Disposition: HOME Prescriptions: Furosemide TAB* [Lasix TAB*] 20 mg PO DAILY #15 tab Patient Education Materials: Leg Edema (ED) Referrals: Nenita Walter MD [Primary Care Provider] - 1 Week Additional Instructions: RETURN TO THE EMERGENCY DEPARTMENT FOR ANY NEW OR WORSENING SYMPTOMS. - Attestation Statements Document Initiated by Scribe: Yes Documenting Scribe: Evelyn Aguirre Provider For Whom Scribe is Documenting (Include Credential): Geovanny Schmitt MD Scribe Attestation: Evelyn Mayo, scribed for Geovanny Schmitt MD on 12/04/18 at 1006. Status of Scribe Document: Ready
[2018-12-03 22:25] LABS: ABS Basophils 0.1 10^3/ul (0-0.2); ABS Eosinophils 0.1 10^3/ul (0-0.6); ABS Lymphocytes 2.1 10^3/ul (1.0-4.8); ABS Monocytes 0.9 10^3/ul (0-0.8); ABS Neutrophils 5.2 10^3/ul (1.5-7.7); Eosinophil % 1.8 %; Hematocrit 37 % (35-47); Hemoglobin 12.2 g/dL (12.0-16.0); Lymphocyte % 24.8 %; Mean Corpuscular HGB Conc 33 g/dL (31-36); Mean Corpuscular Hemoglobin 29 pg (27-31); Mean Corpuscular Volume 87 fL (80-97); Mean Platelet Volume 6.7 fL (7.4-10.4); Platelet Count 346 10^3/uL (150-450); Red Blood Count 4.22 10^6 /uL (3.70-4.87); Red Cell Distribution Width 15 % (10.5-15); White Blood Count 8.3 10^3/uL (3.5-10.8)
[2018-12-03 22:38] LABS: Albumin 3.6 g/dL (3.2-5.2); Albumin/Globulin Ratio 1.1 (1-3); BUN/Creatinine Ratio 19.2 (8-20); C Reactive Protein 17.09 mg/L (<8.01); EGFR African American 94.6 (>60); EGFR Non-African American 78.2 (>60); Globulin 3.2 g/dL (2-4); Potassium 4.1 mmol/L (3.5-5.0); Total Bilirubin 0.2 mg/dL (0.2-1.0); Total Protein 6.8 g/dL (6.4-8.9); Uric Acid 4.3 mg/dL (2.3-6.6)
[2018-12-03] MEDS ORDERED: oxyCODONE TAB* 5 MG TAB PO ONE (22:53)
[2018-12-03 23:19] LABS: Urine Appearance Clear; Urine Bacteria Absent (Absent); Urine Bilirubin Negative (Negative); Urine Blood Negative (Negative); Urine Color Yellow; Urine Glucose Negative (Negative); Urine Ketones Negative (Negative); Urine Nitrite Negative (Negative); Urine Protein Negative (Negative); Urine Red Blood Cell Trace(0-2/hpf) (Absent); Urine Specific Gravity 1.021 (1.010-1.030); Urine Squamous Epithelial Cell Present (Absent); Urine Urobilinogen Negative (Negative); Urine White Blood Cell Trace(0-5/hpf) (Absent)
[2018-12-03 23:32] LABS: Erythrocyte Sed Rate 20 mm/Hr (0-29)
[2018-12-04 00:39] VITALS: BP 115/71
--- NOTE | 2018-12-04 07:47 | ED ---
Progress - Progress Note Progress Note: The patient is a sign-out from Dr. Geovanny Schmitt MD, to Dr. Wes Nuno MD, at shift change at 2200 pending US. DVT Impression: No acute findings. No evidence of deep vein thrombosis. The patient can be discharge home with dx of lower extremity edema and rx of Lasix. She she agrees with this plan. - Results/Orders Results/Orders: Venous Doppler US: No acute findings. No evidence of deep vein thrombosis. ED physician has reviewed this radiology report. Course/Dx - Diagnoses Provider Diagnoses: Lower extremity edema Discharge - Sign-Out/Discharge Documenting (check all that apply): Patient Departure - Patient will be discharged home., Receiving Sign-Out Receiving patient FROM: Geovanny Schmitt - Patient is a sign-out from Dr. Schmitt at shift change pending CTA. Patient Received Moderate/Deep Sedation with Procedure: No - Discharge Plan Condition: Stable Disposition: HOME Prescriptions: Furosemide TAB* [Lasix TAB*] 20 mg PO DAILY #15 tab Patient Education Materials: Leg Edema (ED) Referrals: Nenita Walter MD [Primary Care Provider] - 1 Week Additional Instructions: RETURN TO THE EMERGENCY DEPARTMENT FOR ANY NEW OR WORSENING SYMPTOMS. - Billing Disposition and Condition Condition: STABLE Disposition: Home - Attestation Statements Document Initiated by Nileibrayshawn: Yes Documenting Scribe: Kristin Joyner Provider For Whom Kristin is Documenting (Include Credential): Dr. Wes Nuno MD Scribe Attestation: Kristin Mayo scribed for Dr. Wes Nuno MD on 12/05/18 at 0455. Scribe Documentation Reviewed: Yes Provider Attestation: The documentation as recorded by the Kristin gage accurately reflects the service I personally performed and the decisions made by me, Dr. Wes Nuno MD Status of Scribrayshawn Document: Viewed
== END 2018-12-04 00:37 | disposition home or self-care (01) ==
LOC: ED 19:44
DX: R60.0 Localized edema (principal); E11.9 Type 2 diabetes mellitus without complications; Z88.6 Allergy status to analgesic agent
CPT/HCPCS: 36415; 80053; 81003; 81015; 84550; 85025; 85652; 86140; 87086; 93970; 99282; A9270-GY

== ENCOUNTER 2019-03-15 21:02 | Emergency (ER) | payer MEDICARE, MEDICAID ==
--- OUTSIDE RECORDS SUMMARY | 2019-03-15 21:13 | XMS REPORT | Continuity of Care Document ---
:1970 External Reference #:[id number] Author Name Xiang Camacho DO MPH Address [address] [place] [address], [address] [place] [address] Care Team Providers Name Role Phone Nenita Walter M.D. - Family Medicine Care Team Information Processing Manager [phone] Problems Active Problems Provider Date Type 2 diabetes mellitus Xiang Camacho DO MPH Onset: 07/30/2013 Social History Type Date Description Comments Sex Unknown Tobacco Use Start: Unknown Never Smoked Cigarettes ETOH Use Denies alcohol use Tobacco Use Start: Unknown Patient has never smoked Smoking Status Reviewed: 02/25/19 Patient has never smoked Allergies, Adverse Reactions, Alerts Active Allergies Reaction Severity Comments Date Ibuprofen vomitting, stomach pain 07/30/2013 Medications Active Medications SIG Qnty Indications Ordering Date Provider Oxycodone HCL si by mouth 120tabs Xiang Camacho, 01/21/2015 15mg every 6 to 8 DO, [...] by mouth every Unknown 10mg Tablets day Methocarbamol take one by Unknown 500mg mouth every 12 Tablets hours as directed chronic pain. Benadryl Allergy 1/2-1 by mouth Unknown 25mg three times a Tablets day as directed Diazepam si by mouth Unknown 5mg Tablets every 12 hours Furosemide by mouth every Unknown 40mg Tablets day Immunizations Description No Information Available Vital Signs Date Vital Result Comment 02/25/2019 3:17pm BP Systolic 130 mmHg BP Diastolic 84 mmHg Heart Rate 86 /min Respiratory Rate 20 /min Height 60 inches 5'0" Weight 191.00 lb Pain Level 8 Pain at this time. Pain Level With Medicine 7 on average with meds Pain Level Without Medicine 9 without meds BMI (Body Mass Index) 37.3 kg/m2 01/25/2019 1:27pm BP Systolic 140 mmHg BP Diastolic 86 mmHg Heart Rate 82 /min Respiratory Rate 20 /min Height 60 inches 5'0" Weight 192.00 lb Pain Level 8 Pain at this time. Pain Level With Medicine 7 on average with meds Pain Level Without Medicine 9 without meds BMI (Body Mass Index) 37.5 kg/m2 Results Description No Information Available Procedures Date Code Description Status 01/25/2019 50388 Omt 1-2 Body Regions Completed 01/25/2019 78284 Therapeutic, Prophylactic Or Diagnostic Injection Subq/Im Completed 01/25/2019 72657 Injection For Nerve Block, Other Peripheral Nerve Or Completed Branch 01/25/2019 05131 Injection, Single Or Mutiple Trigger Points One Or Two Completed Muscles 01/25/2019 58936 Inject Tendon/Ligament Completed 01/25/2019 56267 Inject Tendon/Ligament Completed 01/25/2019 44674 Inject Tendon/Ligament Completed 01/25/2019 69902 Inject Tendon/Ligament Completed 12/27/2018 33341 Arthrocentesis/Aspiration/Inj Of Major Joint Or Bursa W/ Completed Ultra 11/27/2018 63542 Omt 3-4 Body Regions Completed 11/27/2018 62260 Therapeutic, Prophylactic Or Diagnostic Injection Subq/Im Completed 10/22/2018 51303 Therapeutic, Prophylactic Or Diagnostic Injection Subq/Im Completed 09/28/2018 00157 Brief Emotional/Behav Assessment W/ Scoring Doc Per Completed Standard Inst 09/28/2018 59702 Inject/Drain Arthrocentesis Small Joint/Bursa Completed Medical Devices Description No Information Available Encounters Type Date Location Provider Dx Diagnosis Office Visit 01/25/2019 Main Office as Of Camacho, Xiang, DO, G89.29 Other chronic pain 1:15p 08/03/13 MPH M54.5 Low back pain M99.03 Segmental and somatic dysfunction of lumbar region M53.3 Sacrococcygeal disorders, not elsewhere classified M99.04 Segmental and somatic dysfunction of sacral region M54.17 Radiculopathy, lumbosacral region M65.88 Other synovitis and tenosynovitis, other site M79.18 Myalgia, other site 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 R53.83 Other fatigue Office Visit 12/27/2018 2:30p Main Office as Xiang Camacho, G89.29 Other chronic Of 08/03/13 DO, MPH pain M54.2 Cervicalgia M54.6 Pain in thoracic spine M70.22 Olecranon bursitis, left elbow 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 Office Visit 11/27/2018 2:30p Main Office as Xiang Camacho G89.29 Other chronic Of 08/03/13 DO, MPH pain M54.2 Cervicalgia M99.01 Segmental and somatic dysfunction of cervical region M54.6 Pain in thoracic spine M99.02 Segmental and somatic dysfunction of thoracic region M54.5 Low back pain M99.03 Segmental and somatic dysfunction of lumbar region 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 R53.83 Other fatigue Office Visit 10/22/2018 2:45p Main Office as Xiang Camacho, G89.29 Other chronic Of 08/03/13 DO, MPH pain M54.2 Cervicalgia M54.6 Pain in thoracic spine M54.5 Low back pain R53.83 Other fatigue 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 Z71.89 Other specified counseling Office Visit 09/28/2018 1:30p Main Office as Xiang Camacho G89.29 Other chronic Of 08/03/13 DO, MPH pain M54.2 Cervicalgia M54.6 Pain in thoracic spine M54.5 Low back pain M53.3 Sacrococcygeal disorders, not elsewhere classified Z13.31 Encounter for screening for depression Z79.891 [facility] (current) use of opiate analgesic Office Visit 08/30/2018 2:45p Main Office as Xiang Camacho, G89.29 Other chronic Of 08/03/13 DO, MPH pain M54.2 Cervicalgia M54.6 Pain in thoracic spine M54.5 Low back pain 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 Assessments Date Code Description Provider 02/25/2019 G89.29 Other chronic pain CamachoMadelin coatesph, DO, MPH 02/25/2019 M54.2 Cervicalgia Camacho, Xiang, DO, MPH 02/25/2019 M99.01 Segmental and somatic dysfunction of Camacho, Xiang, DO, MPH cervical region 02/25/2019 M54.6 Pain in thoracic spine Camacho, Xiang, DO, MPH 02/25/2019 M99.02 Segmental and somatic dysfunction of Camacho, Xiang, DO, MPH thoracic region 02/25/2019 M54.5 Low back pain Camacho, Xiang, DO, MPH 02/25/2019 M99.03 Segmental and somatic dysfunction of lumbar CamachoMadelin coatesph, DO, MPH region 02/25/2019 R53.83 Other fatigue Camacho, Xiang, DO, MPH 02/25/2019 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18 Myalgia, other site Camacho, Xiang, DO, MPH 01/25/2019 Z79.891 [facility] (current) use of opiate analgesic Camacho, Xiang , DO, MPH 01/25/2019 R53.83 Other fatigue Camacho, Xiang, DO, MPH 12/27/2018 G89.29 Other chronic pain Camacho, Xiang, DO, MPH 12/27/2018 M54.2 Cervicalgia Camacho, Xiang, DO, MPH 12/27/2018 M54.6 Pain in thoracic spine Camacho, Xiang, DO, MPH 12/27/2018 M70.22 Olecranon bursitis, left elbow Camacho, Xiang, DO, MPH 12/27/2018 Z79.891 [facility] (current) use of opiate analgesic Camacho, Xiang , DO, MPH 11/27/2018 G89.29 Other chronic pain Camacho, Xiang, DO, MPH 11/27/2018 M54.2 Cervicalgia Camacho, Xiang, DO, MPH 11/27/2018 M99.01 Segmental and somatic dysfunction of Camacho, Xiang, DO, MPH cervical region 11/27/2018 M54.6 Pain in thoracic spine Camacho, Xiang, DO, MPH 11/27/2018 M99.02 Segmental and somatic dysfunction of Camacho, Xiang, DO, MPH thoracic region 11/27/2018 M54.5 Low back pain Camacho, Xiang, DO, MPH 11/27/2018 M99.03 Segmental and somatic dysfunction of lumbar Camacho, Xiang, DO, MPH region 11/27/2018 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 Camacho, Xiang , DO, MPH 11/27/2018 R53.83 Other fatigue Camacho, Xiang, DO, MPH 10/22/2018 G89.29 Other chronic pain Camacho, Xiang, DO, MPH 10/22/2018 M54.2 Cervicalgia Camacho, Xiang, DO, MPH 10/22/2018 M54.6 Pain in thoracic spine Camacho, Xiang, DO, MPH 10/22/2018 M54.5 Low back pain Camacho, Xiang, DO, MPH 10/22/2018 R53.83 Other fatigue Camacho, Xiang, DO, MPH 10/22/2018 Z79.891 [facility] (current) use of opiate analgesic CaamchoXiang coates DO, MPH 10/22/2018 Z71.89 Other specified counseling Xiang Camacho DO, MPH 09/28/2018 G89.29 Other chronic pain Xiang Camacho DO, MPH 09/28/2018 M54.2 Cervicalgia Xiang Camacho DO, MPH 09/28/2018 M54.6 Pain in thoracic spine CamachoXiang coates DO, MPH 09/28/2018 M54.5 Low back pain Xiang Camacho DO, MPH 09/28/2018 M53.3 Sacrococcygeal disorders, not elsewhere Xiang Camacho DO, MPH classified 09/28/2018 Z13.31 Encounter for screening for depression Xiang Camacho DO, MPH 09/28/2018 Z79.891 [facility] (current) use of opiate analgesic Xiang Camacho DO, MPH 08/30/2018 G89.29 Other chronic pain Xiang Camacho DO, MPH 08/30/2018 M54.2 Cervicalgia Xiang Camacho DO, MPH 08/30/2018 M54.6 Pain in thoracic spine CamachoXiang coates DO, MPH 08/30/2018 M54.5 Low back pain Xiang Camacho DO, MPH 08/30/2018 Z79.891 [facility] (current) use of opiate analgesic Xiang Camacho DO, MPH Plan of Treatment Future Appointment(s):03/27/2019 3:15 pm - Xiang Camacho DO, MPH at Main Office as Of 08/03/1407 - Xiang Camacho DO, MPHG89.29 Other chronic [...] Continue current medical pain management and OMT. [id number]. OMT performed.M54.6 Pain in thoracic spineComments: Chronic.Symptoms [...] Continue current medical pain management and OMT. [id number]. OMT performed after evaluation. HVLA.R53.83 Other fatigueComments:Symptoms and complaints discussed and reviewed today. No significant changes in physical findings. Continue current medical pain management. B12 injection administered after patient evaluated. 1ml IM for fatigue. (See Consent for injection-B12 document for lot number and expiration date.)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New Labs:Urine Drug Screen, Ordered: 02/25/19Comments:Urine drug screen sample taken today to monitor opiate use and to monitor use of illicit substances.Will discuss results at next appointment.The following tests were ordered:6 AM, AMPH, SATHISH, LASHAY, BUP, CARIS, COCM, COT, ETG, FENT, MCSHSG, OPI, OXY, PCP, TAPEN, XTSY, ZOLP. A urine drug test (UDT) was ordered for this patient and collected [...] controlled substances and is considered standard of care.AllComments:Continue current medical pain management ; injection therapy, osteopathic manipulation, PT / modalities, and consults as needed to manage chronic pain.Non - opioid pain management discussed and optionsdiscussed.Side effects discussed; anticipatory guidance given. Patient clearly understand and agree with all medical treatments and suggestions. All medicines prescribed are adequate and appropriate for this patient's complaint of pain, medical history, physical, and personal goals.Goals of Treatment are to provide adequate and appropriate multidisciplinary medical pain management to increase/ maintain patient's quality of life and functionality while maintaining satisfactory side effect profile andminimizing senior care end-organ damage. Importance of regular nutrition throughout the day discussed.Activity as toleratedContinue with PCP Functional Status Description No Information Available Mental Status Description No Information Available Referrals Description No Information Available
--- NOTE | 2019-03-15 21:26 | ED ---
Lower Extremity - HPI Summary HPI Summary: 48 yo female presents with RIGHT great toe injury. She tells me that about 30min [employer] she stubbed her toe on the washing machine and her nail bent and started bleeding. She put it back into place and applied a gauze dressing and came to the ED. She is unsure the date of her last tetanus. She is diabetic and is most concerned about infection and states that she "does not want to lose her toe". She has not taken anything OTC for her discomfort. - History of Current Complaint Chief Complaint: EDExtremityLower Stated Complaint: RIGHT FOOT BIG TOE NAIL INJURY PER PT Time Seen by Provider: 03/15/19 21:26 Hx Obtained From: Patient Mechanism Of Injury: Blunt Trauma Severity Initially: Severe Severity Currently: Severe Pain Intensity: 9 Pain Scale Used: 0-10 Numeric Alleviating Factor(s): Rest, Elevation Able to Bear Weight: Yes - Allergies/Home Medications Allergies/Adverse Reactions: Allergies Allergy/AdvReac Type Severity Reaction Status Date / Time ibuprofen Allergy Intermediate Abdominal Verified 03/15/19 21:07 Pain PMH/Surg Hx/FS Hx/Imm Hx Endocrine/Hematology History: Reports: Hx Diabetes, Hx Thyroid Disease - hyper, Other Endocrine/Hematological Disorders - hyper thyroid Denies: Hx Anemia Cardiovascular History: Reports: Hx Hypertension Denies: Hx Congestive Heart Failure, Hx Pacemaker/ICD Respiratory History: Reports: Hx Asthma Denies: Hx Chronic Obstructive Pulmonary Disease (COPD) GI History: Reports: Other GI Disorders - patient states chronic nausea Denies: Hx Jaundice History: Denies: Hx Dialysis, Hx Renal Disease Musculoskeletal History: Reports: Hx Arthritis, Hx Back Problems, Hx Fibromyalgia Comment Only: Other Musculoskeletal History - fibromyalgia Sensory History: Reports: Hx Contacts or Glasses Denies: Hx Hearing Aid Opthamlomology History: Reports: Hx Contacts or Glasses Neurological History: Reports: Hx Migraine, Hx Nerve Disease - fibromyalgia, Other Neuro Impairments/Disorders - vertigo Psychiatric History: Reports: Hx Anxiety, Hx Depression, Hx Panic Disorder - ANXIETY, Hx Suicide Attempt Denies: Hx Eating Disorder - Cancer History Hx Chemotherapy: No Hx Radiation Therapy: No - Surgical History Surgery Procedure, Year, and Place: PARTIAL HYSTERECTOMY 09/1999, TUBAL 1996, GALLBLADDER 1994 - Immunization History Date of Tetanus Vaccine: Unk Date of Influenza Vaccine: None Fall 2013 Infectious Disease History: Yes Infectious Disease History: Reports: Hx of Known/Suspected MRSA, Hx Tuberculosis - pt reports ppd positive but chest xray negative. Denies: Traveled Outside the [place] in Last 30 Days - Family History Known Family History: Positive: None - reviewed & noncontributory, Other - negative FHx of breast CA Negative: Cardiac Disease, Hypertension, Diabetes - Social History Alcohol Use: None Hx Substance Use: No Substance Use Type: Reports: None Substance Use Comment - Amount & Last Used: Unknown Hx Tobacco Use: No Smoking Status (MU): Never Smoked Tobacco Have You Smoked in the Last Year: No Review of Systems Constitutional: Negative Cardiovascular: Negative Respiratory: Negative Musculoskeletal: Other - Right great toe pain Skin: Negative Neurological: Negative Psychological: Normal All Other Systems Reviewed And Are Negative: No Physical Exam - Summary Physical Exam Summary: GENERAL: NAD. WDWN. No pain distress. SKIN: RIGHT GREAT TOENAIL inferior lateral aspect with slight avulsion, but remains intact. No bleeding. Nail is not moveable with mild to moderate pressure CHEST: No accessory muscle use. Breathing comfortably and in no distress. CV: Pulses intact. Cap refill <2seconds MSK: RIGHT GREAT TOE: NTTP FROM at [facility]TP and IP. NTTP distal toe. NEURO: Alert. PSYCH: Age appropriate behavior. Triage Information Reviewed: Yes Vital Signs On Initial Exam: Initial Vitals Temp Pulse Resp BP Pulse Ox 97.5 F 94 16 138/82 98 03/15/19 21:05 03/15/19 21:05 03/15/19 21:05 03/15/19 21:05 03/15/19 21:05 Vital Signs Reviewed: Yes Diagnostics - Vital Signs Vital Signs Temp Pulse Resp BP Pulse Ox 03/15/19 21:05 97.5 F 94 16 138/82 98 - Laboratory Lab Statement: Any lab studies that have been ordered have been reviewed, and results considered in the medical decision making process. Lower Extremity Course/Dx - Course Course Of Treatment: Pt requests nail to be removed, but it appears quite stable at this point and the cuticle is only partially exposed at the lateral aspect. I recommended against removing the nail as it will grow and heal and is protecting the skin underneath. tdap was updated today. Will place pt on keflex for prophylactic infection. Toe dressed with telfa. Advised to f/u with podiatry or PCP early next week for a recheck - Diagnoses Provider Diagnoses: Avulsion of toenail Discharge ED - Sign-Out/Discharge Documenting (check all that apply): Patient Departure Patient Received Moderate/Deep Sedation with Procedure: No - Discharge Plan Condition: Stable Disposition: HOME Prescriptions: Cephalexin CAP* [Keflex CAP*] 500 mg PO TID #21 cap Patient Education Materials: Nail Avulsion (ED) Referrals: Nenita Walter MD [Primary Care Provider] - Ayo Velazquez DPM [Doctor of Podiatric Medicine] - 1 Week Additional Instructions: If you develop a fever, shortness of breath, chest pain, new or worsening symptoms - please call your PCP or go to the ED immediately. 1) Change the dressing to your nail daily 2) I recommend that you follow up with your Licensed Plumber early next week for a recheck 3) Take your antibiotic as directed - Billing Disposition and Condition Condition: STABLE Disposition: Home
[2019-03-15] MEDS ORDERED: Cephalexin CAP* 500 MG PO ONE (21:44)
[2019-03-15] MEDS ORDERED: Tetan/Diph/Pertus SYR(Tdap)* 0.5 ML SYR(BOOSTRIX) use SYR IM ONE (21:44)
[2019-03-15 22:20] VITALS: BP 160/94
== END 2019-03-15 22:00 | disposition home or self-care (01) ==
LOC: ED 21:02
DX: S91.201A Unspecified open wound of right great toe with damage to nail, initial encounter (principal); W22.09XA Striking against other stationary object, initial encounter; Y92.9 Unspecified place or not applicable; E11.9 Type 2 diabetes mellitus without complications; E03.9 Hypothyroidism, unspecified; I10 Essential (primary) hypertension; F41.9 Anxiety disorder, unspecified; F32.9 Major depressive disorder, single episode, unspecified; J45.909 Unspecified asthma, uncomplicated
CPT/HCPCS: 90715; 96372; 99282; A9270-GY

== ENCOUNTER 2019-07-04 14:16 | Emergency (ER) | payer MEDICARE, MEDICAID ==
--- NOTE | 2019-07-04 14:28 | ED ---
HPI Chest Pain - HPI Summary HPI Summary: This pt is a 48 Y/O F presenting to [facility] with a CC of L anterior CP that is rated a 9/10 and started at 0930 this morning. She states that the pain radiates into her L neck, back and jaw. She was prescribed nitro by her PCP and took 2 this morning without relief. She received 325 ASA enroute to [facility] without relief. She states that she used to see Dr. Abraham for her heart. 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 She states that this is the first episode for a couple months. She states that she hasnt been eating well. She denies any fevers, chills, SOB , N/V, and headaches. She states that she has a PMHx of fibromyalgia, DM, HTN, Asthma. She states no alleviating factors. She states that her pain is increased with palpation and stress. - History of Current Complaint Chief Complaint: EDChestPainROMI Time Seen by Provider: 07/04/19 14:18 Hx Obtained From: Patient Onset/Duration: Started Hours Ago - 5, Still Present Time of Onset: 09:30 Timing: Constant Initial Severity: Severe Current Severity: Severe Pain Intensity: 9 Chest Pain Location: Left Anterior Chest Pain Radiates: Yes Chest Pain Radiates To:: Back - L, Jaw - L, Neck - L Aggravating Factor(s): Other: - palpation, stress Alleviating Factor(s): Nothing Associated Signs and Symptoms: Positive: Chest Pain. Negative: Headaches, Shortness of Breath, Fever, Chills, Nausea, Vomiting - Additional Pertinent History Primary Care Physician: ADELINE - Allergy/Home Medications Allergies/Adverse Reactions: Allergies Allergy/AdvReac Type Severity Reaction Status Date / Time ibuprofen Allergy Intermediate Abdominal Verified 07/04/19 14:24 Pain Home Medications: Home Medications Albuterol HFA INHALER* [Ventolin HFA Inhaler*] 2 puff INH QID PRN 07/04/19 [ History Confirmed 07/04/19] Atorvastatin* [Lipitor*] 20 mg PO DAILY 07/04/19 [History Confirmed 07/04/19] Cetirizine* [ZyrTEC 10 MG TAB*] 10 mg PO DAILY 07/04/19 [History Confirmed 07/04] Cyanocobalamin TAB* [Vitamin B12 TAB*] 1,000 mcg PO DAILY 07/04/19 [History Confirmed 07/04/19] Gabapentin TAB(NF) [Neurontin 600 mg TAB(NF)] 1,200 mg PO BEDTIME 07/04/19 [ History Confirmed 07/04/19] Lisinopril TAB* [Prinivil TAB 5 MG*] 10 mg PO DAILY 07/04/19 [History Confirmed 07/04/19] Magnesium Oxide TAB* [MagOx 400 TAB*] 500 mg PO DAILY 07/04/19 [History Confirmed 07/04/19] Metoclopramide TAB* [Reglan TAB*] 10 mg PO Q8H PRN 07/04/19 [History Confirmed 07/04/19] Mometasone Furoate 0.1 % TOPICAL BID 07/04/19 [History Confirmed 07/04/19] Montelukast Sodium TAB* [Singulair TAB*] 10 mg PO DAILY 07/04/19 [History Confirmed 07/04/19] Mupirocin 2% OINT* [Bactroban 2 % Oint*] 1 applic TOPICAL BID 07/04/19 [History Confirmed 07/04/19] Naproxen [Naproxen 500 mg tab] 500 mg PO Q12H 07/04/19 [History Confirmed ] Ranitidine TAB (NF) [Zantac TAB (NF)] 150 mg PO BID 07/04/19 [History Confirmed 07/04/19] Venlafaxine ER (NF) [Effexor ER (NF)] 150 mg PO DAILY 07/04/19 [History Confirmed 07/04/19] Venlafaxine EXT RELEASE CAP* [Effexor Xr CAP*] 75 mg PO DAILY 07/04/19 [History Confirmed 07/04/19] PMH/Surg Hx/FS Hx/Imm Hx Previously Healthy: Yes Endocrine/Hematology History: Reports: Hx Diabetes, Hx Thyroid Disease - hyper, Other Endocrine/Hematological Disorders - hyper thyroid Denies: Hx Anemia Cardiovascular History: Reports: Hx Hypertension Denies: Hx Congestive Heart Failure, Hx Pacemaker/ICD Respiratory History: Reports: Hx Asthma Denies: Hx Chronic Obstructive Pulmonary Disease (COPD) GI History: Reports: Other GI Disorders - patient states chronic nausea Denies: Hx Jaundice History: Denies: Hx Dialysis, Hx Renal Disease Musculoskeletal History: Reports: Hx Arthritis, Hx Back Problems, Hx Fibromyalgia Comment Only: Other Musculoskeletal History - fibromyalgia Sensory History: Reports: Hx Contacts or Glasses Denies: Hx Hearing Aid Opthamlomology History: Reports: Hx Contacts or Glasses Neurological History: Reports: Hx Migraine, Hx Nerve Disease - fibromyalgia, Other Neuro Impairments/Disorders - vertigo Psychiatric History: Reports: Hx Anxiety, Hx Depression, Hx Panic Disorder - ANXIETY, Hx Suicide Attempt Denies: Hx Eating Disorder - Cancer History Hx Chemotherapy: No Hx Radiation Therapy: No - Surgical History Surgical History: Yes Surgery Procedure, Year, and Place: PARTIAL HYSTERECTOMY 09/1999, TUBAL 1996, GALLBLADDER 1994 - Immunization History Date of Tetanus Vaccine: Unk Date of Influenza Vaccine: None Fall 2013 Immunizations Up to Date: Yes Infectious Disease History: No Infectious Disease History: Reports: Hx of Known/Suspected MRSA, Hx Tuberculosis - pt reports ppd positive but chest xray negative. Denies: Traveled Outside the [place] in Last 30 Days - Family History Known Family History: Positive: None - reviewed & noncontributory, Other - negative FHx of breast CA Negative: Cardiac Disease, Hypertension, Diabetes - Social History Occupation: Employed Full-time Lives: With Family Alcohol Use: None Hx Substance Use: No Substance Use Type: Reports: None Substance Use Comment - Amount & Last Used: Unknown Hx Tobacco Use: No Smoking Status (MU): Never Smoked Tobacco Have You Smoked in the Last Year: No Review of Systems Negative: Fever, Chills Positive: Chest Pain Negative: Shortness Of Breath Negative: Vomiting, Nausea Positive: Other - radiated L jaw, L neck, and L back pain Negative: Headache All Other Systems Reviewed And Are Negative: Yes Physical Exam - Summary Physical Exam Summary: Appearance: The patient is well-nourished in no acute distress and in no acute pain. Skin: The skin is warm and dry and skin color reflects adequate perfusion. HEENT: The head is normocephalic and atraumatic. The pupils are equal and reactive. The conjunctivae are clear and without drainage. Nares are patent and without drainage. Mouth reveals moist mucous membranes and the throat is without erythema and exudate. The external ears are intact. The ear canals are patent and without drainage. The tympanic membranes are intact. Neck: The neck is supple with full range of motion and non-tender. There are no carotid bruits. There is no neck vein distension. Respiratory: Chest is non-tender. Lungs are clear to auscultation and breath sounds are symmetrical and equal. Cardiovascular: Heart is regular rate and rhythm. There is no murmur or rub auscultated. There is no peripheral edema and pulses are symmetrical and equal. Tender in her Anterior Chest. Abdomen: The abdomen is soft and non-tender. There are normal bowel sounds heard in all four quadrants and there is no organomegaly palpated. Musculoskeletal: There is no back tenderness noted. Extremities are non-tender with full range of motion. There is good capillary refill. There is no peripheral edema or calf tenderness elicited. Neurological: Patient is alert and oriented to person, place and time. The patient has symmetrical motor strength in all four extremities. Cranial nerves are grossly intact. Deep tendon reflexes are symmetrical and equal in all four extremities. Psychiatric: The patient has an appropriate affect and does not exhibit any anxiety or depression. Triage Information Reviewed: Yes Vital Signs On Initial Exam: Initial Vitals Temp Pulse Resp BP Pulse Ox 98 F 107 22 155/102 100 07/04/19 14:17 07/04/19 14:17 07/04/19 14:17 07/04/19 14:17 07/04/19 14:17 Vital Signs Reviewed: Yes Procedures - Sedation Patient Received Moderate/Deep Sedation with Procedure: No Diagnostics - Vital Signs Vital Signs Temp Pulse Resp BP Pulse Ox 07/04/19 14:17 98 F 107 22 155/102 100 - Laboratory Result Diagrams: 07/03/19 15:03 07/03/19 15:03 Lab Statement: Any lab studies that have been ordered have been reviewed, and results considered in the medical decision making process. - Radiology CXR Radiology Interpretation Completed By: Radiologist Summary of Radiographic Findings: No active cardiopulmonary disease. ED physician has reviewed this report. - Ultrasound Gallbladder US Ultrasound Interpretation Completed By: Radiologist Summary of Ultrasound Findings: 1. No acute findings. 2. Gallbladder surgically absent. Mild dilatation of common bile duct, likely. secondary to cholecystectomy. 3. Hepatic steatosis. ED physician has reviewed this report. - EKG 1422 Cardiac Rate: Tachycardia - 102 BPM EKG Rhythm: Sinus Tachycardia ST Segment: Normal Ectopy: None Summary of EKG Findings: Sinus Tachycardia at 102 BPM, normal ST, no ectopy, no STEMI. Interpreted by Dr. Red 07/04/2019 1425 Re-Evaluation - Re-Evaluation First Eval Re-Evaluation Time: 15:00 Change: Worse Comment: Pt began vomiting. Chest Pain Course/Dx - Course Course Of Treatment: Ms. Barker comes in with a myriad of complaints. She was nontoxic in appearance with stable vitals. She was ruled out for any cardiac event. She had mild liver enzyme elevations and I think it is likely that she has a viral infection at this point. I recommended close follow-up with Dr. Walter and symptomatic treatment. - Diagnoses Provider Diagnoses: Viral syndrome Discharge ED - Sign-Out/Discharge Documenting (check all that apply): Patient Departure - discharge - Discharge Plan Condition: Stable Disposition: HOME Patient Education Materials: Viral Syndrome (ED) Referrals: Nenita Walter MD [Primary Care Provider] - 2 Days Additional Instructions: PLEASE FOLLOW UP WITH YOUR PRIMARY CARE PROVIDER IN 1-3 DAYS AND RETURN TO THE EMERGENCY DEPARTMENT FOR ANY NEW OR WORSENING SYMPTOMS. - Billing Disposition and Condition Condition: STABLE Disposition: Home - Attestation Statements Document Initiated by Kristin: Yes Documenting Scribe: Dameon Pandey Provider For Whom Kristin is Documenting (Include Credential): Wes Red MD Scribe Attestation: I, Dameon Pandey, scribed for Wes Red MD on 07/04/19 at 8446. Scribe Documentation Reviewed: Yes Provider Attestation: The documentation as recorded by the Dameon gage accurately reflects the service I personally performed and the decisions made by me, Wes Red MD Status of Scribe Document: Viewed
[2019-07-04 15:23] LABS: ABS Lymphocytes 1.7 10^3/ul (1.0-4.8); ABS Monocytes 0.7 10^3/ul (0-0.8); ABS Neutrophils 3.9 10^3/ul (1.5-7.7); Eosinophil % 0.5 %; Hematocrit 40 % (35-47); Hemoglobin 13.9 g/dL (12.0-16.0); Lymphocyte % 27.3 %; Mean Corpuscular HGB Conc 35 g/dL (31-36); Mean Corpuscular Hemoglobin 30 pg (27-31); Mean Corpuscular Volume 86 fL (80-97); Mean Platelet Volume 7.3 fL (7.4-10.4); Nucleated Red Blood Cells % 0.1; Platelet Count 300 10^3/uL (150-450); Red Blood Count 4.65 10^6 /uL (3.70-4.87); Red Cell Distribution Width 15 % (10-15); White Blood Count 6.4 10^3/uL (3.5-10.8)
[2019-07-04 15:45] LABS: Albumin 4.2 g/dL (3.2-5.2); Albumin/Globulin Ratio 1.3 (1-3); BUN/Creatinine Ratio 19.4 (8-20); Calcium 9.3 mg/dL (8.6-10.3); EGFR African American 112.7 (>60); EGFR Non-African American 93.2 (>60); Globulin 3.3 g/dL (2-4); Potassium 3.2 mmol/L (3.5-5.0); Total Protein 7.5 g/dL (6.4-8.9)
--- OUTSIDE RECORDS SUMMARY | 2019-07-04 16:04 | XMS REPORT | Continuity of Care Document ---
:1970 External Reference #:[id number] Author Name Xiang Camacho DO MPH Address [address] [place] [address], [address] [place] [address] Care Team Providers Name Role Phone Nenita Walter M.D. 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 Active Problems Provider Date Type 2 diabetes mellitus Xiang Camacho DO MPH Onset: 07/30/2013 Social History Type Date Description Comments Sex Unknown Tobacco Use Start: Unknown Never Smoked Cigarettes ETOH Use Denies alcohol use Tobacco Use Start: Unknown Patient has never smoked Smoking Status Reviewed: 06/11/19 Patient has never smoked Allergies, Adverse Reactions, Alerts Active Allergies Reaction Severity Comments Date Ibuprofen vomitting, stomach pain 07/30/2013 Medications Active Medications SIG Qnty Indications Ordering Date Provider Oxycodone HCL si by mouth 150tabs Xiang Camacho, 01/21/2015 15mg every 6 to 8 DO, MPH Tablets hours as directed chronic pain patient, temporary increase Naproxen DR tate Unknown 500mg Tablets DR Barbosa Unknown 50mg Tablets Singulair 1 po daily Unknown 10mg Tablets Venlafaxine HCL 30tabs Unknown 225mg Tablets Lisinopril 1 by mouth daily Unknown 5mg Tablets Abilify si by mouth Unknown 2mg Tablets every day as directed Reglan 1 by mouth every Unknown 10mg Tablets day Methocarbamol take one by mouth Unknown 500mg every 12 hours as Tablets directed chronic pain. Benadryl Allergy 1/2-1 by mouth Unknown 25mg three times a day Tablets as directed Furosemide by mouth every Unknown 40mg Tablets day Chlorpromazine HCL 60tabs Unknown 25mg Tablets Gabapentin si by mouth 90tabs Unknown 600mg Tablets three times a day as directed Immunizations Description No Information Available Vital Signs Date Vital Result Comment 06/11/2019 3:24pm BP Systolic 130 mmHg BP Diastolic 78 mmHg Heart Rate 80 /min Respiratory Rate 20 /min Height 60 inches 5'0" Weight 201.00 lb Pain Level 7 Pain at this time. Pain Level With Medicine 6 on average with meds Pain Level Without Medicine 9 without meds BMI (Body Mass Index) 39.3 kg/m2 05/08/2019 9:14am BP Systolic 142 mmHg BP Diastolic 86 mmHg Heart Rate 84 /min Respiratory Rate 20 /min Height 60 inches 5'0" Weight 202.00 lb Pain Level 6 Pain at this time. Pain Level With Medicine 5 on average with meds Pain Level Without Medicine 9 without meds BMI (Body Mass Index) 39.4 kg/m2 Results Description No Information Available Procedures Date Code Description Status 02/25/2019 53261 Omt 3-4 Body Regions Completed 02/25/2019 25569 Therapeutic, Prophylactic Or Diagnostic Injection Subq/Im Completed 01/25/2019 69063 Omt 1-2 Body Regions Completed 01/25/2019 51541 Therapeutic, Prophylactic Or Diagnostic Injection Subq/Im Completed 01/25/2019 34434 Injection For Nerve Block, Other Peripheral Nerve Or Completed Branch 01/25/201944780 Injection, Single Or Mutiple Trigger Points One Or Two Completed Muscles 01/25/2019 16046 Inject Tendon/Ligament Completed 01/25/2019 86085 Inject Tendon/Ligament Completed 01/25/201919290 Inject Tendon/Ligament Completed 01/25/201980693 Inject Tendon/Ligament Completed 12/27/201877767 Arthrocentesis/Aspiration/Inj Of Major Joint Or Bursa W/ Completed Ultra Medical Devices Description No Information Available Encounters Type Date Location Provider Dx Diagnosis Office Visit 05/08/2019 Main Office as Of Xiang Camacho DO, G89.29 Other chronic pain 9:30a 08/03/13 MPH M54.2 Cervicalgia M54.5 Low back pain M54.6 Pain in thoracic spine Z79.891 svp (current) use of opiate analgesic Office Visit 03/28/2019 11:15a Main Office as Xiang Camacho, G89.29 Other chronic Of 08/03/13 DO, MPH pain M54.2 Cervicalgia M54.6 Pain in thoracic spine M54.5 Low back pain M53.3 Sacrococcygeal disorders, not elsewhere classified Z79.891 svp (current) use of opiate analgesic Office Visit 02/25/2019 3:15p Main Office as Xiang Camacho, G89.29 Other chronic Of 08/03/13 DO, MPH pain M54.2 Cervicalgia M99.01 Segmental and somatic dysfunction of cervical region M54.6 Pain in thoracic spine M99.02 Segmental and somatic dysfunction of thoracic region M54.5 Low back pain M99.03 Segmental and somatic dysfunction of lumbar region R53.83 Other fatigue Z79.891 FPC (current) use of opiate analgesic Office Visit 01/25/2019 1:15p Main Office as Xiang Camacho, G89.29 Other chronic Of 08/03/13 DO, MPH pain M54.5 Low back pain M99.03 Segmental and somatic dysfunction of lumbar region M53.3 Sacrococcygeal disorders, not elsewhere classified M99.04 Segmental and somatic dysfunction of sacral region M54.17 Radiculopathy, lumbosacral region M65.88 Other synovitis and tenosynovitis, other site M79.18 Myalgia, other site Z79.891 FPC (current) use of opiate analgesic R53.83 Other fatigue Office Visit 12/27/2018 2:30p Main Office as Xiang Camacho, G89.29 Other chronic Of 08/03/13 DO, MPH pain M54.2 Cervicalgia M54.6 Pain in thoracic spine M70.22 Olecranon bursitis, left elbow Z79.891 svp (current) use of opiate analgesic Assessments Date Code Description Provider 06/11/2019 G89.29 Other chronic pain Xiang Camacho DO, MPH 06/11/2019 M54.2 Cervicalgia Xiang Camacho DO, MPH 06/11/2019 M54.5 Low back pain Camacho, Xaing, DO, MPH 06/11/2019 M54.6 Pain in thoracic spine Camacho, Xiang, DO, MPH 06/11/2019 Z79.891 FPC (current) use of opiate analgesic Camacho, Xiang , DO, MPH 05/08/2019 G89.29 Other chronic pain Camacho, Xiang, DO, MPH 05/08/2019 M54.2 Cervicalgia Camacho, Xiang, DO, MPH 05/08/2019 M54.5 Low back pain Camacho, Xiang, DO, MPH 05/08/2019 M54.6 Pain in thoracic spine Camacho, Xiang, DO, MPH 05/08/2019 Z79.891 svp (current) use of opiate analgesic Camacho, Xiang , DO, MPH 03/28/2019 G89.29 Other chronic pain Camacho, Xiang, DO, MPH 03/28/2019 M54.2 Cervicalgia Camacho, Xiang, DO, MPH 03/28/2019 M54.6 Pain in thoracic spine Camacho, Xiang, DO, MPH 03/28/2019 M54.5 Low back pain Camacho, Xiang, DO, MPH 03/28/2019 M53.3 Sacrococcygeal disorders, not elsewhere Camacho, Xiang, DO, MPH classified 03/28/2019 Z79.891 FPC (current) use of opiate analgesic Camacho, Xiang , DO, MPH 02/25/2019 G89.29 Other chronic pain Camacho, Xiang, DO, MPH 02/25/2019 M54.2 Cervicalgia Camacho, Xiang, [...] of lumbar Camacho, Xiang, DO, MPH region 02/25/2019 R53.83 Other fatigue Camacho, Xiang, DO, MPH 02/25/2019 Z79.891 FPC (current) use of opiate analgesic CamachoXiang coates DO, MPH 01/25/2019 G89.29 Other chronic pain CamachoXiang caotes DO, MPH 01/25/2019 M54.5 Low back pain Xiang Camacho DO, MPH 01/25/2019 M99.03 Segmental and somatic dysfunction of lumbar CamachoXiang coates DO, MPH region 01/25/2019 M53.3 Sacrococcygeal disorders, not elsewhere CamachoXiang coates DO, MPH classified 01/25/2019 M99.04 Segmental and somatic dysfunction of sacral CamachoXiang coates DO, MPH region 01/25/2019 M54.17 Radiculopathy, lumbosacral region Xiang Camacho DO, MPH 01/25/2019 M65.88 Other synovitis and tenosynovitis, other CamachoXiang coates DO , MPH site 01/25/2019 M79.18 Myalgia, other site CamachoXiang coates DO, MPH 01/25/2019 Z79.891 FPC (current) use of opiate analgesic CamachoXiang coates DO, MPH 01/25/2019 R53.83 Other fatigue CamachoXiang coates DO, MPH 12/27/2018 G89.29 Other chronic pain CamachoXiang coates DO, MPH 12/27/2018 M54.2 Cervicalgia Xiang Camacho DO, MPH 12/27/2018 M54.6 Pain in thoracic spine Xiang Camacho DO, MPH 12/27/2018 M70.22 Olecranon bursitis, left elbow Xiang Camacho DO, MPH 12/27/2018 Z79.891 FPC (current) use of opiate analgesic Xiang Camacho DO, MPH Plan of Treatment Future Appointment(s):07/11/2019 3:00 pm - Xiang Camacho DO MPH at Main Office as Of 08/03/1411 - Xiang Camacho DO, MPHG89.29 Other chronic painComments:Chronic. Symptoms and complaints discussed and reviewed today. No significant changes in physical findings. Continue current medical pain management.M54.2 CervicalgiaComments:Chronic. Symptoms and complaints discussed and reviewed today. No significant changes in physical findings. Continue current medical pain management.M54.5 Low back painComments:Chronic. Symptoms and complaints discussed and reviewed today.No changes in physical findings. Patient is stable and comfortable when current medical therapy is rendered.M54.6 Pain in thoracic spineComments:Chronic.Symptoms and complaints discussed and reviewed today. No significant changes in physical findings. Continue current medical pain management.Z79.891 svp (current) use of opiate analgesicNew Labs:Urine Drug Screen, Ordered: 06/11/19Comments:Urine drug screen sample taken today to monitor opiate use and to monitor use of illicit substances.Will discuss results at next appointment.The following tests were ordered:6 AM, AMPH, SATHISH, LASHAY, BUP, CARIS, COCM, ETG, FENT, MCSHSG, OPI, OXY, PCP, TAPEN, XTSY, ZOLP. A urine drug test (UDT) was ordered for this patient and collected on site today. Creatinine has been ordered as well for specimen validity, not for kidney function. Preliminary UDT results are not final and should not be used to determine patient care or plan of treatment. Initially a qualitative immunoassay screen will bedone. Any inconsistent or positive findings will be further tested with a more comprehensive quantitative confirmation LCMS study. It is part of the treatment process of prescribing controlled substances and is considered standard of care.AllComments:Continue current medical pain management; injection therapy, osteopathic manipulation, PT / modalities, [...] while maintaining satisfactory side effect profile andminimizing custodial end-organ damage. Importance of regular nutrition throughout the day discussed.Activity as toleratedContinue with PCP Functional Status Description No Information Available Mental Status Description No Information Available Referrals Description No Information Available
--- OUTSIDE RECORDS SUMMARY | 2019-07-04 16:04 | XMS REPORT | Continuity of Care Document ---
:1970 External Reference #:[id number] Author Name Xiang Camacho DO MPH Address [address] [place] [address], [address] [place] [address] Care Team Providers Name Role Phone Nenita Walter M.D. 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 Problems Active Problems Provider Date Type 2 diabetes mellitus Xiang Camacho DO MPH Onset: 07/30/2013 Social History Type Date Description Comments Sex Unknown Tobacco Use Start: Unknown Never Smoked Cigarettes ETOH Use Denies alcohol use Tobacco Use Start: Unknown Patient has never smoked Smoking Status Reviewed: 05/08/19 Patient has never smoked Allergies, Adverse Reactions, [...] Available Vital Signs Date Vital Result Comment 05/08/2019 9:14am BP Systolic 142 mmHg BP Diastolic 86 mmHg Heart Rate 84 /min Respiratory Rate 20 /min Height 60 inches 5'0" Weight 202.00 lb Pain Level 6 Pain at this time. Pain Level With Medicine 5 on average with meds Pain Level Without Medicine 9 without meds BMI (Body Mass Index) 39.4 kg/m2 03/28/2019 11:22am BP Systolic 134 mmHg BP Diastolic 86 mmHg Heart Rate 82 /min Respiratory Rate 20 /min Height 60 inches 5'0" Weight 190.00 lb Pain Level 7 Pain at this time. Pain Level With Medicine 7 on average with meds Pain Level Without Medicine 9 without meds BMI (Body Mass Index) 37.1 kg/m2 Results Description No Information Available Procedures Date Code Description Status 02/25/2019 88084 Omt 3-4 Body Regions Completed 02/25/2019 98267 Therapeutic, Prophylactic Or Diagnostic Injection Subq/Im Completed 01/25/2019 94253 Omt 1-2 Body Regions Completed 01/25/2019 41995 Therapeutic, Prophylactic Or Diagnostic Injection Subq/Im Completed 01/25/2019 58086 Injection For Nerve Block, Other Peripheral Nerve Or Completed Branch 01/25/2019 30319 Injection, Single Or Mutiple Trigger Points One Or Two Completed Muscles 01/25/2019 38753 Inject Tendon/Ligament Completed 01/25/2019 08649 Inject Tendon/Ligament Completed 01/25/201904576 Inject Tendon/Ligament Completed 01/25/201929394 Inject Tendon/Ligament Completed 12/27/2018 04156 Arthrocentesis/Aspiration/Inj Of Major Joint Or Bursa W/ Completed Ultra 11/27/2018 20473 Omt 3-4 Body Regions Completed 11/27/2018 01356 Therapeutic, Prophylactic Or Diagnostic Injection Subq/Im Completed Medical Devices Description No Information Available Encounters Type Date Location Provider Dx Diagnosis Office Visit 03/28/2019 Main Office as Of Xiang Camacho DO, G89.29 Other chronic pain 11:15a 08/03/13 MPH M54.2 Cervicalgia M54.6 Pain in thoracic spine M54.5 Low back pain M53.3 Sacrococcygeal disorders, not elsewhere classified 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 Office Visit 02/25/2019 3:15p Main Office as Xiang Camacho, G89.29 Other chronic Of 08/03/13 DO, MPH pain M54.2 Cervicalgia M99.01 Segmental and somatic dysfunction of cervical region M54.6 Pain in thoracic spine M99.02 Segmental and somatic dysfunction of thoracic region M54.5 Low back pain M99.03 Segmental and somatic dysfunction of lumbar region R53.83 Other fatigue Z79.891 shelter (current) use of opiate analgesic Office Visit [...] other site M79.18 Myalgia, other site 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 R53.83 Other fatigue Office Visit 12/27/2018 2:30p Main Office as Xiang Camacho, G89.29 Other chronic Of 08/03/13 DO, MPH pain M54.2 Cervicalgia M54.6 Pain in thoracic spine M70.22 Olecranon bursitis, left elbow Z79.891 shelter (current) use of opiate analgesic Office Visit 11/27/2018 2:30p Main Office as Xiang Camacho G89.29 Other chronic Of 08/03/13 DO, MPH pain M54.2 Cervicalgia M99.01 Segmental and somatic dysfunction of cervical region M54.6 Pain in thoracic spine M99.02 Segmental and somatic dysfunction of thoracic region M54.5 Low back pain M99.03 Segmental and somatic dysfunction of lumbar region Z79.891 shelter (current) use of opiate analgesic R53.83 Other fatigue Assessments Date Code Description Provider 05/08/2019 G89.29 Other chronic pain Camacho, Xiang, DO, MPH 05/08/2019 M54.2 Cervicalgia Camacho, Xiang, DO, MPH 05/08/2019 M54.5 Low back pain Camacho, Xiang, DO, MPH 05/08/2019 M54.6 Pain in thoracic spine Camacho, Xiang, DO, MPH 05/08/2019 Z79.891 shelter (current) use of opiate analgesic Camacho, Xiang , DO, MPH 03/28/2019 G89.29 Other chronic pain Camacho, Xiang, DO, MPH 03/28/2019 M54.2 Cervicalgia Camacho, Xiang, DO, MPH 03/28/2019 M54.6 Pain in thoracic spine Camacho, Xiang, DO, MPH 03/28/2019 M54.5 Low back pain Camacho, Xiang, DO, MPH 03/28/2019 M53.3 Sacrococcygeal disorders, not elsewhere Camacho, Xiang, DO, MPH classified 03/28/2019 Z79.891 shelter (current) use of opiate analgesic Camacho, Xiang , DO, MPH 02/25/2019 G89.29 Other chronic pain Camacho, Xiang, DO, MPH 02/25/2019 M54.2 Cervicalgia Camacho, Xiang, DO, MPH 02/25/2019 M99.01 Segmental and somatic dysfunction of Camacho, Ixang, DO, MPH cervical region 02/25/2019 M54.6 Pain in thoracic spine Camacho, Xiang, DO, MPH 02/25/2019 M99.02 Segmental and somatic dysfunction of Camacho, Xiang, DO, MPH thoracic region 02/25/2019 M54.5 Low back pain Camacho, Xiang, DO, MPH 02/25/2019 M99.03 Segmental and somatic dysfunction of lumbar Camacho, Xiang, DO, MPH region 02/25/2019 R53.83 Other fatigue Camacho, Xiang, DO, MPH 02/25/2019 Z79.891 shelter (current) use of opiate analgesic Camacho, Xiang [...] site Camacho, Xiang, DO, MPH 01/25/2019 Z79.891 shelter (current) use of opiate analgesic Camacho, Xiang , DO, MPH 01/25/2019 R53.83 Other fatigue Camacho, Xiang, DO, MPH 12/27/2018 G89.29 Other chronic pain Camacho, Xiang, DO, MPH 12/27/2018 M54.2 Cervicalgia Camacho, Xiang, DO, MPH 12/27/2018 M54.6 Pain in thoracic spine Camacho, Xiang, DO, MPH 12/27/2018 M70.22 Olecranon bursitis, left elbow Camacho, Xiang, DO, MPH 12/27/2018 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 Symptoms and complaints discussed and reviewed [...] physical findings. 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 Importance of regular nutrition throughout the day discussed.Activity as toleratedContinue with PCP Functional Status Description No Information Available Mental Status Description No Information Available Referrals Description No Information Available
[2019-07-04] MEDS: NS 0.9% 1000 ML** 1,000 ML IV ONE (20:20)
[2019-07-04 22:14] VITALS: BP 147/82
== END 2019-07-04 22:19 | disposition home or self-care (01) ==
LOC: ED 14:16
DX: B34.9 Viral infection, unspecified (principal); E11.9 Type 2 diabetes mellitus without complications; E05.90 Thyrotoxicosis, unspecified without thyrotoxic crisis or storm; I10 Essential (primary) hypertension; J45.909 Unspecified asthma, uncomplicated; F41.9 Anxiety disorder, unspecified; F32.9 Major depressive disorder, single episode, unspecified; Z90.711 Acquired absence of uterus with remaining cervical stump; Z98.51 Tubal ligation status; Z90.49 Acquired absence of other specified parts of digestive tract; Z79.899 Other long term (current) drug therapy; Z88.8 Allergy status to other drugs, medicaments and biological substances
CPT/HCPCS: 36415; 71045; 76705; 80053; 83605; 84484; 85025; 85379; 93005; 96360; 96361; 99284